=== PATIENT | female | born 1940 | race Caucasian/White ===

== ENCOUNTER 2016-04-10 15:50 | Emergency (ER) | payer MEDICARE, OTHER ==
[2016-04-10] MEDS ORDERED: SODIUM CHLORIDE 0.9% 1,000 ML IV ONE (16:44)
[2016-04-10] MEDS ORDERED: ONDANSETRON 4 MG/2 ML VIAL IVP STA (16:44)
[2016-04-10] MEDS ORDERED: DEXAMETHASONE 10 MG/ML VIAL IVP STA (16:45)
[2016-04-10] MEDS ORDERED: DEXTROSE 5%-0.9% NACL 1,000 ML IV ONE (16:45)
[2016-04-10] MEDS ORDERED: ONDANSETRON 4 MG/2 ML VIAL ONE (16:50)
[2016-04-10] MEDS ORDERED: DEXAMETHASONE 10 MG/ML VIAL ONE (16:50)
[2016-04-10] MEDS ORDERED: TRACE ELEMENTS V CONC 1 ML VIAL IV SCH (19:00)
== END 2016-04-10 18:50 | disposition home or self-care (01) ==
DX: R10.31 Right lower quadrant pain (principal); G89.29 Other chronic pain; F11.23 Opioid dependence with withdrawal; I10 Essential (primary) hypertension; K21.9 Gastro-esophageal reflux disease without esophagitis; F03.90 Unspecified dementia, unspecified severity, without behavioral disturbance, psychotic disturbance, mood disturbance, and anxiety; F17.200 Nicotine dependence, unspecified, uncomplicated; Z90.49 Acquired absence of other specified parts of digestive tract; Z90.710 Acquired absence of both cervix and uterus; Z86.73 Personal history of transient ischemic attack (TIA), and cerebral infarction without residual deficits; Z85.828 Personal history of other malignant neoplasm of skin

== ENCOUNTER 2016-04-16 10:55 | Outpatient (CLI) | payer MEDICARE, OTHER | END 2016-04-16 10:56 | disposition home or self-care (01) | DX: I27.2 Other secondary pulmonary hypertension (principal); J84.10 Pulmonary fibrosis, unspecified; K22.70 Barrett's esophagus without dysplasia ==

== ENCOUNTER 2016-06-04 11:08 | Outpatient (CLI) | payer MEDICARE, OTHER ==
[2016-06-04] MEDS ORDERED: DIPYRIDAMOLE 50 MG/10 ML VIAL IVP ONE (12:00)
== END 2016-06-04 11:09 | disposition home or self-care (01) ==
DX: R10.9 Unspecified abdominal pain (principal)
CPT/HCPCS: 78452; 93017; A9500; J1245

== ENCOUNTER 2016-06-14 16:18 | Outpatient (CLI) | payer MEDICARE, OTHER | END 2016-06-14 16:19 | disposition critical access hospital (66) | DX: R10.9 Unspecified abdominal pain (principal) | CPT/HCPCS: A0425; A0429 ==

== ENCOUNTER 2016-06-14 16:25 | Emergency (ER) | payer MEDICARE, OTHER ==
[2016-06-14] MEDS ORDERED: FOLIC ACID INJ 1 MG, THIAMINE INJ 100 MG, MAGNESIUM SULFATE 2 GM, MULTIVITAMIN 10 ML in... IV STA ×5 (16:53)
[2016-06-14] MEDS ORDERED: HYDROmorphone 1 MG/ML SYRINGE IVP STA ×2 (16:53→18:02)
--- NOTE | 2016-06-14 16:56 | ED Physician Documentation ---
PD HPI ABD PAIN - Stated complaint Stated Complaint: ABD PAIN - Chief complaint Chief Complaint: Abd Pain - History obtained from History obtained from: Patient, EMS - History of Present Illness Timing - onset: Chronic (76-year-old woman with history of ruptured diverticulitis has had daily severe abdominal pain for the last 14 months without remission. She's had multiple studies including upper and lower endoscopies showing Olvera's esophagus, basically negative CT scans. She's been in pain management with her primary care physician. She has no pain medications at home and says the pain is as bad as it always is. It starts in the low abdomen and radiates up, not to the back. It doesn't change with eating. She's been losing weight.) Review of Systems Constitutional: denies: Fever, Chills GI: reports: Abdominal Pain. 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 HEENT: Cataracts Derm: Skin cancer surgery - Present Medications Home Medications: Ambulatory Orders Medication Instructions Recorded Confirmed Losartan [Cozaar] 50 mg PO DAILY 09/13/13 01/31/16 Vitamin E 400 unit PO DAILY 09/13/13 01/31/16 Calcium Carbonate [Tums (Calcium 1,250 mg PO DAILY 01/31/16 01/31/16 Carbonate 500mg)] Cholecalciferol (Vitamin D3) 400 unit PO DAILY 01/31/16 01/31/16 [Vitamin D3] Cholestyramine [Questran] 4 gm PO BID 01/31/16 01/31/16 Fentanyl [Fentanyl 50mcg patch] 50 mcg TOP Q72H 01/31/16 01/31/16 Methylphenidate HCl 5 mg PO BID 01/31/16 01/31/16 Metoclopramide [Reglan] 10 mg PO BID 01/31/16 01/31/16 Metoprolol Tartrate 25 mg PO BID 12/16/16 12/16/16 Multivitamin [Theragran] 1 tab PO DAILY 01/31/16 01/31/16 Venlafaxine ER [Effexor ER] 75 mg PO BIDWM 01/31/16 01/31/16 Amox/Clav 875/125 [Augmentin] 1 each PO Q12H #14 tablet 02/01/16 predniSONE [Deltasone] 20 mg PO [id number] #21 tab 04/10/16 - Allergies Allergies/Adverse Reactions: Allergies Allergy/AdvReac Type Severity Reaction Status Date / Time No Known Drug Allergies Allergy Verified 12/20/15 19:27 - Social History Does the pt smoke?: Yes Smoking Status: Current some day smoker Does the pt drink ETOH?: No Does the pt have substance abuse?: No - Immunizations Immunizations are current?: Yes PD ED PE NORMAL - Vitals Vital signs reviewed: Yes - General General: Alert and oriented X 3, No acute distress - Abdomen Abdomen: Normal bowel sounds, Soft, Non tender - Neuro Neuro: Alert and oriented X 3, Normal speech - Psych Psych: Normal mood, Normal affect Results - Vitals Vitals: Vital Signs - 24 hr 06/14/16 06/14/16 06/14/16 16:29 17:51 19:13 Temperature 37.2 C Heart Rate 87 78 73 Respiratory 18 18 16 Rate Blood Pressure 183/110 H 183/103 H 187/89 H O2 Saturation 99 98 96 Oxygen O2 Source [Without Activity] Nasal cannula O2 Source [With Activity] Nasal cannula O2 Source Room air - Labs Labs: Laboratory Tests 06/14/16 06/14/16 17:30 17:30 WBC 6.4 RBC 4.09 L Hgb 12.7 Hct 37.3 MCV 91.3 MCH 31.1 H MCHC 34.1 RDW 15.1 H Plt Count 196 MPV 8.8 Neut # 4.9 Lymph # 1.1 L [place] # 0.4 Eos # 0.0 Baso # 0.0 Absolute Nucleated RBC 0.00 Nucleated RBCs 0.1 Sodium 138 Potassium 3.7 Chloride 100 L Carbon Dioxide 29 Anion Gap 9.0 BUN 17 Creatinine 0.6 Estimated GFR (MDRD) 97 Glucose 108 H Calcium 9.0 Total Bilirubin 0.5 AST 20 ALT 21 Alkaline Phosphatase 70 Total Protein 6.5 L Albumin 3.8 Globulin 2.7 Albumin/Globulin Ratio 1.4 Lipase 15 L PD MEDICAL DECISION MAKING - ED course ED course: 76-year-old woman with chronic abdominal pain presents by ambulance for same. She doesn't have any pain medications at home. She is frustrated by the whole process, but I discussed with her that I didn't have any diagnostics available at my disposal that would likely lend further differentiation to cause for abdominal pain. She is frustrated by lack of answers and the chronicity of pain. She specifically requests that I send her home with Dilaudid which I discussed with her his against personal policy. I spoke with Dr. Parmar, her physician who recommended 6 Vicodin to go and he will see her tomorrow. Departure - Departure Disposition: Home, Self Care Clinical Impression: Chronic abdominal pain Condition: Good Record reviewed to determine appropriate education?: Yes Comments: Call Dr Parmar's office tomorrow for further guidance and treatment. Your blood pressure was elevated today on check in to the emergency department. This does not mean that you have hypertension, it is a common phenomenon to check into the emergency department and have elevated blood pressure. I recommend that you see your primary care physician within the week to have it rechecked when you're feeling better.
[2016-06-14] MEDS ORDERED: HYDROmorphone 1 MG/ML SYRINGE ONE ×2 (16:57→18:18)
[2016-06-14 17:44] LABS: BASOPHILS % (AUTO) 0.7 %; EOSINOPHILS % (AUTO) 0.2 %; HCT - HEMATOCRIT 37.3 % (37.0-47.0); HGB - HEMOGLOBIN 12.7 g/dL (12.0-16.0); LYMPHOCYTES # (AUTO) 1.1 10^3/uL (1.5-3.5); MEAN CORPUSCULAR HEMOGLOBIN 31.1 pg (27.0-31.0); MEAN CORPUSCULAR HGB CONC 34.1 g/dL (32.0-36.0); MEAN CORPUSCULAR VOLUME 91.3 fL (81.0-99.0); MEAN PLATELET VOLUME 8.8 fL (7.9-10.8); MONOCYTES # (AUTO) 0.4 10^3/uL (0.0-1.0); MONOCYTES % (AUTO) 5.8 %; NEUTROPHILS # (AUTO) 4.9 10^3/uL (1.5-6.6); NEUTROPHILS % (AUTO) 76.3 %; NUCLEATED RED BLOOD CELLS AUTO 0.1 /100WBC; RED BLOOD COUNT 4.09 10^6/uL (4.20-5.40); RED CELL DISTRIBUTION WIDTH 15.1 % (12.0-15.0); UNCORRECTED WHITE BLOOD COUNT 6.4 x10^3/uL; WHITE BLOOD COUNT 6.4 x10^3/uL (4.8-10.8)
[2016-06-14 17:53] LABS: ALBUMIN/GLOBULIN RATIO 1.4 (1.0-2.2); BILIRUBIN,TOTAL 0.5 mg/dL (0.2-1.0); CREATININE 0.6 mg/dL (0.4-1.0); POTASSIUM 3.7 mmol/L (3.5-5.0); TOTAL PROTEIN 6.5 g/dL (6.7-8.2)
[2016-06-14 19:16] VITALS: BP 187/89
[2016-06-14] MEDS ORDERED: HYDROcod/ACET 5/325 Prepack 6 PO STA (19:21)
[2016-06-14] MEDS ORDERED: HYDROcod/ACET 5/325 Prepack 6 PO ONE (19:22)
== END 2016-06-14 19:36 | disposition home or self-care (01) ==
LOC: EDUNIT# → ED 16:25
DX: R10.84 Generalized abdominal pain (principal); G89.29 Other chronic pain; K22.70 Barrett's esophagus without dysplasia; I10 Essential (primary) hypertension; F03.90 Unspecified dementia, unspecified severity, without behavioral disturbance, psychotic disturbance, mood disturbance, and anxiety; Z86.73 Personal history of transient ischemic attack (TIA), and cerebral infarction without residual deficits; K21.9 Gastro-esophageal reflux disease without esophagitis; Z87.11 Personal history of peptic ulcer disease; M19.90 Unspecified osteoarthritis, unspecified site; F17.200 Nicotine dependence, unspecified, uncomplicated
CPT/HCPCS: 80053; 83690; 85025; 96365; 96375; 96376; 99283; 99284

== ENCOUNTER 2016-06-17 14:10 | Emergency (ER) | payer MEDICARE, OTHER ==
[2016-06-17] MEDS ORDERED: ONDANSETRON 4 MG/2 ML VIAL IVP STA (15:14)
[2016-06-17] MEDS ORDERED: HYDROcod/ACETAM 5/325 MG TABLET PO STA (15:14)
[2016-06-17] MEDS ORDERED: SODIUM CHLORIDE 0.9% 1,000 ML IV ONE (15:14)
[2016-06-17] MEDS ORDERED: HYDROcod/ACETAM 5/325 MG TABLET ONE (15:24)
[2016-06-17] MEDS ORDERED: ONDANSETRON 4 MG/2 ML VIAL ONE (15:24)
[2016-06-17] MEDS ORDERED: IOPAMIDOL-300 100 ML VIAL IVP ONE (16:43)
[2016-06-17] MEDS ORDERED: KETOROLAC 60 MG/2 ML VIAL IVP STA (17:33)
[2016-06-17] MEDS ORDERED: KETOROLAC 30 MG/ML VIAL ONE (17:34)
== END 2016-06-17 17:48 | disposition home or self-care (01) ==
DX: K59.01 Slow transit constipation (principal); R10.84 Generalized abdominal pain; G89.29 Other chronic pain; I10 Essential (primary) hypertension; K21.9 Gastro-esophageal reflux disease without esophagitis; Z87.11 Personal history of peptic ulcer disease; M19.90 Unspecified osteoarthritis, unspecified site; Z87.891 Personal history of nicotine dependence
CPT/HCPCS: 74177; 80053; 81003; 83690; 85025; 96374; 96375; 99283; 99284; Q9967

== ENCOUNTER 2016-07-21 10:36 | Outpatient (CLI) | payer MEDICARE, OTHER ==
[2016-07-21 10:57] LABS: BASOPHILS % (AUTO) 0.5 %; EOSINOPHILS # (AUTO) 0.1 10^3/uL (0.0-0.7); EOSINOPHILS % (AUTO) 1.1 %; HCT - HEMATOCRIT 40.9 % (37.0-47.0); HGB - HEMOGLOBIN 13.7 g/dL (12.0-16.0); LYMPHOCYTES # (AUTO) 2.2 10^3/uL (1.5-3.5); MEAN CORPUSCULAR HEMOGLOBIN 31.5 pg (27.0-31.0); MEAN CORPUSCULAR HGB CONC 33.6 g/dL (32.0-36.0); MEAN CORPUSCULAR VOLUME 93.9 fL (81.0-99.0); MEAN PLATELET VOLUME 7.4 fL (7.9-10.8); MONOCYTES # (AUTO) 0.5 10^3/uL (0.0-1.0); MONOCYTES % (AUTO) 7.5 %; NEUTROPHILS # (AUTO) 4.3 10^3/uL (1.5-6.6); NEUTROPHILS % (AUTO) 59.9 %; RED BLOOD COUNT 4.35 10^6/uL (4.20-5.40); RED CELL DISTRIBUTION WIDTH 14.3 % (12.0-15.0); UNCORRECTED WHITE BLOOD COUNT 7.2 x10^3/uL; WHITE BLOOD COUNT 7.2 x10^3/uL (4.8-10.8)
[2016-07-21 11:09] LABS: ALBUMIN/GLOBULIN RATIO 1.4 (1.0-2.2); BILIRUBIN,TOTAL 0.6 mg/dL (0.2-1.0); CALCIUM 9.7 mg/dL (8.5-10.3); CREATININE 0.7 mg/dL (0.4-1.0); POTASSIUM 3.8 mmol/L (3.5-5.0)
== END 2016-07-21 10:37 | disposition home or self-care (01) ==
LOC: LAB 10:36
PROVIDERS: ATTEND Internal Medicine Gastroenterology
DX: R10.13 Epigastric pain (principal); R63.4 Abnormal weight loss; R11.0 Nausea
CPT/HCPCS: 36415; 80053; 82533; 84443; 85025; 85651; G0475; 87389

== ENCOUNTER 2016-11-09 14:42 | Outpatient (CLI) | payer MEDICARE, OTHER ==
--- NOTE | 2016-11-09 15:41 | XRAY Report ---
TWO VIEW CHEST: 11/09/2016 CLINICAL INDICATION: Cough. COMPARISON: 01/31/2016. FINDINGS: Frontal and lateral views of the chest demonstrate a normal cardiac silhouette. COPD and f ibrosis is stable. No new consolidation, effusion, or pneumothorax is present. IMPRESSION: STABLE COPD AND FIBROSIS. NO EVIDENCE OF ACUTE CARDIOPULMONARY DISEASE. JOB #: [id number] EXT JOB #:[id number]
== END 2016-11-09 14:43 | disposition home or self-care (01) ==
LOC: DI 14:42
PROVIDERS: ATTEND Specialist
DX: J18.9 Pneumonia, unspecified organism (principal); J44.9 Chronic obstructive pulmonary disease, unspecified; J84.10 Pulmonary fibrosis, unspecified
CPT/HCPCS: 36415; 71020; 80053; 85025

== ENCOUNTER 2016-11-09 15:22 | Outpatient (CLI) | payer MEDICARE, OTHER ==
[2016-11-09 15:54] LABS: HGB - HEMOGLOBIN 13.9 g/dL (12.0-16.0); MONOCYTES # (AUTO) 0.6 10^3/uL (0.0-1.0); UNCORRECTED WHITE BLOOD COUNT 8.1 x10^3/uL; WHITE BLOOD COUNT 8.1 x10^3/uL (4.8-10.8)
[2016-11-09 16:12] LABS: BASOPHILS % (AUTO) 0.6 %; EOSINOPHILS # (AUTO) 0.2 10^3/uL (0.0-0.7); EOSINOPHILS % (AUTO) 1.9 %; HCT - HEMATOCRIT 41.5 % (37.0-47.0); LYMPHOCYTES # (AUTO) 1.6 10^3/uL (1.5-3.5); LYMPHOCYTES % (AUTO) 20.1 %; MEAN CORPUSCULAR HEMOGLOBIN 32.2 pg (27.0-31.0); MEAN CORPUSCULAR HGB CONC 33.5 g/dL (32.0-36.0); MEAN CORPUSCULAR VOLUME 96.1 fL (81.0-99.0); MEAN PLATELET VOLUME 7.9 fL (7.9-10.8); MONOCYTES % (AUTO) 7.1 %; NEUTROPHILS # (AUTO) 5.7 10^3/uL (1.5-6.6); NEUTROPHILS % (AUTO) 70.3 %; RED BLOOD COUNT 4.31 10^6/uL (4.20-5.40)
[2016-11-09 16:13] LABS: ALBUMIN/GLOBULIN RATIO 1.4 (1.0-2.2); BILIRUBIN,TOTAL 0.5 mg/dL (0.2-1.0); CALCIUM 9.1 mg/dL (8.5-10.3); CREATININE 0.6 mg/dL (0.4-1.0); POTASSIUM 3.8 mmol/L (3.5-5.0); TOTAL PROTEIN 6.8 g/dL (6.7-8.2)
== END 2016-11-09 15:23 | disposition home or self-care (01) ==
LOC: LAB 15:22
PROVIDERS: ATTEND Specialist
DX: J18.9 Pneumonia, unspecified organism (principal)
CPT/HCPCS: 36415; 80053; 85025

== ENCOUNTER 2017-01-13 09:18 | Outpatient (CLI) | payer MEDICARE, OTHER ==
--- NOTE | 2017-01-14 10:06 | DEXA Report ---
DEXA SCAN: 01/13/2017 CLINICAL INDICATION: Postmenopausal. TECHNIQUE: Dual energy x-ray absorptiometry (DXA) was performed on a [employer] system. Regions measured are the AP spine, femoral neck, and, if needed, forearm. COMPARISON: None. In accordance with the International Society for Clinical Densitometry (ISCD) guidelines, data from previous exams may be reanalyzed using current recommendations and techniques. This is done to allow a more accurate basis for comparison with the current study. FINDINGS LUMBAR SPINE DATA: REGION BMD (g/cm/cm) T-SCORE Z-SCORE L1 1.526 3.3 5.5 L2 1.623 3.5 5.7 L3 1.566 3.0 5.2 L4 1.609 3.4 5.6 TOTAL 1.583 3.4 5.6 NOTE: All evaluable vertebrae are used for classification. HIP DATA: REGION BMD (g/cm/cm) T-SCORE Z-SCORE Neck 0.893 -1.0 1.2 TOTAL 0.872 -1.1 1.0 NOTE: The femoral neck or total proximal femur, whichever is lowest, is used for classification. IMPRESSION THE WHO CLASSIFICATION BASED ON THE INTERNATIONAL REFERENCE STANDARD: OSTEOPENIA. FRACTURE RISK: INCREASED. RECOMMENDATION: Patients with diagnosis of osteoporosis or osteopenia should have regular bone mineral density assessment. For those eligible for Medicare, routine testing is allowed once every 2 years. Testing frequency can be increased for patients who have rapidly progressing disease or for those who are receiving medical therapy to restore bone mass. COMMENT: World Health Organization (WHO) definitions for osteoporosis and osteopenia: NORMAL BMD: T-score at -1.0 or higher, fracture risk is low. OSTEOPENIA BMD: T-score between -1.0 and -2.5, fracture risk is increased. OSTEOPOROSIS BMD: T-score at -2.5 or lower, fracture risk high. National Osteoporosis Foundation recommends: 1. Obtain adequate dietary calcium (at least 1200 mg per day) and vitamin D (400 -800 international units per day). 2. Participate, as appropriate, in regular weightbearing and muscle- strengthening exercise. 3. Avoid tobacco use and reduce alcohol and caffeine intake. 4. For more detailed information see the website at www.NOF.org. MTDD
== END 2017-01-13 09:19 | disposition home or self-care (01) ==
LOC: DI 09:18
PROVIDERS: ATTEND Family Medicine
DX: Z13.820 Encounter for screening for osteoporosis (principal); M85.88 Other specified disorders of bone density and structure, other site; Z78.0 Asymptomatic menopausal state
CPT/HCPCS: 77080

== ENCOUNTER 2017-01-13 09:19 | Outpatient (CLI) | payer MEDICARE, OTHER ==
--- NOTE | 2017-01-14 20:26 | Mammography Report ---
DIGITAL SCREENING MAMMOGRAM: 01/13/2017 CLINICAL INDICATION: A 76-year-old for screening. COMPARISON: 11/2015, 03/2014, 09/2012, 09/2010, 09/2009. TECHNIQUE: Routine CC and MLO projections as well as bilateral laterally exaggerated craniocaudal vi ews were obtained of the breasts. The breasts again demonstrate heterogeneously dense fibroglandular parenchyma bilaterally. Coarse an d punctate, typically benign calcifications are present. No suspicious masses, clustered microcalcif ications, or regions of architectural distortion are identified. IMPRESSION: BENIGN FINDINGS. RECOMMENDATION: ROUTINE ANNUAL SCREENING UNLESS OTHERWISE CLINICALLY INDICATED. BIRADS CATEGORY: 2, BENIGN FINDINGS. STANDARD QUALIFYING STATEMENTS 1. This examination was reviewed with the aid of Computed-Aided Detection (CAD). 2. A negative or benign imaging report should not delay biopsy if clinically suspicious findings are present. Consider surgical consultation if warranted. More than 5% of cancers are not identified b y imaging. 3. Dense breasts may obscure an underlying neoplasm. JOB #: [id number] EXT JOB #:[id number]
== END 2017-01-13 09:20 | disposition home or self-care (01) ==
LOC: DI 09:19
PROVIDERS: ATTEND Family Medicine
DX: Z12.31 Encounter for screening mammogram for malignant neoplasm of breast (principal)
CPT/HCPCS: 77067

== ENCOUNTER 2017-03-09 15:31 | Emergency (ER) | payer MEDICARE, OTHER ==
--- NOTE | 2017-03-09 15:57 | ED Physician Documentation ---
PD HPI DYSPNEA - Stated complaint Stated Complaint: SOA/LOW OXYGEN - Chief complaint Chief Complaint: General - History obtained from History obtained from: Patient, Family - History of Present Illness Timing - onset: How many weeks ago (2) Timing - onset during: Rest Timing - duration: Weeks (2) Timing - details: Gradual onset, Still present Inciting event(s): URI Improved by: Rest Worsened by: Exertion, Coughing Associated symptoms: Cough. No: Fever, Chest pain / discomfort Similar symptoms before: Diagnosis (pneumonia) Recently seen: Not recently seen - Additional information Additional information: 76-year-old female with a history of pulmonary fibrosis has developed a cough over the past 2 weeks. She has had some confusion intermittently and has a past history of pneumonia for which she spent about 2 weeks in the hospital. Review of Systems Constitutional: reports: Fatigue. denies: Fever, Chills, Myalgias Eyes: denies: Decreased vision Ears: denies: Ear pain Nose: reports: Congestion Throat: denies: Sore throat Cardiac: denies: Chest pain / pressure, Palpitations Respiratory: reports: Dyspnea, Cough GI: denies: Abdominal Pain, Nausea, Vomiting : denies: Dysuria, Frequency Skin: denies: Rash PD PAST MEDICAL HISTORY - Past Medical History Cardiovascular: Hypertension Respiratory: Pneumonia Neuro: Dementia, CVA Endocrine/Autoimmune: None GI: GERD, Ulcers, Diverticulitis : None HEENT: Other Psych: Depression, Anxiety Musculoskeletal: Osteoarthritis, Chronic back pain Derm: Herpes zoster - Past Surgical History Past Surgical History: Yes General: Cholecystectomy, 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 HEENT: Cataracts Derm: Skin cancer surgery - Present Medications Home Medications: Ambulatory Orders Medication Instructions Recorded Confirmed Losartan [Cozaar] 50 mg PO DAILY 09/13/13 03/09/17 Vitamin E 400 unit PO DAILY 09/13/13 03/09/17 Calcium Carbonate [Tums (Calcium 1,250 mg PO DAILY 01/31/16 03/09/17 Carbonate 500mg)] Cholecalciferol (Vitamin D3) 400 unit PO DAILY 01/31/16 03/09/17 [Vitamin D3] Methylphenidate HCl 5 mg PO BID 01/31/16 03/09/17 Metoclopramide [Reglan] 10 mg PO BID 01/31/16 03/09/17 Metoprolol Tartrate 25 mg PO BID 01/31/16 03/09/17 Multivitamin [Theragran] 1 tab PO DAILY 01/31/16 03/09/17 Venlafaxine ER [Effexor ER] 75 mg PO BIDWM 01/31/16 03/09/17 fentaNYL [Fentanyl 50mcg patch] 50 mcg TOP Q72H 01/31/16 03/09/17 Peg 3350/Na Sulf,Bicarb,Cl/KCl 4,000 ml PO ONCE #1 bottle 06/17/16 03/09/17 [Golytely] Azithromycin [Zithromax] 250 mg PO DAILY #6 tablet 03/09/17 predniSONE [Prednisone] 20 mg PO DAILY 03/09/17 03/09/17 - Allergies Allergies/Adverse Reactions: Allergies Allergy/AdvReac Type Severity Reaction Status Date / Time No Known Drug Allergies Allergy Verified 06/17/16 14:23 - Social History Does the pt smoke?: No Smoking Status: Former smoker Does the pt drink ETOH?: No Does the pt have substance abuse?: No - Immunizations Immunizations are current?: Yes PD ED PE NORMAL - Vitals Vital signs reviewed: Yes (Normal) - General General: No acute distress, Well developed/nourished, Other (76-year-old female who is alert and interactive does not make missteps in her talking here with me today. She has a broad smile on her face and makes easy conversation.) - HEENT HEENT: Atraumatic, PERRL, EOMI, Moist mucous membranes, Pharynx benign, Other ( Both TMs are inflamed the right is more than the left mostly in the attic.) - Neck Neck: Supple, no meningeal sign, No bony TTP - Cardiac Cardiac: RRR, No murmur - Respiratory Respiratory: No respiratory distress, Other (Scattered wheezes and rhonchi but with fair air movement.) - Abdomen Abdomen: Soft, Non tender - Back Back: No CVA TTP, No spinal TTP - Derm Derm: Normal color, Warm and dry, No rash - Extremities Extremities: No deformity, No edema - Neuro Neuro: No motor deficit, No sensory deficit Eye Opening: Spontaneous Motor: Obeys Commands Verbal: Oriented GCS Score: 15 - Psych Psych: Normal mood, Normal affect Results - Vitals Vitals: Vital Signs - 24 hr 03/09/17 03/09/17 03/09/17 15:35 16:30 16:39 Temperature 35.9 C L Heart Rate 65 66 Respiratory 16 17 Rate Blood Pressure 130/77 124/75 O2 Saturation 96 95 Oxygen O2 Source [Without Activity] Nasal cannula O2 Source [With Activity] Nasal cannula O2 Source Room air - Labs Labs: Laboratory Tests 03/09/17 03/09/17 03/09/17 16:04 16:04 16:04 WBC 10.8 RBC 4.49 Hgb 14.2 Hct 42.4 MCV 94.4 MCH 31.5 H MCHC 33.4 RDW 13.9 Plt Count 230 MPV 7.4 L Neut # 9.4 H Lymph # 1.0 L [place] # 0.3 Eos # 0.0 Baso # 0.0 Absolute Nucleated RBC 0.00 Nucleated RBC % 0.0 Sodium 138 Potassium 4.2 Chloride 95 L Carbon Dioxide 30 Anion Gap 13.0 BUN 18 Creatinine 0.9 Estimated GFR (MDRD) 61 L Glucose 117 H Calcium 9.0 Total Bilirubin 0.7 AST 29 ALT 31 Alkaline Phosphatase 76 Troponin I < 0.04 Total Protein 6.8 Albumin 3.8 Globulin 3.0 Albumin/Globulin Ratio 1.3 Lipase 14 L - Rads (name of study) 2 veiw chest Radiology: Prelim report reviewed (Impression: No acute disease.), EMP read indepedently, See rad report Procedures - IVC sono (time) 1700 Bedside IVC sono: IVC measures (cm) (1.78), Euvolemia PD MEDICAL DECISION MAKING - ED course Complexity details: reviewed old records, reviewed results, re-evaluated patient , considered differential, d/w patient, d/w family ED course: 76-year-old female with some cough and congestion has otitis on examination she has clear lungs on x-ray and no normal electrocardiogram and normal electrolytes and blood counts. Departure - Departure Disposition: 01 Home, Self Care Clinical Impression: Otitis media Qualifiers: Otitis media type: suppurative Chronicity: acute Laterality: bilateral Recurrence: not specified as recurrent Spontaneous tympanic membrane rupture: without spontaneous rupture Qualified Code(s): H66.003 - Acute suppurative otitis media without spontaneous rupture of ear drum, bilateral Condition: Stable Instructions: ED Otitis Media Acute Adult Follow-Up: Kavin Parmar DO [Primary Care Provider] - Prescriptions: Azithromycin [Zithromax] 250 mg PO DAILY #6 tablet
[2017-03-09 16:12] LABS: BASOPHILS % (AUTO) 0.3 %; EOSINOPHILS % (AUTO) 0.3 %; HGB - HEMOGLOBIN 14.2 g/dL (12.0-16.0); LYMPHOCYTES % (AUTO) 9.2 %; MEAN CORPUSCULAR HEMOGLOBIN 31.5 pg (27.0-31.0); MEAN CORPUSCULAR HGB CONC 33.4 g/dL (32.0-36.0); MEAN CORPUSCULAR VOLUME 94.4 fL (81.0-99.0); MEAN PLATELET VOLUME 7.4 fL (7.9-10.8); MONOCYTES # (AUTO) 0.3 10^3/uL (0.0-1.0); MONOCYTES % (AUTO) 2.7 %; NEUTROPHILS # (AUTO) 9.4 10^3/uL (1.5-6.6); NEUTROPHILS % (AUTO) 87.5 %; PLT - PLATELET COUNT 230 10^3/uL (130-450); RED BLOOD COUNT 4.49 10^6/uL (4.20-5.40); RED CELL DISTRIBUTION WIDTH 13.9 % (12.0-15.0); WHITE BLOOD COUNT 10.8 x10^3/uL (4.8-10.8)
[2017-03-09 16:24] LABS: ALBUMIN 3.8 g/dL (3.2-5.5); ALBUMIN/GLOBULIN RATIO 1.3 (1.0-2.2); BILIRUBIN,TOTAL 0.7 mg/dL (0.2-1.0); CREATININE 0.9 mg/dL (0.4-1.0); TOTAL PROTEIN 6.8 g/dL (6.7-8.2)
--- NOTE | 2017-03-09 16:53 | XRAY Report ---
EXAM: CHEST RADIOGRAPHY EXAM DATE: 03/09/2017 04:28 PM. CLINICAL HISTORY: Chest pain soa. COMPARISON: 11/09/2016. TECHNIQUE: 2 views. FINDINGS: Lungs/Pleura: Mild interstitial prominence similar to previous study. No definite localized infiltrat e, consolidation, effusion, or pneumothorax. Mild bilateral apical pleural thickening unchanged. Mediastinum: Heart and mediastinal contours are unremarkable. Upper lobe vessels not distended. Other: Scoliosis, degenerative changes. IMPRESSION: No acute disease. [facility] Referring Provider Line: [phone] SITE ID: [id number]
[2017-03-09] MEDS ORDERED: DEXAMETHASONE 10 MG/ML VIAL IVP STA (17:09)
[2017-03-09 17:27] VITALS: BP 133/89
== END 2017-03-09 17:27 | disposition home or self-care (01) ==
LOC: ED 15:31
DX: H66.003 Acute suppurative otitis media without spontaneous rupture of ear drum, bilateral (principal); J84.10 Pulmonary fibrosis, unspecified; I10 Essential (primary) hypertension; K21.9 Gastro-esophageal reflux disease without esophagitis; M19.90 Unspecified osteoarthritis, unspecified site; F03.90 Unspecified dementia, unspecified severity, without behavioral disturbance, psychotic disturbance, mood disturbance, and anxiety; Z86.73 Personal history of transient ischemic attack (TIA), and cerebral infarction without residual deficits; Z87.11 Personal history of peptic ulcer disease; Z87.891 Personal history of nicotine dependence
CPT/HCPCS: 36415; 71046; 80053; 83690; 84484; 85025; 93005; 96374; 99284

== ENCOUNTER 2017-06-12 16:17 | Emergency (ER) | payer MEDICARE, OTHER ==
[2017-06-12 16:26] VITALS: BP 133/90
--- NOTE | 2017-06-12 16:49 | ED Physician Documentation ---
PD HPI ABD PAIN - Stated complaint Stated Complaint: STOMACH PX - Chief complaint Chief Complaint: Abd Pain - History obtained from History obtained from: Patient, Family - History of Present Illness Timing - onset: Chronic Timing - duration: Years Timing - details: Constant Pain level max: 4 Pain level now: 4 Quality: Aching, Dull, Pain Location: Suprapubic Radiation: No: Chest, , Lower back, Left flank, Left shoulder, Right flank, Right shoulder, Upper back Improved by: No: Eating, Laying still, Vomiting, BM, Position, Meds Worsened by: Palpation. No: Eating, Moving, Breathing, Position Associated symptoms: Dysuria (states unable to pee, but urinated normally this am). No: Fever, Nausea, Vomiting, Hematemesis, Diarrhea, Constipation, Melena, Hematochezia Recently seen: Not recently seen Review of Systems Ten Systems: 10 systems reviewed and negative Constitutional: denies: Fever, Chills Ears: denies: Ear pain Nose: denies: Rhinorrhea / runny nose, Congestion Throat: denies: Sore throat Cardiac: denies: Chest pain / pressure Respiratory: denies: Cough, Wheezing GI: denies: Nausea, Vomiting, Diarrhea, Hematemesis, Bloody / black stool : reports: Dysuria, Hesitancy. 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 HEENT: Cataracts Derm: Skin cancer surgery - Present Medications Home Medications: Ambulatory Orders Medication Instructions Recorded Confirmed Losartan [Cozaar] 50 mg PO DAILY 09/13/13 03/09/17 Vitamin E 400 unit PO DAILY 09/13/13 03/09/17 Calcium Carbonate [Tums (Calcium 1,250 mg PO DAILY 01/31/16 03/09/17 Carbonate 500mg)] Cholecalciferol (Vitamin D3) 400 unit PO DAILY 01/31/16 03/09/17 [Vitamin D3] Methylphenidate HCl 5 mg PO BID 01/31/16 03/09/17 Metoclopramide [Reglan] 10 mg PO BID 01/31/16 03/09/17 Metoprolol Tartrate 25 mg PO BID 01/31/16 03/09/17 Multivitamin [Theragran] 1 tab PO DAILY 01/31/16 03/09/17 Venlafaxine ER [Effexor ER] 75 mg PO BIDWM 01/31/16 03/09/17 fentaNYL [Fentanyl 50mcg patch] 50 mcg TOP Q72H 01/31/16 03/09/17 Peg 3350/Na Sulf,Bicarb,Cl/KCl 4,000 ml PO ONCE #1 bottle 06/17/16 03/09/17 [Golytely] Azithromycin [Zithromax] 250 mg PO DAILY #6 tablet 03/09/17 predniSONE [Prednisone] 20 mg PO DAILY 03/09/17 03/09/17 Cephalexin [Keflex] 500 mg PO Q6H #20 capsule 06/12/17 - Allergies Allergies/Adverse Reactions: Allergies Allergy/AdvReac Type Severity Reaction Status Date / Time No Known Drug Allergies Allergy Verified 06/17/16 14:23 - Social History Does the pt smoke?: No Smoking Status: Former smoker Does the pt drink ETOH?: No Does the pt have substance abuse?: No - Immunizations Immunizations are current?: Yes PD ED PE NORMAL - Vitals Vital signs reviewed: Yes - General General: Alert and oriented X 3, No acute distress - HEENT HEENT: Moist mucous membranes - Neck Neck: Supple, no meningeal sign - Cardiac Cardiac: RRR - Respiratory Respiratory: No respiratory distress, Clear bilaterally - Abdomen Abdomen: Soft, Non tender, Non distended - Back Back: No CVA TTP, No spinal TTP - Derm Derm: Warm and dry, No rash - Extremities Extremities: No edema, No calf tenderness / cord - Neuro Neuro: Alert and oriented X 3 - Psych Psych: Normal mood, Normal affect Results - Vitals Vitals: Vital Signs - 24 hr 06/12/17 16:23 Temperature 36.1 C L Heart Rate 88 Respiratory 16 Rate Blood Pressure 133/90 H O2 Saturation 90 L Oxygen O2 Source [Without Activity] Nasal cannula O2 Source [With Activity] Nasal cannula O2 Source Room air - Labs Labs: Laboratory Tests 06/12/17 06/12/17 06/12/17 15:20 16:48 16:48 WBC 8.7 RBC 4.46 Hgb 13.9 Hct 42.7 MCV 95.7 MCH 31.2 H MCHC 32.6 RDW 14.6 Plt Count 282 MPV 7.1 L Neut # 7.2 H Lymph # 1.1 L [place] # 0.4 Eos # 0.0 Baso # 0.0 Absolute Nucleated RBC 0.01 Nucleated RBC % 0.1 Sodium 138 Potassium 3.4 L Chloride 96 L Carbon Dioxide 32 Anion Gap 10.0 BUN 16 Creatinine 0.8 Estimated GFR (MDRD) 70 L Glucose 112 H Calcium 8.6 Total Bilirubin 0.7 AST 21 ALT 26 Alkaline Phosphatase 81 Total Protein 6.7 Albumin 3.8 Globulin 2.9 Albumin/Globulin Ratio 1.3 Lipase 10 L Urine Color YELLOW Urine Clarity CLEAR Urine pH 6.0 Ur Specific [place] >=1.030 H Urine Protein 30 H Urine Glucose (UA) NEGATIVE Urine Ketones NEGATIVE Urine Occult Blood NEGATIVE Urine Nitrite NEGATIVE Urine Bilirubin NEGATIVE Urine Urobilinogen 0.2 (NORMAL) Ur Leukocyte Esterase NEGATIVE Urine RBC 0-5 Urine WBC 6-10 H Urine WBC Clumps PRESENT Ur Epithelial Cells FEW Transitional Ur Squamous Epith Cells RARE Squamous Urine Bacteria Rare Urine Casts 3-5 Hyaline Casts Urine Mucus Few Strands Ur Microscopic Review INDICATED Urine Culture Comments INDICATED PD MEDICAL DECISION MAKING - ED course Complexity details: reviewed results, re-evaluated patient, considered differential, d/w patient, d/w family ED course: Patient is a 77-year-old female who presents to the emergency department with dysuria, found to have a UTI. She is otherwise well-appearing, nontoxic. Has chronic abdominal pain, unchanged from her baseline. No fevers. No vomiting. Given Rocephin and will start on antibiotics for home. Patient counseled regarding signs and symptoms for which I believe and urgent re-evaluation would be necessary. Patient with good understanding of and agreement to plan and is comfortable going home at this time This document was made in part using voice recognition software. While efforts are made to proofread this document, sound alike and grammatical errors may occur. Departure - Departure Disposition: 01 Home, Self Care Clinical Impression: UTI (urinary tract infection) Qualifiers: Urinary tract infection type: acute cystitis Hematuria presence: without hematuria Qualified Code(s): N30.00 - Acute cystitis without hematuria Condition: Good Instructions: ED UTI Cystitis Female Follow-Up: Kavin Parmar DO [Primary Care Provider] - Within 1 week Prescriptions: Cephalexin [Keflex] 500 mg PO Q6H #20 capsule Comments: Take all antibiotics until gone. Return if you worsen. Discharge Date/Time: 06/12/17 18:38
[2017-06-12 17:03] LABS: BASOPHILS % (AUTO) 0.3 %; EOSINOPHILS % (AUTO) 0.2 %; HGB - HEMOGLOBIN 13.9 g/dL (12.0-16.0); LYMPHOCYTES # (AUTO) 1.1 10^3/uL (1.5-3.5); LYMPHOCYTES % (AUTO) 12.2 %; MEAN CORPUSCULAR HEMOGLOBIN 31.2 pg (27.0-31.0); MEAN CORPUSCULAR HGB CONC 32.6 g/dL (32.0-36.0); MEAN CORPUSCULAR VOLUME 95.7 fL (81.0-99.0); MEAN PLATELET VOLUME 7.1 fL (7.9-10.8); MONOCYTES # (AUTO) 0.4 10^3/uL (0.0-1.0); MONOCYTES % (AUTO) 4.6 %; NEUTROPHILS # (AUTO) 7.2 10^3/uL (1.5-6.6); NEUTROPHILS % (AUTO) 82.7 %; PLT - PLATELET COUNT 282 10^3/uL (130-450); RED BLOOD COUNT 4.46 10^6/uL (4.20-5.40); RED CELL DISTRIBUTION WIDTH 14.6 % (12.0-15.0); WHITE BLOOD COUNT 8.7 x10^3/uL (4.8-10.8)
[2017-06-12 17:23] LABS: ALBUMIN 3.8 g/dL (3.2-5.5); ALBUMIN/GLOBULIN RATIO 1.3 (1.0-2.2); BILIRUBIN,TOTAL 0.7 mg/dL (0.2-1.0); CALCIUM 8.6 mg/dL (8.5-10.3); CREATININE 0.8 mg/dL (0.4-1.0); TOTAL PROTEIN 6.7 g/dL (6.7-8.2)
[2017-06-12 17:36] LABS: BILIRUBIN,URINE NEGATIVE (NEGATIVE); GLUCOSE, URINE (UA) NEGATIVE (NEGATIVE); KETONES,URINE (UA) NEGATIVE (NEGATIVE); LEUKOCYTE ESTERASE, URINE NEGATIVE (NEGATIVE); NITRITE,URINE NEGATIVE (NEGATIVE); OCCULT BLOOD,URINE NEGATIVE (NEGATIVE); PROTEIN,URINE 30 mg/dL (NEGATIVE); UROBILINOGEN,URINE 0.2 (NORMAL) E.U./dL (NORMAL)
[2017-06-12 17:56] LABS: BACTERIA,URINE Rare /HPF (None Seen); CLARITY,URINE CLEAR (CLEAR); EPITHELIAL CELLS,UR FEW Transitional /HPF (<= Few); RBC,URINE 0-5 /HPF (0-5); SQUAMOUS EPITHELIAL CELL,UR RARE Squamous (<= Few); WBC CLUMPS,URINE PRESENT
[2017-06-12 17:57] LABS: CASTS, URINE 3-5 Hyaline Casts /LPF; MUCUS,URINE Few Strands
[2017-06-12] MEDS ORDERED: cefTRIAXone 1 GM VIAL IVP STA (18:11)
== END 2017-06-12 18:38 | disposition home or self-care (01) ==
LOC: ED 16:17
DX: N30.00 Acute cystitis without hematuria (principal); I10 Essential (primary) hypertension; F03.90 Unspecified dementia, unspecified severity, without behavioral disturbance, psychotic disturbance, mood disturbance, and anxiety; K21.9 Gastro-esophageal reflux disease without esophagitis; M19.90 Unspecified osteoarthritis, unspecified site; Z86.73 Personal history of transient ischemic attack (TIA), and cerebral infarction without residual deficits; Z87.11 Personal history of peptic ulcer disease; Z87.891 Personal history of nicotine dependence
CPT/HCPCS: 36415; 51701; 80053; 81001; 81003; 83690; 85025; 87086; 96374; 99283

== ENCOUNTER 2017-06-20 16:42 | Emergency (ER) | payer MEDICARE, OTHER ==
--- NOTE | 2017-06-20 18:43 | ED Physician Documentation ---
PD HPI ABD PAIN - Stated complaint Stated Complaint: STOMACH PX, FEMALE - Chief complaint Chief Complaint: Abd Pain - History obtained from History obtained from: Patient - History of Present Illness Timing - onset: How many days ago (3) Timing - duration: Days (3) Timing - details: Abrupt onset, Still present Quality: Cramping, Aching, Pain Location: Suprapubic, LLQ Radiation: No: Lower back, Left flank, Right flank Improved by: BM. No: Eating, Position Worsened by: Palpation. No: Eating, Position Associated symptoms: Nausea, Diarrhea (4-6 times daily, with developed some rectal soreness, particularly with wiping.). No: Fever, Vomiting, Near syncope / syncope, Loss of appetite, Weight loss Similar symptoms before: Diagnosis (similiar symptoms with diverticulitis in the past.) Recently seen: Clinic (had UTI and was on abx, just finished 2 days ago.) Review of Systems Constitutional: reports: Chills, Myalgias. denies: Fever Nose: denies: Rhinorrhea / runny nose, Congestion Throat: denies: Sore throat Respiratory: denies: Cough GI: reports: Abdominal Pain, Nausea, Diarrhea. 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 HEENT: Cataracts Derm: Skin cancer surgery - Present Medications Home Medications: Ambulatory Orders Medication Instructions Recorded Confirmed Losartan [Cozaar] 50 mg PO DAILY 09/13/13 03/09/17 Vitamin E 400 unit PO DAILY 09/13/13 03/09/17 Cholecalciferol (Vitamin D3) 400 unit PO DAILY 01/31/16 03/09/17 [Vitamin D3] Metoprolol Tartrate 25 mg PO BID 01/31/16 03/09/17 Multivitamin [Theragran] 1 tab PO DAILY 01/31/16 03/09/17 Venlafaxine ER [Effexor ER] 75 mg PO BIDWM 01/31/16 03/09/17 predniSONE [Prednisone] 5 mg PO DAILY 03/09/17 03/09/17 Diphenoxylate/Atropine [Lomotil] 1 each PO QID PRN #16 tablet 06/20/17 Naproxen 375 mg PO BID #20 tablet 06/20/17 Saccharomyces Boulardii [Florastor] 250 mg PO BID #20 capsule 06/20/17 - Allergies Allergies/Adverse Reactions: Allergies Allergy/AdvReac Type Severity Reaction Status Date / Time No Known Drug Allergies Allergy Verified 06/17/16 14:23 - Social History Does the pt smoke?: No Smoking Status: Never smoker Does the pt drink ETOH?: No Does the pt have substance abuse?: No - Immunizations Immunizations are current?: Yes PD ED PE NORMAL - Vitals Vital signs reviewed: Yes - General General: Alert and oriented X 3, No acute distress, Well developed/nourished - HEENT HEENT: Ears normal, Moist mucous membranes, Pharynx benign - Neck Neck: Supple, no meningeal sign, No adenopathy - Cardiac Cardiac: RRR, No murmur - Respiratory Respiratory: Clear bilaterally - Abdomen Abdomen: Normal bowel sounds, Soft, Non distended, No organomegaly, Other (some tenderness in lower abd mid to left, without guarding nor percussion tenderness. ) - Female Female : Deferred - Rectal Rectal: Deferred - Back Back: No CVA TTP - Derm Derm: Normal color, Warm and dry, No rash - Extremities Extremities: No deformity, Normal ROM s pain - Neuro Neuro: Alert and oriented X 3, No motor deficit, Normal speech Results - Vitals Vitals: Vital Signs - 24 hr 06/20/17 06/20/17 06/20/17 16:53 18:12 19:14 Temperature 36 C L Heart Rate 78 58 L 58 L Respiratory 16 18 18 Rate Blood Pressure 200/116 H 168/106 H 177/89 H O2 Saturation 96 91 L 91 L 06/20/17 06/20/17 06/20/17 20:13 20:46 21:45 Temperature 36.7 C Heart Rate 78 83 72 Respiratory 14 18 18 Rate Blood Pressure 198/110 H 190/107 H 184/99 H O2 Saturation 89 L 93 93 Oxygen O2 Source [Without Activity] Nasal cannula O2 Source [With Activity] Nasal cannula O2 Source Room air - Labs Labs: Laboratory Tests 06/20/17 06/20/17 06/20/17 19:06 19:06 19:06 WBC 6.9 RBC 4.43 Hgb 13.7 Hct 41.8 MCV 94.3 MCH 30.9 MCHC 32.8 RDW 14.0 Plt Count 214 MPV 7.5 L Neut # 5.5 Lymph # 0.7 L [place] # 0.6 Eos # 0.0 Baso # 0.0 Absolute Nucleated RBC 0.00 Nucleated RBC % 0.1 ESR 7 Sodium 136 Potassium 3.2 L Chloride 95 L Carbon Dioxide 34 H Anion Gap 7.0 BUN 13 Creatinine 0.6 Estimated GFR (MDRD) 97 Glucose 97 Calcium 8.9 Magnesium 2.1 Total Bilirubin 0.7 AST 15 ALT 14 Alkaline Phosphatase 71 Total Protein 6.4 L Albumin 3.8 Globulin 2.6 Albumin/Globulin Ratio 1.5 Lipase < 10 L Urine Color Urine Clarity Urine pH Ur Specific [place] Urine Protein Urine Glucose (UA) Urine Ketones Urine Occult Blood Urine Nitrite Urine Bilirubin Urine Urobilinogen Ur Leukocyte Esterase Ur Microscopic Review Urine Culture Comments 06/20/17 20:25 WBC RBC Hgb Hct MCV MCH MCHC RDW Plt Count MPV Neut # Lymph # [place] # Eos # Baso # Absolute Nucleated RBC Nucleated RBC % ESR Sodium Potassium Chloride Carbon Dioxide Anion Gap BUN Creatinine Estimated GFR (MDRD) Glucose Calcium Magnesium Total Bilirubin AST ALT Alkaline Phosphatase Total Protein Albumin Globulin Albumin/Globulin Ratio Lipase Urine Color YELLOW Urine Clarity CLEAR Urine pH 6.0 Ur Specific [place] 1.010 Urine Protein NEGATIVE Urine Glucose (UA) NEGATIVE Urine Ketones NEGATIVE Urine Occult Blood NEGATIVE Urine Nitrite NEGATIVE Urine Bilirubin NEGATIVE Urine Urobilinogen 0.2 (NORMAL) Ur Leukocyte Esterase NEGATIVE Ur Microscopic Review NOT INDICATED Urine Culture Comments NOT INDICATED - Rads (name of study) abd CT Radiology: Prelim report reviewed (no focal infection such as diverticulitis. Mild colon wall thickening c/w colitis), EMP read contemporaneously PD MEDICAL DECISION MAKING - ED course Complexity details: reviewed results (her UA is clear and she is done abx 2 days ago, so presume should improve with probiotics, antidiarrheals and time. No diverticultiis. If diarrhea persists, would need to get stool studies to assess for c.diff, etc. The wall edema on CT would be c/w colitis and does not distinguish c.diff, inflammatory, infectious.), re-evaluated patient, considered differential, d/w patient Departure - Departure Disposition: 01 Home, Self Care Clinical Impression: Antibiotic associated enterocolitis Diarrhea Qualifiers: Diarrhea type: unspecified type Qualified Code(s): R19.7 - Diarrhea, unspecified Abdominal pain Qualifiers: Abdominal location: lower abdomen, unspecified Qualified Code(s): R10.30 - Lower abdominal pain, unspecified Clinical Impression: (Ruled Out): Diverticulitis of gastrointestinal tract Condition: Stable Record reviewed to determine appropriate education?: Yes Follow-Up: Kavin Parmar DO [Primary Care Provider] - Prescriptions: Diphenoxylate/Atropine [Lomotil] 1 each PO QID PRN #16 tablet PRN Reason: Diarrhea Naproxen 375 mg PO BID #20 tablet Saccharomyces Boulardii [Florastor] 250 mg PO BID #20 capsule Comments: Drink lots of fluids. Tylenol if needed for pains. Naproxen or Ibuprofen twice daily for inflammation. Add a probiotic supplement such as Florastor twice daily for the next 10 days. Lomotil if needed for diarrhea. Recheck if not improved over the next few days. If the diarrhea persists beyond that or recurs in the near future, you may want to bring a sample of the diarrhea to your primary care for stool culturing and studies. Discharge Date/Time: 06/20/17 21:45
[2017-06-20] MEDS ORDERED: SODIUM CHLORIDE 0.9% 1,000 ML IV ONE (18:56)
[2017-06-20] MEDS ORDERED: HYDROmorphone 2 MG/ML VIAL IVP STA ×2 (18:57→21:18)
[2017-06-20] MEDS ORDERED: ONDANSETRON 4 MG/2 ML VIAL IVP STA (18:58)
[2017-06-20 19:22] LABS: BASOPHILS % (AUTO) 0.5 %; EOSINOPHILS % (AUTO) 0.5 %; HGB - HEMOGLOBIN 13.7 g/dL (12.0-16.0); LYMPHOCYTES # (AUTO) 0.7 10^3/uL (1.5-3.5); LYMPHOCYTES % (AUTO) 10.4 %; MEAN CORPUSCULAR HEMOGLOBIN 30.9 pg (27.0-31.0); MEAN CORPUSCULAR HGB CONC 32.8 g/dL (32.0-36.0); MEAN CORPUSCULAR VOLUME 94.3 fL (81.0-99.0); MEAN PLATELET VOLUME 7.5 fL (7.9-10.8); MONOCYTES # (AUTO) 0.6 10^3/uL (0.0-1.0); MONOCYTES % (AUTO) 9.4 %; NEUTROPHILS # (AUTO) 5.5 10^3/uL (1.5-6.6); NEUTROPHILS % (AUTO) 79.2 %; PLT - PLATELET COUNT 214 10^3/uL (130-450); RED BLOOD COUNT 4.43 10^6/uL (4.20-5.40); WHITE BLOOD COUNT 6.9 x10^3/uL (4.8-10.8)
[2017-06-20 19:36] LABS: ALBUMIN 3.8 g/dL (3.2-5.5); ALBUMIN/GLOBULIN RATIO 1.5 (1.0-2.2); ALKALINE PHOSPHATASE 71 IU/L (42-121); ALT ALANINE AMINOTRANSFERASE 14 IU/L (10-60); AST ASPARTATE AMINOTRANSFERASE 15 IU/L (10-42); BILIRUBIN,TOTAL 0.7 mg/dL (0.2-1.0); BUN - BLOOD UREA NITROGEN 13 mg/dL (6-20); CALCIUM 8.9 mg/dL (8.5-10.3); CARBON DIOXIDE - CO2 34 mmol/L (21-32); CHLORIDE 95 mmol/L (101-111); CREATININE 0.6 mg/dL (0.4-1.0); GFR - MDRD 97 (>89); GLUCOSE 97 mg/dL (70-100); MAGNESIUM 2.1 mg/dL (1.7-2.8); SODIUM 136 mmol/L (135-145); TOTAL PROTEIN 6.4 g/dL (6.7-8.2)
[2017-06-20 19:37] LABS: LIPASE < 10 U/L (22-51)
[2017-06-20] MEDS ORDERED: IOPAMIDOL-300 100 ML VIAL ONE (19:49)
[2017-06-20] MEDS ORDERED: IOPAMIDOL-300 100 ML VIAL IVP ONE (19:56)
[2017-06-20 20:31] LABS: BILIRUBIN,URINE NEGATIVE (NEGATIVE); GLUCOSE, URINE (UA) NEGATIVE (NEGATIVE); KETONES,URINE (UA) NEGATIVE (NEGATIVE); LEUKOCYTE ESTERASE, URINE NEGATIVE (NEGATIVE); NITRITE,URINE NEGATIVE (NEGATIVE); OCCULT BLOOD,URINE NEGATIVE (NEGATIVE); PROTEIN,URINE NEGATIVE (NEGATIVE); UROBILINOGEN,URINE 0.2 (NORMAL) E.U./dL (NORMAL)
[2017-06-20 20:33] LABS: CLARITY,URINE CLEAR (CLEAR)
--- NOTE | 2017-06-20 21:03 | CT Preliminary Report ---
Exam: CT ABDOMEN/PELVIS W/ IMPRESSION: The majority of the colon appears mildly thickened, suspicious for colitis and most likely infectious or inflammatory. No abscess or free fluid. [facility] SITE ID: [id number]
--- NOTE | 2017-06-20 21:03 | CT Report ---
EXAM: CT ABDOMEN AND PELVIS EXAM DATE: 06/20/2017 08:13 PM. CLINICAL HISTORY: Lower abd pian and diarrhea. COMPARISONS: 06/17/2016. TECHNIQUE: Routine helical CT imaging was performed through the abdomen and pelvis. IV contrast: 100M L ISOVUE 300. Enteric contrast: No. Reconstructions: Coronal and sagittal. In accordance with CT protocol optimization, one or more of the following dose reduction techniques w ere utilized for this exam: automated exposure control, adjustment of mA and/or KV based on patient s ize, or use of iterative reconstructive technique. FINDINGS: Lung Bases: Mild scarring. Liver: Normal. No masses. Gallbladder/Bile Ducts: Cholecystectomy. Mild common bile duct dilation. Mild central intrahepatic bi le duct dilation. Spleen: Normal. Pancreas: Atrophic. Adrenal Glands: Normal. Kidneys: No hydronephrosis. 3 mm nonobstructing left renal stone. Peritoneal Cavity/Bowel: Partial sigmoid colon resection. Majority of the colon appears mildly thicke radha. No free fluid, free air or lymphadenopathy. Appendix not identified. No bowel obstruction. Pelvic Organs: Urinary bladder is not well distended but otherwise unremarkable. Uterus is absent. Vasculature: Mild atherosclerosis. Bones: Scoliosis. Extensive degenerative changes of the spine. Other: None. IMPRESSION: The majority of the colon appears mildly thickened, suspicious for colitis and most likely infectious or inflammatory. No abscess or free fluid. [facility] Referring Provider Line: [phone] SITE ID: [id number]
[2017-06-20] MEDS ORDERED: KETOROLAC 60 MG/2 ML VIAL IVP STA (21:18)
[2017-06-20] MEDS ORDERED: SACCHAROMYCES BOULARDII 250 MG CAPSULE PO STA (21:19)
[2017-06-20] MEDS ORDERED: DIPHENOX/ATROPINE 2.5/0.025 MG TABLET PO STA (21:23)
[2017-06-20 22:36] VITALS: BP 184/99
== END 2017-06-20 21:45 | disposition home or self-care (01) ==
LOC: ED 16:42
DX: K52.1 Toxic gastroenteritis and colitis (principal); T36.95XA Adverse effect of unspecified systemic antibiotic, initial encounter; R10.30 Lower abdominal pain, unspecified; I10 Essential (primary) hypertension; Z86.73 Personal history of transient ischemic attack (TIA), and cerebral infarction without residual deficits
CPT/HCPCS: 36415; 74177; 80053; 81003; 83690; 83735; 85025; 85651; 96361; 96374; 96375; 96376; 99284; A9270; J1170; Q9967; 81001; 87086

== ENCOUNTER 2017-06-24 14:33 | Inpatient (IN) | payer MEDICARE, OTHER ==
--- NOTE | 2017-06-24 14:41 | ED Physician Documentation ---
PD HPI DYSPNEA - Stated complaint Stated Complaint: SOA - History obtained from History obtained from: Patient - History of Present Illness Timing - onset: How many days ago (3) Timing - onset during: Light activity Timing - duration: Days (3) Timing - details: Gradual onset Inciting event(s): URI (cough and fever feeling with sputum and congestion. History of fibrosis/COPD, but does not usually use any inhalers/meds.) Associated symptoms: Fever, Cough, Wheezing. No: Chest pain / discomfort, Bilateral edema Similar symptoms before: Diagnosis (has pulmonary HTN) Recently seen: Emergency Dept (few days ago for diarrhea and stomach pains; still having the diarrhea despite probiotics and anitmotility agents.) Review of Systems Constitutional: reports: Fever, Chills Nose: reports: Congestion. denies: Rhinorrhea / runny nose Throat: denies: Sore throat Cardiac: denies: Chest pain / pressure, Palpitations Respiratory: reports: Dyspnea, Cough, Wheezing GI: reports: Abdominal Pain, Nausea, Diarrhea. 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 HEENT: Cataracts Derm: Skin cancer surgery - Present Medications Home Medications: Ambulatory Orders Medication Instructions Recorded Confirmed Losartan [Cozaar] 50 mg PO DAILY 09/13/13 06/24/17 Vitamin E 400 unit PO DAILY 09/13/13 06/24/17 Cholecalciferol (Vitamin D3) 400 unit PO DAILY 01/31/16 06/24/17 [Vitamin D3] Metoprolol Tartrate 25 mg PO BID 01/31/16 06/24/17 Multivitamin [Theragran] 1 tab PO DAILY 01/31/16 06/24/17 Albuterol Sulfate [Proventil Hfa 2 puffs INH Q6H PRN 06/24/17 06/24/17 Inhaler] Calcium Carbonate [Tums (Calcium 1,000 mg PO DAILY 06/24/17 06/24/17 Carbonate 500mg)] Dicyclomine HCl 20 mg PO TIDWM 06/24/17 06/24/17 HYDROcod/ACETAM 5/325 [[place] 5/325] 1.5 tab PO Q4H PRN 06/24/17 06/24/17 Hyoscyamine Sulfate 0.125 mg SL QID PRN 06/24/17 06/24/17 Megestrol Acetate 5 ml PO DAILY 06/24/17 06/24/17 Nortriptyline HCl 50 mg PO QPM 06/24/17 06/24/17 Omeprazole 40 mg PO BID 06/24/17 06/24/17 Ondansetron Odt [Zofran Odt] 4 mg SL TID PRN 06/24/17 06/24/17 Venlafaxine HCl [Venlafaxine HCl 150 mg PO DAILYWM 06/24/17 06/24/17 ER] - Allergies Allergies/Adverse Reactions: Allergies Allergy/AdvReac Type Severity Reaction Status Date / Time No Known Drug Allergies Allergy Verified 06/17/16 14:23 - Social History Does the pt smoke?: No Smoking Status: Never smoker Does the pt drink ETOH?: No Does the pt have substance abuse?: No - Immunizations Immunizations are current?: Yes PD ED PE NORMAL - Vitals Vital signs reviewed: Yes - General General: Alert and oriented X 3, Well developed/nourished, Other (wheezing and tachypnea. ) - HEENT HEENT: Ears normal, Pharynx benign - Cardiac Cardiac: RRR, No murmur - Respiratory Respiratory: No: No respiratory distress, Clear bilaterally (coarse cough and diffuse wheezing, without congestion per se. Mild crackles. ) - Abdomen Abdomen: Normal bowel sounds, Soft, Non distended, No organomegaly, Other ( tender lower abd. ) - Derm Derm: Normal color, Warm and dry - Extremities Extremities: Normal ROM s pain, No edema, No calf tenderness / cord - Neuro Neuro: Alert and oriented X 3, No motor deficit, Normal speech Results - Vitals Vitals: Vital Signs - 24 hr 06/24/17 06/24/17 06/24/17 14:37 15:33 15:52 Temperature 36.4 C L Heart Rate 78 72 72 Respiratory 18 18 28 H Rate Blood Pressure 146/107 H 120/104 H O2 Saturation 91 L 99 Oxygen O2 Source [Without Activity] Nasal cannula O2 Source [With Activity] Nasal cannula O2 Source Nasal cannula Oxygen Flow Rate 2 - Labs Labs: Laboratory Tests 06/24/17 06/24/17 06/24/17 14:52 14:52 14:52 WBC 10.6 RBC 4.79 Hgb 15.0 Hct 44.9 MCV 93.7 MCH 31.3 H MCHC 33.4 RDW 14.4 Plt Count 199 MPV 8.0 Neut # 9.1 H Lymph # 0.7 L [place] # 0.8 Eos # 0.0 Baso # 0.0 Absolute Nucleated RBC 0.01 Nucleated RBC % 0.1 ESR 15 Sodium 137 Potassium 2.8 L Chloride 92 L Carbon Dioxide 34 H Anion Gap 11.0 BUN 12 Creatinine 0.7 Estimated GFR (MDRD) 81 L Glucose 131 H Calcium 9.3 Magnesium 1.9 Total Bilirubin 1.1 H AST 24 ALT 16 Alkaline Phosphatase 82 Troponin I B-Natriuretic Peptide Total Protein 7.5 Albumin 4.1 Globulin 3.4 Albumin/Globulin Ratio 1.2 Lipase 17 L 06/24/17 06/24/17 14:52 14:52 WBC RBC Hgb Hct MCV MCH MCHC RDW Plt Count MPV Neut # Lymph # [place] # Eos # Baso # Absolute Nucleated RBC Nucleated RBC % ESR Sodium Potassium Chloride Carbon Dioxide Anion Gap BUN Creatinine Estimated GFR (MDRD) Glucose Calcium Magnesium Total Bilirubin AST ALT Alkaline Phosphatase Troponin I < 0.04 B-Natriuretic Peptide 692 H Total Protein Albumin Globulin Albumin/Globulin Ratio Lipase - Rads (name of study) chest Radiology: Prelim report reviewed, EMP read contemporaneously (hyperinflated, without infiltrate nor effusion. ) PD MEDICAL DECISION MAKING - ED course Complexity details: reviewed results, re-evaluated patient (still hypoxic on RA after nebs. ), considered differential, d/w patient Departure - Departure Disposition: 66 [facility] DC/Xfer Clinical Impression: Bronchitis, Hypoxia, Hypokalemia, Pulmonary arterial hypertension, Antibiotic associated enterocolitis Upper respiratory infection Qualifiers: URI type: unspecified URI Qualified Code(s): J06.9 - Acute upper respiratory infection, unspecified Abdominal pain Qualifiers: Abdominal location: lower abdomen, unspecified Qualified Code(s): R10.30 - Lower abdominal pain, unspecified Condition: Stable Record reviewed to determine appropriate education?: Yes Discharge Date/Time: 06/24/17 18:05
[2017-06-24] MEDS ORDERED: MORPHINE 10 MG/ML VIAL IVP STA ×2 (15:07→16:24)
[2017-06-24] MEDS ORDERED: ONDANSETRON 4 MG/2 ML VIAL IVP STA (15:07)
[2017-06-24] MEDS ORDERED: SODIUM CHLORIDE 0.9% 1,000 ML IV ONE ×2 (15:07→17:04)
[2017-06-24] MEDS ORDERED: IPRATROPIUM/ALBUTEROL 3 ML NEB INH STA (15:07)
[2017-06-24 15:16] LABS: BASOPHILS % (AUTO) 0.3 %; LYMPHOCYTES # (AUTO) 0.7 10^3/uL (1.5-3.5); LYMPHOCYTES % (AUTO) 6.5 %; MEAN CORPUSCULAR HEMOGLOBIN 31.3 pg (27.0-31.0); MEAN CORPUSCULAR HGB CONC 33.4 g/dL (32.0-36.0); MEAN CORPUSCULAR VOLUME 93.7 fL (81.0-99.0); MONOCYTES # (AUTO) 0.8 10^3/uL (0.0-1.0); MONOCYTES % (AUTO) 7.2 %; NEUTROPHILS # (AUTO) 9.1 10^3/uL (1.5-6.6); PLT - PLATELET COUNT 199 10^3/uL (130-450); RED BLOOD COUNT 4.79 10^6/uL (4.20-5.40); RED CELL DISTRIBUTION WIDTH 14.4 % (12.0-15.0); WHITE BLOOD COUNT 10.6 x10^3/uL (4.8-10.8)
[2017-06-24 15:26] LABS: ALBUMIN 4.1 g/dL (3.2-5.5); ALBUMIN/GLOBULIN RATIO 1.2 (1.0-2.2); BILIRUBIN,TOTAL 1.1 mg/dL (0.2-1.0); CALCIUM 9.3 mg/dL (8.5-10.3); CREATININE 0.7 mg/dL (0.4-1.0); MAGNESIUM 1.9 mg/dL (1.7-2.8); TOTAL PROTEIN 7.5 g/dL (6.7-8.2)
[2017-06-24] MEDS ORDERED: POTASSIUM BICARB 25 MEQ TABLET PO STA (15:57)
[2017-06-24] MEDS ORDERED: DEXAMETHASONE 10 MG/ML VIAL IVP STA (15:57)
[2017-06-24] MEDS ORDERED: POTASSIUM CHLOR 10 MEQ/100 ML 10 MEQ/100 ML BAG IV ONE (15:57)
--- NOTE | 2017-06-24 15:58 | XRAY Preliminary Report ---
Exam: XR CHEST 2 VIEW X-RAY IMPRESSION: Hyperexpanded lungs are again noted, could be due to COPD or age-related. Probable scarri ng in the right upper lobe appears unchanged. No acute findings are seen. Borderline cardiomegaly. [facility]. SITE ID: [id number]
--- NOTE | 2017-06-24 15:58 | XRAY Report ---
EXAM: CHEST RADIOGRAPHY EXAM DATE: 06/24/2017 03:46 PM. CLINICAL HISTORY: Cough and congestion. COMPARISON: Chest 03/09/2017. TECHNIQUE: 2 views. FINDINGS: Hyperexpanded lungs are again noted. Borderline cardiomegaly. Tortuous aortic arch again n oted. Probable scarring in the right upper lobe, appears unchanged compared to prior. No consolidatio n, pleural effusion or pneumothorax. IMPRESSION: Hyperexpanded lungs are again noted, could be due to COPD or age-related. Probable scarri ng in the right upper lobe appears unchanged. No acute findings are seen. Borderline cardiomegaly. [facility]. Referring Provider Line: [phone] SITE ID: [id number]
[2017-06-24] MEDS ORDERED: ALBUTEROL NEB 2.5 MG/3 ML INH STA (16:24)
--- NOTE | 2017-06-24 16:37 | HISTORY & PHYSICAL EXAMINATION ---
Chief Complaint - Chief Complaint Chief Complaint: fever History of Present Illness - Admitted From Admitted From:: ED - History Obtained From Records Reviewed: yes History obtained from: chart review, patient Exam Limitations: none - History of Present Illness HPI Comment/Other: Bogdan Talamantes (Joy) is an ill-appearing 77-year old female with a past medical history of HTN, pneumonia, pulmonary fibrosis, dementia, CVA, GERD, Olvera esophagitis, sigmoid colon resection due to perforated bowel, status post colostomy, status post colostomy take down, stomach ulcers, diverticulitis, depression, anxiety, osteoarthritis, chronic back pain, and a history of herpes zoster. She arrived to the ED with a primary complaint of worsening shortness of breath that began about 2-3 days ago, fever, increased congestion and a recent UTI. She has been on antibiotics for about 4 days and has had ongoing diarrhea with cramping ever since beginning the antibiotics. She presented to the ED yesterday with diarrhea, was given a probiotic, fluids and sent home. Her , Mason is present during the exam. She will be admitted to inpatient for further treatment. History - Past Medical History Cardiovascular: reports: Hypertension Respiratory: reports: Pneumonia, Shortness of breath, Other (pulmonary fibrosis) Neuro: reports: Dementia, CVA Endocrine/Autoimmune: reports: None GI: reports: GERD, Ulcers, Chronic constipation, Diverticulitis, Other ( perforated bowel in the past, status post colostomy, status post colostomy take down) : reports: Incontinence, Nocturia, Frequency, Other (recent UTI) HEENT: reports: Chronic vision loss, Other Psych: reports: Depression, Anxiety, Other (profound STM loss, dementia) Musculoskeletal: reports: Osteoarthritis, Chronic back pain Derm: reports: Herpes zoster MRSA Hx?: No - Past Surgical History General: reports: Cholecystectomy, Bowel surgery (status post sigmoid colon resection), Colonoscopy, 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 She was astranged from her father and she does not know what he may have from. She has 2 sisters, and one brother. All are alive and well, one of her sisters has cerebal palsy, but functions well. Living arrangement: At home Living Situation: With spouse/s.o. (Mason, no regular care givers) Social History Notes: [place] for the [place] 6 years. She and her Mason moved here for alf from [place]. He built homes for a living and built the home that they live in. They have 2 grown children that do not live on the [place], but in [place]. 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 Her latest hobby was to Skype a [employer] club group, but she states that her health has restricted her from many things she used to enjoy. She denies illicit drug use, tobacco use, or alcohol use. She wishes to be a FULL code and wishes to "talk about this later". - Substance History Use: Uses substance without health or social issues: NONE Abuse: Recurrent use of substance despite neg consequences: NONE Dependence: Experiences withdrawal or developed tolerances: NONE - POLST Patient has POLST: No POLST Status: Full Code Meds/Allgy - Home Medications Home Medications: Ambulatory Orders Medication Instructions Recorded Confirmed Losartan [Cozaar] 50 mg PO DAILY 09/13/13 06/24/17 Vitamin E 400 unit PO DAILY 09/13/13 06/24/17 Cholecalciferol (Vitamin D3) 400 unit PO DAILY 01/31/16 06/24/17 [Vitamin D3] Metoprolol Tartrate 25 mg PO BID 01/31/16 06/24/17 Multivitamin [Theragran] 1 tab PO DAILY 01/31/16 06/24/17 Albuterol Sulfate [Proventil Hfa 2 puffs INH Q6H PRN 06/24/17 06/24/17 Inhaler] Calcium Carbonate [Tums (Calcium 1,000 mg PO DAILY 06/24/17 06/24/17 Carbonate 500mg)] Dicyclomine HCl 20 mg PO TIDWM 06/24/17 06/24/17 HYDROcod/ACETAM 5/325 [Irwin 5/325] 1.5 tab PO Q4H PRN 06/24/17 06/24/17 Hyoscyamine Sulfate 0.125 mg SL QID PRN 06/24/17 06/24/17 Megestrol Acetate 5 ml PO DAILY 06/24/17 06/24/17 Nortriptyline HCl 50 mg PO QPM 06/24/17 06/24/17 Omeprazole 40 mg PO BID 06/24/17 06/24/17 Ondansetron Odt [Zofran Odt] 4 mg SL TID PRN 06/24/17 06/24/17 Venlafaxine HCl [Venlafaxine HCl 150 mg PO DAILYWM 06/24/17 06/24/17 ER] - Allergies Allergies/Adverse Reactions: Allergies Allergy/AdvReac Type Severity Reaction Status Date / Time No Known Drug Allergies Allergy Verified 06/17/16 14:23 Review of Systems - Constitutional Constitutional: reports: Fatigue, Weakness, Poor appetite, Diaphoresis, Weight loss - Eyes Eyes: reports: Blurred vision, Vision loss - Ears, Nose & Throat Ears, Nose & Throat: reports: Hearing loss, Nasal congestion, Dentures, Sore throat - Cardiovascular Cariovascular: reports: Exertional dyspnea, Decr. exercise tolerance, Orthopnea - Respiratory Respiratory: reports: Cough, Sputum production, Orthopnea, SOB at rest, SOB with exertion - Gastrointestinal Gastrointestinal: reports: Abdominal pain, Diarrhea, Change in bowel habits, Nausea, Reflux/heartburn, Poor appetite - Genitourinary Genitourinary: reports: Dysuria, Frequency, Incontinence, Nocturia - Musculoskeletal Musculoskeletal: reports: Back pain, Muscle aches, Limited range of motion, Muscle weakness, Joint swelling - Integumentary Integumentary: reports: Dryness, Pigment changes - Neurological Neurological: reports: General weakness, Pre-existing deficit, Abnormal gait - Psychiatric Psychiatric: reports: Depression - Hematologic/Lymphatic Hematologic/Lymphatic: reports: Recurrent infections - All Other Systems All Other Systems: reports: Reviewed and negative Exam - Vital Signs Vital Signs: Vital Signs x48h Temp Pulse Resp BP Pulse Ox 06/24/17 15:52 72 28 H 120/104 H 99 06/24/17 15:33 72 18 06/24/17 14:37 36.4 C L 78 18 146/107 H 91 L - Physical Exam General Appearance: positive: Alert, Moderate distress Eyes Bilateral: positive: Normal inspection ENT: positive: ENT inspection nml, Pharyngeal erythema, Dry mucous membranes Neck: positive: No JVD, Stiff neck Respiratory: positive: Chest non-tender Peripheral Pulses: positive: 1+ Abdomen: positive: Tenderness, Guarding, Abnml bowel sounds Back: positive: CVA tenderness (R), CVA tenderness (L) Skin: positive: No rash, Warm, Dry, Diaphoresis, Pallor Extremities: positive: Non-tender, Pedal edema, Joint swelling Neurologic/Psychiatric: positive: Weakness, Sensory loss, Slurred/abnml speech ( likely due to decompensated state.), Depressed mood/affect Reflexes: Bicep (R): 1+, Bicep (L): 1+ Conclusion/Plan - Problem List (1) Protein-calorie malnutrition, mild Conclusion/Plan: The patient appears gravely ill during her admission exam, but can articulate well and has good eye contact. She has a current BMI of just 18.7. She states that she has not had much of an appetite for several weeks. Plan: Encourage PO intake and a nutrition consult is pending. (2) Abdominal pain Conclusion/Plan: The patient states that ever since her colostomy take down surgery, she has had chronic abdominal pain. She and her state that "no one can tell us why she has ongoing pain". Plan: Encourage good PO intake, give lomotil as needed and monitor. Qualifiers: Abdominal location: lower abdomen, unspecified Qualified Code(s): R10.30 - Lower abdominal pain, unspecified (3) Hypoxia Conclusion/Plan: The patient has underlying lung disease, pulmonary fibrosis. She is not wearing oxygen, but denies home oxygen use. She appears to be using her accessory muscles. Plan: ABG for mental status changes. (4) Diarrhea Conclusion/Plan: The patient was recently started on antibiotics for a recent UTI, which has caused ongoing diarrhea that is nearly resolved upon admission. She denies skin irritation or new abdominal pain. Consequently the patient's electrolytes were altered likely due to diarrhea. Plan: Monitor stools, C-diff is pending and continue a probiotic. Qualifiers: Diarrhea type: unspecified type Qualified Code(s): R19.7 - Diarrhea, unspecified (5) Pulmonary fibrosis Conclusion/Plan: The patient confirms this diagnoses and believes she may have had this for several years before it was diagnoses. 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 She takes inhalers at home including a rescue inhaler. Plan: Treat for pneumonia given this underlying disease and aspiration likelihood. (6) Aspiration pneumonia Conclusion/Plan: At the time of the admission interview the patient was attempting to eat a meal and was noted to have difficulty with swallowing. She then started to cough and states that "things are getting stuck lately". The patient has not been ambulating as much and has profound worsening debility due to protein calorie malnutrition. Her primary complaint when presenting to the ED was a cough. Upon exam the patient's lungs were with coarse crackles in bilateral bases. Plan: I will discuss with patient as she may need a chest CT to take a better look, and a swallow study was ordered. - Lab Results Lab results reviewed: Yes Keny Bones: 06/25/17 05:25 06/25/17 05:25 - Diagnostic Imaging Results Diagnostic Imaging Results: positive: Prelim report reviewed, Final report reviewed - EKG Results EKG Interpreted Independently: Yes EKG Comparison: Unchanged from prior EKG Core Measures - Anticipated LOS I expect patient to be DC'd or transferred within 96 hours.: Yes - DVT/VTE - Prophylaxis VTE/DVT Device ordered at admit?: Yes VTE/DVT Prophylaxis med ordered at admit?: Yes - Stroke - Rehab Assessment Rehab services assessment to be ordered?: Yes - AMI - Statin at Admit Aspirin Prescribed on Admit: Yes
[2017-06-24] MEDS ORDERED: POTASSIUM CHLORIDE 20 MEQ TABLET PO ONE (17:26)
[2017-06-24] MEDS: SODIUM CHLORIDE FLUSH 0.9% 10 ML SYRINGE IVP SCH (18:49)
--- NOTE | 2017-06-24 19:34 | ADVANCE CARE PLANNING NOTE ---
Advance Care Planning - Date/Time Date: 06/24/17 Time: 19:34 - Purpose of encounter Text: To address end of life wishes in order to make the most of the rest of her life. In addition, a more in depth code status review. - Parties in attendance Parties in attendance: Myself, my patient, Meghann Talamantes, and her Mason. - Decisional capacity Decisional capacity of: The patient has profound STM loss, and dementia. Her notes that "she is stubborn" and set in her ways. In talking to her, she could state her medical conditions and repeated back main ideas. - Subjective/Patient's story Subjective/Patient's story: I just want to feel normal again and walk on the beach. Be free of pain and be able to enjoy the rest of my life. I worry about leaving behind my loved ones. - Objective/Medical story Objective/Medical Story: The patient has been struggling at home and her works out side the home and is gone until at least 2pm every day. She has multiple chronic illnesses and mental illness. She believes that her quality of life is poor and she states that all she wants to do is walk on the beach with her . She and her choose the code status of FULL after answering yes to all 4 questions surrounding emergency rescue efforts. Chest compressions, shocking, cardiac meds, and intubation. The understood the grave statistics of a low chance of survival or quality of life, but cannot refuse at least efforts. - Goals of Care Goals of care determinations: Goals of care for this hospital stay is to treat the acute illness, as she came in with a cough. She was found to have aspiration pneumonia, but passed her swallow study on the day after admission. This event is not considered life threatening and she is expected to recover. - Plan Plan: Treat aspiration pneumonia, provide oxygen, nutritional consult, treat symptoms of insomnia, cough, fever and monitor fluid status. Keep family up to date. Obtain PT input on abilities, and anticipate placement to rehab verses terminal make up operator memory care given her moderate dementia and frequent falls with injury. - Code Status Code Status: Attempt Resuscitation - Time Spent on Advance Care Planning Time spent on advance care plannin minutes
[2017-06-24] MEDS ORDERED: LEVALBUTEROL 1.25 MG/3 ML NEB INH PRN (20:59)
[2017-06-24] MEDS ORDERED: POTASSIUM CHLORIDE 20 MEQ/15 ML UDC PO SCH (21:03)
[2017-06-24] MEDS ORDERED: ONDANSETRON ODT 4 MG TABLET PO PRN (21:05)
[2017-06-24] MEDS: guaiFENesin 100 MG/5 ML UDC PO SCH (21:56)
[2017-06-24] MEDS: methylPREDNISolone SUCCINATE 40 MG/ML VIAL IVP SCH (21:56)
[2017-06-24] MEDS: METOPROLOL TARTRATE 25 MG TABLET PO SCH (21:57)
[2017-06-24] MEDS: AMPICILLIN/SULBACTAM 1.5 GM in SODIUM CHLORIDE 0.9% MINIBAG 100 ML IV SCH (21:57)
[2017-06-24] MEDS: SPIRONOLACTONE 25 MG TABLET PO SCH (21:57)
[2017-06-24] MEDS ORDERED: METOPROLOL TARTRATE 25 MG TABLET PO SCH (22:00)
[2017-06-24] MEDS: HYDROcod/ACETAM 5/325 MG TABLET PO PRN (22:05)
[2017-06-24] MEDS: LEVALBUTEROL 1.25 MG/3 ML NEB INH SCH (23:11)
[2017-06-25] MEDS: SODIUM CHLORIDE FLUSH 0.9% 10 ML SYRINGE IVP SCH ×2 (00:43→09:44)
[2017-06-25] MEDS: MORPHINE 2 MG/ML SYRINGE IVP PRN ×4 (00:44→22:17)
[2017-06-25] MEDS: SODIUM CHLORIDE FLUSH 0.9% 10 ML SYRINGE IVP PRN ×2 (04:13→17:42)
[2017-06-25] MEDS: AMPICILLIN/SULBACTAM 1.5 GM in SODIUM CHLORIDE 0.9% MINIBAG 100 ML IV SCH ×2 (04:13→10:54)
[2017-06-25] MEDS: HYDROcod/ACETAM 5/325 MG TABLET PO PRN (04:18)
[2017-06-25 05:46] LABS: BASOPHILS % (AUTO) 0.1 %; HGB - HEMOGLOBIN 12.1 g/dL (12.0-16.0); LYMPHOCYTES # (AUTO) 0.4 10^3/uL (1.5-3.5); LYMPHOCYTES % (AUTO) 5.4 %; MEAN CORPUSCULAR HEMOGLOBIN 30.6 pg (27.0-31.0); MEAN CORPUSCULAR HGB CONC 32.2 g/dL (32.0-36.0); MEAN CORPUSCULAR VOLUME 95.2 fL (81.0-99.0); MEAN PLATELET VOLUME 7.7 fL (7.9-10.8); MONOCYTES # (AUTO) 0.3 10^3/uL (0.0-1.0); MONOCYTES % (AUTO) 3.9 %; NEUTROPHILS % (AUTO) 90.6 %; PLT - PLATELET COUNT 168 10^3/uL (130-450); RED BLOOD COUNT 3.95 10^6/uL (4.20-5.40); RED CELL DISTRIBUTION WIDTH 14.3 % (12.0-15.0); WHITE BLOOD COUNT 7.7 x10^3/uL (4.8-10.8)
[2017-06-25 05:56] LABS: ALBUMIN 3.1 g/dL (3.2-5.5); ALBUMIN/GLOBULIN RATIO 1.1 (1.0-2.2); BILIRUBIN,TOTAL 0.7 mg/dL (0.2-1.0); CALCIUM 8.5 mg/dL (8.5-10.3); CREATININE 0.6 mg/dL (0.4-1.0); CRP - C-REACTIVE PROTEIN 9.8 mg/dL (0-1.0)
[2017-06-25] MEDS: methylPREDNISolone SUCCINATE 40 MG/ML VIAL IVP SCH ×2 (06:04→14:24)
[2017-06-25] MEDS: ISOSORBIDE MONONITRATE ER 30 MG TABLET PO SCH ×2 (06:39→09:45)
[2017-06-25] MEDS ORDERED: CHOLECALCIFEROL 400 UNIT PO SCH (09:00)
[2017-06-25] MEDS: LEVALBUTEROL 1.25 MG/3 ML NEB INH SCH ×2 (09:16→22:54)
[2017-06-25] MEDS: guaiFENesin 100 MG/5 ML UDC PO SCH ×4 (09:44→21:00)
[2017-06-25] MEDS: METOPROLOL TARTRATE 25 MG TABLET PO SCH ×2 (09:44→20:50)
[2017-06-25] MEDS: POLYETHYLENE GLYCOL 3350 17 GM PACKET PO SCH (09:44)
[2017-06-25] MEDS: CHOLECALCIFEROL 400 UNIT TABLET PO SCH (09:44)
[2017-06-25] MEDS: SPIRONOLACTONE 25 MG TABLET PO SCH (09:45)
[2017-06-25] MEDS: VENLAFAXINE ER 75 MG CAPSULE PO SCH (09:45)
--- NOTE | 2017-06-25 11:15 | CT Report ---
NONCONTRAST HEAD CT: 06/25/2017 COMPARISON: Head CT 03/22/2015. HISTORY: The patient fell and hit back of head. The patient has confusion. TECHNIQUE: Axial noncontrast head CT with coronal reformats. CT DOSE REDUCTION STATEMENT In accordance with CT protocol optimization, one or more of the following dose reduction techniques were utilized for this exam: automated exposure control, adjustment of mA and/or KV based on patient size, or use of iterative reconstructive technique. FINDINGS: No evidence of acute intracranial hemorrhage or mass. No territorial infarct. Age related cortical atrophic changes. Old right basal ganglia lacunar infarcts. No midline shift. Calvarium appears intact. Paranasal sinuses and mastoid air cells appear well aerated. IMPRESSION 1. AGE RELATED ATROPHIC CHANGES AND OLD RIGHT BASAL GANGLIA LACUNAR INFARCTS. 2. NO EVIDENCE OF ACUTE INTRACRANIAL HEMORRHAGE OR CALVARIAL FRACTURE. TD: 06/25/2017 11:14 MTDD
--- NOTE | 2017-06-25 17:16 | PROVIDER PROGRESS NOTE ---
Subjective - Prog Note Date Prog Note Date: 06/25/17 Prog Note Time: 12:00 - Subjective Pt reports feeling: Improved Subjective: Meghann is agitated this morning and is found in the bathroom with blood dripping from her arm due to her IV coming out and moderately disturbed. She could not follow directions such as, "let us help you, or please sit down so that you do not fall". 24 hours earlier on the morning after admission she fell and hit her head in the bathroom. She denies SOB, chest pain, N/V or an increased cough. She continues on supplemental oxygen. Objective - Vital Signs/Intake & Output Reviewed Vital Signs: Yes Vital Signs: Vital Signs x48h Temp Pulse Pulse Resp BP BP Pulse Ox 06/25/17 15:24 36.6 C 72 22 159/93 H 98 06/25/17 13:21 36.8 C 73 24 173/81 H 95 06/25/17 09:44 163/140 H 06/25/17 09:16 87 22 Intake & Output: Intake & Output 06/22/17 06/23/17 06/24/17 06/25/17 23:59 23:59 23:59 23:59 Intake Total 2400 940 Output Total 175 150 Balance 2225 790 - Objective General Appearance: positive: Alert, Moderate distress, Anxious Eyes Bilateral: positive: Normal inspection, PERRL Eyes: OU Conjunctivae pale, OU Scleral icterus ENT: positive: ENT inspection nml, Pharynx nml, Pharyngeal erythema, Dry mucous membranes Neck: positive: Nml inspection, Thyroid nml, No JVD, Stiff neck Respiratory: positive: Chest non-tender, No respiratory distress, Wheezes, Rhonchi Cardiovascular: positive: Regular rate & rhythm, No gallop, Systolic murmur, Decreased pulse(s) Peripheral Pulses: 1+ Radial (R), 1+ Radial (L) Abdomen: positive: Non-tender, No organomegaly, Nml bowel sounds, No distention Back: positive: Nml inspection Skin: positive: No rash, Warm, Dry, Diaphoresis (at times.), Pallor Extremities: positive: Non-tender, Full ROM, Pedal edema (mild, dependent), Joint swelling Neurologic/Psychiatric: positive: Disoriented to time, Weakness, Sensory loss, Slurred/abnml speech, Depressed mood/affect Reflexes: Bicep (R): 2+, Bicep (L): 2+ - Lab Results Fish Bones: 06/27/17 06:25 06/27/17 06:25 Other Labs: Lab Results x24hrs 06/25/17 06/25/17 06/25/17 Range/Units 05:25 05:25 05:25 WBC (4.8-10.8) x10^3/uL RBC (4.20-5.40) 10^6/uL Hgb (12.0-16.0) g/dL Hct (37.0-47.0) % MCV (81.0-99.0) fL MCH (27.0-31.0) pg MCHC (32.0-36.0) g/dL RDW (12.0-15.0) % Plt Count (130-450) 10^3/uL MPV (7.9-10.8) fL Neut # (1.5-6.6) 10^3/uL Lymph # (1.5-3.5) 10^3/uL [place] # (0.0-1.0) 10^3/uL Eos # (0.0-0.7) 10^3/uL Baso # (0.0-0.1) 10^3/uL Absolute Nucleated RBC x10^3/uL Nucleated RBC % /100WBC ESR 18 (0-30) mm/Hr Sodium 138 (135-145) mmol/L Potassium 4.6 (3.5-5.0) mmol/L Chloride 99 L (101-111) mmol/L Carbon Dioxide 33 H (21-32) mmol/L Anion Gap 6.0 (6-13) BUN 13 (6-20) mg/dL Creatinine 0.6 (0.4-1.0) mg/dL Estimated GFR (MDRD) 97 (>89) Glucose 147 H (70-100) mg/dL Calcium 8.5 (8.5-10.3) mg/dL Total Bilirubin 0.7 (0.2-1.0) mg/dL AST 17 (10-42) IU/L ALT 14 (10-60) IU/L Alkaline Phosphatase 53 (42-121) IU/L C-Reactive Protein 9.8 H (0-1.0) mg/dL B-Natriuretic Peptide 643 H (5-100) pg/mL Total Protein 6.0 L (6.7-8.2) g/dL Albumin 3.1 L (3.2-5.5) g/dL Globulin 2.9 (2.1-4.2) g/dL Albumin/Globulin Ratio 1.1 (1.0-2.2) /01/02 Range/Units 05:25 WBC 7.7 (4.8-10.8) x10^3/uL RBC 3.95 L (4.20-5.40) 10^6/uL Hgb 12.1 (12.0-16.0) g/dL Hct 37.6 (37.0-47.0) % MCV 95.2 (81.0-99.0) fL MCH 30.6 (27.0-31.0) pg MCHC 32.2 (32.0-36.0) g/dL RDW 14.3 (12.0-15.0) % Plt Count 168 (130-450) 10^3/uL MPV 7.7 L (7.9-10.8) fL Neut # 7.0 H (1.5-6.6) 10^3/uL Lymph # 0.4 L (1.5-3.5) 10^3/uL [place] # 0.3 (0.0-1.0) 10^3/uL Eos # 0.0 (0.0-0.7) 10^3/uL Baso # 0.0 (0.0-0.1) 10^3/uL Absolute Nucleated RBC 0.00 x10^3/uL Nucleated RBC % 0.0 /100WBC ESR (0-30) mm/Hr Sodium (135-145) mmol/L Potassium (3.5-5.0) mmol/L Chloride (101-111) mmol/L Carbon Dioxide (21-32) mmol/L Anion Gap (6-13) BUN (6-20) mg/dL Creatinine (0.4-1.0) mg/dL Estimated GFR (MDRD) (>89) Glucose (70-100) mg/dL Calcium (8.5-10.3) mg/dL Total Bilirubin (0.2-1.0) mg/dL AST (10-42) IU/L ALT (10-60) IU/L Alkaline Phosphatase (42-121) IU/L C-Reactive Protein (0-1.0) mg/dL B-Natriuretic Peptide (5-100) pg/mL Total Protein (6.7-8.2) g/dL Albumin (3.2-5.5) g/dL Globulin (2.1-4.2) g/dL Albumin/Globulin Ratio (1.0-2.2) - Diagnostic Imaging Diagnostic Imaging Results: positive: Final report reviewed ABX Reporting Has patient been on IV antibiotics over the past 48 hours?: Yes Assessment/Plan - Problem List (1) Aspiration pneumonia Impression: The patient has had difficulty with swallowing and a cough prior to admission. The patient has had profound debility and has not been ambulating as much and has profound worsening debility due to protein calorie malnutrition. The patient continues to have coarse sounding lungs on exam. A chest CT with contrast has been ordered and is pending. Plan: Continue treatment with PO Clindamycin, guifenisen and nebulizer treatment with a flutter valve device. (2) Protein-calorie malnutrition, mild Impression: The patient appears gravely ill much of the time, but can articulate well and has good eye contact. She has a current BMI of just 19.4, and this is improved since she has been on a steroid taper at home. She states that she has not had much of an appetite for several weeks, but is seen making efforts to eat. Plan: Encourage PO intake, extra protein shakes ordered with meals and a nutrition consult is pending. 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 Due to this risk factory, she is at a bigger risk of recurrent PNA in the future. She may need supplemental oxygen upon discharge. Plan: Continue to treat PNA. (5) Depression Impression: Given the patient's chronic illnesses, she admits to feeling hopeless much of the time. She states that she just wants to walk on the beach with her . She takes Effexor at home which has been continued here. Niki Gregory from Palliative care met with her shortly after admission and some goals of care were established and I was made aware of a few medication adjustments. Plan: Continue current plan. Qualifiers: Depression Type: reactive depression Qualified Code(s): F32.9 - Major depressive disorder, single episode, unspecified (6) Fall Qualifiers: Encounter type: subsequent encounter Qualified Code(s): W19.XXXD - Unspecified fall, subsequent encounter
--- NOTE | 2017-06-25 17:31 | CONSULTATION NOTE ---
Palliative Care Consultation - Referral Referring Provider: Inés ROCK Time of Visit: [id number] Referral setting: Hospitalized patient Referral Reason: Failure to Thrive/Goals of care - Information Sources Records reviewed: RN notes reviewed, Previous records reviewed History/Review of Systems obtained from: Patient, Family (spoke at length with leann Guevara [phone] with patient's permission; patient with STM issues) Exam limitations: Clinical condition (patient very anxious; poor recall of time/ events but clear and able to express concerns and goals) - History of Present Illness Brief History of Present Illness: This is a 77-year-old woman who has a complex and ill-defined history, she has been hospitalized acutely after several ED stays, for presumed aspiration pneumonia, she does have underlying pulmonary fibrosis, recent diagnosis of UTI , exacerbation of her depression, and ongoing uncontrolled abdominal pain. ENVIRONMENTAL SERVICES TECH seen together her history, some of this is from patient, his poor short-term memory and some cognitive decline, as well as her daughter who is very familiar with the last several weeks and months of her struggles. Patient has long- standing abdominal pain, unknown etiology, has had multiple GI workups without any relief or diagnosis. She has had this since her ruptured diverticulitis status post partial colectomy, history of Sourav pouch and colostomy, with a takedown. She reports the pain is diffuse across her abdomen, she has been tried on multiple opioids, including fentanyl, hydromorphone, and most recently has been using hydrocodone/acetaminophen. She was overusing and having difficulty tracking, so this is been put on more as scheduled. She reports opioids do not help, interesting enough her best relief was when her piling cutter about 6 months ago put her on prednisone 20 mg. At this point in time her pain resolved, she started eating, gaining weight, had increased energy and was doing well. Unfortunately last visit they wanted to start tapering her, and with the taper, has had increased pain, beginning again to lose weight, increasing falls, lower extremity weakness. Of note patient also has significant history of depression, as well as suicidal ideation, she has been hospitalized twice per daughter's report the last couple years, patient perceives her overall quality of life is quite poor, her daughter does perceive her as fragile and failure to thrive. Medical/Surgical History - Past Medical History Cardiovascular: reports: Hypertension Respiratory: reports: Pneumonia Neuro: Dementia, CVA Neuro: reports: Dementia, CVA Endocrine/Autoimmune: reports: None GI: reports: GERD, Ulcers, Chronic constipation, Diverticulitis, Other ( perforated bowel in the past, status post colostomy, status post colostomy take down) : reports: Incontinence, Nocturia, Frequency, Other (recent UTI) HEENT: reports: Chronic vision loss, Other (cataracts) Psych: reports: Depression, Anxiety Musculoskeletal: reports: Osteoarthritis, Chronic back pain Derm: reports: Herpes zoster MRSA Hx?: No - Past Surgical History General: reports: Bowel surgery /MEDICAL RECORD TRANSCRIBER: reports: Hysterectomy HEENT: reports: Cataracts Derm: reports: Skin cancer surgery - Substance History Use: Uses substance without health or social issues: NONE Abuse: Recurrent use of substance despite neg consequences: NONE Dependence: Experiences withdrawal or developed tolerances: Alcohol (patient with documented history of alcoholism in past; denies currently;), Opioid ( patient with issues with overusing norco/some related to memory/ had managing) Tobacco Details: Cigarettes (reports has smoked in the past;) Social History - Living Situation Living arrangement: At home Living Situation: With spouse/s.o. (Patient has lived on [facility] for [facility] years, is very isolated, recently lost her driving privileges. Her does work, patient does spend quite a bit of time will alone. 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 She reports she has a large home, but is unable to participate in any kind of housekeeping. Her daughter ISMAEL is a strong advocate for her, and will be arriving tomorrow. She also has a fairly good handle of her mother's history, and a list of concerns given her continued fragility, and failure over the last couple years and most acutely over the last couple weeks. She has a son also from [facility] that lives in [place]. She has been to [place] for about 40 years, reports there are many complexities.) Family History - Family History Family History: Mother: , Cancer (colon at age 85), Father: , Sister: Alive and Well, Brother: Alive and Well Medications/Allergies - Medications Active Medication List: Active Medications Acetaminophen/Hydrocodone Bitart (Herman 5/325) 1.5 tab PO Q4H PRN PRN Reason: PAIN Last Admin: 06/25/17 04:18 Dose: 1.5 tab Cholecalciferol (Vitamin D3) 400 unit PO DAILY [facility] Last Admin: 06/25/17 09:44 Dose: 400 unit Guaifenesin (Robitussin Liquid) 100 mg PO BID [facility] Last Admin: 06/25/17 09:48 Dose: Not Given Isosorbide Mononitrate (Imdur) 30 mg PO DAILY [facility] Last Admin: 06/25/17 09:45 Dose: 30 mg Levalbuterol HCl (Xopenex) 1.25 mg INH Q4H PRN PRN Reason: Shortness of Air/Wheezing Levalbuterol HCl (Xopenex) 1.25 mg INH RTBID [facility] Last Admin: 06/25/17 09:16 Dose: 1.25 mg Metoprolol Tartrate (Lopressor) 25 mg PO BID [facility] Last Admin: 06/25/17 09:44 Dose: 25 mg Morphine Sulfate (Morphine) 2 mg IVP Q2H PRN PRN Reason: PAIN Last Admin: 06/25/17 09:55 Dose: 2 mg Olanzapine (Zyprexa Odt) 5 mg TL DAILY [facility] Ondansetron HCl (Zofran Odt) 4 mg PO TID PRN PRN Reason: Nausea / Vomiting Polyethylene Glycol (Miralax) 17 gm PO DAILY [facility] Last Admin: 06/25/17 09:44 Dose: 17 gm Spironolactone (Aldactone) 25 mg PO DAILY [facility] Last Admin: 06/25/17 09:45 Dose: 25 mg Venlafaxine HCl (Effexor Er) 150 mg PO DAILYWM [facility] Last Admin: 06/25/17 09:45 Dose: 150 mg Losartan [Cozaar] 50 mg PO DAILY 09/13/13 Vitamin E 400 unit PO DAILY 09/13/13 Cholecalciferol (Vitamin D3) [Vitamin D3] 400 unit PO DAILY 01/31/16 Metoprolol Tartrate 25 mg PO BID 01/31/16 Multivitamin [Theragran] 1 tab PO DAILY 01/31/16 Albuterol Sulfate [Proventil Hfa Inhaler] 2 puffs INH Q6H PRN 06/24/17 Calcium Carbonate [Tums (Calcium Carbonate 500mg)] 1,000 mg PO DAILY 06/24/17 Dicyclomine HCl 20 mg PO TIDWM 06/24/17 HYDROcod/ACETAM 5/325 [Herman 5/325] 1.5 tab PO Q4H PRN 06/24/17 Hyoscyamine Sulfate 0.125 mg SL QID PRN 06/24/17 Megestrol Acetate 5 ml PO DAILY 06/24/17 Nortriptyline HCl 50 mg PO QPM 06/24/17 Omeprazole 40 mg PO BID 06/24/17 Ondansetron Odt [Zofran Odt] 4 mg SL TID PRN 06/24/17 Venlafaxine HCl [Venlafaxine HCl ER] 150 mg PO DAILYWM 06/24/17 - Allergies Allergies/Adverse Reactions: Allergies Allergy/AdvReac Type Severity Reaction Status Date / Time No Known Drug Allergies Allergy Verified 06/17/16 14:23 Review of Systems - Constitutional Constitutional: reports: Fatigue, Weakness, Poor appetite, Weight loss (patient has been as low as 95 pounds; improved appetite and intake on Prednisone-now diminished with taper) - Eyes Eyes: reports: Vision loss - Ears, Nose & Throat Ears, Nose & Throat: reports: Dry mouth - Cardiovascular Cardiovascular: reports: Exertional dyspnea, Decr. exercise tolerance - Respiratory Respiratory: reports: Cough (worried about "being sick" and not finding anything ;), Wheezing, SOB at rest, SOB with exertion - Gastrointestinal Gastrointestinal: reports: Abdominal pain (longstanding and chronic since take down surgery 2015; has seen GI specialists without improvement or identified etiology; has been frustrating; has received multiple opioids over last couple of years without much effect per patient; confirmed by daughter; best relief had been with the Prednisone at the 20 mg dosing), Constipation (no BM for 2-3 days per report; reports pain worsens with contipation), Poor appetite, Early satiety - Genitourinary Genitourinary: reports: Urgency, Incontinence - Musculoskeletal Musculoskeletal: reports: Muscle weakness, Other (frequent falls with injury at home; patient reports has had recent PT but unable to continue with HTN and difficulty tolerating treadmill) - Integumentary Integumentary: reports: Other (trauma wounds from fall) - Neurological Neurological: reports: General weakness, Headache, Memory problems - Psychiatric Psychiatric: reports: Depression (patient with severe depression; has been hospitalized twice; does have hx of suicidal ideation; feeling overwhelmed currently with hopelessness; last change with antidepressants was 6 months ago- this is patient unclear if accurate.) - Hematologic/Lymphatic Hematologic/Lymphatic: reports: Bruising (from frequent falls), Recurrent infections (recent UTI/pneumonia) - All Other Systems All Other Systems: reports: Reviewed and negative Physical Exam - Vital Signs Vital Signs: Vital Signs x48h Temp Pulse Resp BP BP Pulse Ox 06/25/17 15:24 36.6 C 72 22 159/93 H 98 06/25/17 13:21 36.8 C 73 24 173/81 H 95 06/25/17 09:44 163/140 H - Physical Exam General Appearance: positive: Mild distress, Anxious (but relaxed with conversation;) Eyes Bilateral: positive: Normal inspection, Other (matted eyelashes/cosmetic) ENT: positive: Dry mucous membranes Neck: positive: No JVD, Trachea midline Cardiovascular: positive: Tachycardia Respiratory: positive: Wheezes (left lower lobe), Rhonchi (upper airways; tight cough) Abdomen: positive: Soft, Tenderness (mild tenderness; reports the "pain" is more deep and diffuse) Skin: positive: Dryness, Bruising Extremities: positive: No pedal edema, Other (upper extremity tremors; 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; hands with osteoarthritic) Neurologic/Psychiatric: positive: Disoriented to time, Weakness, Depressed mood/ affect Palliative Care - POLST Patient has POLST: No Pain: Pain worsening, Location (abdominal with "high" intensity, does not feel Herman works, but better than "nothing" reports steroids have been best intervention) Tiredness/Fatigue: Severe (7-10) Drowsiness/Sedation: Mild (1-3) (though reports patient mostly sedentary and sleeps most of the day) Nausea: Mild (1-3) Depression: Severe (7-10) Anxiety: Moderate (4-6) Dyspnea: Severe (7-10) Anorexia: Severe (7-10) Sleep: Variable sleep pattern Constipation: Yes, Opoid induced, Unmanaged Feelings of wellbeing/Perceived Quality of Life: Poor, Worsening Performance Status: Patient does have lower extremity weakness, does currently need assistance to the bathroom, she her balance is poor and she is weak and shaky when up. She did have another fall in the bathroom here at the hospital the day. Her reports she has had multiple falls at home. She would like to be more independent, but is at baseline fairly sedentary. She had tried outpatient physical therapy, is hoping to get strong enough to return to this. In discussing her goals is actually quite interested in home health support. - Palliative Care Discussion: When reviewed what worries patient most, it is her ongoing decline, her abdominal pain and her going downhill. She is worried they will discharge her without addressing her hypertension and her pneumonia, she very much would like to make sure that the hospitalist orders a chest CT. She is severely depressed , and recognizes this as far as her isolation, and feelings of hopelessness. She is very much looking forward to having her daughter visit, as she is isolated at home. When asked about her goals, she would like to become more independent, have her pain better controlled, she reports she is not ready to be dying, is hoping to recover from this episode. She reports she is not afraid of dying, but she is worried about her ability to get better. When asked about the comment that she wanted to "talk about her CODE STATUS later "she reports that was related to her Mason, that he does like to talk about anything emotional, and she would like to further explore advanced directives. She would like her daughter clarita GUEVARA to be part of that conversation. Results - Lab Results Lab results reviewed: Yes Fish Bones: 06/25/17 05:25 06/25/17 05:25 Lab and Imaging Results: Lab Results x24hrs 06/25/17 06/25/17 06/25/17 Range/Units 05:25 05:25 05:25 WBC (4.8-10.8) x10^3/uL RBC (4.20-5.40) 10^6/uL Hgb (12.0-16.0) g/dL Hct (37.0-47.0) % MCV (81.0-99.0) fL MCH (27.0-31.0) pg MCHC (32.0-36.0) g/dL RDW (12.0-15.0) % Plt Count (130-450) 10^3/uL MPV (7.9-10.8) fL Neut # (1.5-6.6) 10^3/uL Lymph # (1.5-3.5) 10^3/uL Stanley # (0.0-1.0) 10^3/uL Eos # (0.0-0.7) 10^3/uL Baso # (0.0-0.1) 10^3/uL Absolute Nucleated RBC x10^3/uL Nucleated RBC % /100WBC ESR 18 (0-30) mm/Hr Sodium 138 (135-145) mmol/L Potassium 4.6 (3.5-5.0) mmol/L Chloride 99 L (101-111) mmol/L Carbon Dioxide 33 H (21-32) mmol/L Anion Gap 6.0 (6-13) BUN 13 (6-20) mg/dL Creatinine 0.6 (0.4-1.0) mg/dL Estimated GFR (MDRD) 97 (>89) Glucose 147 H (70-100) mg/dL Calcium 8.5 (8.5-10.3) mg/dL Total Bilirubin 0.7 (0.2-1.0) mg/dL AST 17 (10-42) IU/L ALT 14 (10-60) IU/L Alkaline Phosphatase 53 (42-121) IU/L C-Reactive Protein 9.8 H (0-1.0) mg/dL B-Natriuretic Peptide 643 H (5-100) pg/mL Total Protein 6.0 L (6.7-8.2) g/dL Albumin 3.1 L (3.2-5.5) g/dL Globulin 2.9 (2.1-4.2) g/dL Albumin/Globulin Ratio 1.1 (1.0-2.2) 06/25/17 Range/Units 05:25 WBC 7.7 (4.8-10.8) x10^3/uL RBC 3.95 L (4.20-5.40) 10^6/uL Hgb 12.1 (12.0-16.0) g/dL Hct 37.6 (37.0-47.0) % MCV 95.2 (81.0-99.0) fL MCH 30.6 (27.0-31.0) pg MCHC 32.2 (32.0-36.0) g/dL RDW 14.3 (12.0-15.0) % Plt Count 168 (130-450) 10^3/uL MPV 7.7 L (7.9-10.8) fL Neut # 7.0 H (1.5-6.6) 10^3/uL Lymph # 0.4 L (1.5-3.5) 10^3/uL Stanley # 0.3 (0.0-1.0) 10^3/uL Eos # 0.0 (0.0-0.7) 10^3/uL Baso # 0.0 (0.0-0.1) 10^3/uL Absolute Nucleated RBC 0.00 x10^3/uL Nucleated RBC % 0.0 /100WBC ESR (0-30) mm/Hr Sodium (135-145) mmol/L Potassium (3.5-5.0) mmol/L Chloride (101-111) mmol/L Carbon Dioxide (21-32) mmol/L Anion Gap (6-13) BUN (6-20) mg/dL Creatinine (0.4-1.0) mg/dL Estimated GFR (MDRD) (>89) Glucose (70-100) mg/dL Calcium (8.5-10.3) mg/dL Total Bilirubin (0.2-1.0) mg/dL AST (10-42) IU/L ALT (10-60) IU/L Alkaline Phosphatase (42-121) IU/L C-Reactive Protein (0-1.0) mg/dL B-Natriuretic Peptide (5-100) pg/mL Total Protein (6.7-8.2) g/dL Albumin (3.2-5.5) g/dL Globulin (2.1-4.2) g/dL Albumin/Globulin Ratio (1.0-2.2) Impression and Recommendations - Palliative Care Impression: This is a 77-year-old woman who it metastases with acute illness, most likely pneumonia, she appears quite frail, has multiple complaints as well as high symptom burden. In review of her history both with patient and daughter, she does present as a failure to thrive. Palliative care meet with patient and establish rapport, initiate conversations regarding goals of care, addressing high symptom burden Recommendations/Counseling Done: 1. Acute respiratory illness. Resp aspirate/prelim only available. Patient reassured CT chest being ordered in follow up, patient with wheezing and cough, dyspnea, and feeling poorly. Reported underlying pulmonary fibrosis. 2. Generalized weakness. Would recommend home health physical therapy, for home safety eval, home exercise program for strengthening and endurance, as well as balance training. Patient is homebound and would be a Taxing considerable effort for the patient to leave the home. Patient also benefit from home health aide services to assist with bathing, currently uses a stool, is feeling weak and shaky and has no caregiver at this point that provides oversight. 3. Abdominal pain. Spoke with patient's daughter Ismael, Discussed revisiting chronic dosing of prednisone given patient's response, and current sleep poor controlled pain, as well as goals to support her quality of life. Counseling regarding the pros and cons of long-term steroid use, but given patient's failure to thrive, may be recommended to revisit with her PCP on discharge given its effectiveness and her current decline. Patient may benefit from methadone, but does not have the supportive environment to titrate safely to affect. 4. Depression. Given patient's concern for appetite, may consider revisiting antidepressants, and adding mirtazapine at bedtime, did recommend [facility], they do take Medicare patients, this resources given to the daughter to follow-up. He can self refer. 5. Safety issues. Patient and have multiple financial stressors, that would be why is still working. Did discuss consider follow-up regarding COPD ES, patient does require supervision and assistance, would be able to help with transportation, and would significantly decrease isolation. Will have social sciences instructor follow-up with , information also given to daughter. 6. Advanced care planning. Patient would like to discuss advanced care planning in the future, feels is very reticent and "gets too emotional" , patient does currently still want to move forward and have active intervention , but recognizes her fragile state. Would like her daughter to participate in the future regarding further conversation about goals of care Time Spent: 90 minutes with greater than 50% of this done in counseling, coordination of care with daughter and hospitalist, introduction to , review of patient' s short and long-term concerns. Palliative care will follow up on Wednesday if patient still there, did give information regarding resources for palliative care follow-up on outpatient
[2017-06-25] MEDS: OLANZapine ODT 5 MG TABLET TL SCH (17:37)
[2017-06-25] MEDS ORDERED: SODIUM CHLORIDE FLUSH 0.9% 10 ML SYRINGE ONE ×4 (17:51→22:32)
[2017-06-25] MEDS ORDERED: IOPAMIDOL-300 100 ML VIAL ONE (20:20)
[2017-06-25] MEDS ORDERED: IOPAMIDOL-300 100 ML VIAL IVP ONE (20:38)
[2017-06-25] MEDS: SACCHAROMYCES BOULARDII 250 MG CAPSULE PO SCH (20:54)
[2017-06-25] MEDS: CLINDAMYCIN 150 MG CAPSULE PO SCH (20:54)
[2017-06-25] MEDS ORDERED: NORTRIPTYLINE 25 MG CAPSULE PO SCH (21:00)
[2017-06-25] MEDS ORDERED: LABETALOL 20 MG/4 ML SYRINGE IVP ONE (21:31)
--- NOTE | 2017-06-25 22:31 | CT Preliminary Report ---
Exam: CT CHEST W/ IMPRESSION: 1. Biapical scarring. Mild to moderate heterogeneous reticular hazy opacities seen in the lungs, most prominent in the upper lobes. These could be areas of fibrosis. Acute infectious/inflammatory proces s not excluded. Areas of honeycombing in the bilateral upper lobes. 2. Mediastinal lymphadenopathy could be reactive versus metastasis and follow-up is recommended. 3. Ectatic ascending thoracic aorta measuring 4.2 cm. 4. Left thyroid nodule or complex cyst measuring 1 cm. a routine thyroid ultrasound could further phuong luate. 5. Status post cholecystectomy. Mildly dilated common bile duct measuring 8 mm. Left midpole renal c alculus measures 4 mm. 6. See above. [facility] SITE ID: [id number]
--- NOTE | 2017-06-25 22:56 | CT Report ---
EXAM: CT CHEST EXAM DATE: 06/25/2017 08:43 PM. CLINICAL HISTORY: Cough, pulmonary fibrosis. COMPARISONS: None. TECHNIQUE: Routine helical CT imaging was performed through the chest. IV contrast: None. Reconstruct ions: Coronal and sagittal. In accordance with CT protocol optimization, one or more of the following dose reduction techniques w ere utilized for this exam: automated exposure control, adjustment of mA and/or KV based on patient s ize, or use of iterative reconstructive technique. FINDINGS: Mediastinum: Ectatic ascending thoracic aorta measuring 4.2 cm. No thoracic aortic dissection. Paratr acheal lymphadenopathy 1.3 cm. Prominent paratracheal lymph node measuring 8 mm. Subcarinal lymphaden opathy measuring 1.5 cm. Prominent right atrium. Overall heart size is within normal limits. Prominen t left hilar lymph node measures 8 mm. Left thyroid nodule or complex cyst measuring 1 cm. Lungs: Biapical scarring. Mild to moderate heterogeneous reticular hazy opacities seen in the lungs, most prominent in the upper lobes. Areas of honeycombing in the bilateral upper lobes. No pleural eff usions or pneumothorax. Upper Abdomen: Status post cholecystectomy. Mildly dilated common bile duct measuring 8 mm. Tiny nons pecific low density lesion at the lower pole right kidney. Left midpole renal calculus measures 4 mm. Small nonspecific low density lesion seen at the lower pole left kidney measuring 5 mm. No acute bone findings. IMPRESSION: 1. Biapical scarring. Mild to moderate heterogeneous reticular hazy opacities seen in the lungs, most prominent in the upper lobes. These could be areas of fibrosis. Acute infectious/inflammatory proces s not excluded. Areas of honeycombing in the bilateral upper lobes. 2. Mediastinal lymphadenopathy could be reactive versus metastasis and follow-up is recommended. 3. Ectatic ascending thoracic aorta measuring 4.2 cm. 4. Left thyroid nodule or complex cyst measuring 1 cm. a routine thyroid ultrasound could further phuong luate. 5. Status post cholecystectomy. Mildly dilated common bile duct measuring 8 mm. Left midpole renal c alculus measures 4 mm. 6. See above. [facility] Referring Provider Line: [phone] SITE ID: [id number]
[2017-06-26] MEDS: CLINDAMYCIN 150 MG CAPSULE PO SCH ×4 (01:05→16:56)
[2017-06-26] MEDS: HYDROcod/ACETAM 5/325 MG TABLET PO PRN (01:06)
[2017-06-26 06:35] LABS: BASOPHILS % (AUTO) 0.1 %; HGB - HEMOGLOBIN 12.6 g/dL (12.0-16.0); LYMPHOCYTES # (AUTO) 0.9 10^3/uL (1.5-3.5); LYMPHOCYTES % (AUTO) 10.6 %; MEAN CORPUSCULAR HEMOGLOBIN 30.5 pg (27.0-31.0); MEAN CORPUSCULAR HGB CONC 32.1 g/dL (32.0-36.0); MEAN CORPUSCULAR VOLUME 95.2 fL (81.0-99.0); MEAN PLATELET VOLUME 7.5 fL (7.9-10.8); MONOCYTES # (AUTO) 0.7 10^3/uL (0.0-1.0); MONOCYTES % (AUTO) 7.8 %; NEUTROPHILS % (AUTO) 81.5 %; PLT - PLATELET COUNT 168 10^3/uL (130-450); RED BLOOD COUNT 4.12 10^6/uL (4.20-5.40); RED CELL DISTRIBUTION WIDTH 14.5 % (12.0-15.0); WHITE BLOOD COUNT 8.5 x10^3/uL (4.8-10.8)
[2017-06-26 06:55] LABS: ALBUMIN 3.4 g/dL (3.2-5.5); ALBUMIN/GLOBULIN RATIO 1.1 (1.0-2.2); BILIRUBIN,TOTAL 0.8 mg/dL (0.2-1.0); CALCIUM 8.7 mg/dL (8.5-10.3); CREATININE 0.6 mg/dL (0.4-1.0); CRP - C-REACTIVE PROTEIN 6.7 mg/dL (0-1.0); TOTAL PROTEIN 6.5 g/dL (6.7-8.2)
[2017-06-26] MEDS: SACCHAROMYCES BOULARDII 250 MG CAPSULE PO SCH ×2 (08:51→16:56)
[2017-06-26] MEDS: POLYETHYLENE GLYCOL 3350 17 GM PACKET PO SCH (08:51)
[2017-06-26] MEDS: METOPROLOL TARTRATE 25 MG TABLET PO SCH ×2 (08:51→21:37)
[2017-06-26] MEDS: SPIRONOLACTONE 25 MG TABLET PO SCH (08:52)
[2017-06-26] MEDS: VENLAFAXINE ER 75 MG CAPSULE PO SCH (08:52)
[2017-06-26] MEDS: guaiFENesin 100 MG/5 ML UDC PO SCH (08:52)
[2017-06-26] MEDS: CHOLECALCIFEROL 400 UNIT TABLET PO SCH (08:52)
[2017-06-26] MEDS: ISOSORBIDE MONONITRATE ER 30 MG TABLET PO SCH (08:52)
[2017-06-26] MEDS: OLANZapine ODT 5 MG TABLET TL SCH ×2 (08:53→21:46)
[2017-06-26] MEDS: LEVALBUTEROL 1.25 MG/3 ML NEB INH SCH ×2 (09:15→19:35)
[2017-06-26] MEDS ORDERED: hydrALAZINE INJ 20 MG/ML VIAL IVP ONE (12:04)
[2017-06-26] MEDS ORDERED: SODIUM CHLORIDE FLUSH 0.9% 10 ML SYRINGE ONE ×2 (12:32→20:25)
[2017-06-26] MEDS: ENOXAPARIN 40 MG/0.4 ML SYRINGE SUBQ SCH (13:40)
[2017-06-26] MEDS: predniSONE 10 MG TABLET PO SCH (13:40)
[2017-06-26] MEDS: guaiFENesin 600 MG TABLET PO SCH ×2 (13:40→21:37)
[2017-06-26] MEDS: MORPHINE 2 MG/ML SYRINGE IVP PRN (13:40)
[2017-06-26] MEDS ORDERED: VANCOMYCIN INJ 0.75 GM in SODIUM CHLORIDE 0.9% 250 ML IV SCH (18:00)
[2017-06-26] MEDS ORDERED: VANCOMYCIN PER PHARMACY 100 GM in SODIUM CHLORIDE 0.9% 250 ML IV SCH (18:00)
[2017-06-26] MEDS: SODIUM CHLORIDE FLUSH 0.9% 10 ML SYRINGE IVP PRN ×2 (18:18→21:38)
[2017-06-26] MEDS: ACETAMINOPHEN 325 MG TABLET PO PRN (22:19)
[2017-06-27] MEDS: CLINDAMYCIN 150 MG CAPSULE PO SCH ×2 (00:18→06:03)
[2017-06-27] MEDS ORDERED: SODIUM CHLORIDE FLUSH 0.9% 10 ML SYRINGE ONE ×2 (00:24→23:37)
[2017-06-27] MEDS: MORPHINE 2 MG/ML SYRINGE IVP PRN ×2 (06:27→23:29)
[2017-06-27 06:33] LABS: BASOPHILS % (AUTO) 0.1 %; EOSINOPHILS % (AUTO) 0.1 %; HGB - HEMOGLOBIN 12.9 g/dL (12.0-16.0); LYMPHOCYTES # (AUTO) 1.2 10^3/uL (1.5-3.5); LYMPHOCYTES % (AUTO) 18.2 %; MEAN CORPUSCULAR HEMOGLOBIN 30.3 pg (27.0-31.0); MEAN CORPUSCULAR HGB CONC 32.4 g/dL (32.0-36.0); MEAN CORPUSCULAR VOLUME 93.4 fL (81.0-99.0); MEAN PLATELET VOLUME 7.5 fL (7.9-10.8); MONOCYTES # (AUTO) 0.5 10^3/uL (0.0-1.0); NEUTROPHILS # (AUTO) 4.8 10^3/uL (1.5-6.6); NEUTROPHILS % (AUTO) 73.6 %; PLT - PLATELET COUNT 173 10^3/uL (130-450); RED BLOOD COUNT 4.27 10^6/uL (4.20-5.40); RED CELL DISTRIBUTION WIDTH 14.3 % (12.0-15.0); WHITE BLOOD COUNT 6.5 x10^3/uL (4.8-10.8)
[2017-06-27] MEDS: SODIUM CHLORIDE FLUSH 0.9% 10 ML SYRINGE IVP SCH ×4 (06:44→23:59)
[2017-06-27 06:51] LABS: ALBUMIN 3.3 g/dL (3.2-5.5); BILIRUBIN,TOTAL 1.2 mg/dL (0.2-1.0); CALCIUM 8.9 mg/dL (8.5-10.3); CREATININE 0.6 mg/dL (0.4-1.0); CRP - C-REACTIVE PROTEIN 16.4 mg/dL (0-1.0); TOTAL PROTEIN 6.6 g/dL (6.7-8.2)
[2017-06-27] MEDS ORDERED: POTASSIUM CHLORIDE 20 MEQ TABLET PO ONE ×2 (07:22→14:19)
[2017-06-27] MEDS ORDERED: VANCOMYCIN INJ 0.75 GM in SODIUM CHLORIDE 0.9% 250 ML IV SCH ×2 (07:59→11:03)
[2017-06-27] MEDS: HYDROcod/ACETAM 5/325 MG TABLET PO PRN ×4 (09:58→22:12)
[2017-06-27] MEDS: SACCHAROMYCES BOULARDII 250 MG CAPSULE PO SCH ×2 (09:59→16:15)
[2017-06-27] MEDS: OLANZapine ODT 5 MG TABLET TL SCH (09:59)
[2017-06-27] MEDS: VENLAFAXINE ER 75 MG CAPSULE PO SCH (09:59)
[2017-06-27] MEDS: SPIRONOLACTONE 25 MG TABLET PO SCH (09:59)
[2017-06-27] MEDS: METOPROLOL TARTRATE 25 MG TABLET PO SCH ×2 (10:00→22:15)
[2017-06-27] MEDS: CHOLECALCIFEROL 400 UNIT TABLET PO SCH (10:02)
[2017-06-27] MEDS: ISOSORBIDE MONONITRATE ER 30 MG TABLET PO SCH ×2 (10:02→23:59)
[2017-06-27] MEDS: guaiFENesin 600 MG TABLET PO SCH ×2 (10:02→22:13)
[2017-06-27] MEDS: ENOXAPARIN 40 MG/0.4 ML SYRINGE SUBQ SCH (10:03)
[2017-06-27] MEDS: predniSONE 10 MG TABLET PO SCH (10:03)
[2017-06-27] MEDS: POLYETHYLENE GLYCOL 3350 17 GM PACKET PO SCH ×2 (10:04→10:27)
--- NOTE | 2017-06-27 11:22 | PROVIDER PROGRESS NOTE ---
Subjective - Prog Note Date Prog Note Date: 06/26/17 Prog Note Time: 08:00 - Subjective Pt reports feeling: No change Subjective: Meghann has been sleepy today, although per report, she was awake all night. She denies SOB, chest pain, N/V or an increased cough. Current Medications - Current Medications Current Medications: Active Medications Acetaminophen (Tylenol) 650 mg PO Q4HR PRN PRN Reason: Pain or Fever > 38C (100.4F) Last Admin: 06/26/17 22:19 Dose: 650 mg Acetaminophen/Hydrocodone Bitart ([place] 5/325) 1.5 tab PO Q4H PRN PRN Reason: PAIN Last Admin: 06/27/17 09:58 Dose: 1.5 tab Cholecalciferol (Vitamin D3) 400 unit PO DAILY [facility] Last Admin: 06/27/17 10:02 Dose: 400 unit Clindamycin HCl (Cleocin) 450 mg PO Q6HR [facility] Last Admin: 06/27/17 06:03 Dose: 450 mg Enoxaparin Sodium (Lovenox) 40 mg SUBQ DAILY [facility] Last Admin: 06/27/17 10:03 Dose: 40 mg Guaifenesin (Mucinex) 600 mg PO BID [facility] Last Admin: 06/27/17 10:02 Dose: 600 mg Vancomycin HCl 0.75 gm/ Sodium (Chloride) 250 mls @ 125 mls/hr IV 1000,2200 [facility] Isosorbide Mononitrate (Imdur) 30 mg PO DAILY [facility] Last Admin: 06/27/17 10:02 Dose: 30 mg Levalbuterol HCl (Xopenex) 1.25 mg INH Q4H PRN PRN Reason: Shortness of Air/Wheezing Levalbuterol HCl (Xopenex) 1.25 mg INH RTBID [facility] Last Admin: 06/26/17 19:35 Dose: 1.25 mg Metoprolol Tartrate (Lopressor) 25 mg PO BID [facility] Last Admin: 06/27/17 10:00 Dose: 25 mg Morphine Sulfate (Morphine) 2 mg IVP Q2H PRN PRN Reason: PAIN Last Admin: 06/27/17 06:27 Dose: 2 mg Olanzapine (Zyprexa Odt) 2.5 mg TL DAILY [facility] Last Admin: 06/27/17 09:59 Dose: 2.5 mg Ondansetron HCl (Zofran Odt) 4 mg PO TID PRN PRN Reason: Nausea / Vomiting Polyethylene Glycol (Miralax) 17 gm PO DAILY [facility] Last Admin: 06/27/17 10:27 Dose: 17 gm Prednisone (Deltasone) 10 mg PO DAILYWM [facility] Last Admin: 06/27/17 10:03 Dose: 10 mg Saccharomyces Boulardii (Florastor) 500 mg PO BIDWM [facility] Last Admin: 06/27/17 09:59 Dose: 500 mg Sodium Chloride (Normal Saline Flush 0.9%) 10 ml IVP Q8HR [facility] Last Admin: 06/27/17 10:03 Dose: 10 ml Spironolactone (Aldactone) 25 mg PO DAILY [facility] Last Admin: 06/27/17 09:59 Dose: 25 mg Venlafaxine HCl (Effexor Er) 150 mg PO DAILYWM [facility] Last Admin: 06/27/17 09:59 Dose: 150 mg Losartan [Cozaar] 50 mg PO DAILY 09/13/13 Vitamin E 400 unit PO DAILY 09/13/13 Cholecalciferol (Vitamin D3) [Vitamin D3] 400 unit PO DAILY 01/31/16 Metoprolol Tartrate 25 mg PO BID 01/31/16 Multivitamin [Theragran] 1 tab PO DAILY 01/31/16 Albuterol Sulfate [Proventil Hfa Inhaler] 2 puffs INH Q6H PRN 06/24/17 Calcium Carbonate [Tums (Calcium Carbonate 500mg)] 1,000 mg PO DAILY 06/24/17 Dicyclomine HCl 20 mg PO TIDWM 06/24/17 HYDROcod/ACETAM 5/325 [[place] 5/325] 1.5 tab PO Q4H PRN 06/24/17 Hyoscyamine Sulfate 0.125 mg SL QID PRN 06/24/17 Megestrol Acetate 5 ml PO DAILY 06/24/17 Nortriptyline HCl 50 mg PO QPM 06/24/17 Omeprazole 40 mg PO BID 06/24/17 Ondansetron Odt [Zofran Odt] 4 mg SL TID PRN 06/24/17 Venlafaxine HCl [Venlafaxine HCl ER] 150 mg PO DAILYWM 06/24/17 Objective - Vital Signs/Intake & Output Reviewed Vital Signs: Yes Vital Signs: Vital Signs x48h Temp Pulse Pulse Resp BP BP BP 06/27/17 10:00 149/86 H 06/27/17 08:14 36.8 C 67 16 188/86 H 06/27/17 07:18 180/98 H 06/27/17 07:02 196/101 H 06/27/17 06:46 201/101 H 06/27/17 06:43 197/101 H 06/27/17 06:21 213/100 H 06/27/17 06:14 36.8 C 212/108 H 06/27/17 05:59 64 Pulse Ox 06/27/17 10:00 06/27/17 08:14 98 06/27/17 07:18 06/27/17 07:02 06/27/17 06:46 06/27/17 06:43 06/27/17 06:21 06/27/17 06:14 06/27/17 05:59 99 Intake & Output: Intake & Output 06/24/17 06/25/17 06/26/17 06/27/17 23:59 23:59 23:59 23:59 Intake Total 2400 1540 490 240 Output Total 175 500 Balance 2225 1040 490 240 - Objective General Appearance: positive: No acute distress, Lethargic Eyes Bilateral: positive: Normal inspection, Other (dry) Eyes: OU Conjunctivae pale, OU Scleral icterus ENT: positive: ENT inspection nml, Pharynx nml, Pharyngeal erythema, Dry mucous membranes Neck: positive: Nml inspection, Trachea midline, Stiff neck Respiratory: positive: Chest non-tender, No respiratory distress, Other ( crackles though out) Cardiovascular: positive: Regular rate & rhythm, Systolic murmur, Decreased pulse(s) Peripheral Pulses: 1+ Radial (R), 1+ Radial (L) Abdomen: positive: No organomegaly, Nml bowel sounds, Tenderness (chronic tenderness), Other (rounded, soft) Back: positive: Nml inspection Skin: positive: No rash, Warm, Dry, Diaphoresis (at times), Pallor Extremities: positive: Non-tender, Pedal edema (mild, dependent), Joint swelling Neurologic/Psychiatric: positive: Oriented x3, Weakness, Sensory loss, Slurred/ abnml speech (due to lethargy), Depressed mood/affect Reflexes: Bicep (R): 2+, Bicep (L): 2+ - Lab Results Fish Bones: 06/27/17 06:25 06/27/17 06:25 Other Labs: Lab Results x24hrs 06/27/17 06/27/17 06/27/17 Range/Units 06:25 06:25 06:25 WBC (4.8-10.8) x10^3/uL RBC (4.20-5.40) 10^6/uL Hgb (12.0-16.0) g/dL Hct (37.0-47.0) % MCV (81.0-99.0) fL MCH (27.0-31.0) pg MCHC (32.0-36.0) g/dL RDW (12.0-15.0) % Plt Count (130-450) 10^3/uL MPV (7.9-10.8) fL Neut # (1.5-6.6) 10^3/uL Lymph # (1.5-3.5) 10^3/uL Green # (0.0-1.0) 10^3/uL Eos # (0.0-0.7) 10^3/uL Baso # (0.0-0.1) 10^3/uL Absolute Nucleated RBC x10^3/uL Nucleated RBC % /100WBC ESR (0-30) mm/Hr Sodium 137 (135-145) mmol/L Potassium 3.0 L (3.5-5.0) mmol/L Chloride 91 L (101-111) mmol/L Carbon Dioxide 36 H (21-32) mmol/L Anion Gap 10.0 (6-13) BUN 14 (6-20) mg/dL Creatinine 0.6 (0.4-1.0) mg/dL Estimated GFR (MDRD) 97 (>89) Glucose 94 (70-100) mg/dL Calcium 8.9 (8.5-10.3) mg/dL Total Bilirubin 1.2 H (0.2-1.0) mg/dL AST 24 (10-42) IU/L ALT 16 (10-60) IU/L Alkaline Phosphatase 54 (42-121) IU/L C-Reactive Protein 16.4 H (0-1.0) mg/dL B-Natriuretic Peptide 466 H (5-100) pg/mL Total Protein 6.6 L (6.7-8.2) g/dL Albumin 3.3 (3.2-5.5) g/dL Globulin 3.3 (2.1-4.2) g/dL Albumin/Globulin Ratio 1.0 (1.0-2.2) TSH 1.62 (0.34-5.60) uIU/mL 06/27/17 06/27/17 Range/Units 06:25 06:25 WBC 6.5 (4.8-10.8) x10^3/uL RBC 4.27 (4.20-5.40) 10^6/uL Hgb 12.9 (12.0-16.0) g/dL Hct 39.8 (37.0-47.0) % MCV 93.4 (81.0-99.0) fL MCH 30.3 (27.0-31.0) pg MCHC 32.4 (32.0-36.0) g/dL RDW 14.3 (12.0-15.0) % Plt Count 173 (130-450) 10^3/uL MPV 7.5 L (7.9-10.8) fL Neut # 4.8 (1.5-6.6) 10^3/uL Lymph # 1.2 L (1.5-3.5) 10^3/uL Green # 0.5 (0.0-1.0) 10^3/uL Eos # 0.0 (0.0-0.7) 10^3/uL Baso # 0.0 (0.0-0.1) 10^3/uL Absolute Nucleated RBC 0.00 x10^3/uL Nucleated RBC % 0.0 /100WBC ESR 47 H (0-30) mm/Hr Sodium (135-145) mmol/L Potassium (3.5-5.0) mmol/L Chloride (101-111) mmol/L Carbon Dioxide (21-32) mmol/L Anion Gap (6-13) BUN (6-20) mg/dL Creatinine (0.4-1.0) mg/dL Estimated GFR (MDRD) (>89) Glucose (70-100) mg/dL Calcium (8.5-10.3) mg/dL Total Bilirubin (0.2-1.0) mg/dL AST (10-42) IU/L ALT (10-60) IU/L Alkaline Phosphatase (42-121) IU/L C-Reactive Protein (0-1.0) mg/dL B-Natriuretic Peptide (5-100) pg/mL Total Protein (6.7-8.2) g/dL Albumin (3.2-5.5) g/dL Globulin (2.1-4.2) g/dL Albumin/Globulin Ratio (1.0-2.2) TSH (0.34-5.60) uIU/mL - Diagnostic Imaging Diagnostic Imaging Results: positive: Prelim report reviewed, Final report reviewed ABX Reporting Has patient been on IV antibiotics over the past 48 hours?: Yes Assessment/Plan - Problem List (1) Aspiration pneumonia Impression: The patient has had difficulty with swallowing and a cough prior to admission. The patient has had profound debility and has not been ambulating as much and has profound worsening debility due to protein calorie malnutrition. The patient continues to have coarse sounding lungs on exam. A chest CT with contrast has been ordered and shows evidence of infiltrates, but also underlying chronic pulmonary fibrosis is evident. A sputum sample was obtained and C/S results +pseudomonas aerginosa, so antibiotics were changed to Cipro. Plan: Continue with an expectorant, nebulizer treatment, antibiotic, probiotic , and pulmonary toileting using a flutter valve device. (2) Protein-calorie malnutrition, mild Impression: The patient appears gravely ill much of the time, but can articulate well and has good eye contact. She has a current BMI of just 19.4, and this is improved since she has been on chronic steroids at home. She states that she has not had much of an appetite for several weeks, but is seen making efforts to eat. She was encouraged to maintain good PO intake, was provided extra protein shakes given with meals and she underwent a nutrition consult. Nutritional progress notes state; "Bogdan well known to me from previous admissions. Has previously been on TPN then TF as outpatient d/t poor oral intake and issues with esphagitis. Will add Ensure Plus 4 oz and bedtime snack. she has been maintaining her weight above 120# which is good for her. Her weights have been as low as 102#...highest 135#. She passed swallow evaluation". Plan: Continue to provide supportive care. (4) Pulmonary fibrosis Impression: The patient sees a regular Senior Quality Engineer who was called by her daughter over the weekend as to their recommendations. This morning I spoke with Cristina from pulmonology who I gave a full case review over the phone and agrees with the plan. PACs imaging were pushed over for his review as requested. Both he and I suspect she will need home oxygen for the rest of her life due to her recurrent pneumonia and the progressive nature of the chronic lung disease. Plan: Continue to treat PNA and provide supplemental oxygen. (5) Depression Impression: Given the patient's chronic illnesses, she admits to feeling hopeless much of the time. She states that she just wants to walk on the beach with her . She takes Effexor at home which has been continued here. Niki Gregory from Palliative care met with her shortly after admission and some goals of care were established and I was made aware of a few medication adjustments. She has been having some struggles with her sleep cycle while in the hospital, so temazepam at a low dose may be helpful. Plan: Continue current plan and monitor for mood instability, or AMS. Qualifiers: Depression Type: reactive depression Qualified Code(s): F32.9 - Major depressive disorder, single episode, unspecified (6) Fall Impression: The patient had evidence of falls at home with injury as she had a large bruise on her left knee and other scattered bruising. She admits to falling, but has an attitude that she will be "fine". Her works outside the home and is gone for much of the day. She fell in her bathroom on the AM after admission and hit her head. A head CT was completed and showed evidence of old infarcts, but no acute bleeding. Plan: Fall precautions and frequent nursing cares. Qualifiers: Encounter type: subsequent encounter Qualified Code(s): W19.XXXD - Unspecified fall, subsequent encounter
[2017-06-27] MEDS ORDERED: LEVALBUTEROL 1.25 MG/3 ML NEB INH PRN (11:46)
[2017-06-27] MEDS: CIPROFLOXACIN 250 MG TABLET PO SCH ×2 (12:37→22:14)
[2017-06-27] MEDS: LOSARTAN 50 MG TABLET PO SCH (12:37)
[2017-06-27] MEDS ORDERED: ZOLPIDEM 5 MG TABLET PO PRN (19:33)
[2017-06-27] MEDS ORDERED: BACITRACIN OINT TOP PRN (20:10)
[2017-06-27] MEDS ORDERED: diphenhydrAMINE 25 MG CAPSULE PO PRN (21:52)
[2017-06-27] MEDS: DOCUSATE SODIUM 250 MG CAPSULE PO SCH (22:14)
[2017-06-28] MEDS: HYDROcod/ACETAM 5/325 MG TABLET PO PRN ×2 (05:44→10:11)
[2017-06-28] MEDS: ACETAMINOPHEN 325 MG TABLET PO PRN (07:02)
[2017-06-28] MEDS ORDERED: DOCUSATE SODIUM 250 MG CAPSULE PO SCH (09:00)
[2017-06-28] MEDS: VENLAFAXINE ER 75 MG CAPSULE PO SCH (09:59)
[2017-06-28] MEDS: CIPROFLOXACIN 250 MG TABLET PO SCH (09:59)
[2017-06-28] MEDS: SACCHAROMYCES BOULARDII 250 MG CAPSULE PO SCH (10:00)
[2017-06-28] MEDS: predniSONE 10 MG TABLET PO SCH (10:00)
[2017-06-28] MEDS: DOCUSATE SODIUM 250 MG CAPSULE PO SCH (10:00)
[2017-06-28] MEDS: LOSARTAN 50 MG TABLET PO SCH (10:00)
[2017-06-28] MEDS: OLANZapine ODT 5 MG TABLET TL SCH (10:00)
[2017-06-28] MEDS: ISOSORBIDE MONONITRATE ER 30 MG TABLET PO SCH (10:00)
[2017-06-28] MEDS: SPIRONOLACTONE 25 MG TABLET PO SCH (10:00)
[2017-06-28] MEDS: guaiFENesin 600 MG TABLET PO SCH (10:00)
[2017-06-28] MEDS: METOPROLOL TARTRATE 25 MG TABLET PO SCH (10:01)
[2017-06-28] MEDS: POLYETHYLENE GLYCOL 3350 17 GM PACKET PO SCH (10:01)
[2017-06-28] MEDS: CHOLECALCIFEROL 400 UNIT TABLET PO SCH (10:01)
[2017-06-28] MEDS: ENOXAPARIN 40 MG/0.4 ML SYRINGE SUBQ SCH (10:01)
--- NOTE | 2017-06-28 10:34 | Discharge Plan ---
"Discharge Plan for SNF / [facility] - DC Plan and Transition Orders Disposition: 03 SNF DC/Xfer Condition: Good SNF Transition Orders: Admit to: [facility] under the care of Dr. 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 Medicare Certification: I certify that Post Hospital shelter care is medically necessary on a continuing basis for any of the conditions for which she/he is receiving care during hospitalization. Notify PCP of admission and forward orders to primary provider for signature. Weight on admission and monthly. Call PCP immediately if weight increases by 10 pounds or if patient develops dyspnea, chest pain/tightness or edema. House Bowel Program: yes; If no BM after 2 days, nurse may give M.O.M. 30ml PO PRN and /or ducolax Supp 1 MN and /or JACQUELINE 250mg P.O., and/or senna 1-2 tabs PO. On day 3 nurse may give repeat above order until residents constipation is resolved. Immunizations: Annual Influenza Vaccine: yes; (between Oct 16 and May 15 .) Unless allergy or already given Two-Step PPD: yes; per [facility] [id number] or appropriate documentation of approved exceptions Treatments & Other Orders: Continue antibiotics for pneumonia, and patient will not be on a steroid taper as she is on chronic steroids for abdominal pain and to meet nutritional needs. She had a fall the morning after admission to the hospital, CT of head was negative for bleeding-no other injuries. Oxygen Orders: Has required oxygen since admission. A walking oxygen test is pending. Lab Tests or X-Rays Orders: Not indicated. Medications: PLEASE REFER TO THE DISCHARGE MEDICATION LIST. Insulin Orders? No Allergies and Adverse Reactions: Allergies Allergy/AdvReac Type Severity Reaction Status Date / Time No Known Drug Allergies Allergy Verified 06/17/16 14:23 - Medications New Prescriptions: Ciprofloxacin [Cipro] 500 mg PO BID 10 Days #20 tablet guaiFENesin [Mucinex] 600 mg PO BID #60 tablet Saccharomyces Boulardii [Florastor] 250 mg PO BID 20 Days #40 capsule Spironolactone [Aldactone] 25 mg PO DAILY #30 tablet - Diet Type: Geriatric Texture: Regular Liquids: Thin May have monthly special meal: Yes - Therapies | Activity Therapy: Evaluation | Treat if indicated: Speech, PT, OT Rehabilitation Potential: Maximize functional status, Return to independent living, Maintain present ADL Functional Activity: Activity as Tolerated Weight Bearing: Full Weight Assistance Devices: Walker"
--- NOTE | 2017-06-28 10:44 | DISCHARGE SUMMARY ---
Discharge Summary Admit Date: 06/24/17 Discharge Date: 06/28/17 Discharging Provider: SHWETA Tomas Primary Care Provider: Dr. Gin Bahena Code Status: Attempt Resuscitation Condition at Discharge: Good Discharge Disposition: 03 SNF DC/Xfer Discharge Facility Name: [facility] - DIAGNOSES Admission Diagnoses: Pulmonary fibrosis (J84.10) Hypoxemia (R09.02) Depression (F32.9) Dementia (F03.90) Falls (W19.XXXA) Protein-calorie malnutrition, mild (E44.1) Discharge Diagnoses with Status of Each Condition: Pulmonary fibrosis (J84.10) chronic,stable. Depression (F32.9) -chronic,stable. Dementia (F03.90) chronic, stable with MRI results. Falls (W19.XXXA) -chronic, stable. Protein-calorie malnutrition, mild (E44.1) chronic, patient continues on steroid. Aspiration pneumonia (J69.0) -new on this admit, stable and care to continue. Patient passed a swallow study. 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 Pseudomonas aeruginosa infection (A49.8)- new on this admit, antibiotics to continue. - HPI History of Present Illness: Bogdan Talamantes (Joy) is an ill-appearing 77-year old female with a past medical history of HTN, pneumonia, pulmonary fibrosis, dementia, CVA, GERD, Olvera esophagitis, sigmoid colon resection due to perforated bowel, status post colostomy, status post colostomy take down, stomach ulcers, diverticulitis, depression, anxiety, osteoarthritis, chronic back pain, and a history of herpes zoster. She arrived to the ED with a primary complaint of worsening shortness of breath that began about 2-3 days ago, fever, increased congestion and a recent UTI. She has been on antibiotics for about 4 days and has had ongoing diarrhea with cramping ever since beginning the antibiotics. She presented to the ED yesterday with diarrhea, was given a probiotic, fluids and sent home. Her , Mason is present during the exam. She will be admitted to inpatient for further treatment. - CONSULTS | PROCEDURES Consultations: Pulmonology-Dr. Evans - HOSPITAL COURSE Hospital Course: The following diagnoses were prevalent during this hospital stay: (1) Aspiration pneumonia The patient has had difficulty with swallowing and a cough prior to admission. During my admission exam, she was witnessed possibly aspirating on a sandwich and had profound coughing with hypoxia. She underwent a bedside swallow study, which she passed. The patient has had profound debility and has not been ambulating as much and has worsening debility due to protein calorie malnutrition. The patient continues to have coarse sounding lungs on exam, that gradually began to improve at the time of discharge. A chest CT with contrast was ordered and showed evidence of infiltrates, but also underlying chronic pulmonary fibrosis was evident. A sputum sample was obtained and C/S results +pseudomonas aerginosa, so antibiotics were changed to Cipro. The patient was continued on expectorants, nebulizer treatments, antibiotics, probiotics, and pulmonary toileting using a flutter valve device. Contact was made via phone by me and Dr. Evans, pulmonology who is the patient's primary controls engineer. He had no further recommendations and agreed with plan of care. (2) Protein-calorie malnutrition, mild The patient appears gravely ill much of the time, but can articulate well and has good eye contact. She has a current BMI of just 19.4, and this is improved since she has been on chronic steroids at home. She states that she has not had much of an appetite for several weeks, but is seen making efforts to eat. She was encouraged to maintain good PO intake, was provided extra protein shakes given with meals and she underwent a nutrition consult. Nutritional progress notes state; "Bogdan well known to me from previous admissions. Has previously been on TPN then TF as outpatient d/t poor oral intake and issues with esphagitis. Will add Ensure Plus 4 oz and bedtime snack. she has been maintaining her weight above 120# which is good for her. Her weights have been as low as 102#...highest 135#. She passed swallow evaluation". The patient was provided with supportive care. She continued on Prednisone 10mg PO daily as per her request. (4) Pulmonary fibrosis The patient sees a regular [employer] who was called by her daughter over the weekend as to their recommendations. This morning I spoke with Cristina from pulmonology who I gave a full case review over the phone and agrees with the plan. PACs imaging were pushed over for his review as requested. Both he and I suspect she will need home oxygen for the rest of her life due to her recurrent pneumonia and the progressive nature of the chronic lung disease. On the day of discharge, the patient failed her oxygen study at rest when she was found to be hypoxic with a saturation of only 88% on room air at rest. Orders to administer supplemental oxygen at 2L via nasal cannula were written and the patient was transported via BLS based on this need. (5) Depression Given the patient's chronic illnesses, she admits to feeling hopeless much of the time. She states that she just wants to walk on the beach with her . She takes Effexor at home which has been continued here. Niki Gregory from Palliative care met with her shortly after admission and some goals of care were established and I was made aware of a few medication adjustments. She has been having some struggles with her sleep cycle while in the hospital, so temazepam at a low dose may be helpful. If the patient stayed, this would have been trailed. (6) Fall The patient had evidence of falls at home with injury as she had a large bruise on her left knee and other scattered bruising. She admits to falling, but has an attitude that she will be "fine". Her works outside the home and is gone for much of the day. She fell in her bathroom on the AM after admission and hit her head. A head CT was completed and showed evidence of old infarcts, but no acute bleeding. The patient was placed on fall precautions with frequent nursing cares. (7) Pulmonary HTN The patient underwent a bedside echocardiogram that showed a PASP of 55mmHg and mild diastolic dysfunction. The patient was started on Spironolactone that was titrated up to 25mg PO daily at the time of discharge. (8) History of CVA The patient underwent a brain MRI without contrast due to head CT results of old infarcts. Results of MRI; age related white matter changes and chronic lucunar infarcts and atrophy were reported. Disposition: The patient was taken via BLS to [facility] due to her new oxygen requirement. She required 2L of oxygen and was ambulatory at the time of discharge. She was weak and required 24 care. A detailed report was given to Dr. Allen. The patient's Mason and daughter Franck were present for the entire encounter involving the discharge process. - ALLERGIES Allergies/Adverse Reactions: Allergies Allergy/AdvReac Type Severity Reaction Status Date / Time No Known Drug Allergies Allergy Verified 06/17/16 14:23 - MEDICATIONS Home Medications: Ambulatory Orders Medication Instructions Recorded Confirmed Losartan [Cozaar] 50 mg PO DAILY 09/13/13 06/24/17 Vitamin E 400 unit PO DAILY 09/13/13 06/24/17 Cholecalciferol (Vitamin D3) 400 unit PO DAILY 01/31/16 06/24/17 [Vitamin D3] Metoprolol Tartrate 25 mg PO BID 01/31/16 06/24/17 Multivitamin [Theragran] 1 tab PO DAILY 01/31/16 06/24/17 Albuterol Sulfate [Proventil Hfa 2 puffs INH Q6H PRN 06/24/17 06/24/17 Inhaler] Calcium Carbonate [Tums (Calcium 1,000 mg PO DAILY 06/24/17 06/24/17 Carbonate 500mg)] Dicyclomine HCl 20 mg PO TIDWM 06/24/17 06/24/17 HYDROcod/ACETAM 5/325 [[place] 5/325] 1.5 tab PO Q4H PRN 06/24/17 06/24/17 Hyoscyamine Sulfate 0.125 mg SL QID PRN 06/24/17 06/24/17 Megestrol Acetate 5 ml PO DAILY 06/24/17 06/24/17 Omeprazole 40 mg PO BID 06/24/17 06/24/17 Ondansetron Odt [Zofran Odt] 4 mg SL TID PRN 06/24/17 06/24/17 Venlafaxine HCl [Venlafaxine HCl 150 mg PO DAILYWM 06/24/17 06/24/17 ER] Ciprofloxacin [Cipro] 500 mg PO BID 10 Days #20 tablet 06/28/17 Levalbuterol [Xopenex] 1.25 mg INH Q6H PRN neb 06/28/17 Polyethylene Glycol 3350 [Miralax] 17 gm PO DAILY #30 packet 06/28/17 Saccharomyces Boulardii [Florastor] 250 mg PO BID 20 Days #40 capsule 06/28/17 Spironolactone [Aldactone] 25 mg PO DAILY #30 tablet 06/28/17 guaiFENesin [Mucinex] 600 mg PO BID #60 tablet 06/28/17 predniSONE [Deltasone] 10 mg PO DAILYWM #30 tablet 06/28/17 - PHYSICAL EXAM AT DISCHARGE General Appearance: positive: No acute distress, Alert Eyes Bilateral: positive: Normal inspection, PERRL, Other (dry eyes, with draumatic eye lash extensions) ENT: positive: ENT inspection nml, Pharyngeal erythema, Dry mucous membranes Neck: positive: Nml inspection, Thyroid nml, No JVD, Trachea midline, Stiff neck Respiratory: positive: Chest non-tender, No respiratory distress, Other (slight low lobe crackles bilaterally) Cardiovascular: positive: Regular rate & rhythm, No gallop, Systolic murmur, Decreased pulse(s) Peripheral Pulses: positive: 2+ Abdomen: positive: Non-tender, Nml bowel sounds, Other (rounded, soft) Back: positive: Nml inspection Skin: positive: No rash, Warm, Dry, Diaphoresis (at times), Pallor Extremities: positive: Non-tender, Full ROM, Pedal edema, Joint swelling, Other (right knee bruising from a fall at home. ) Neurologic/Psychiatric: positive: CN's nml (2-12), Motor nml, Sensation nml, Disoriented to time (baseline dementia.), Weakness, Sensory loss, Slurred/abnml speech, Depressed mood/affect Reflexes: Bicep (R): 3+, Bicep (L): 3+, Ankle (R): 2+, Ankle (L): 2+ - LABS Result Diagrams: 06/27/17 06:25 06/27/17 06:25 - DIAGNOSTIC IMAGING Diagnostic Imaging Results: Final report reviewed Diagnostic Imaging Results Comments: EXAM: CHEST RADIOGRAPHY EXAM DATE: 06/24/2017 03:46 PM. CLINICAL HISTORY: Cough and congestion. COMPARISON: Chest 03/09/2017. TECHNIQUE: 2 views. FINDINGS: Hyperexpanded lungs are again noted. Borderline cardiomegaly. Tortuous aortic arch again noted. Probable scarring in the right upper lobe, appears unchanged compared to prior. No consolidation, pleural effusion or pneumothorax. IMPRESSION: Hyperexpanded lungs are again noted, could be due to COPD or age- related. Probable scarring in the right upper lobe appears unchanged. No acute findings are seen. Borderline cardiomegaly. NONCONTRAST HEAD CT: 06/25/2017 COMPARISON: Head CT 03/22/2015. HISTORY: The patient fell and hit back of head. The patient has confusion. TECHNIQUE: Axial noncontrast head CT with coronal reformats. CT DOSE REDUCTION STATEMENT In accordance with CT protocol optimization, one or more of the following dose reduction techniques were utilized for this exam: automated exposure control, adjustment of mA and/or KV based on patient size, or use of iterative reconstructive technique. FINDINGS: No evidence of acute intracranial hemorrhage or mass. No territorial infarct. Age related cortical atrophic changes. Old right basal ganglia lacunar infarcts. No midline shift. Calvarium appears intact. Paranasal sinuses and mastoid air cells appear well aerated. IMPRESSION 1. AGE RELATED ATROPHIC CHANGES AND OLD RIGHT BASAL GANGLIA LACUNAR INFARCTS. 2. NO EVIDENCE OF ACUTE INTRACRANIAL HEMORRHAGE OR CALVARIAL FRACTURE. EXAM: CT CHEST EXAM DATE: 06/25/2017 08:43 PM. CLINICAL HISTORY: Cough, pulmonary fibrosis. COMPARISONS: None. TECHNIQUE: Routine helical CT imaging was performed through the chest. IV contrast: None. Reconstructions: Coronal and sagittal. In accordance with CT protocol optimization, one or more of the following dose reduction techniques were utilized for this exam: automated exposure control, adjustment of mA and/or KV based on patient size, or use of iterative reconstructive technique. FINDINGS: Mediastinum: Ectatic ascending thoracic aorta measuring 4.2 cm. No thoracic aortic dissection. Paratracheal lymphadenopathy 1.3 cm. Prominent paratracheal lymph node measuring 8 mm. Subcarinal lymphadenopathy measuring 1.5 cm. Prominent right atrium. Overall heart size is within normal limits. Prominent left hilar lymph node measures 8 mm. Left thyroid nodule or complex cyst measuring 1 cm. Lungs: Biapical scarring. Mild to moderate heterogeneous reticular hazy opacities seen in the lungs, most prominent in the upper lobes. Areas of honeycombing in the bilateral upper lobes. No pleural effusions or pneumothorax. Upper Abdomen: Status post cholecystectomy. Mildly dilated common bile duct measuring 8 mm. Tiny nonspecific low density lesion at the lower pole right kidney. Left midpole renal calculus measures 4 mm. Small nonspecific low density lesion seen at the lower pole left kidney measuring 5 mm. No acute bone findings. IMPRESSION: 1. Biapical scarring. Mild to moderate heterogeneous reticular hazy opacities seen in the lungs, most prominent in the upper lobes. These could be areas of fibrosis. Acute infectious/inflammatory process not excluded. Areas of honeycombing in the bilateral upper lobes. 2. Mediastinal lymphadenopathy could be reactive versus metastasis and follow- up is recommended. 3. Ectatic ascending thoracic aorta measuring 4.2 cm. 4. Left thyroid nodule or complex cyst measuring 1 cm. a routine thyroid ultrasound could further evaluate. 5. Status post cholecystectomy. Mildly dilated common bile duct measuring 8 mm. Left midpole renal calculus measures 4 mm. 6. See above. EXAM: MRI BRAIN WITHOUT CONTRAST EXAM DATE: 06/28/2017 10:58 AM. CLINICAL HISTORY: Lethargy. Mental status changes. COMPARISON: None. TECHNIQUE: Multiplanar, multisequence T1-weighted and fluid-sensitive MR sequences of the brain were performed. Sequences optimized for routine evaluation. Other: None. IV Contrast: None. FINDINGS: Brain Volume: Mild diffuse atrophy. Parenchyma/Dura: No restricted diffusion to suggest acute or recent ischemic infarct. No cerebral hemorrhage, mass effect, midline shift or abnormal subdural fluid collection. Moderate to marked chronic appearing cerebral white matter disease. Extensive patchy, confluent and nodular T2 hyperintense signal changes are present involving predominantly the deep and periventricular regions of both cerebral hemispheres in a pattern that is nonspecific but most consistent with aging and prominent chronic small vessel ischemic white matter disease. Chronic more focal lacunar like infarct in the region of the anterior right basal ganglia. Ventricles/Cisterns: Mild ventriculomegaly, more likely from atrophy than hydrocephalus. No abnormal extra-axial fluid collection or hemorrhage. Orbits: Previous lens extractions. Sella Turcica: The pituitary gland, cavernous sinuses, suprasellar cistern and optic chiasm are unremarkable. IAC: No evidence for focal mass or significant asymmetry allowing for inherent limitation of noncontrast imaging technique. Vasculature: Normal signal flow void is seen in the major arterial structures at the skull base. Sinuses: No acute appearing sinus disease. Bones: No focal pathologic appearing marrow signal changes. Leftward deviation of the nasal septum. Other: None. IMPRESSION: 1. Moderately prominent age-related changes including white matter disease, chronic lacunar infarct and atrophy. 2. No MRI evidence for acute intracranial abnormality. ECHOCARDIOGRAM 06/25/17-FINAL 1. Normal LV size and function, EF 55%. There is mild diastolic dysfunction but the LA is normal in size. 2. Moderate pulmonary HTN, PASP 55 mmHg. The RV is borderline dilated with normal function. 3. Normal valve structure and function. - FOLLOW UP Follow Up: Disposition: [facility] DC/Xfer Condition: Good SNF Transition Orders: Admit to: [facility] under the care of Dr. 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 - TIME SPENT Time Spent in Discharge (Minutes): 60
[2017-06-28] MEDS ORDERED: amLODIPine 5 MG TABLET PO SCH (11:00)
[2017-06-28] MEDS: SODIUM CHLORIDE FLUSH 0.9% 10 ML SYRINGE IVP SCH (12:34)
--- NOTE | 2017-06-28 12:44 | MRI Report ---
EXAM: MRI BRAIN WITHOUT CONTRAST EXAM DATE: 06/28/2017 10:58 AM. CLINICAL HISTORY: Lethargy. Mental status changes. COMPARISON: None. TECHNIQUE: Multiplanar, multisequence T1-weighted and fluid-sensitive MR sequences of the brain were performed. Sequences optimized for routine evaluation. Other: None. IV Contrast: None. FINDINGS: Brain Volume: Mild diffuse atrophy. Parenchyma/Dura: No restricted diffusion to suggest acute or recent ischemic infarct. No cerebral hem orrhage, mass effect, midline shift or abnormal subdural fluid collection. Moderate to marked chronic appearing cerebral white matter disease. Extensive patchy, confluent and nodular T2 hyperintense sig nal changes are present involving predominantly the deep and periventricular regions of both cerebral hemispheres in a pattern that is nonspecific but most consistent with aging and prominent chronic sm all vessel ischemic white matter disease. Chronic more focal lacunar like infarct in the region of th e anterior right basal ganglia. Ventricles/Cisterns: Mild ventriculomegaly, more likely from atrophy than hydrocephalus. No abnormal extra-axial fluid collection or hemorrhage. Orbits: Previous lens extractions. Sella Turcica: The pituitary gland, cavernous sinuses, suprasellar cistern and optic chiasm are unrem arkable. IAC: No evidence for focal mass or significant asymmetry allowing for inherent limitation of noncontr ast imaging technique. Vasculature: Normal signal flow void is seen in the major arterial structures at the skull base. Sinuses: No acute appearing sinus disease. Bones: No focal pathologic appearing marrow signal changes. Leftward deviation of the nasal septum. Other: None. IMPRESSION: 1. Moderately prominent age-related changes including white matter disease, chronic lacunar infarct a nd atrophy. 2. No MRI evidence for acute intracranial abnormality. [facility] Referring Provider Line: [phone] SITE ID: [id number]
[2017-06-28 16:05] VITALS: BP 160/83
== END 2017-06-28 16:00 | DRG 178 ==
LOC: ED 14:33 → MS2 16:35
PROVIDERS: ADMIT Nurse Practitioner; ATTEND Nurse Practitioner
DX: J06.9 Acute upper respiratory infection, unspecified (principal); J40 Bronchitis, not specified as acute or chronic; J69.0 Pneumonitis due to inhalation of food and vomit; E87.6 Hypokalemia; R09.02 Hypoxemia; K52.89 Other specified noninfective gastroenteritis and colitis; R10.30 Lower abdominal pain, unspecified; E44.1 Mild protein-calorie malnutrition; J44.9 Chronic obstructive pulmonary disease, unspecified; J84.10 Pulmonary fibrosis, unspecified; F32.9 Major depressive disorder, single episode, unspecified; I27.20 Pulmonary hypertension, unspecified; Z86.73 Personal history of transient ischemic attack (TIA), and cerebral infarction without residual deficits; I10 Essential (primary) hypertension; F41.9 Anxiety disorder, unspecified; M19.90 Unspecified osteoarthritis, unspecified site; F03.90 Unspecified dementia, unspecified severity, without behavioral disturbance, psychotic disturbance, mood disturbance, and anxiety; K21.9 Gastro-esophageal reflux disease without esophagitis; K22.70 Barrett's esophagus without dysplasia; G89.29 Other chronic pain; M54.9 Dorsalgia, unspecified; Z85.828 Personal history of other malignant neoplasm of skin
CPT/HCPCS: 36415; 70450; 70551; 71046; 71260; 80053; 83690; 83735; 83880; 84443; 84484; 85025; 85651; 86140; 87070; 87077; 87205; 93005; 93306; 94640; 96374; 96375; 99223; 99284; 99285

== ENCOUNTER 2017-06-28 16:02 | Outpatient (CLI) | payer MEDICARE, OTHER | END 2017-06-28 16:03 | LOC: EMS 16:02 | PROVIDERS: ATTEND Surgery | DX: R53.1 Weakness (principal); Z99.81 Dependence on supplemental oxygen | CPT/HCPCS: A0425; A0428 ==

== ENCOUNTER 2017-08-13 12:59 | Emergency (ER) | payer MEDICARE, OTHER ==
--- NOTE | 2017-08-13 16:54 | ED Physician Documentation ---
PD HPI FOCAL NEURO - Stated complaint Stated Complaint: DIZZINESS/GLF - Chief complaint Chief Complaint: Neuro - History obtained from History obtained from: Patient, Family (spouse) - History of Present Illness Timing - onset: Other (This is a 77-year-old woman who presents from home accompanied by her for frequent falls and back pain. She was admitted here for 4 days in the middle of last month for pneumonia and discharged to a assisted for about 3 weeks for rehabilitation. On discharge from the assisted she was doing well but may be a week or 2 later started having falls. She basically has her legs give out on her and she just goes to ground. She has hit her head several times and also injured her tailbone. She has had lightheaded episodes. No urinary complaints, loss of consciousness or syncope.) Review of Systems Ten Systems: 10 systems reviewed and negative Constitutional: denies: Fever, Chills Cardiac: denies: Chest pain / pressure, Palpitations Respiratory: denies: Dyspnea, Cough GI: denies: Abdominal Pain PD PAST MEDICAL HISTORY - Past Medical History Cardiovascular: Hypertension Respiratory: Pneumonia Neuro: Dementia, CVA Endocrine/Autoimmune: None GI: GERD, Ulcers, Chronic constipation, Diverticulitis, Other : Incontinence, Nocturia, Frequency, Other HEENT: Chronic vision loss, Other Psych: Depression, Anxiety Musculoskeletal: Osteoarthritis, Chronic back pain Derm: Herpes zoster - Past Surgical History Past Surgical History: Yes 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 HEENT: Cataracts Derm: Skin cancer surgery - Present Medications Home Medications: Ambulatory Orders Medication Instructions Recorded Confirmed Losartan [Cozaar] 50 mg PO DAILY 09/13/13 06/24/17 Vitamin E 400 unit PO DAILY 09/13/13 06/24/17 Cholecalciferol (Vitamin D3) 400 unit PO DAILY 01/31/16 06/24/17 [Vitamin D3] Metoprolol Tartrate 25 mg PO BID 01/31/16 06/24/17 Multivitamin [Theragran] 1 tab PO DAILY 01/31/16 06/24/17 Albuterol Sulfate [Proventil Hfa 2 puffs INH Q6H PRN 06/24/17 06/24/17 Inhaler] Calcium Carbonate [Tums (Calcium 1,000 mg PO DAILY 06/24/17 06/24/17 Carbonate 500mg)] Dicyclomine HCl 20 mg PO TIDWM 06/24/17 06/24/17 HYDROcod/ACETAM 5/325 [[place] 5/325] 1.5 tab PO Q4H PRN 06/24/17 06/24/17 Hyoscyamine Sulfate 0.125 mg SL QID PRN 06/24/17 06/24/17 Megestrol Acetate 5 ml PO DAILY 06/24/17 06/24/17 Omeprazole 40 mg PO BID 06/24/17 06/24/17 Ondansetron Odt [Zofran Odt] 4 mg SL TID PRN 06/24/17 06/24/17 Polyethylene Glycol 3350 [Miralax] 17 gm PO DAILY #30 packet 06/28/17 Saccharomyces Boulardii [Florastor] 250 mg PO BID 20 Days #40 capsule 06/28/17 Spironolactone [Aldactone] 25 mg PO DAILY #30 tablet 06/28/17 - Allergies Allergies/Adverse Reactions: Allergies Allergy/AdvReac Type Severity Reaction Status Date / Time No Known Drug Allergies Allergy Verified 08/13/17 13:10 - Social History Does the pt smoke?: No Smoking Status: Never smoker Does the pt drink ETOH?: No Does the pt have substance abuse?: No - Immunizations Immunizations are current?: Yes - POLST Patient has POLST: No POLST Status: Full Code PD ED PE NORMAL - Vitals Vital signs reviewed: Yes - General General: Alert and oriented X 3 (Mild dementia, leans on her for the answer to most questions.) - HEENT HEENT: PERRL, EOMI - Neck Neck: Supple, no meningeal sign, No bony TTP - Cardiac Cardiac: RRR, No murmur - Respiratory Respiratory: No respiratory distress, Clear bilaterally - Abdomen Abdomen: Normal bowel sounds, Soft, Non tender - Back Back: No spinal TTP, Other (Tender over the sacrum and coccyx without deformity. ) - Derm Derm: Normal color, Warm and dry - Neuro Neuro: Alert and oriented X 3, director case 2-12 intact, Other (She has a stumbling gait , is able to walk but is fairly unsteady.) Eye Opening: Spontaneous Motor: Obeys Commands Verbal: Oriented GCS Score: 15 Results - Vitals Vitals: Vital Signs - 24 hr 08/13/17 08/13/17 08/13/17 13:06 16:41 18:52 Temperature 35.8 C L 36.5 C 36.1 C L Heart Rate 100 80 86 Respiratory 18 18 16 Rate Blood Pressure 102/79 143/100 H 160/104 H O2 Saturation 96 96 100 Oxygen O2 Source [] Room air O2 Source [] Nasal cannula O2 Source Room air - EKG (time done) 1330 Rate: Rate (enter#) (92) Rhythm: NSR, LAE [place]: LAD Ischemia: Non specific changes (Inverted T waves in the anterior septum which are old compared to June 24, 2017.). No: ST elevation c/w ischemia - Labs Labs: Laboratory Tests 08/13/17 08/13/17 08/13/17 16:59 16:59 17:05 WBC 7.8 RBC 3.44 L Hgb 11.4 L Hct 33.7 L MCV 98.1 MCH 33.2 H MCHC 33.8 RDW 16.2 H Plt Count 259 MPV 7.4 L Neut # (Auto) 5.7 Lymph # (Auto) 1.3 L [place] # (Auto) 0.5 Eos # (Auto) 0.2 Baso # (Auto) 0.0 Absolute Nucleated RBC 0.01 Nucleated RBC % 0.2 Sodium 135 Potassium 3.9 Chloride 101 Carbon Dioxide 26 Anion Gap 8.0 BUN 15 Creatinine 0.9 Estimated GFR (MDRD) 61 L Glucose 84 Calcium 9.0 Magnesium 2.1 Total Bilirubin 1.0 AST 22 ALT 22 Alkaline Phosphatase 78 Total Protein 6.9 Albumin 3.4 Globulin 3.5 Albumin/Globulin Ratio 1.0 Lipase 17 L Urine Color DARK YELLOW Urine Clarity CLOUDY Urine pH 5.5 Ur Specific [place] 1.025 Urine Protein TRACE Urine Glucose (UA) NEGATIVE Urine Ketones NEGATIVE Urine Occult Blood NEGATIVE Urine Nitrite POSITIVE H Urine Bilirubin NEGATIVE Urine Urobilinogen 0.2 (NORMAL) Ur Leukocyte Esterase SMALL H Urine RBC 0-5 Urine WBC >25 H Ur Squamous Epith Cells FEW Squamous Urine Bacteria Many H Ur Microscopic Review INDICATED Urine Culture Comments INDICATED Ethyl Alcohol < 5.0 PD MEDICAL DECISION MAKING - ED course ED course: 77-year-old woman with some floppy walking, no evidence of stroke and no lateralizing symptoms. Workup was notable for negative head CT, positive urinalysis. She was treated with A course of Keflex. She requested this as opposed to Cipro as she felt Keflex worked better. They were not offered an obs given the floppy walking, but they prefer discharge. - Sepsis Event Vital Signs: Vital Signs - 24 hr 08/13/17 08/13/17 08/13/17 13:06 16:41 18:52 Temperature 35.8 C L 36.5 C 36.1 C L Heart Rate 100 80 86 Respiratory 18 18 16 Rate Blood Pressure 102/79 143/100 H 160/104 H O2 Saturation 96 96 100 Oxygen O2 Source [] Room air O2 Source [] Nasal cannula O2 Source Room air Departure - Departure Disposition: 01 Home, Self Care Clinical Impression: Pulmonary fibrosis, Debility UTI (urinary tract infection) Qualifiers: Urinary tract infection type: acute cystitis Hematuria presence: without hematuria Qualified Code(s): N30.00 - Acute cystitis without hematuria Condition: Stable Comments: See downtime charting for discharge instructions.
[2017-08-13 17:06] LABS: BASOPHILS % (AUTO) 0.4 %; EOSINOPHILS # (AUTO) 0.2 10^3/uL (0.0-0.7); EOSINOPHILS % (AUTO) 2.2 %; HGB - HEMOGLOBIN 11.4 g/dL (12.0-16.0); LYMPHOCYTES # (AUTO) 1.3 10^3/uL (1.5-3.5); LYMPHOCYTES % (AUTO) 16.6 %; MEAN CORPUSCULAR HEMOGLOBIN 33.2 pg (27.0-31.0); MEAN CORPUSCULAR HGB CONC 33.8 g/dL (32.0-36.0); MEAN CORPUSCULAR VOLUME 98.1 fL (81.0-99.0); MEAN PLATELET VOLUME 7.4 fL (7.9-10.8); MONOCYTES # (AUTO) 0.5 10^3/uL (0.0-1.0); NEUTROPHILS # (AUTO) 5.7 10^3/uL (1.5-6.6); NEUTROPHILS % (AUTO) 73.8 %; PLT - PLATELET COUNT 259 10^3/uL (130-450); RED BLOOD COUNT 3.44 10^6/uL (4.20-5.40); RED CELL DISTRIBUTION WIDTH 16.2 % (12.0-15.0); WHITE BLOOD COUNT 7.8 x10^3/uL (4.8-10.8)
[2017-08-13 17:16] LABS: BILIRUBIN,URINE NEGATIVE (NEGATIVE); GLUCOSE, URINE (UA) NEGATIVE (NEGATIVE); KETONES,URINE (UA) NEGATIVE (NEGATIVE); LEUKOCYTE ESTERASE, URINE SMALL (NEGATIVE); NITRITE,URINE POSITIVE (NEGATIVE); OCCULT BLOOD,URINE NEGATIVE (NEGATIVE); PH,URINE 5.5 PH (5.0-7.5); PROTEIN,URINE TRACE mg/dL (NEGATIVE); UROBILINOGEN,URINE 0.2 (NORMAL) E.U./dL (NORMAL)
[2017-08-13 17:17] LABS: ALBUMIN 3.4 g/dL (3.2-5.5); ALKALINE PHOSPHATASE 78 IU/L (42-121); ALT ALANINE AMINOTRANSFERASE 22 IU/L (10-60); AST ASPARTATE AMINOTRANSFERASE 22 IU/L (10-42); BUN - BLOOD UREA NITROGEN 15 mg/dL (6-20); CARBON DIOXIDE - CO2 26 mmol/L (21-32); CHLORIDE 101 mmol/L (101-111); CREATININE 0.9 mg/dL (0.4-1.0); GFR - MDRD 61 (>89); GLUCOSE 84 mg/dL (70-100); LIPASE 17 U/L (22-51); MAGNESIUM 2.1 mg/dL (1.7-2.8); SODIUM 135 mmol/L (135-145); TOTAL PROTEIN 6.9 g/dL (6.7-8.2)
[2017-08-13 17:20] LABS: BACTERIA,URINE Many /HPF (None Seen); CLARITY,URINE CLOUDY (CLEAR); RBC,URINE 0-5 /HPF (0-5); SQUAMOUS EPITHELIAL CELL,UR FEW Squamous (<= Few)
--- NOTE | 2017-08-13 18:41 | CT Report ---
Procedure Date: 08/13/2017 Accession Number: [id number] / [id number] Procedure: CT - Head W/O CPT Code: FULL RESULT: EXAM: CT HEAD EXAM DATE: 08/13/2017 06:11 PM. CLINICAL HISTORY: Fall head injury. COMPARISON: 06/25/2017. TECHNIQUE: Multiaxial CT images were obtained from the foramen magnum to the vertex. Reformats: Coronal. IV contrast: None. In accordance with CT protocol optimization, one or more of the following dose reduction techniques were utilized for this exam: automated exposure control, adjustment of mA and/or KV based on patient size, or use of iterative reconstructive technique. FINDINGS: Parenchyma: No intraparenchymal hemorrhage. No evidence of mass, midline shift, or CT findings of infarction. Camejo-white differentiation is distinct. Mild periventricular white matter hypoattenuation. Extraaxial Spaces: Normal for age. No subdural or epidural collections identified. Ventricles: Normal in size and position. Sinuses and Orbits: Imaged paranasal sinuses, orbits, and mastoids show no significant abnormality. Bones: No evidence of fracture or calvarial defect. Other: None. IMPRESSION: No acute intracranial abnormality. RADIA
--- NOTE | 2017-08-13 18:43 | XRAY Report ---
Procedure Date: 08/13/2017 Accession Number: [id number] / [id number] Procedure: XR - Sacrum/Coccyx CPT Code: FULL RESULT: EXAM: SACRUM AND COCCYX RADIOGRAPHY EXAM DATE: 08/13/2017 06:01 PM. HISTORY: Back contusion. COMPARISONS: None. TECHNIQUE: 2 views. FINDINGS: Alignment: The sacrum and coccyx are normally aligned. Bones: No visualized fracture. Joints: No dislocation. Severe right hip joint space narrowing. Lower lumbar disk degeneration. Soft Tissues: Unremarkable. IMPRESSION: No visualized fracture. Severe right hip osteoarthrosis. RADIA
[2017-08-13 18:52] VITALS: BP 160/104
[2017-08-13] MEDS ORDERED: cephALEXin 250 MG CAPSULE PO ONE (19:24)
== END 2017-08-13 19:20 | disposition home or self-care (01) ==
LOC: ED 12:59
DX: J84.10 Pulmonary fibrosis, unspecified (principal); R53.81 Other malaise; N30.00 Acute cystitis without hematuria; R94.31 Abnormal electrocardiogram [ECG] [EKG]; I10 Essential (primary) hypertension; F03.90 Unspecified dementia, unspecified severity, without behavioral disturbance, psychotic disturbance, mood disturbance, and anxiety; Z86.73 Personal history of transient ischemic attack (TIA), and cerebral infarction without residual deficits; Z91.81 History of falling
CPT/HCPCS: 36415; 70450; 72220; 80053; 81001; 83690; 83735; 85025; 87077; 87086; 87181; 93005; 99283; A9270; G0480; 80320; 81003

== ENCOUNTER 2018-02-22 14:40 | Outpatient (CLI) | payer MEDICARE, OTHER ==
[2018-02-22 15:01] LABS: BILIRUBIN,URINE NEGATIVE (NEGATIVE); CLARITY,URINE HAZY (CLEAR); GLUCOSE, URINE (UA) NEGATIVE (NEGATIVE); KETONES,URINE (UA) NEGATIVE (NEGATIVE); LEUKOCYTE ESTERASE, URINE MODERATE (NEGATIVE); NITRITE,URINE POSITIVE (NEGATIVE); OCCULT BLOOD,URINE NEGATIVE (NEGATIVE); PROTEIN,URINE NEGATIVE (NEGATIVE); UROBILINOGEN,URINE 0.2 (NORMAL) E.U./dL (NORMAL)
== END 2018-02-22 14:41 | disposition home or self-care (01) ==
LOC: LAB 14:40
PROVIDERS: ATTEND Orthopaedic Surgery
DX: N39.0 Urinary tract infection, site not specified (principal)
CPT/HCPCS: 81003; 87077; 87086; 87181

== ENCOUNTER 2018-02-24 12:27 | Emergency (ER) | payer MEDICARE, OTHER ==
[2018-02-24 12:51] VITALS: BP 140/66
== END 2018-02-24 13:24 | disposition left against medical advice (07) ==
LOC: ED 12:27
DX: N39.0 Urinary tract infection, site not specified (principal); Z53.21 Procedure and treatment not carried out due to patient leaving prior to being seen by health care provider

== ENCOUNTER 2018-06-06 13:01 | Emergency (ER) | payer MEDICARE, OTHER ==
[2018-06-06] MEDS ORDERED: IOVERSOL 320 100 ML VIAL IVP ONE ×3 (13:02→16:10)
[2018-06-06 14:12] LABS: BASOPHILS % (AUTO) 0.4 %; EOSINOPHILS % (AUTO) 0.2 %; HGB - HEMOGLOBIN 12.6 g/dL (12.0-16.0); LYMPHOCYTES # (AUTO) 1.1 10^3/uL (1.5-3.5); LYMPHOCYTES % (AUTO) 16.4 %; MEAN CORPUSCULAR HEMOGLOBIN 28.9 pg (27.0-31.0); MEAN CORPUSCULAR HGB CONC 32.5 g/dL (32.0-36.0); MEAN CORPUSCULAR VOLUME 88.9 fL (81.0-99.0); MEAN PLATELET VOLUME 7.9 fL (7.9-10.8); MONOCYTES # (AUTO) 0.5 10^3/uL (0.0-1.0); MONOCYTES % (AUTO) 7.1 %; NEUTROPHILS # (AUTO) 5.2 10^3/uL (1.5-6.6); NEUTROPHILS % (AUTO) 75.9 %; PLT - PLATELET COUNT 228 10^3/uL (130-450); RED BLOOD COUNT 4.36 10^6/uL (4.20-5.40); RED CELL DISTRIBUTION WIDTH 14.6 % (12.0-15.0); WHITE BLOOD COUNT 6.8 x10^3/uL (4.8-10.8)
[2018-06-06] MEDS ORDERED: SODIUM CHLORIDE 0.9% 1,000 ML IV ONE (14:12)
[2018-06-06] MEDS ORDERED: HYDROmorphone 1 MG/ML CARPUJECT IVP STA ×2 (14:12→15:53)
[2018-06-06] MEDS ORDERED: ONDANSETRON 4 MG/2 ML VIAL IVP STA (14:12)
--- NOTE | 2018-06-06 14:14 | ED Physician Documentation ---
PD HPI ABD PAIN - Stated complaint Stated Complaint: ABD PX - Chief complaint Chief Complaint: Abd Pain - History obtained from History obtained from: Patient, Family - History of Present Illness Timing - onset: How many weeks ago (1) Timing - duration: Weeks (1) Timing - details: Gradual onset, Waxing and waning Pain level max: 9 Pain level now: 8 Quality: Cramping, Aching, Pain Location: All over / everywhere Radiation: No: Chest, , Lower back, Left flank, Left shoulder, Right flank, Right shoulder, Upper back Improved by: Other (nothing) Worsened by: Eating, Moving Associated symptoms: Fever (subjective), Nausea, Constipation (no BM x 2 days). No: Vomiting, Hematemesis, Diarrhea, Melena, Hematochezia, Dysuria, Hematuria, Chest pain Similar symptoms before: Has not had sx before Recently seen: Not recently seen Review of Systems Constitutional: reports: Fever, Chills Respiratory: denies: Cough, Wheezing Skin: denies: Rash Musculoskeletal: denies: Neck pain, Back pain Neurologic: denies: Focal weakness, Numbness, Headache PD PAST MEDICAL HISTORY - Past Medical History Cardiovascular: Hypertension Respiratory: Pneumonia Neuro: Dementia, CVA Endocrine/Autoimmune: None GI: GERD, Ulcers, Chronic constipation, Diverticulitis, Other : Incontinence, Nocturia, Frequency, Other HEENT: Chronic vision loss, Other Psych: Depression, Anxiety Musculoskeletal: Osteoarthritis, Chronic back pain Derm: Herpes zoster - Past Surgical History Past Surgical History: Yes 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 HEENT: Cataracts Derm: Skin cancer surgery - Present Medications Home Medications: Ambulatory Orders Medication Instructions Recorded Confirmed Losartan [Cozaar] 50 mg PO DAILY 09/13/13 06/06/18 Vitamin E 400 unit PO DAILY 09/13/13 06/06/18 Cholecalciferol (Vitamin D3) 400 unit PO DAILY 01/31/16 06/06/18 [Vitamin D3] Metoprolol Tartrate 25 mg PO BID 01/31/16 06/06/18 Multivitamin [Theragran] 1 tab PO DAILY 01/31/16 06/06/18 HYDROcod/ACETAM 5/325 [[place] 5/325] 1.5 tab PO Q4H PRN 06/24/17 06/06/18 Ondansetron Odt [Zofran Odt] 4 mg SL TID PRN 06/24/17 06/06/18 Spironolactone [Aldactone] 25 mg PO DAILY #30 tablet 06/28/17 06/06/18 DULoxetine [Cymbalta] 1 cap ORAL DAILY 02/24/18 06/06/18 Escitalopram [Lexapro] 02/24/18 buPROPion [Wellbutrin Sr] 1 tab ORAL DAILY 02/24/18 06/06/18 HYDROmorphone [Dilaudid] 2 mg PO Q6H PRN #10 tablet 06/06/18 Pantoprazole [Protonix] 40 mg PO DAILY #30 tablet 06/06/18 Polyethylene Glycol 3350 [Miralax] 17 gm PO DAILY PRN 06/06/18 06/06/18 - Allergies Allergies/Adverse Reactions: Allergies Allergy/AdvReac Type Severity Reaction Status Date / Time No Known Drug Allergies Allergy Verified 06/06/18 13:23 - Social History Does the pt smoke?: No Smoking Status: Never smoker Does the pt drink ETOH?: No Does the pt have substance abuse?: No - Immunizations Immunizations are current?: Yes - POLST Patient has POLST: No POLST Status: Full Code PD ED PE NORMAL - Vitals Vital signs reviewed: Yes - General General: Alert and oriented X 3, No acute distress, Well developed/nourished - HEENT HEENT: PERRL, Moist mucous membranes - Neck Neck: Supple, no meningeal sign - Cardiac Cardiac: RRR, Strong equal pulses - Respiratory Respiratory: No respiratory distress, Clear bilaterally - Abdomen Abdomen: Soft, Non distended, Other (Mild diffusely tender to palpation without peritoneal signs) - Back Back: No CVA TTP, No spinal TTP - Derm Derm: Warm and dry - Extremities Extremities: No edema - Neuro Neuro: Alert and oriented X 3 - Psych Psych: Normal mood, Normal affect Results - Vitals Vitals: Vital Signs - 24 hr 06/06/18 06/06/18 13:21 16:11 Temperature 36.7 C 36.6 C Heart Rate 89 70 Respiratory 20 16 Rate Blood Pressure 112/65 159/92 H O2 Saturation 98 99 Oxygen O2 Source [Without Activity] Room air O2 Source [With Activity] Nasal cannula O2 Source Room air - Labs Labs: Laboratory Tests 06/06/18 06/06/18 06/06/18 14:01 14:01 14:48 WBC 6.8 RBC 4.36 Hgb 12.6 Hct 38.7 MCV 88.9 MCH 28.9 MCHC 32.5 RDW 14.6 Plt Count 228 MPV 7.9 Neut # (Auto) 5.2 Lymph # (Auto) 1.1 L [place] # (Auto) 0.5 Eos # (Auto) 0.0 Baso # (Auto) 0.0 Absolute Nucleated RBC 0.00 Nucleated RBC % 0.0 Sodium 136 Potassium 4.7 Chloride 101 Carbon Dioxide 26 Anion Gap 9.0 BUN 22 H Creatinine 1.0 Estimated GFR (MDRD) 54 L Glucose 95 Calcium 9.5 Total Bilirubin 0.7 AST 18 ALT 12 Alkaline Phosphatase 85 Total Protein 7.2 Albumin 4.2 Globulin 3.0 Albumin/Globulin Ratio 1.4 Lipase 18 L Urine Color YELLOW Urine Clarity CLEAR Urine pH 7.0 Ur Specific [place] 1.010 Urine Protein NEGATIVE Urine Glucose (UA) NEGATIVE Urine Ketones NEGATIVE Urine Occult Blood NEGATIVE Urine Nitrite NEGATIVE Urine Bilirubin NEGATIVE Urine Urobilinogen 0.2 (NORMAL) Ur Leukocyte Esterase NEGATIVE Ur Microscopic Review NOT INDICATED Urine Culture Comments NOT INDICATED - Rads (name of study) CT abd/pelvis Radiology: Prelim report reviewed, EMP read contemporaneously, See rad report (no acute abnormalities) PD MEDICAL DECISION MAKING - ED course Complexity details: reviewed results, re-evaluated patient, considered differential, d/w patient, d/w family ED course: 77-year-old female with abdominal pain. Unclear etiology, but upon further history it seems that this increased after stopping her PPI. Will place her back on Protonix. Pain is well controlled in the emergency department. She is well-appearing, nontoxic. Afebrile. No acute findings on CT scan or laboratory abnormalities to explain her symptoms. Patient counseled regarding signs and symptoms for which I believe and urgent re-evaluation would be necessary. Patient with good understanding of and agreement to plan and is comfortable going home at this time This document was made in part using voice recognition software. While efforts are made to proofread this document, sound alike and grammatical errors may occur. Departure - Departure Disposition: 01 Home, Self Care Clinical Impression: GERD (gastroesophageal reflux disease) Qualifiers: Esophagitis presence: with esophagitis Qualified Code(s): K21.0 - Gastro- esophageal reflux disease with esophagitis Abdominal pain Qualifiers: Abdominal location: epigastric Qualified Code(s): R10.13 - Epigastric pain Condition: Good Instructions: ED GERD Follow-Up: Kavin Parmar DO [Primary Care Provider] - Within 1 week Prescriptions: HYDROmorphone [Dilaudid] 2 mg PO Q6H PRN #10 tablet PRN Reason: Abdominal Pain Pantoprazole [Protonix] 40 mg PO DAILY #30 tablet Comments: Use the medication as prescribed. Return if you worsen. Follow-up with your doctor for further evaluation and care. You should have an endoscopy performed. Discharge Date/Time: 06/06/18 17:15
[2018-06-06 14:28] LABS: ALBUMIN 4.2 g/dL (3.2-5.5); ALBUMIN/GLOBULIN RATIO 1.4 (1.0-2.2); BILIRUBIN,TOTAL 0.7 mg/dL (0.2-1.0); CALCIUM 9.5 mg/dL (8.5-10.3); TOTAL PROTEIN 7.2 g/dL (6.7-8.2)
[2018-06-06 15:09] LABS: BILIRUBIN,URINE NEGATIVE (NEGATIVE); GLUCOSE, URINE (UA) NEGATIVE (NEGATIVE); KETONES,URINE (UA) NEGATIVE (NEGATIVE); LEUKOCYTE ESTERASE, URINE NEGATIVE (NEGATIVE); NITRITE,URINE NEGATIVE (NEGATIVE); OCCULT BLOOD,URINE NEGATIVE (NEGATIVE); PROTEIN,URINE NEGATIVE (NEGATIVE); UROBILINOGEN,URINE 0.2 (NORMAL) E.U./dL (NORMAL)
[2018-06-06 15:10] LABS: CLARITY,URINE CLEAR (CLEAR)
--- NOTE | 2018-06-06 15:16 | CT Report ---
Reason: diffuse abd pain x 1 week Procedure Date: 06/06/2018 Accession Number: [id number] / [id number] Procedure: CT - Abdomen/Pelvis W CPT Code: FULL RESULT: EXAM: CT ABDOMEN AND PELVIS WITH CONTRAST. EXAM DATE: 06/06/2018 03:00 PM. CLINICAL HISTORY: Diffuse abdominal pain x1 week. COMPARISONS: None. TECHNIQUE: Routine helical CT imaging was performed through the abdomen and pelvis. IV contrast: OPTI 320 90 mL. Enteric contrast: No. Reconstructions: Coronal and sagittal. In accordance with CT protocol optimization, one or more of the following dose reduction techniques were utilized for this exam: automated exposure control, adjustment of mA and/or KV based on patient size, or use of iterative reconstructive technique. FINDINGS: Lung Bases: Unremarkable. Liver: Normal. No masses. Gallbladder/Bile Ducts: Status post cholecystectomy. Spleen: Normal. Pancreas: Normal. Adrenal Glands: Normal. Kidneys: 3 mm nonobstructing left lower pole renal calculus. Partial malrotation of the right kidney. Bilateral renal hypodensities which are too small to characterize. No obstruction. Peritoneal Cavity/Bowel: The patient is status post distal colon resection. There is no bowel obstruction. There is no free fluid or free air. The appendix is not definitely visualized. There is no pericecal inflammation or lymphadenopathy. Pelvic Organs: Evaluation of bladder organs is limited by streak artifact from the hip prosthesis. The bladder and visualized pelvic organs are within normal limits. Vasculature: No aneurysms or other significant abnormality. Bones: Status post right total hip arthroplasty. Degenerative changes of the lumbar spine with 4 mm retrolisthesis of L4 on L5 and 5 mm anterolisthesis of L2 on L3. Thoracolumbar scoliosis. Other: None. IMPRESSION: No definite acute abnormality is detected. RADIA
[2018-06-06] MEDS ORDERED: SUCRALFATE 1 GM/10 ML UDC PO STA (15:53)
[2018-06-06] MEDS ORDERED: LIDOCAINE VISCOUS 2% 15 ML UDC MM STA (15:53)
[2018-06-06] MEDS ORDERED: PHENobarb/HYOSCY/ATROPINE/SCOP 5 ML UDC PO STA (15:53)
[2018-06-06] MEDS ORDERED: FAMOTIDINE 20 MG TABLET PO STA (15:54)
[2018-06-06] MEDS ORDERED: MAG HYDROX/AL HYDROX/SIMETH 30 ML UDC PO STA (15:54)
[2018-06-06 16:12] VITALS: BP 159/92
== END 2018-06-06 17:15 | disposition home or self-care (01) ==
LOC: ED 13:01
DX: K21.0 Gastro-esophageal reflux disease with esophagitis (principal); I10 Essential (primary) hypertension; F03.90 Unspecified dementia, unspecified severity, without behavioral disturbance, psychotic disturbance, mood disturbance, and anxiety
CPT/HCPCS: 36415; 74177; 80053; 81003; 83690; 85025; 96361; 96374; 96375; 99283; A9270; J1170; Q9967; 81001; 87086

== ENCOUNTER 2018-06-21 14:42 | Outpatient (CLI) | payer MEDICARE, OTHER ==
--- NOTE | 2018-06-22 09:17 | Mammography Report ---
Reason: SCREENING MAMMO Procedure Date: 06/21/2018 Accession Number: [id number] / [id number] Procedure: KATHY - Screening Mammo w/Ramon CPT Code: FULL RESULT: EXAM: Screening Mammo w/Ramon DATE: 06/21/2018 3:20 PM CLINICAL HISTORY: Screening encounter. History of early menses. History of estrogen therapy from 1995 - 2010. TECHNIQUE: (B) - Bilateral CC, laterally exaggerated CC, MLO views were obtained. COMPARISON: 01/13/2017 through 09/22/2012. PARENCHYMAL PATTERN: (D) - The breast(s) demonstrate(s) heterogeneously dense fibroglandular parenchyma. FINDINGS: There are coarse typically benign calcifications. There are no suspicious masses, calcifications, or areas of distortion. IMPRESSION: Benign findings. BI-RADS category 2. RECOMMENDATION: (ANNUAL) - Recommend routine annual screening mammography. BI-RADS CATEGORY: (2) - Benign Findings. STANDARD QUALIFYING STATEMENTS: 1. This examination was not reviewed with the aid of Computer-Aided Detection (CAD). 2. A negative or benign imaging report should not preclude biopsy if clinically suspicious findings are present. 3. Dense breasts may obscure an underlying neoplasm. 4. This examination was reviewed with the aid of 3D breast imaging (tomosynthesis).
== END 2018-06-21 14:43 | disposition home or self-care (01) ==
LOC: DI 14:42
PROVIDERS: ATTEND Specialist
DX: Z12.31 Encounter for screening mammogram for malignant neoplasm of breast (principal)
CPT/HCPCS: 77063; 77067

== ENCOUNTER 2018-06-30 02:05 | Emergency (ER) | payer MEDICARE, OTHER ==
[2018-06-30 02:30] LABS: BILIRUBIN,URINE NEGATIVE (NEGATIVE); CLARITY,URINE CLEAR (CLEAR); GLUCOSE, URINE (UA) NEGATIVE (NEGATIVE); KETONES,URINE (UA) NEGATIVE (NEGATIVE); LEUKOCYTE ESTERASE, URINE NEGATIVE (NEGATIVE); NITRITE,URINE NEGATIVE (NEGATIVE); OCCULT BLOOD,URINE NEGATIVE (NEGATIVE); PROTEIN,URINE NEGATIVE (NEGATIVE); UROBILINOGEN,URINE 0.2 (NORMAL) E.U./dL (NORMAL)
[2018-06-30] MEDS ORDERED: cloNIDine 0.1 MG TABLET PO STA (02:38)
[2018-06-30] MEDS ORDERED: HALOPERIDOL 5 MG/ML VIAL IM STA (02:39)
[2018-06-30] MEDS ORDERED: DICYCLOMINE 10 MG CAPSULE PO STA (02:40)
[2018-06-30] MEDS ORDERED: SODIUM CHLORIDE 0.9% 1,000 ML IV ONE (02:41)
[2018-06-30] MEDS ORDERED: LOPERAMIDE 2 MG CAPSULE PO STA (02:41)
--- NOTE | 2018-06-30 02:55 | ED Physician Documentation ---
PD HPI ABD PAIN - Stated complaint Stated Complaint: ABD PX - Chief complaint Chief Complaint: Abd Pain - History obtained from History obtained from: Patient - History of Present Illness Timing - onset: Yesterday Timing - duration: Days (1.5) Severity Comments: moderate Quality: Cramping Location: All over / everywhere Radiation: No: Chest Improved by: No: Eating Worsened by: No: Eating Associated symptoms: Nausea, Vomiting, Diarrhea Similar symptoms before: Diagnosis (hx of chronic abdominal pain for 8 years) Recently seen: Clinic, Emergency Dept - Treatment prior to arrival Treatment prior to arrival: None - Additional information Additional information: 78 y/o F with chronic abdominal pain, ongoing for 8 years, here today for nausea, vomiting and diarrhea since running out of her narcotic this morning. Reports small amount of blood in stool. Denies vomiting blood. Denies fever, denies urinary symptoms. She is demanding dilaudid here for her pain because that's the only thing that will work. She reports she has had a prior hx of a perforation in the past and since then has had abdominal pain but reports no one can figure it out. Her states everyone is masking the pain and no one is doing anything. Her previous visit included labs and a CT scan all of which were normal. Review of Systems Ten Systems: 10 systems reviewed and negative Constitutional: denies: Fever, Chills Cardiac: denies: Chest pain / pressure Respiratory: denies: Dyspnea GI: reports: Abdominal Pain, Nausea, Vomiting, Diarrhea, Bloody / black stool (reports blood in some stool). denies: Constipation, Hematemesis : denies: Dysuria, Frequency, Hesitancy Skin: denies: Rash PD PAST MEDICAL HISTORY - Past Medical History Past Medical History: Yes Cardiovascular: Hypertension Respiratory: Pneumonia Neuro: Dementia, CVA Endocrine/Autoimmune: None GI: GERD, Ulcers, Chronic constipation, Diverticulitis, Other INTERNAL MEDICINE NURSE: None : Incontinence, Nocturia, Frequency, Other HEENT: Chronic vision loss, Other Psych: Depression, Anxiety Musculoskeletal: Osteoarthritis, Chronic back pain Derm: Herpes zoster - Past Surgical History Past Surgical History: Yes General: Bowel surgery Ortho: Hip replacement /INTERNAL MEDICINE NURSE: Hysterectomy HEENT: Cataracts Derm: Skin cancer surgery - Present Medications Home Medications: Ambulatory Orders Medication Instructions Recorded Confirmed RX: Losartan [Cozaar] 50 mg PO DAILY 09/13/13 06/30/18 RX: Vitamin E 400 unit PO DAILY 09/13/13 06/30/18 RX: Cholecalciferol (Vitamin D3) 400 unit PO DAILY 01/31/16 06/30/18 [Vitamin D3] RX: Metoprolol Tartrate 25 mg PO BID 01/31/16 06/30/18 RX: Multivitamin [Theragran] 1 tab PO DAILY 01/31/16 06/30/18 RX: HYDROcod/ACETAM 5/325 [[place] 1.5 tab PO Q4H PRN 06/24/17 06/30/18 5/325] RX: Spironolactone [Aldactone] 25 mg PO DAILY #30 tablet 06/28/17 06/30/18 DULoxetine [Cymbalta] 1 cap ORAL DAILY 02/24/18 06/30/18 buPROPion [Wellbutrin Sr] 1 tab ORAL DAILY 02/24/18 06/30/18 Pantoprazole [Protonix] 40 mg PO DAILY #30 tablet 06/06/18 06/30/18 RX: Polyethylene Glycol 3350 17 gm PO DAILY PRN 06/06/18 06/30/18 [Miralax] Loperamide [Imodium] 2 mg PO ONCE PRN #15 capsule 06/30/18 Promethazine [Phenergan] 25 mg PO Q6H PRN #10 tab 06/30/18 RX: Glucosamine HCl/Chondroitin Michelle 1 tab PO DAILY 06/30/18 06/30/18 [Endur-Flex Sr Tablet] - Allergies Allergies/Adverse Reactions: Allergies Allergy/AdvReac Type Severity Reaction Status Date / Time No Known Drug Allergies Allergy Verified 06/30/18 02:11 - Social History Does the pt smoke?: No Smoking Status: Never smoker Does the pt drink ETOH?: No Does the pt have substance abuse?: No - Immunizations Immunizations are current?: Yes - POLST Patient has POLST: No POLST Status: Full Code PD ED PE NORMAL - Vitals Vital signs reviewed: Yes - General General: Alert and oriented X 3 - HEENT HEENT: Atraumatic - Neck Neck: Supple, no meningeal sign - Cardiac Cardiac: RRR - Respiratory Respiratory: No respiratory distress - Female Female : Deferred - Rectal Rectal: Deferred - Derm Derm: Normal color, Warm and dry, No rash - Neuro Neuro: Alert and oriented X 3, Other Eye Opening: Spontaneous Motor: Obeys Commands Verbal: Oriented GCS Score: 15 - Psych Psych: Other (restless, akasthesias, can't sit still ) Results - Vitals Vitals: Vital Signs - 24 hr 06/30/18 06/30/18 02:07 03:35 Temperature 36.6 C Heart Rate 55 L 100 Respiratory 16 18 Rate Blood Pressure 151/101 H 189/105 H O2 Saturation 98 96 Oxygen O2 Source [Without Activity] Room air O2 Source [With Activity] Nasal cannula O2 Source Room air - Labs Labs: Laboratory Tests 06/30/18 06/30/18 06/30/18 02:20 03:00 03:00 WBC 9.5 RBC 4.17 L Hgb 12.2 Hct 37.5 MCV 90.0 MCH 29.4 MCHC 32.6 RDW 14.9 Plt Count 246 MPV 7.5 L Neut # (Auto) 7.9 H Lymph # (Auto) 1.1 L [place] # (Auto) 0.4 Eos # (Auto) 0.1 Baso # (Auto) 0.0 Absolute Nucleated RBC 0.00 Nucleated RBC % 0.0 Sodium 137 Potassium 3.8 Chloride 100 L Carbon Dioxide 26 Anion Gap 11.0 BUN 14 Creatinine 0.9 Estimated GFR (MDRD) 61 L Glucose 115 H Calcium 9.5 Total Bilirubin 0.7 AST 17 ALT 11 Alkaline Phosphatase 110 Total Protein 7.5 Albumin 4.2 Globulin 3.3 Albumin/Globulin Ratio 1.3 Lipase 24 Urine Color YELLOW Urine Clarity CLEAR Urine pH 6.0 Ur Specific [place] <=1.005 Urine Protein NEGATIVE Urine Glucose (UA) NEGATIVE Urine Ketones NEGATIVE Urine Occult Blood NEGATIVE Urine Nitrite NEGATIVE Urine Bilirubin NEGATIVE Urine Urobilinogen 0.2 (NORMAL) Ur Leukocyte Esterase NEGATIVE Ur Microscopic Review NOT INDICATED Urine Culture Comments NOT INDICATED PD MEDICAL DECISION MAKING - ED course Complexity details: reviewed old records, reviewed results, re-evaluated patient, considered differential, d/w patient, d/w family ED course: DDx chronic pain, narcotic dependence, gastroenteritis, IBD, gastritis, IBS. 78 y/o F with chronic abdominal pain for 8 years, recurrent ED visits in the last several months for the same. Pt states no one has done anything for me. On last visit she had labs, and a CT scan which were negative. She reports nausea vomiting diarrhea and abdominal cramping that started today since running out of her narcotics. Pt requesting dilaudid. She is restless in the room. Reports she does not usually get diarrhea. Suspect pt is actually withdrawing from opioids and am concerned about this pattern of behavior. She has multiple visits here that coinicide with her running out of narcotics. She has a script less than a month ago with 252 vicodin. Her labs again here today are normal. She has no focality to her abdominal exam and no guarding or rebound. She appears well hydrated. She was given antiemetics, analgesics, antidiarrheals and clonidine for her symptoms. Doubt utility of emergent imaging at this time. She states she feels a little better and would like to go home. Pt has PCP for outpt f/u and will call this morning. Departure - Departure Disposition: 01 Home, Self Care Condition: Stable Record reviewed to determine appropriate education?: Yes Instructions: ED Abdominal Pain Unkn Cause Follow-Up: your,doctor [Other] - Tomorrow (to discuss your symptoms and plan for managing your ongoing pain) Prescriptions: Loperamide [Imodium] 2 mg PO ONCE PRN #15 capsule PRN Reason: Diarrhea Promethazine [Phenergan] 25 mg PO Q6H PRN #10 tab PRN Reason: Nausea / Vomiting Comments: Your labs in the ED today were normal. There were no signs of acute infection or dehydration. Your electrolytes are normal. Your urine sample was also normal. Your worsening nausea, vomiting, diarrhea and abdominal cramping symptoms may be precipitated by narcotic dependence and acute withdrawal. You should contact your doctor to discuss a plan for better controlling your ongoing abdominal pain and associated symptoms. You can take alternative medications to help with these symptoms and your pain including clonidine, gabapentin, imodium, antiemetics and benzodiazepines. Discharge Date/Time: 06/30/18 03:46
[2018-06-30 03:16] LABS: BASOPHILS % (AUTO) 0.4 %; EOSINOPHILS # (AUTO) 0.1 10^3/uL (0.0-0.7); EOSINOPHILS % (AUTO) 0.7 %; HGB - HEMOGLOBIN 12.2 g/dL (12.0-16.0); LYMPHOCYTES # (AUTO) 1.1 10^3/uL (1.5-3.5); LYMPHOCYTES % (AUTO) 11.4 %; MEAN CORPUSCULAR HEMOGLOBIN 29.4 pg (27.0-31.0); MEAN CORPUSCULAR HGB CONC 32.6 g/dL (32.0-36.0); MEAN PLATELET VOLUME 7.5 fL (7.9-10.8); MONOCYTES # (AUTO) 0.4 10^3/uL (0.0-1.0); MONOCYTES % (AUTO) 4.4 %; NEUTROPHILS # (AUTO) 7.9 10^3/uL (1.5-6.6); NEUTROPHILS % (AUTO) 83.1 %; PLT - PLATELET COUNT 246 10^3/uL (130-450); RED BLOOD COUNT 4.17 10^6/uL (4.20-5.40); RED CELL DISTRIBUTION WIDTH 14.9 % (12.0-15.0); WHITE BLOOD COUNT 9.5 x10^3/uL (4.8-10.8)
[2018-06-30 03:25] LABS: ALBUMIN 4.2 g/dL (3.2-5.5); ALBUMIN/GLOBULIN RATIO 1.3 (1.0-2.2); BILIRUBIN,TOTAL 0.7 mg/dL (0.2-1.0); CALCIUM 9.5 mg/dL (8.5-10.3); CREATININE 0.9 mg/dL (0.4-1.0); TOTAL PROTEIN 7.5 g/dL (6.7-8.2)
[2018-06-30 03:41] VITALS: BP 189/105
== END 2018-06-30 03:46 | disposition home or self-care (01) ==
LOC: ED 02:05
DX: F11.23 Opioid dependence with withdrawal (principal); G89.29 Other chronic pain; R10.9 Unspecified abdominal pain; R11.2 Nausea with vomiting, unspecified; R19.7 Diarrhea, unspecified; R45.1 Restlessness and agitation; I10 Essential (primary) hypertension; F03.90 Unspecified dementia, unspecified severity, without behavioral disturbance, psychotic disturbance, mood disturbance, and anxiety; K21.9 Gastro-esophageal reflux disease without esophagitis; Z87.11 Personal history of peptic ulcer disease; Z87.19 Personal history of other diseases of the digestive system
CPT/HCPCS: 36415; 80053; 81003; 83690; 85025; 96372; 99283; A9270; 81001; 87086

== ENCOUNTER 2018-07-12 13:09 | Outpatient (CLI) | payer MEDICARE, OTHER ==
[2018-07-12 13:29] LABS: BASOPHILS % (AUTO) 0.4 %; EOSINOPHILS # (AUTO) 0.1 10^3/uL (0.0-0.7); EOSINOPHILS % (AUTO) 1.1 %; HGB - HEMOGLOBIN 12.1 g/dL (12.0-16.0); LYMPHOCYTES # (AUTO) 1.5 10^3/uL (1.5-3.5); LYMPHOCYTES % (AUTO) 20.8 %; MEAN CORPUSCULAR HEMOGLOBIN 29.3 pg (27.0-31.0); MEAN CORPUSCULAR HGB CONC 32.6 g/dL (32.0-36.0); MEAN CORPUSCULAR VOLUME 90.1 fL (81.0-99.0); MONOCYTES # (AUTO) 0.6 10^3/uL (0.0-1.0); MONOCYTES % (AUTO) 8.4 %; NEUTROPHILS % (AUTO) 69.3 %; PLT - PLATELET COUNT 281 10^3/uL (130-450); RED BLOOD COUNT 4.12 10^6/uL (4.20-5.40); RED CELL DISTRIBUTION WIDTH 14.6 % (12.0-15.0); WHITE BLOOD COUNT 7.3 x10^3/uL (4.8-10.8)
[2018-07-12 13:41] LABS: ALBUMIN 3.7 g/dL (3.2-5.5); ALBUMIN/GLOBULIN RATIO 1.1 (1.0-2.2); BILIRUBIN,TOTAL 0.5 mg/dL (0.2-1.0); CALCIUM 9.2 mg/dL (8.5-10.3); TOTAL PROTEIN 7.2 g/dL (6.7-8.2)
== END 2018-07-12 13:10 | disposition home or self-care (01) ==
LOC: LAB 13:09
PROVIDERS: ATTEND Internal Medicine Gastroenterology
DX: I10 Essential (primary) hypertension (principal); R10.13 Epigastric pain
CPT/HCPCS: 36415; 80053; 85025

== ENCOUNTER 2018-07-19 09:45 | Day surgery (SDC) | payer MEDICARE, OTHER ==
[~2018-07-19 09:45] MED LIST: LIDO GARGLE 30 ML BOTTLE ONE
[2018-07-19] MEDS ORDERED: LACTATED RINGERS 1,000 ML IV ONE (10:12)
[2018-07-19] MEDS ORDERED: fentaNYL 100 MCG/2 ML VIAL IVP ONE (10:41)
[2018-07-19] MEDS ORDERED: MIDAZOLAM 2 MG/2 ML VIAL IVP ONE (10:41)
[2018-07-19] MEDS ORDERED: LIDO GARGLE 30 ML BOTTLE PO ONE (10:42)
[2018-07-19 11:51] VITALS: BP 104/53
== END 2018-07-19 09:46 | disposition home or self-care (01) ==
LOC: SDS 09:45
PROVIDERS: ATTEND Internal Medicine Gastroenterology
PROC: 0DB78ZX Excision of Stomach, Pylorus, Via Natural or Artificial Opening Endoscopic, Diagnostic (ICD-10-PCS; 2018-07-19)
PROC: 0DB38ZX Excision of Lower Esophagus, Via Natural or Artificial Opening Endoscopic, Diagnostic (ICD-10-PCS; 2018-07-19)
PROC: 0DB98ZX Excision of Duodenum, Via Natural or Artificial Opening Endoscopic, Diagnostic (ICD-10-PCS; principal; 2018-07-19 10:45)
DX: K22.70 Barrett's esophagus without dysplasia (principal); K29.60 Other gastritis without bleeding; B96.81 Helicobacter pylori [H. pylori] as the cause of diseases classified elsewhere; Z90.49 Acquired absence of other specified parts of digestive tract; I10 Essential (primary) hypertension; F41.9 Anxiety disorder, unspecified; F32.9 Major depressive disorder, single episode, unspecified; J84.10 Pulmonary fibrosis, unspecified; Z87.891 Personal history of nicotine dependence; Z86.010 Personal history of colon polyps
CPT/HCPCS: 43239; 87081; A9270; J7120

== ENCOUNTER 2018-09-18 | Outpatient (CLI) | payer MEDICARE, OTHER | END 2018-09-18 23:59 | disposition home or self-care (01) | DX: K29.60 Other gastritis without bleeding (principal) ==

== ENCOUNTER 2018-10-13 11:14 | Emergency (ER) | payer MEDICARE, OTHER ==
[2018-10-13] MEDS ORDERED: IPRATROPIUM/ALBUTEROL 3 ML NEB INH STA (12:22)
--- NOTE | 2018-10-13 12:25 | ED Physician Documentation ---
PD HPI DYSPNEA - Stated complaint Stated Complaint: SOA - Chief complaint Chief Complaint: Resp - History obtained from History obtained from: Patient - History of Present Illness Timing - onset: Other (78-year-old woman with history of emphysema, still smokes cigarettes, and pulmonary fibrosis without progression. She sees a yarn weight and strength tester once a year. She also has a nonprogressive pulmonary nodule. For the last couple of weeks she is had a mild productive cough with brown sputum for the last 2 days she has had shortness of breath which is worse when supine. There is no associated fevers, chills, chest pain, pedal edema, or calf pain. She had an inhaler at home but did not try it because it was . On a normal day she does not take any pulmonary medications or inhalers.) Review of Systems Ten Systems: 10 systems reviewed and negative Constitutional: denies: Fever, Chills Ears: denies: Loss of hearing, Ear pain Nose: denies: Rhinorrhea / runny nose, Congestion Cardiac: denies: Chest pain / pressure, Palpitations Respiratory: reports: Dyspnea, Cough. denies: Hemoptysis, Wheezing PD PAST MEDICAL HISTORY - Past Medical History Past Medical History: Yes Cardiovascular: Hypertension Respiratory: Pneumonia Neuro: Dementia, CVA Endocrine/Autoimmune: None GI: GERD, Ulcers, Chronic constipation, Diverticulitis, Other FUR POLISHER: None : Incontinence, Nocturia, Frequency, Other HEENT: Chronic vision loss, Other Psych: Depression, Anxiety Musculoskeletal: Osteoarthritis, Chronic back pain Derm: Herpes zoster - Past Surgical History Past Surgical History: Yes General: Bowel surgery Ortho: Hip replacement /FUR POLISHER: Hysterectomy HEENT: Cataracts Derm: Skin cancer surgery - Present Medications Home Medications: Ambulatory Orders Medication Instructions Recorded Confirmed RX: Losartan [Cozaar] 50 mg PO DAILY 09/13/13 07/19/18 RX: Vitamin E 400 unit PO DAILY 09/13/13 07/18/18 RX: Metoprolol Tartrate 25 mg PO BID 01/31/16 07/18/18 RX: Multivitamin [Theragran] 1 tab PO DAILY 01/31/16 07/18/18 RX: HYDROcod/ACETAM 5/325 [[place] 1.5 tab PO Q4H PRN 06/24/17 07/18/18 5/325] RX: Spironolactone [Aldactone] 25 mg PO DAILY #30 tablet 06/28/17 07/19/18 DULoxetine [Cymbalta] 1 cap ORAL DAILY 02/24/18 07/19/18 buPROPion [Wellbutrin Sr] 1 tab ORAL DAILY 02/24/18 07/19/18 Pantoprazole [Protonix] 40 mg PO DAILY #30 tablet 06/06/18 07/18/18 RX: Polyethylene Glycol 3350 17 gm PO DAILY PRN 06/06/18 07/18/18 [Miralax] RX: Glucosamine HCl/Chondroitin Michelle 1 tab PO DAILY 06/30/18 07/18/18 [Endur-Flex Sr Tablet] RX: Albuterol Sulf [Ventolin Hfa 1 - 2 puffs INH Q4HR PRN #1 inhaler 10/13/18 Inhaler] RX: Doxycycline Hyclate 100 mg PO BID #14 capsule 10/13/18 RX: predniSONE [Deltasone] 20 mg PO [id number] #21 tab 10/13/18 - Allergies Allergies/Adverse Reactions: Allergies Allergy/AdvReac Type Severity Reaction Status Date / Time No Known Drug Allergies Allergy Verified 06/30/18 02:11 - Social History Does the pt smoke?: Yes Smoking Status: Current every day smoker Does the pt drink ETOH?: No Does the pt have substance abuse?: No - Immunizations Immunizations are current?: Yes - POLST Patient has POLST: No POLST Status: Full Code PD ED PE NORMAL - Vitals Vital signs reviewed: Yes - General General: Alert and oriented X 3, No acute distress - HEENT HEENT: PERRL, EOMI - Neck Neck: Supple, no meningeal sign, No bony TTP - Cardiac Cardiac: RRR, No murmur - Respiratory Respiratory: Other (Nonlabored, speaking in full sentences, minimally decreased with very light bibasilar rhonchi but relatively good air movement.) - Abdomen Abdomen: Soft, Non tender - Back Back: No CVA TTP, No spinal TTP - Derm Derm: Normal color, Warm and dry - Extremities Extremities: No edema, No calf tenderness / cord - Neuro Neuro: Alert and oriented X 3, Normal speech Results - Vitals Vitals: Vital Signs - 24 hr 10/13/18 10/13/18 10/13/18 11:22 11:26 12:35 Temperature 36.4 C L Heart Rate 78 78 75 Respiratory 18 18 18 Rate Blood Pressure 121/61 121/61 O2 Saturation 96 96 10/13/18 10/13/18 13:26 13:45 Temperature 36.5 C Heart Rate 84 97 Respiratory 16 16 Rate Blood Pressure 172/101 H O2 Saturation 99 Oxygen O2 Source [] Room air O2 Source [] Nasal cannula O2 Source Room air - EKG (time done) 1250 Rate: Rate (enter#) (71) Rhythm: NSR (with pvcs) [place]: Normal Intervals: Normal VT QRS: Normal Ischemia: Non specific changes (inverted T V2/3) - Labs Labs: Laboratory Tests 10/13/18 10/13/18 10/13/18 12:33 12:33 12:33 WBC 6.9 RBC 4.57 Hgb 13.2 Hct 41.3 MCV 90.4 MCH 28.9 MCHC 32.0 RDW 15.2 H Plt Count 243 MPV 9.2 Neut # (Auto) 4.8 Lymph # (Auto) 1.4 L [place] # (Auto) 0.5 Eos # (Auto) 0.1 Baso # (Auto) 0.0 Absolute Nucleated RBC 0.00 Nucleated RBC % 0.0 Sodium 133 L Potassium 4.6 Chloride 94 L Carbon Dioxide 27 Anion Gap 12.0 BUN 16 Creatinine 0.9 Estimated GFR (MDRD) 61 L Glucose 102 H Calcium 9.6 Total Bilirubin 0.9 AST 16 ALT 13 Alkaline Phosphatase 91 Troponin I High Sens 4.8 B-Natriuretic Peptide Total Protein 7.7 Albumin 4.0 Globulin 3.7 Albumin/Globulin Ratio 1.1 Lipase 16 L 10/13/18 12:33 WBC RBC Hgb Hct MCV MCH MCHC RDW Plt Count MPV Neut # (Auto) Lymph # (Auto) [place] # (Auto) Eos # (Auto) Baso # (Auto) Absolute Nucleated RBC Nucleated RBC % Sodium Potassium Chloride Carbon Dioxide Anion Gap BUN Creatinine Estimated GFR (MDRD) Glucose Calcium Total Bilirubin AST ALT Alkaline Phosphatase Troponin I High Sens B-Natriuretic Peptide 266 H Total Protein Albumin Globulin Albumin/Globulin Ratio Lipase - Rads (name of study) 2v chest Radiology: EMP read contemporaneously (Chronic findings only) PD MEDICAL DECISION MAKING - ED course ED course: 78-year-old woman with history of pulmonary fibrosis and emphysema presents with an increased productive cough and supine shortness of breath. No evidence of fluid overload, felt better after a DuoNeb. No evidence of PE. Departure - Departure Disposition: 01 Home, Self Care Clinical Impression: Bronchitis, Pulmonary fibrosis, Dyspnea Condition: Good Record reviewed to determine appropriate education?: Yes Instructions: ED Bronchitis Asthmatic Prescriptions: RX: Albuterol Sulf [Ventolin Hfa Inhaler] 1 - 2 puffs INH Q4HR PRN #1 inhaler PRN Reason: Shortness Of Air/Wheezing RX: Doxycycline Hyclate 100 mg PO BID #14 capsule RX: predniSONE [Deltasone] 20 mg PO [id number] #21 tab Comments: Your chest x-ray shows no change and your lab work suggest against a cardiac cause of your symptoms. If symptoms are persistent, follow-up with your physician, consider echocardiogram. Return for new worsening symptoms. Discharge Date/Time: 10/13/18 14:00
[2018-10-13 12:41] LABS: BASOPHILS % (AUTO) 0.6 %; EOSINOPHILS # (AUTO) 0.1 10^3/uL (0.0-0.7); EOSINOPHILS % (AUTO) 1.4 %; HGB - HEMOGLOBIN 13.2 g/dL (12.0-16.0); LYMPHOCYTES # (AUTO) 1.4 10^3/uL (1.5-3.5); MEAN CORPUSCULAR HEMOGLOBIN 28.9 pg (27.0-31.0); MEAN CORPUSCULAR VOLUME 90.4 fL (81.0-99.0); MEAN PLATELET VOLUME 9.2 fL (7.9-10.8); MONOCYTES # (AUTO) 0.5 10^3/uL (0.0-1.0); MONOCYTES % (AUTO) 7.2 %; NEUTROPHILS # (AUTO) 4.8 10^3/uL (1.5-6.6); NEUTROPHILS % (AUTO) 69.9 %; PLT - PLATELET COUNT 243 10^3/uL (130-450); RED BLOOD COUNT 4.57 10^6/uL (4.20-5.40); RED CELL DISTRIBUTION WIDTH 15.2 % (12.0-15.0); WHITE BLOOD COUNT 6.9 x10^3/uL (4.8-10.8)
[2018-10-13 13:01] LABS: ALBUMIN/GLOBULIN RATIO 1.1 (1.0-2.2); BILIRUBIN,TOTAL 0.9 mg/dL (0.2-1.0); CALCIUM 9.6 mg/dL (8.5-10.3); CREATININE 0.9 mg/dL (0.4-1.0); TOTAL PROTEIN 7.7 g/dL (6.7-8.2)
--- NOTE | 2018-10-13 13:29 | XRAY Report ---
Reason: cough, dyspnea Procedure Date: 10/13/2018 Accession Number: [id number] / [id number] Procedure: XR - Chest 2 View X-Ray CPT Code: 69925 FULL RESULT: EXAM: CHEST RADIOGRAPHY EXAM DATE: 10/13/2018 01:18 PM. CLINICAL HISTORY: Cough, dyspnea. COMPARISON: CHEST 2 VIEW 06/24/2017 3:11 PM ABDOMEN/PELVIS W/ 06/06/2018 2:59 PM. TECHNIQUE: 2 views. FINDINGS: Lungs/Pleura: There are bilateral mild reticulonodular densities which appear without significant change. There is no consolidation or pleural effusion. Negative for pneumothorax. Mediastinum: The heart size is normal. The trachea is midline. There is moderate atherosclerotic calcification. Other: None. IMPRESSION: 1. No interval change. Mild reticulonodular densities may represent bronchiolitis or chronic airways infection. No consolidative pneumonia. RADIA
[2018-10-13 13:32] VITALS: BP 172/101
[2018-10-13] MEDS ORDERED: LEVALBUTEROL 1.25 MG/3 ML NEB INH STA (13:36)
== END 2018-10-13 14:00 | disposition home or self-care (01) ==
LOC: ED 11:14
DX: J40 Bronchitis, not specified as acute or chronic (principal); J84.10 Pulmonary fibrosis, unspecified; J43.9 Emphysema, unspecified; I10 Essential (primary) hypertension; F03.90 Unspecified dementia, unspecified severity, without behavioral disturbance, psychotic disturbance, mood disturbance, and anxiety; F17.200 Nicotine dependence, unspecified, uncomplicated
CPT/HCPCS: 36415; 71046; 80053; 83690; 83880; 84484; 85025; 93005; 94640; 99284

== ENCOUNTER 2018-10-24 09:33 | Outpatient (CLI) | payer MEDICARE, OTHER ==
--- NOTE | 2018-10-26 13:59 | MRI Report ---
Reason: HX OF B SACRAL FX 2018 Procedure Date: 10/24/2018 Accession Number: [id number] / [id number] Procedure: MRI - Lumbar Spine W/O CPT Code: FULL RESULT: EXAM: MRI SACRUM/SI JOINTS WITHOUT CONTRAST EXAM DATE: 10/24/2018 10:08 AM. CLINICAL HISTORY: History of old sacral fracture 2018. Still having pain. COMPARISON: ABDOMEN/PELVIS W/ 06/20/2017 7:56 PM. TECHNIQUE: Multiplanar, multisequence T1-weighted and fluid-sensitive sequences of the sacrum/sacroiliac joints without contrast. Other: None. 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 The largest 2.5 x 3.0 cm transverse and 2.7 cm craniocaudad. Marrow signal otherwise appears normal within the sacrum. No fracture or stress reaction currently identified. There is abnormal posterior angulation of the coccyx distally, which may relate to old trauma or could be developmental that is unchanged from prior imaging. The sacroiliac joints appear symmetric with minimal degenerative change. Degenerative disk height loss and dehydration at the L4-L5 level. Artifact related to right hip arthroplasty. Musculotendinous structures: No evidence of significant muscle edema, atrophy or fatty replacement within the field of view. IMPRESSION: 1. No evidence of acute fracture or stress reaction. 2. Minimal symmetric degenerative change of the sacroiliac joints. RADIA
== END 2018-10-24 09:34 | disposition home or self-care (01) ==
LOC: DI 09:33
PROVIDERS: ATTEND Family Medicine
DX: M47.898 Other spondylosis, sacral and sacrococcygeal region (principal)
CPT/HCPCS: 72148

== ENCOUNTER 2019-01-27 11:33 | Outpatient (CLI) | payer MEDICARE, OTHER ==
--- NOTE | 2019-01-30 13:54 | DEXA Report ---
Reason: OSTEOPOROSIS Procedure Date: 01/27/2019 Accession Number: [id number] / [id number] Procedure: DEX - Dexa Spine and/or Hip CPT Code: Final Report FULL RESULT: EXAM: Dexa Spine and/or Hip DATE: 01/27/2019 12:03 PM CLINICAL HISTORY: Follow-up osteopenia. Postmenopausal female. TECHNIQUE: Dual energy x-ray absorptiometry (DXA) was performed on a [employer] System. Regions measured are the AP Spine, femoral neck, and if needed forearm. COMPARISON: 01/13/2017. In accordance with the International Society for Clinical Densitometry (ISCD) guidelines, data from previous exams may be reanalyzed using current recommendations and techniques. This is done to allow a more accurate basis for comparison with the current study. FINDINGS: The data for the lumbar spine is as follows: BMD (g/cm/cm) T-SCORE Z-SCORE REGION L1 1.581 3.8 5.9 L2 1.554 3.0 5.1 L3 1.437 2.0 4.2 L4 1.518 2.7 4.8 TOTAL 1.518 2.8 5.0 NOTE: All evaluable vertebrae are used for classification The data for the hip is as follows: BMD (g/cm/cm) T-SCORE Z-SCORE REGION Neck 0.833 -1.5 0.8 TOTAL 0.834 -1.4 0.8 NOTE: The femoral neck or total proximal femur, whichever is lowest, is used for classification. DXA RESULTS SUMMARY: Spine SCAN DATE [age] BMD CHANGE VS CHANGE VS PREVIOUS PREVIOUS % 1/27[age]2019 [age] 1.518 0.101* 7.1* 01/13/2017 [age] 1.417 * Denotes significant change at the 95% confidence level. Denotes dissimilar scan types or analysis methods. DXA RESULTS SUMMARY: Hip SCAN DATE [age]GE BMD CHANGE VS CHANGE VS PREVIOUS PREVIOUS % 1/27[birth year]2019 [age] 0.834 -0.038* -4.4* 01[age]13/2017 76.6 0.872 * Denotes significant change at the 95% confidence level. Denotes dissimilar scan types or analysis methods. IMPRESSION: THE WHO CLASSIFICATION BASED ON THE INTERNATIONAL REFERENCE STANDARD IS OSTEOPENIA, REFERENCE LEFT FEMORAL NECK. THERE HAS BEEN A STATISTICALLY SIGNIFICANT 4.4% DECREASE IN TOTAL LEFT HIP BONE MINERAL DENSITY SINCE 01/13/2017. THE FRACTURE RISK IS INCREASED. RECOMMENDATION: Patients with diagnosis of osteoporosis or osteopenia should have regular bone mineral density assessment. For those eligible for Medicare, routine testing is allowed once every 2 years. Testing frequency can be increased for patients who have rapidly progressing disease or for those who are receiving medical therapy to restore bone mass. COMMENT: World Health Organization (WHO) definitions for osteoporosis and osteopenia: NORMAL BMD: T-score at -1.0 or higher, fracture risk is low OSTEOPENIA BMD: T-score between -1.0 and -2.5, fracture risk is increased. OSTEOPOROSIS BMD: T-score at -2.5 or lower, fracture risk is high. National Osteoporosis Foundation recommends: 1. Obtain adequate dietary calcium (at least 1200 mg per day) and vitamin D (400-800 international units per day). 2. Participate, as appropriate, in regular weightbearing and muscle-strengthening exercise. 3. Avoid tobacco use and reduce alcohol and caffeine intake. 4. For more detailed information see the website at www.NOF.org.
== END 2019-01-27 11:34 | disposition home or self-care (01) ==
LOC: DI 11:33
PROVIDERS: ATTEND Specialist
DX: Z13.820 Encounter for screening for osteoporosis (principal); M85.88 Other specified disorders of bone density and structure, other site; N95.8 Other specified menopausal and perimenopausal disorders
CPT/HCPCS: 77080

== ENCOUNTER 2019-04-10 16:18 | Observation (INO) | payer MEDICARE, OTHER ==
--- NOTE | 2019-04-10 16:50 | XRAY Report ---
Reason: Chest pain Procedure Date: 04/10/2019 Accession Number: [id number] / [id number] Procedure: XR - Chest 1 View X-Ray CPT Code: 52591 Final Report FULL RESULT: EXAM: CHEST RADIOGRAPHY EXAM DATE: 04/10/2019 04:43 PM. CLINICAL HISTORY: Chest pain. COMPARISON: CHEST 2 VIEW 10/13/2018 12:33 PM. TECHNIQUE: 1 view. FINDINGS: Lungs/Pleura: Patchy ill-defined consolidation is seen in right upper lobe and left lower lobe, concerning for multifocal pneumonia. To be correlated clinically. Tiny nodules are seen in left upper lobe, unchanged since prior. No pleural effusion. No pneumothorax. Mediastinum: Within exam limitations, the cardiomediastinal contour is normal. Other: None. IMPRESSION: Patchy ill-defined consolidation in right upper lobe and left lower lobe, concerning for multifocal pneumonia. To be correlated clinically. Follow-up to complete resolution is recommended. If not resolving, a noncontrast CT chest is recommended for detailed evaluation. RADIA
[2019-04-10 17:00] LABS: BASOPHILS # (AUTO) 0.1 10^3/uL (0.0-0.1); BASOPHILS % (AUTO) 0.4 %; EOSINOPHILS # (AUTO) 0.2 10^3/uL (0.0-0.7); EOSINOPHILS % (AUTO) 1.4 %; LYMPHOCYTES # (AUTO) 1.1 10^3/uL (1.5-3.5); LYMPHOCYTES % (AUTO) 8.8 %; MEAN CORPUSCULAR HEMOGLOBIN 29.5 pg (27.0-31.0); MEAN CORPUSCULAR HGB CONC 30.3 g/dL (32.0-36.0); MEAN CORPUSCULAR VOLUME 97.3 fL (81.0-99.0); MEAN PLATELET VOLUME 9.2 fL (7.9-10.8); MONOCYTES # (AUTO) 1.2 10^3/uL (0.0-1.0); MONOCYTES % (AUTO) 9.3 %; NEUTROPHILS # (AUTO) 10.3 10^3/uL (1.5-6.6); NEUTROPHILS % (AUTO) 79.2 %; PLT - PLATELET COUNT 253 10^3/uL (130-450); RED BLOOD COUNT 4.07 10^6/uL (4.20-5.40); RED CELL DISTRIBUTION WIDTH 13.8 % (12.0-15.0)
[2019-04-10 17:11] LABS: ALBUMIN 3.4 g/dL (3.2-5.5); BILIRUBIN,TOTAL 0.6 mg/dL (0.2-1.0); CALCIUM 9.1 mg/dL (8.5-10.3); CREATININE 1.8 mg/dL (0.4-1.0); TOTAL PROTEIN 6.9 g/dL (6.7-8.2)
[2019-04-10] MEDS ORDERED: SODIUM CHLORIDE 0.9% 1,000 ML IV ONE ×2 (17:23)
[2019-04-10] MEDS ORDERED: INSULIN REGULAR HUMAN 100 UNIT/1 ML 10 ML MDV SUBQ STA (17:46)
[2019-04-10] MEDS ORDERED: DEXTROSE 25% ABBOJECT 2.5 GM/10 ML SYRINGE IVP STA ×2 (17:46→17:47)
--- NOTE | 2019-04-10 17:51 | ED Physician Documentation ---
History of Present Illness - Stated complaint Stated Complaint: DIZZY/WEAK - Chief complaint Chief Complaint: General - History obtained from History obtained from: Patient - History of Present Illness Timing: Today Pain level max: 0 Pain level now: 0 - Additonal information Additional information: 78-year-old female states that she has been feeling weak lately. Worsening today. Feels like she can barely stand up. Has had decreased oral intake over the past several days. She states she just does not feel hungry. Nothing makes it better or worse. No medication changes. No fevers. No recent travel. 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 : Incontinence, Nocturia, Frequency, Other HEENT: Chronic vision loss, Other Psych: Depression, Anxiety Musculoskeletal: Osteoarthritis, Chronic back pain Derm: Herpes zoster - Past Surgical History Past Surgical History: Yes General: Bowel surgery Ortho: Hip replacement /ANTIQUE COLLECTOR: Hysterectomy HEENT: Cataracts Derm: Skin cancer surgery - Present Medications Home Medications: Ambulatory Orders Medication Instructions Recorded Confirmed Losartan [Cozaar] 50 mg PO DAILY 09/13/13 07/19/18 Vitamin E 400 unit PO DAILY 09/13/13 07/18/18 Metoprolol Tartrate 25 mg PO BID 01/31/16 07/18/18 Multivitamin [Theragran] 1 tab PO DAILY 01/31/16 07/18/18 HYDROcod/ACETAM 5/325 [[place] 5/325] 1.5 tab PO Q4H PRN 06/24/17 07/18/18 Spironolactone [Aldactone] 25 mg PO DAILY #30 tablet 06/28/17 07/19/18 DULoxetine [Cymbalta] 1 cap ORAL DAILY 02/24/18 07/19/18 buPROPion [Wellbutrin Sr] 1 tab ORAL DAILY 02/24/18 07/19/18 Pantoprazole [Protonix] 40 mg PO DAILY #30 tablet 06/06/18 07/18/18 polyethylene glycoL 3350 [Miralax] 17 gm PO DAILY PRN 06/06/18 07/18/18 Glucosamine HCl/Chondroitin Michelle 1 tab PO DAILY 06/30/18 07/18/18 [Endur-Flex Sr Tablet] Albuterol Sulf [Ventolin Hfa 1 - 2 puffs INH Q4HR PRN #1 inhaler 10/13/18 Inhaler] Doxycycline Hyclate 100 mg PO BID #14 capsule 10/13/18 predniSONE [Deltasone] 20 mg PO [id number] #21 tab 10/13/18 - Allergies Allergies/Adverse Reactions: Allergies Allergy/AdvReac Type Severity Reaction Status Date / Time No Known Drug Allergies Allergy Verified 06/30/18 02:11 - Social History Does the pt smoke?: Yes Smoking Status: Current every day smoker Does the pt drink ETOH?: No Does the pt have substance abuse?: No - Immunizations Immunizations are current?: Yes - POLST Patient has POLST: No POLST Status: Full Code PD ED PE NORMAL - Vitals Vital signs reviewed: Yes - General General: Alert and oriented X 3, No acute distress, Other (Thin frail female) - HEENT HEENT: PERRL, Other (Dry lips and tongue) - Neck Neck: Supple, no meningeal sign - Cardiac Cardiac: RRR, No murmur, Strong equal pulses - Respiratory Respiratory: No respiratory distress, Clear bilaterally - Abdomen Abdomen: Soft, Non tender, Non distended - Derm Derm: Warm and dry - Extremities Extremities: No edema - Neuro Neuro: Alert and oriented X 3, 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, No motor deficit, No sensory deficit, Normal speech Eye Opening: Spontaneous Motor: Obeys Commands Verbal: Oriented GCS Score: 15 - Psych Psych: Normal mood, Normal affect Results - Vitals Vitals: Vital Signs - 24 hr 04/10/19 04/10/19 16:27 17:02 Temperature 37 C Heart Rate 90 84 Respiratory 18 15 Rate Blood Pressure 77/52 L 96/60 O2 Saturation 97 99 Oxygen O2 Source [Without Activity] Room air O2 Source [With Activity] Nasal cannula O2 Source Room air - EKG (time done) 1650 Rate: Rate (enter#) (82) Rhythm: NSR [place]: Normal Intervals: Normal MA QRS: Normal Ischemia: Normal ST segments, Q waves (V1--2) - Labs Labs: Laboratory Tests 04/10/19 04/10/19 16:53 16:53 WBC 13.0 H RBC 4.07 L Hgb 12.0 Hct 39.6 MCV 97.3 MCH 29.5 MCHC 30.3 L RDW 13.8 Plt Count 253 MPV 9.2 Neut # (Auto) 10.3 H Lymph # (Auto) 1.1 L [place] # (Auto) 1.2 H Eos # (Auto) 0.2 Baso # (Auto) 0.1 Absolute Nucleated RBC 0.00 Nucleated RBC % 0.0 Sodium 134 L Potassium 6.1 H* Chloride 100 L Carbon Dioxide 23 Anion Gap 11.0 BUN 45 H Creatinine 1.8 H Estimated GFR (MDRD) 27 L Glucose 92 Calcium 9.1 Total Bilirubin 0.6 AST 16 ALT 20 Alkaline Phosphatase 82 Total Protein 6.9 Albumin 3.4 Globulin 3.5 Albumin/Globulin Ratio 1.0 Lipase 19 L - Rads (name of study) cxr Radiology: Prelim report reviewed, EMP read contemporaneously, See rad report (Patchy ill-defined consolidation in right upper lobe and left lower lobe, concerning for multifocal pneumonia. To be correlated clinically. Follow-up to complete resolution is recommended. If not resolving, a noncontrast CT chest is recommended for detailed evaluation. ) PD MEDICAL DECISION MAKING - ED course Complexity details: reviewed results, re-evaluated patient, considered differential, d/w patient, d/w family, d/w safety and health consultant ED course: Patient with hyperkalemia and acute renal failure, appears to be secondary to dehydration. Given IV fluids, insulin, glucose. Her chest x-ray shows a patchy ill-defined consolidation, she is asymptomatic with this. No fevers. No coughing. Unclear etiology. She will need observation for her acute renal failure and hyperkalemia. Discussed the case with Dr. Kirkpatrick, hospitalist who accepts This document was made in part using voice recognition software. While efforts are made to proofread this document, sound alike and grammatical errors may occur. Hypotension improved with IV fluids Departure - Departure Disposition: ED Place in Observation Clinical Impression: Dehydration, Acute renal insufficiency, Hyperkalemia Condition: Stable Discharge Date/Time: 04/10/19 19:33
[2019-04-10] MEDS ORDERED: SODIUM CHLORIDE FLUSH 0.9% 10 ML SYRINGE IVP PRN (17:56)
[2019-04-10] MEDS ORDERED: ONDANSETRON 4 MG/2 ML VIAL IVP PRN (18:01)
[2019-04-10] MEDS ORDERED: ACETAMINOPHEN 325 MG TABLET PO PRN (18:01)
[2019-04-10 18:44] LABS: BILIRUBIN,URINE NEGATIVE (NEGATIVE); GLUCOSE, URINE (UA) NEGATIVE (NEGATIVE); KETONES,URINE (UA) NEGATIVE (NEGATIVE); LEUKOCYTE ESTERASE, URINE NEGATIVE (NEGATIVE); NITRITE,URINE NEGATIVE (NEGATIVE); OCCULT BLOOD,URINE NEGATIVE (NEGATIVE); PH,URINE 5.5 PH (5.0-7.5); PROTEIN,URINE NEGATIVE (NEGATIVE); UROBILINOGEN,URINE 0.2 (NORMAL) E.U./dL (NORMAL)
[2019-04-10 18:46] LABS: CLARITY,URINE CLEAR (CLEAR)
--- NOTE | 2019-04-10 20:12 | HISTORY & PHYSICAL EXAMINATION ---
Chief Complaint - Chief Complaint Chief Complaint: weakness and anorexia History of Present Illness - Admitted From Admitted From:: Home/ER - History Obtained From Records Reviewed: [facility] History obtained from: Patient Exam Limitations: none - History of Present Illness HPI Comment/Other: This is a 78-year-old white female who has chronic lung disease with pulmonary fibrosis, chronic anorexia, and lives with chronic back pain and has opioid dependence because of it. There is been no antecedent illness. She says that she is been compliant with medication, no new changes in status. She had what seems to be rhizotomies about 4 weeks ago to control her lumbar stenosis back pain. But nothing else. No one else is sick. But about 2 days ago she just really lost her appetite. Has not been eating or drinking very much. She says that her opioid use is stable and she uses about 6 tablets a day. Yesterday she was having lunch with her daughter and her daughter noticed that she seemed to be "drunk". Even though there is a history of alcoholism in the remote past, this was written with a history and physical in 2016, she denies this. She says she is never had a problem with alcohol abuse. She does not drink. So she does not understand why she was acting the way she was yesterday. She felt like her speech was slurred. That she had psychomotor delay. Holding a drink in her hand at the lunch table would be unsuccessful and that she would try and put it on the glass and it would slip out of her hands onto the floor. Today, she just felt slightly "weak". Her legs were starting to get very weak and she was afraid of falling. Because she has a history of a fall with a bilateral sacral fracture, she did not want to go down that road again and came to the emergency room. She was evaluated by Dr. Castro where she was found to be hypotensive at 77/52. Heart rate was 90, temperature was 37. Respirations 18. And she is 97% on room air. She has very dry oral mucosa, but no acute findings on physical exam from a heart, lung, abdomen perspective. Her laboratory studies showed her to have hyperkalemia to 6.1. Sodium 134. BUN acutely elevated at 45, and creatinine acutely elevated at 1.8. Usual baseline for her is 16 and 0.9. White cell count was mildly elevated at 13 but hemoglobin and hematocrit were normal. Urinalysis was completely negative for infection. Chest x-ray has patchy ill- defined consolidation in the right upper lobe and left lower lobe concerning for multifocal pneumonia. In the emergency room she received D50 and insulin to bring down her potassium. She received normal saline 1 L wide open. As such, even though the patient was ostensibly admitted for electrolyte abnormality with dehydration and acute renal insufficiency, the patient appears to have pneumonia. She does have a history of smoking. She continues to smoke about a pack a months now. The most used to smoke was a pack a day. In 2016 she was down to half a pack a day. She has 2 lung nodules. She is followed by pulmonology at [facility] at the [facility]. History - Past Medical History Cardiovascular: reports: Congestive heart failure (Probable cor pulmonale. Echo done for shortness of breath June 25, 2017 shows moderate pulmonary hypertension with a PASP of 55 mmHg. Right ventricle borderline dilated. Normal valve structure and function. Normal left ventricular size and function with ejection fraction 55%. Mild grade 1 diastolic dysfunction.), Hypertension Respiratory: reports: Pneumonia (with admits 2016 and 2017), Other (Pulmonary fibrosis. Also has 2 isolated lung nodules. Followed by [facility] pulmonology clinic at [place]. 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 Bone density survey done January 2019 has normal T score of the lumbar spine. Femoral neck is -1.5 and total T score of the hip is -1.4.), Chronic back pain (from spinal stenosis) Derm: reports: Herpes zoster MRSA Hx?: No Other Past Medical History: Opioid dependence. She is very sensitive about this topic and feels that she needs chronic opioids because of chronic back pain. She used to use close to 260 tablets a month and has been recently weaning herself down to about 180 a month. She did run out of medications once and was seen with withdrawal in the emergency room. She says she never wants to live through that again. - Past Surgical History General: reports: Bowel surgery Ortho: reports: Hip replacement /HEAD STOCK OPERATOR: reports: Hysterectomy HEENT: reports: Cataracts Derm: reports: Skin cancer surgery - Family & Social History Family History: Mother: , Cancer (colon at age 85), Father: , Sister: Alive and Well, Brother: Alive and Well Family History Comment/Other: The patient's mother from colon cancer age 85. She was estranged from her father and she does not know what he may have from other than old age in his 80's. She has 3 sisters, and one brother. All are alive and well, one of her sisters has cerebal palsy, but functions well. She has 2 chldren and one has lupus and the other has heart disease. Living arrangement: At home Living Situation: With spouse/s.o. Social History Notes: The [place] the past 7 years. She and her second Mason moved here for snf from [place]. He built homes for a living and built the home that they live in. They have 2 grown children that do not live on the [place], but in [place]. 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 Her latest hobby was to Skype a book club group, but she states that her health has restricted her from many things she used to enjoy. She denies illicit drug use, tobacco use, or alcohol use. She wishes to be a FULL code and wishes to "talk about this later".She started smoking at the age of 15 and smoked half a pack per day until 2016. She does have a history of alcoholism. - Substance History Use: Uses substance without health or social issues: NONE - POLST Patient has POLST: No POLST Status: Full Code Meds/Allgy - Home Medications Home Medications: Ambulatory Orders Medication Instructions Recorded Confirmed Losartan [Cozaar] 50 mg PO DAILY 09/13/13 07/19/18 Vitamin E 400 unit PO DAILY 09/13/13 07/18/18 Metoprolol Tartrate 25 mg PO BID 01/31/16 07/18/18 Multivitamin [Theragran] 1 tab PO DAILY 01/31/16 07/18/18 HYDROcod/ACETAM 5/325 [[place] 5/325] 1.5 tab PO Q4H PRN 06/24/17 07/18/18 Spironolactone [Aldactone] 25 mg PO DAILY #30 tablet 06/28/17 07/19/18 DULoxetine [Cymbalta] 1 cap ORAL DAILY 02/24/18 07/19/18 buPROPion [Wellbutrin Sr] 1 tab ORAL DAILY 02/24/18 07/19/18 Pantoprazole [Protonix] 40 mg PO DAILY #30 tablet 06/06/18 07/18/18 polyethylene glycoL 3350 [Miralax] 17 gm PO DAILY PRN 06/06/18 07/18/18 Glucosamine HCl/Chondroitin Michelle 1 tab PO DAILY 06/30/18 07/18/18 [Endur-Flex Sr Tablet] Albuterol Sulf [Ventolin Hfa 1 - 2 puffs INH Q4HR PRN #1 inhaler 10/13/18 Inhaler] Doxycycline Hyclate 100 mg PO BID #14 capsule 10/13/18 predniSONE [Deltasone] 20 mg PO [id number] #21 tab 10/13/18 - Allergies Allergies/Adverse Reactions: Allergies Allergy/AdvReac Type Severity Reaction Status Date / Time No Known Drug Allergies Allergy Verified 06/30/18 02:11 Review of Systems - Constitutional Constitutional: reports: Fatigue, Malaise, Poor appetite, Weight loss (Weight is 59 kg June 2017. 56 kg June 2018. 55.3 kg October 2018. And 53.5 kg today.) - Eyes Eyes: denies: Pain, Irritation, Amaurosis, Blurred vision - Ears, Nose & Throat Ears, Nose & Throat: denies: Ear pain, Hearing loss, Hearing aids, Nasal obstruction, Nasal congestion, Postnasal drainage, Sore throat, Hoarseness - Cardiovascular Cariovascular: reports: Exertional dyspnea, Decr. exercise tolerance. denies: Irregular heart rate, Palpitations, Chest pain, Edema - Respiratory Respiratory: reports: Cough (Mild, occasional. Occasionally very phlegmy but not any change manager the last several weeks.), Sputum production - Gastrointestinal Gastrointestinal: reports: Nausea (All the time.), Reflux/heartburn, Poor appetite (All the time.). denies: Abdominal pain, Abdominal distention, Constipation, Change in bowel habits - Genitourinary Genitourinary: reports: Frequency, Urgency, Incontinence. denies: Dysuria, Hematuria, Flank pain, Nocturia - Musculoskeletal Musculoskeletal: reports: Back pain, Muscle weakness (Diffusely weak especially her legs). denies: Muscle pain, Muscle aches, Stiffness, Gout, Joint pain - Integumentary Integumentary: denies: Rash, Pruritis - Neurological Neurological: reports: General weakness, Memory problems ("But what do you expect, I am going to be 80. Is not my fault on losing my memory.") - Psychiatric Psychiatric: reports: Depression (stable), Anxiety (stable). denies: Suicidal, Delusions - Endocrine Endocrine: denies: Polyuria, Polydypsia, Polyphagia - Hematologic/Lymphatic Hematologic/Lymphatic: denies: Anemia, Bruising Prior Level of Functionality: She states that she is independent with her activities of daily living. She occasionally cooks. She does not grocery shop, her does that. Her pays the bills. She is able to change the sheet on the bed, do laundry, but leads a relatively sedentary life of reading, knitting. Her back really limits what she can do.She does use a cane, 4-prong, to walk inside her home. Exam - Vital Signs Reviewed Vital Signs: Yes Vital Signs: Vital Signs x48h Temp Pulse Pulse Resp BP BP Pulse Ox 04/10/19 19:40 36.4 C L 85 20 105/65 92 04/10/19 18:40 78 13 107/62 95 04/10/19 18:07 86 16 101/74 99 04/10/19 17:02 84 15 96/60 99 04/10/19 16:27 37 C 90 18 77/52 L 97 - Physical Exam General Appearance: positive: No acute distress, Alert, Other (Cachectic white female who looks her stated age, very thirsty and has to be drinking coffee or juice throughout my entire exam. Lips are very dry.) Eyes Bilateral: positive: PERRL, EOMI ENT: positive: Pharynx nml, Dry mucous membranes Neck: positive: No JVD. negative: Stiff neck, Carotid bruit, Swelling/bruising Respiratory: positive: Chest non-tender, No respiratory distress, Rhonchi (Right mid lobe, with egophony.). negative: Wheezes, Rales Cardiovascular: positive: Regular rate & rhythm, Systolic murmur. negative: Gallop/S4, Friction rub Peripheral Pulses: positive: 1+ Abdomen: positive: Non-tender, No organomegaly, Nml bowel sounds, No distention Skin: positive: Warm, Dry, Pallor Extremities: positive: Non-tender, Full ROM, No pedal edema Neurologic/Psychiatric: positive: Oriented x3, CN's nml (2-12), Motor nml (However, during my exam, she did drop to cups of liquid as she tried to drink them, and then placed him back on the bedside stand.), Slurred/abnml speech (Constant licking of lips, speech is slightly slow and slurred.) Reflexes: Bicep (R): 1+, Bicep (L): 1+, Knee (R): 0, Knee (L): 0, Ankle (R): 0, Ankle (L): 0 Babinski Reflex: Right: Down, Left: Down Conclusion/Plan - Problem List (1) Pneumonia involving right lung Conclusion/Plan: and also involves her left lung. Multifocal. This female continues to smoke. Has pulmonary fibrosis. Has a hx of lung nodules. So would be at risk for having COPD. However there does not appear to be any acute infection in that she denies fevers, acute illness, aspiration, etc. She would be at risk for aspiration pneumonia due to her opioids and age. This diagnosis was not recognized in the emergency room and was seen when I did her history and physical on [facility] and reviewed her films and listen to her lungs. She really does not appear acutely ill and just appears more chronically cachectic and malnourished and very fatigued. As such I suspect more of an indolent illness such as aspiration. Plan: Community-acquired pneumonia antibiotics with Rocephin and azithromycin but will also add Flagyl Sputum culture if possible Blood cultures CT of chest since she has a hx of pulmonary nodules. Qualifiers: Pneumonia type: due to unspecified organism Lung location: middle lobe of lung Qualified Code(s): J18.9 - Pneumonia, unspecified organism (2) Dehydration Conclusion/Plan: Present on physical examination with dry lips, constant licking of lips, thirst. Also seen with acute kidney injury. Plan: Has already received 1 L of fluid in the ER, to be placed on 100 cc an hour maintenance fluids. Repeat BMP in the morning. (3) Protein-calorie malnutrition, moderate Conclusion/Plan: She thinks that she may have "gained a little bit of weight". But is gone from 59 kg to 53.5 kg in the last 2 years. She has less and less mobility. Cachexia on physical examination. Plan: Nutrition consult Consider supplements such as Ensure or boost 3 times daily in addition to her regular meals (4) Acute renal insufficiency Conclusion/Plan: From dehydration. Also has resultant hyperkalemia. Has already received D50 and IV insulin in the emergency room. Already received 1 L of fluid. Plan: Repeat BMP now and in a.m. (5) Hyperkalemia Conclusion/Plan: As stated above and acute kidney insufficiency problem. Although spironolactone is on her medication list, she states she has not been taking it for quite some time. She is only taking losartan. She has not even taken hydrochlorothiazide. Plan: Reconciliation of medication list Hold off on losartan at this time because it may be contributing to the hyperkalemia (6) Chronic back pain Conclusion/Plan: From spinal stenosis. Status post rhizotomies 4 weeks ago. This back pain, with opioid dependence, and decreasing mobility and anorexia is causing an overall failure to thrive. Qualifiers: Back pain location: low back pain (7) Depression Conclusion/Plan: She states this is stable as long she takes her medications. Those will be resumed during this short stay. Qualifiers: Depression Type: dysthymia Qualified Code(s): F34.1 - Dysthymic disorder (8) Opioid dependence in controlled environment Conclusion/Plan: She wants us to make sure that she gets her Vicodin 10/325, 1-1/2 tablets. She has gone through withdrawal in the past and does not want to go through withdrawal again. She is followed by her primary care provider and gets a monthly refill. According to her she is compliant, and so far has not missed any refills. - Lab Results Lab results reviewed: Yes Fish Bones: 04/10/19 16:53 04/10/19 20:03 Other Lab Results: Laboratory Tests 04/10/19 16:53 Sodium 134 L Potassium 6.1 H* Chloride 100 L Carbon Dioxide 23 Anion Gap 11.0 BUN 45 H Creatinine 1.8 H Estimated GFR (MDRD) 27 L - Diagnostic Imaging Results Diagnostic Imaging Results: positive: Final report reviewed Diagnostic Imaging Results Comments: CHEST RADIOGRAPHY EXAM DATE: 04/10/2019 04:43 PM. CLINICAL HISTORY: Chest pain. COMPARISON: CHEST 2 VIEW 10/13/2018 12:33 PM. TECHNIQUE: 1 view. FINDINGS: Lungs/Pleura: Patchy ill-defined consolidation is seen in right upper lobe and left lower lobe, concerning for multifocal pneumonia. To be correlated clinically. Tiny nodules are seen in left upper lobe, unchanged since prior. No pleural effusion. No pneumothorax. Mediastinum: Within exam limitations, the cardiomediastinal contour is normal. Other: None. IMPRESSION: Patchy ill-defined consolidation in right upper lobe and left lower lobe, concerning for multifocal pneumonia. To be correlated clinically. Follow-up to complete resolution is recommended. If not resolving, a noncontrast CT chest is recommended for detailed evaluation. [employer] And Events Coordinator: Reading Radiologist: Kat Franks MD Releasing Radiologist: Kat Franks MD Released Date Time: 04/10/19 3022 Core Measures - Anticipated LOS I expect patient to be DC'd or transferred within 96 hours.: Yes - DVT/VTE - Prophylaxis VTE/DVT Device ordered at admit?: Yes
[2019-04-10] MEDS: LACTATED RINGERS 1,000 ML IV SCH (20:14)
[2019-04-10 20:29] LABS: CALCIUM 8.9 mg/dL (8.5-10.3); CREATININE 1.4 mg/dL (0.4-1.0)
[2019-04-10] MEDS ORDERED: AZITHROMYCIN 250 MG TABLET PO STA (21:36)
[2019-04-10] MEDS: HYDROcod/ACETAM 10 MG/325 MG TABLET PO PRN (22:14)
[2019-04-10] MEDS: buPROPion SR 150 MG TABLET PO SCH (22:15)
[2019-04-10] MEDS: DULoxetine 20 MG CAPSULE PO SCH (22:20)
[2019-04-10] MEDS: cefTRIAXone 1 GM in SODIUM CHLORIDE 0.9% MINIBAG 100 ML IV SCH (22:21)
[2019-04-10] MEDS: HEPARIN 5,000 UNIT/ML VIAL SUBQ SCH (22:21)
[2019-04-10] MEDS: metroNIDAZOLE 500 MG/100 ML 500 MG/100 ML BAG IV SCH (23:01)
[2019-04-11] MEDS: SODIUM CHLORIDE FLUSH 0.9% 10 ML SYRINGE IVP SCH ×2 (00:01→09:43)
[2019-04-11] MEDS: HYDROcod/ACETAM 10 MG/325 MG TABLET PO PRN ×2 (04:44→09:41)
[2019-04-11 05:23] LABS: BASOPHILS % (AUTO) 0.3 %; EOSINOPHILS # (AUTO) 0.2 10^3/uL (0.0-0.7); EOSINOPHILS % (AUTO) 2.3 %; HGB - HEMOGLOBIN 10.4 g/dL (12.0-16.0); LYMPHOCYTES # (AUTO) 1.2 10^3/uL (1.5-3.5); LYMPHOCYTES % (AUTO) 11.5 %; MEAN CORPUSCULAR HEMOGLOBIN 29.3 pg (27.0-31.0); MEAN CORPUSCULAR HGB CONC 30.7 g/dL (32.0-36.0); MEAN CORPUSCULAR VOLUME 95.5 fL (81.0-99.0); MEAN PLATELET VOLUME 9.4 fL (7.9-10.8); MONOCYTES % (AUTO) 10.4 %; NEUTROPHILS # (AUTO) 7.5 10^3/uL (1.5-6.6); NEUTROPHILS % (AUTO) 74.5 %; PLT - PLATELET COUNT 195 10^3/uL (130-450); RED BLOOD COUNT 3.55 10^6/uL (4.20-5.40); RED CELL DISTRIBUTION WIDTH 13.8 % (12.0-15.0)
[2019-04-11] MEDS: metroNIDAZOLE 500 MG/100 ML 500 MG/100 ML BAG IV SCH ×2 (05:34→14:05)
[2019-04-11 05:39] LABS: CALCIUM 8.6 mg/dL (8.5-10.3); MAGNESIUM 2.1 mg/dL (1.7-2.8)
[2019-04-11] MEDS ORDERED: AZITHROMYCIN 250 MG TABLET PO SCH (09:00)
--- NOTE | 2019-04-11 09:01 | CT Report ---
Reason: right lung mass Procedure Date: 04/11/2019 Accession Number: [id number] / [id number] Procedure: CT - CHEST WO CPT Code: Final Report FULL RESULT: EXAM: CT CHEST EXAM DATE: 04/11/2019 08:10 AM. CLINICAL HISTORY: Right lung mass. COMPARISONS: CHEST W/ 06/25/2017 8:22 PM. TECHNIQUE: Routine helical CT imaging was performed through the chest. IV contrast: None. Reconstructions: Coronal and sagittal. In accordance with CT protocol optimization, one or more of the following dose reduction techniques were utilized for this exam: automated exposure control, adjustment of mA and/or KV based on patient size, or use of iterative reconstructive technique. FINDINGS: Lungs/Pleura: There is redemonstration of honeycombing bilaterally consistent with gross. There is a spiculated lesion in the posterior aspect of the left lung, along the minor fissure. This is new since the previous study. It measures approximately 1.9 x 1.0 x 1.1 cm (image 47 of series 7 and image 126 of series 4) new extensive increased lung markings are noted in the left lower lobe of the lung. A new pleural-based lesion is noted measuring approximately 2.8 x 2.3 x 2.9 cm (image 47 of series 7 and image 292 of series 4) hyperexpansion of the lungs is noted. Increased lung markings along the major fissure of the left lung are noted. These appear to be new since the previous study. It measures approximately 4.2 x 0.9 x 2.4 cm in maximum dimensions (image 46 of series 7 and image 86 of series 4). There is no pleural effusion or pneumothorax seen. Mediastinum: There is atherosclerosis of the aorta. The ascending aorta is aneurysmal. It measures 4.4 cm (image 50 of series 3). At the same level, on the previous study it measured 4.3 cm. No mediastinal mass is identified. Bones: There are degenerative changes of the thoracic spine. Visualized Abdomen: There are postoperative changes consistent with a cholecystectomy. The visualized upper abdominal organs demonstrate a normal noncontrast CT appearance. IMPRESSION: New bilateral pleural based spiculated lesions with in the lungs that may be secondary to a neoplastic process or pneumonia. Redemonstration of fibrosis of the lungs. Aneurysmal dilatation of the ascending thoracic aorta with mild interval increase when compared to the previous study. RADIA
--- NOTE | 2019-04-11 09:26 | Discharge Plan ---
Discharge Plan Problem Reviewed?: Yes Disposition: Home, Self Care Condition: Stable Prescriptions: Amox/Clav 875/125 [Augmentin] 1 each PO BID #14 tablet Diet: Regular Activity Restrictions: Activity as Tolerated Shower Restrictions: No Instruction Topics: Aspiration About [facility] Health Concerns: You were in the hospital for treating dehydration and starting treatment for a pneumonia which is probably from aspiration. You are being sent home with new antibiotics (electronically sent to your pharmacy) and please avoid oversedation from all your medicines so that you do not aspirate food and saliva into your lungs. You can place bricks under the feet of the head of the bed and see your doctor for other advice on how to decrease aspiration. Stay hydrated, even if you lose your appetite. Drink less caffeinated beverages, which could dehydrate you. The dehydration, caused kidney stress. You should see your provider in the next 4-5 days for a follow-up kidney blood test. Resume all your usual pre-hospital medications. Plan of Treatment: As above. Care Goals: Improvement in symptoms and stabilization are the goals. Assessment: The patient understands. Additional Instructions or Follow Up instructions: If you have new or worsening symptoms, call your Primary Care Provider for advice or come to the Emergency Room. No Smoking: If you smoke, Please STOP! Call for help. Follow-up with: Jv Woo MD [Primary Care Provider] -
[2019-04-11] MEDS: LACTATED RINGERS 1,000 ML IV SCH (09:40)
[2019-04-11] MEDS: DULoxetine 20 MG CAPSULE PO SCH (09:41)
[2019-04-11] MEDS: buPROPion SR 150 MG TABLET PO SCH (09:41)
[2019-04-11] MEDS: HEPARIN 5,000 UNIT/ML VIAL SUBQ SCH (09:42)
[2019-04-11] MEDS: cefTRIAXone 1 GM in SODIUM CHLORIDE 0.9% MINIBAG 100 ML IV SCH (09:42)
--- NOTE | 2019-04-11 14:22 | DISCHARGE SUMMARY ---
Discharge Summary Admit Date: 04/10/19 Discharge Date: 04/11/19 Discharging Provider: Dr Sylvia Guan Primary Care Provider: Dr Johnnie Woo Code Status: Attempt Resuscitation Condition at Discharge: Stable Discharge Disposition: 01 Home, Self Care - DIAGNOSES Admission Diagnoses: (1) Pneumonia involving right lung (2) Dehydration (3) Protein-calorie malnutrition, moderate (4) Acute renal insufficiency (5) Hyperkalemia (6) Chronic back pain (7) Depression (8) Opioid dependence in controlled environment Discharge Diagnoses with Status of Each Condition: See below - HPI History of Present Illness: From the admission H&P of Dr. Viky Rooney: This is a 78-year-old white female who has chronic lung disease with pulmonary fibrosis, chronic anorexia, and lives with chronic back pain and has opioid dependence because of it. There is been no antecedent illness. She says that she is been compliant with medication, no new changes in status. She had what seems to be rhizotomies about 4 weeks ago to control her lumbar stenosis back pain. But nothing else. No one else is sick. But about 2 days ago she just really lost her appetite. Has not been eating or drinking very much. She says that her opioid use is stable and she uses about 6 tablets a day. Yesterday she was having lunch with her daughter and her daughter noticed that she seemed to be "drunk". Even though there is a history of alcoholism in the remote past, this was written with a history and physical in 2016, she denies this. She says she is never had a problem with alcohol abuse. She does not drink. So she does not understand why she was acting the way she was yesterday. She felt like her speech was slurred. That she had psychomotor delay. Holding a drink in her hand at the lunch table would be unsuccessful and that she would try and put it on the glass and it would slip out of her hands onto the floor. Today, she just felt slightly "weak". Her legs were starting to get very weak and she was afraid of falling. Because she has a history of a fall with a bilateral sacral fracture, she did not want to go down that road again and came to the emergency room. She was evaluated by Dr. Castro where she was found to be hypotensive at 77/52. Heart rate was 90, temperature was 37. Respirations 18. And she is 97% on room air. She has very dry oral mucosa, but no acute findings on physical exam from a heart, lung, abdomen perspective. Her laboratory studies showed her to have hyperkalemia to 6.1. Sodium 134. BUN acutely elevated at 45, and creatinine acutely elevated at 1.8. Usual baseline for her is 16 and 0.9. White cell count was mildly elevated at 13 but hemoglobin and hematocrit were normal. Urinalysis was completely negative for infection. Chest x-ray has patchy ill- defined consolidation in the right upper lobe and left lower lobe concerning for multifocal pneumonia. In the emergency room she received D50 and insulin to bring down her potassium. She received normal saline 1 L wide open. As such, even though the patient was ostensibly admitted for electrolyte abnormality with dehydration and acute renal insufficiency, the patient appears to have pneumonia. She does have a history of smoking. She continues to smoke about a pack a months now. The most used to smoke was a pack a day. In 2016 she was down to half a pack a day. She has 2 lung nodules. She is followed by pulmonology at [facility] the [facility]. - HOSPITAL COURSE Hospital Course: (1) Aspiration pneumonia Multifocal infiltrates in a patient who continues to smoke. She has pulmonary fibrosis and a hx of lung nodules. There does not appear to be any acute infection in that she denied fevers, acute illness, aspiration, etc. She was felt to have an aspiration pneumonia due to her opioids and age. This diagnosis was not recognized in the emergency room and was seen when the admitting provider took her history and did the physical exam and reviewed her CXR. She really does not appear acutely ill and just appears more chronically cachectic and malnourished and very fatigued. As such I suspect more of an indolent illness such as aspiration. She was put on Rocephin and azithromycin plus Flagyl. Sputum culture and blood cultures were ordered. She was sent home the following day on a course of oral Augmentin bid for 7 days. (2) Dehydration Present on physical examination with dry lips, constant licking of lips, thirst. Also seen with acute kidney injury. She was on iv fluids until discharge. (3) Protein-calorie malnutrition, moderate She has been seen in consultation by our Concrete Bucket Loader 14 times in the past. She thinks that she may have "gained a little bit of weight", but is gone from 59 kg to 53.5 kg in the last 2 years. She has less and less mobility and cachexia on physical examination. (4) Acute renal insufficiency From dehydration and causing resultant hyperkalemia. After iv hydration, her BUN/creat improved from 45/1.8 to 31/1.0 (5) Hyperkalemia As stated above and acute kidney insufficiency problem. Although Spironolactone is on her medication list, she states she has not been taking Spironolactone or HCTZ for quite some time. She was only taking Losartan. The Losartan was stopped. The serum Potassium improved from 6.1 to 5.6 at discharge. She was advised to have a BMP lab test and see here PCP in the next 4-5 days. (6) Chronic back pain This is due to spinal stenosis and she is S/P rhizotomies 4 weeks ago. It appears that this back pain, with opioid dependence, and decreasing mobility and anorexia is causing an overall failure to thrive. (7) Depression She was seen by our COLLABORATING SUPERVISING PHYSICIAN for a mental health eval and was felt to be in a loveless marriage but was not suicidal. She states this is stable as long she takes her medications. Those were continued during this short stay. (8) Opioid dependence in controlled environment She wanted us to make sure that she got her Vicodin 10/325, 1-1/2 tablets. She has gone through withdrawal in the past and did not want to go through withdrawal again. - ALLERGIES Allergies/Adverse Reactions: Allergies Allergy/AdvReac Type Severity Reaction Status Date / Time No Known Drug Allergies Allergy Verified 06/30/18 02:11 - MEDICATIONS Home Medications: Ambulatory Orders Medication Instructions Recorded Confirmed Metoprolol Tartrate 25 mg PO BID 01/31/16 04/11/19 Multivitamin [Theragran] 1 tab PO DAILY 01/31/16 04/11/19 HYDROcod/ACETAM 5/325 [[place] 5/325] 1.5 tab PO Q4H PRN 06/24/17 04/11/19 buPROPion [Wellbutrin Sr] 150 mg PO BID 02/24/18 04/11/19 Albuterol Sulf [Ventolin Hfa 1 - 2 puffs INH Q4HR PRN #1 inhaler 10/13/18 04/11/19 Inhaler] Amox/Clav 875/125 [Augmentin] 1 each PO BID #14 tablet 04/11/19 Duloxetine HCl 60 mg PO DAILY 04/11/19 04/11/19 - PHYSICAL EXAM AT DISCHARGE General Appearance: positive: No acute distress, Alert, Other (Cachectic) Eyes Bilateral: positive: Normal inspection, EOMI ENT: positive: ENT inspection nml, No signs of dehydration Neck: positive: Nml inspection, No JVD Respiratory: positive: No respiratory distress, Breath sounds nml Cardiovascular: positive: Regular rate & rhythm, No murmur Abdomen: positive: Non-tender, No distention Extremities: positive: Non-tender, No pedal edema Neurologic/Psychiatric: positive: Oriented x3, Other (Grossly intact) - LABS Result Diagrams: 04/11/19 05:09 04/11/19 13:24 - DIAGNOSTIC IMAGING Diagnostic Imaging Results: Final report reviewed - FOLLOW UP Follow Up: See PCP in 4-5 days, have a BMP blood test.
[2019-04-11 14:44] VITALS: BP 150/87
--- NOTE | 2019-04-11 15:08 | PHARMACY PROGRESS NOTE ---
- Best Possible Medication History Admit Date and Time: 04/10/19 4772 Processed by: Pharmacy Medication History completed: Yes Patient Interview: Completed Secondary Source(s): Pharmacy records ([facility]) As the person ultimately responsible for medication therapy, providers are able to order a medication from an existing home medication list in [facility] via the "Reconcile Routine" prior to Confirmation of that medication by manager support. Such practice is discouraged except when the physician, in their clinical judgment, deems that a medical need exists for a medication without regard to previous use.
== END 2019-04-11 15:00 | disposition home or self-care (01) ==
LOC: ED 16:18 → MS2 17:56
PROVIDERS: ADMIT Specialist; ATTEND Internal Medicine
DX: J69.0 Pneumonitis due to inhalation of food and vomit (principal); J84.10 Pulmonary fibrosis, unspecified; E86.0 Dehydration; E44.0 Moderate protein-calorie malnutrition; N28.9 Disorder of kidney and ureter, unspecified; E87.5 Hyperkalemia; M48.061 Spinal stenosis, lumbar region without neurogenic claudication; F32.9 Major depressive disorder, single episode, unspecified; F11.20 Opioid dependence, uncomplicated; I71.2 Thoracic aortic aneurysm, without rupture; G89.29 Other chronic pain; F17.210 Nicotine dependence, cigarettes, uncomplicated; R64 Cachexia; R63.0 Anorexia; Z68.1 Body mass index [BMI] 19.9 or less, adult; R53.83 Other fatigue; R62.7 Adult failure to thrive; Z80.0 Family history of malignant neoplasm of digestive organs
CPT/HCPCS: 36415; 71045; 71250; 80048; 80053; 81003; 83690; 83735; 84100; 84132; 85025; 93005; 96361; 96365; 96366; 96367; 96375; 99284; 99285; A9270; G0378; J1815; J7120; 81001; 87086

== ENCOUNTER 2019-04-23 20:23 | Emergency (ER) | payer MEDICARE, OTHER ==
[2019-04-23 20:55] LABS: BASOPHILS # (AUTO) 0.1 10^3/uL (0.0-0.1); BASOPHILS % (AUTO) 0.5 %; EOSINOPHILS # (AUTO) 0.1 10^3/uL (0.0-0.7); EOSINOPHILS % (AUTO) 0.8 %; HGB - HEMOGLOBIN 12.5 g/dL (12.0-16.0); LYMPHOCYTES # (AUTO) 1.7 10^3/uL (1.5-3.5); MEAN CORPUSCULAR HGB CONC 31.7 g/dL (32.0-36.0); MEAN CORPUSCULAR VOLUME 97.8 fL (81.0-99.0); MEAN PLATELET VOLUME 8.8 fL (7.9-10.8); MONOCYTES # (AUTO) 0.6 10^3/uL (0.0-1.0); MONOCYTES % (AUTO) 4.8 %; NEUTROPHILS # (AUTO) 10.2 10^3/uL (1.5-6.6); NEUTROPHILS % (AUTO) 79.2 %; PLT - PLATELET COUNT 327 10^3/uL (130-450); RED BLOOD COUNT 4.03 10^6/uL (4.20-5.40); RED CELL DISTRIBUTION WIDTH 14.5 % (12.0-15.0); WHITE BLOOD COUNT 12.9 x10^3/uL (4.8-10.8)
[2019-04-23 20:58] LABS: VBG BASE EXCESS 0.2 mmol/L (-2 - +2); VBG PCO2 55.9 mmHg (41-51); VBG PH 7.309 (7.31-7.41); VBG TOTAL CO2 29.2 mmol/L (24-29)
[2019-04-23 21:14] LABS: ALBUMIN 3.5 g/dL (3.2-5.5); ALBUMIN/GLOBULIN RATIO 0.9 (1.0-2.2); ALKALINE PHOSPHATASE 90 IU/L (42-121); ALT ALANINE AMINOTRANSFERASE 17 IU/L (10-60); AST ASPARTATE AMINOTRANSFERASE 17 IU/L (10-42); BILIRUBIN,TOTAL 0.4 mg/dL (0.2-1.0); BUN - BLOOD UREA NITROGEN 37 mg/dL (6-20); CALCIUM 9.2 mg/dL (8.5-10.3); CARBON DIOXIDE - CO2 27 mmol/L (21-32); CHLORIDE 95 mmol/L (101-111); CREATININE 1.5 mg/dL (0.4-1.0); GFR - MDRD 34 (>89); GLUCOSE 89 mg/dL (70-100); LIPASE 17 U/L (22-51); MAGNESIUM 2.4 mg/dL (1.7-2.8); PHOSPHORUS 5.9 mg/dL (2.5-4.6); SODIUM 133 mmol/L (135-145); TOTAL PROTEIN 7.3 g/dL (6.7-8.2)
[2019-04-23 21:35] LABS: MUDS CUTOFF CONCENTRATIONS CUTOFF CONC BELOW:
[2019-04-23 21:37] LABS: BILIRUBIN,URINE NEGATIVE (NEGATIVE); GLUCOSE, URINE (UA) NEGATIVE (NEGATIVE); KETONES,URINE (UA) NEGATIVE (NEGATIVE); LEUKOCYTE ESTERASE, URINE NEGATIVE (NEGATIVE); NITRITE,URINE NEGATIVE (NEGATIVE); OCCULT BLOOD,URINE NEGATIVE (NEGATIVE); PH,URINE 5.5 PH (5.0-7.5); PROTEIN,URINE NEGATIVE (NEGATIVE); UROBILINOGEN,URINE 0.2 (NORMAL) E.U./dL (NORMAL)
[2019-04-23 21:38] LABS: CLARITY,URINE CLEAR (CLEAR)
[2019-04-23 21:47] LABS: AMPHETAMINE SCREEN,URINE NEGATIVE (NEGATIVE); BENZODIAZEPINES SCREEN, URINE POSITIVE (NEGATIVE); COCAINE SCREEN URINE NEGATIVE (NEGATIVE); METHADONE SCREEN, URINE NEGATIVE (NEGATIVE); METHAMPHETAMINES SCREEN, URINE NEGATIVE (NEGATIVE); OPIATE SCREEN, URINE POSITIVE (NEGATIVE); OXYCODONE SCREEN, URINE NEGATIVE (NEGATIVE); PROPOXYPHENE SCREEN, URINE NEGATIVE (NEGATIVE); TRICYCLIC ANTIDEPRESSANT,URINE NEGATIVE (NEGATIVE)
--- NOTE | 2019-04-23 22:13 | ED Physician Documentation ---
History of Present Illness - Stated complaint Stated Complaint: MULTIPLE FALLS - Chief complaint Chief Complaint: Neuro - History obtained from History obtained from: Patient, Family - Additonal information Additional information: Patient comes emergency department complaining of her ankles giving out when she tries to walk. Patient states she was seen for something similar couple of weeks ago, except at that time, it was her knees that felt weak.She states that at that time, she was found to have pneumonia and hyperkalemia. She was admitted to the hospital for this and seemed to be doing a little better when she was discharged. Patient states she followed up with her primary care physician and found that her potassium is still 5.7, but states that her primary care physician did not seem to be too concerned about this. She states that she does not know if she was placed on any specific medication, such as a diuretic, to help keep her potassium down at home, but she does not think so. She states that she has not had any palpitations. No numbness or tingling. She states that she does not feel dizzy in the head, but that when her ankles feel unstable, she ends up falling backwards. She states she is hit her head on the floor today when she has fallen, but has not lost consciousness. She denies headache or neck pain. She states she is taken 5 falls today because of this. She states that she does have a walker at home, but she does not use it. Patient states that she has not had any injury to her ankles but does note that she has pain in her right foot. No recent illness. No dysuria, fevers, nausea or vomiting. No chest pain or shortness of breath. No other complaints at this time. Patient states she otherwise feels well. Review of Systems Ten Systems: 10 systems reviewed and negative Constitutional: reports: Reviewed and negative Eyes: reports: Reviewed and negative Ears: reports: Reviewed and negative Nose: reports: Reviewed and negative Throat: reports: Reviewed and negative Cardiac: reports: Reviewed and negative Respiratory: reports: Reviewed and negative GI: reports: Reviewed and negative : reports: Reviewed and negative Skin: reports: Reviewed and negative Musculoskeletal: reports: Reviewed and negative Neurologic: reports: Reviewed and negative Psychiatric: reports: Reviewed and negative Endocrine: reports: Reviewed and negative Immunocompromised: reports: Reviewed and negative PD PAST MEDICAL HISTORY - Past Medical History Past Medical History: Yes Cardiovascular: Hypertension Respiratory: Pneumonia Neuro: Dementia Endocrine/Autoimmune: None GI: GERD, Ulcers, Chronic constipation, Diverticulitis, Other HADOOP ANALYST: None : Incontinence, Nocturia, Frequency, Other HEENT: Chronic vision loss, Other Psych: Depression, Anxiety Musculoskeletal: Osteoarthritis, Chronic back pain Derm: Herpes zoster - Past Surgical History Past Surgical History: Yes General: Bowel surgery Ortho: Hip replacement /HADOOP ANALYST: Hysterectomy HEENT: Cataracts Derm: Skin cancer surgery - Present Medications Home Medications: Ambulatory Orders Medication Instructions Recorded Confirmed Metoprolol Tartrate 25 mg PO BID 01/31/16 04/23/19 Multivitamin [Theragran] 1 tab PO DAILY 01/31/16 04/23/19 HYDROcod/ACETAM 5/325 [[place] 5/325] 1.5 tab PO Q4H PRN 06/24/17 04/23/19 buPROPion [Wellbutrin Sr] 150 mg PO BID 02/24/18 04/23/19 Albuterol Sulf [Ventolin Hfa 1 - 2 puffs INH Q4HR PRN #1 inhaler 10/13/18 04/23/19 Inhaler] Duloxetine HCl 60 mg PO DAILY 04/11/19 04/23/19 - Allergies Allergies/Adverse Reactions: Allergies Allergy/AdvReac Type Severity Reaction Status Date / Time No Known Drug Allergies Allergy Verified 04/23/19 20:38 - Social History Does the pt smoke?: Yes Smoking Status: Current every day smoker Does the pt drink ETOH?: No Does the pt have substance abuse?: No - Immunizations Immunizations are current?: Yes - POLST Patient has POLST: No POLST Status: Full Code PD ED PE NORMAL - Vitals Vital signs reviewed: Yes - General General: Alert and oriented X 3, No acute distress - HEENT HEENT: Atraumatic, PERRL, EOMI, Moist mucous membranes, Dentition benign - Neck Neck: Supple, no meningeal sign, No bony TTP - Cardiac Cardiac: RRR, No murmur - Respiratory Respiratory: No respiratory distress, Clear bilaterally - Abdomen Abdomen: Soft, Non tender, Non distended - Derm Derm: Warm and dry - Extremities Extremities: No deformity, Normal ROM s pain, Other (Patient has mild to moderate tenderness palpation over the lateral plantar aspect of her right foot.No deformity or obvious trauma.) - Neuro Neuro: Alert and oriented X 3, drill runner 2-12 intact, No motor deficit, No sensory deficit, Normal speech, Other (Patient has full and equal strength in her bilateral feet, ankles, lower legs, and hip flexors.) - Psych Psych: Normal mood, Normal affect Results - Vitals Vitals: Vital Signs - 24 hr 04/23/19 04/23/19 04/23/19 20:29 20:56 23:12 Temperature 35.9 C L 36.5 C Heart Rate 81 78 78 Respiratory 18 16 Rate Blood Pressure 96/60 116/78 118/68 O2 Saturation 94 100 96 Oxygen O2 Source [Without Activity] Room air O2 Source [With Activity] Nasal cannula O2 Source Room air - Labs Labs: Laboratory Tests 04/23/19 04/23/19 04/23/19 20:47 20:47 20:47 WBC 12.9 H RBC 4.03 L Hgb 12.5 Hct 39.4 MCV 97.8 MCH 31.0 MCHC 31.7 L RDW 14.5 Plt Count 327 MPV 8.8 Neut # (Auto) 10.2 H Lymph # (Auto) 1.7 [place] # (Auto) 0.6 Eos # (Auto) 0.1 Baso # (Auto) 0.1 Absolute Nucleated RBC 0.00 Nucleated RBC % 0.0 VBG pH 7.309 L VBG pCO2 55.9 H VBG pO2 16.0 L VBG HCO3 27.5 VBG Total CO2 29.2 H VBG O2 Saturation 22.9 L VBG Base Excess 0.2 Sodium 133 L Potassium 5.1 H Chloride 95 L Carbon Dioxide 27 Anion Gap 11.0 BUN 37 H Creatinine 1.5 H Estimated GFR (MDRD) 34 L Glucose 89 Calcium 9.2 Phosphorus 5.9 H Magnesium 2.4 Total Bilirubin 0.4 AST 17 ALT 17 Alkaline Phosphatase 90 Total Protein 7.3 Albumin 3.5 Globulin 3.8 Albumin/Globulin Ratio 0.9 L Lipase 17 L Urine Color Urine Clarity Urine pH Ur Specific [place] Urine Protein Urine Glucose (UA) Urine Ketones Urine Occult Blood Urine Nitrite Urine Bilirubin Urine Urobilinogen Ur Leukocyte Esterase Ur Microscopic Review Urine Culture Comments Urine Opiates Screen Ur Oxycodone Screen Urine Methadone Screen Ur Propoxyphene Screen Ur Barbiturates Screen Ur Tricyclics Screen Ur Phencyclidine Scrn Ur Amphetamine Screen U Methamphetamines Scrn U Benzodiazepines Scrn Urine Cocaine Screen U Cannabinoids Screen Ethyl Alcohol < 5.0 04/23/19 21:22 WBC RBC Hgb Hct MCV MCH MCHC RDW Plt Count MPV Neut # (Auto) Lymph # (Auto) [place] # (Auto) Eos # (Auto) Baso # (Auto) Absolute Nucleated RBC Nucleated RBC % VBG pH VBG pCO2 VBG pO2 VBG HCO3 VBG Total CO2 VBG O2 Saturation VBG Base Excess Sodium Potassium Chloride Carbon Dioxide Anion Gap BUN Creatinine Estimated GFR (MDRD) Glucose Calcium Phosphorus Magnesium Total Bilirubin AST ALT Alkaline Phosphatase Total Protein Albumin Globulin Albumin/Globulin Ratio Lipase Urine Color YELLOW Urine Clarity CLEAR Urine pH 5.5 Ur Specific [place] 1.020 Urine Protein NEGATIVE Urine Glucose (UA) NEGATIVE Urine Ketones NEGATIVE Urine Occult Blood NEGATIVE Urine Nitrite NEGATIVE Urine Bilirubin NEGATIVE Urine Urobilinogen 0.2 (NORMAL) Ur Leukocyte Esterase NEGATIVE Ur Microscopic Review NOT INDICATED Urine Culture Comments NOT INDICATED Urine Opiates Screen POSITIVE H Ur Oxycodone Screen NEGATIVE Urine Methadone Screen NEGATIVE Ur Propoxyphene Screen NEGATIVE Ur Barbiturates Screen NEGATIVE Ur Tricyclics Screen NEGATIVE Ur Phencyclidine Scrn NEGATIVE Ur Amphetamine Screen NEGATIVE U Methamphetamines Scrn NEGATIVE U Benzodiazepines Scrn POSITIVE H Urine Cocaine Screen NEGATIVE U Cannabinoids Screen NEGATIVE Ethyl Alcohol - Rads (name of study) ct head Radiology: Final report received, EMP read indepedently, See rad report ct c-spine Radiology: Final report received, EMP read indepedently, See rad report cxr Radiology: Final report received, EMP read indepedently, See rad report xr foot Radiology: Final report received, EMP read indepedently, See rad report PD MEDICAL DECISION MAKING - ED course Complexity details: reviewed old records, reviewed results, re-evaluated patient, considered differential, d/w patient, d/w family ED course: The patient was quite well-appearing in the emergency department and actually, was able to ambulate with assistance to the bathroom to give a urine sample. She did seem to limp somewhat on the right foot, however. She was worked up with labs, which showed actually a nearly normal potassium of 5.1. She had a slightly elevated white blood cell count 12.3. Head CT and CT of the C-spine were performed, due to patient's report of falling and hitting her head on a tile floor, though I did not find any external evidence of head trauma. These were found to be unremarkable. X-ray was performed of the patient's right foot to evaluate the pain, And this was unremarkable. The patient was able to ambulate without difficulty in the emergency department with a wheelchair as a walker. She was steady on her feet and stated she was feeling better. I have advised her to use her walker at home to help prevent falls and the associated injuries that result. We discussed home management of her symptoms, as well as the need for follow-up in the usual indications for return. Departure - Departure Disposition: 01 Home, Self Care Clinical Impression: Fall from ground level, Closed head injury Condition: Fair Instructions: ED Head Injury Closed, ED Prevention Fall Comments: Your potassium today is just slightly higher than normal at 5.1. The upper limit of normal is 5.0. The remainder of your labs look reasonably good. Your head CT and neck CT do not show any concerning findings.Your chest x-ray does not show pneumonia at this time. The x-ray of your foot also looks good. It is very important that you use a walker at home to prevent falls. You have walked very well in the emergency department while using the wheelchair to lean on and with the fall as you been having recently, you should use the walker to prevent further falls. Otherwise, you are at risk of falling and hitting your head and developing a traumatic bleeding stroke, as well as potentially breaking her neck or a hip. These are serious complications that can significantly alter your quality of life. Please follow-up with your primary care physician for further evaluation of your balance issues and falls. Discharge Date/Time: 04/23/19 23:30
--- NOTE | 2019-04-23 22:14 | XRAY Report ---
Reason: chest pain Procedure Date: 04/23/2019 Accession Number: [id number] / [id number] Procedure: XR - Chest 1 View X-Ray CPT Code: 32719 Final Report FULL RESULT: EXAM: CHEST RADIOGRAPHY EXAM DATE: 04/23/2019 09:39 PM. CLINICAL HISTORY: Chest pain. COMPARISON: CHEST 1 VIEW 04/10/2019 4:27 PM CHEST W/O 04/11/2019 8:04 AM. TECHNIQUE: 1 view. FINDINGS: Atherosclerotic plaque calcifications are seen in the aorta. The mediastinal and cardiac silhouettes are normal. The lungs are hyperinflated. Mixed interstitial and airspace opacities in the right upper and left lower lobes are unchanged. The left upper lobe pulmonary nodule corresponds with the lesion seen on the recent CT chest. No pleural effusion or pneumothorax is seen. IMPRESSION: Unchanged airspace opacities in the right upper and left lower lobes. Unchanged left upper lobe pulmonary nodule. No focal consolidation. RADIA
--- NOTE | 2019-04-23 22:19 | CT Report ---
Reason: fall/blow to head Procedure Date: 04/23/2019 Accession Number: [id number] / [id number] Procedure: CT - CERVICAL SPINE WO CPT Code: Final Report FULL RESULT: EXAM: CT CERVICAL SPINE WITHOUT CONTRAST DATE: 04/23/2019 10:01 PM. HISTORY: Fall/blow to head. COMPARISONS: HEAD W/O 08/13/2017 6:05 PM. TECHNIQUE: Thin-section axial images were acquired of the cervical spine without contrast. Post-processing: Coronal and sagittal reformats. Other: None. In accordance with CT protocol optimization, one or more of the following dose reduction techniques were utilized for this exam: automated exposure control, adjustment of mA and/or KV based on patient size, or use of iterative reconstructive technique. FINDINGS: Alignment: There is loss of the typical cervical lordosis with cervical kyphosis secondary to degenerated disks. Bones: There are no acute fractures nor subluxations of the cervical spine. Interspace Levels/Facets: There is advanced cervical spondylosis at C4-C5, C5-C6, and C6-C7. These disks are degenerated and narrowed and there are marginal osteophytes. There is bony canal stenosis at the C6-C7 level. The AP diameter. His 10 mm and there is moderately severe right foraminal stenosis. There is slight anterior slippage of C3 on C4. This appears nonacute given the small marginal osteophytes. In addition, there are moderately extensive degenerative changes at the facets in the mid cervical spine. Musculature: Normal. No fatty atrophy. Other: The paravertebral and prevertebral soft tissues are unremarkable. There are interstitial and nodular changes in the upper lung zones bilaterally. IMPRESSION: 1. No evidence for acute fractures or subluxations. 2. Advanced cervical spondylosis. 3. Central canal stenosis C6-C7 and right foraminal stenosis. 4. Interstitial and nodular changes in the upper lung zones including a "mass" in the superior aspect of the right lobe which usually is related to fibrous tissue. RADIA
--- NOTE | 2019-04-23 22:20 | CT Report ---
Reason: fall/head trauma Procedure Date: 04/23/2019 Accession Number: [id number] / [id number] Procedure: CT - HEAD WO CPT Code: Final Report FULL RESULT: EXAM: CT HEAD EXAM DATE: 04/23/2019 10:00 PM. CLINICAL HISTORY: Fall/head trauma. COMPARISON: HEAD W/O 08/13/2017 6:05 PM. TECHNIQUE: Multiaxial CT images were obtained from the foramen magnum to the vertex. Reformats: Sagittal and coronal. IV contrast: None. In accordance with CT protocol optimization, one or more of the following dose reduction techniques were utilized for this exam: automated exposure control, adjustment of mA and/or KV based on patient size, or use of iterative reconstructive technique. FINDINGS: Parenchyma: No intraparenchymal hemorrhage. No evidence of mass, midline shift, or CT findings of infarction. Camejo-white differentiation is distinct. There is some age-related changes in the white matter tracts. These findings are similar to the prior study. Extraaxial Spaces: Normal for age. No subdural or epidural collections identified. Ventricles: Normal in size and position. Sinuses and Orbits: Imaged paranasal sinuses, orbits, and mastoids show no significant abnormality. Bones: No evidence of fracture or calvarial defect. Other: None. IMPRESSION: Age-related changes of the brain. No acute findings. RADIA
--- NOTE | 2019-04-23 22:53 | XRAY Report ---
Reason: pain, unable to bear weight Procedure Date: 04/23/2019 Accession Number: [id number] / [id number] Procedure: XR - Foot 3 View RT CPT Code: Final Report FULL RESULT: EXAM: RIGHT FOOT RADIOGRAPHY EXAM DATE: 04/23/2019 10:29 PM. CLINICAL HISTORY: Pain, unable to bear weight. COMPARISON: None. TECHNIQUE: 3 views. FINDINGS: Bones: Osteopenic. Calcaneal enthesophytes. No fracture or bone lesion. Joints: Mild narrowing of the interphalangeal joints. No subluxations. Soft Tissues: Normal. No soft tissue swelling. IMPRESSION: Osteopenia. No fracture. RADIA
[2019-04-23 23:13] VITALS: BP 118/68
== END 2019-04-23 23:30 | disposition home or self-care (01) ==
LOC: ED 20:23
DX: S09.90XA Unspecified injury of head, initial encounter (principal); W18.30XA Fall on same level, unspecified, initial encounter; Z91.81 History of falling; Y92.009 Unspecified place in unspecified non-institutional (private) residence as the place of occurrence of the external cause; F03.90 Unspecified dementia, unspecified severity, without behavioral disturbance, psychotic disturbance, mood disturbance, and anxiety; I10 Essential (primary) hypertension; F17.200 Nicotine dependence, unspecified, uncomplicated; R32 Unspecified urinary incontinence; R35.1 Nocturia; R35.0 Frequency of micturition; H54.7 Unspecified visual loss; M19.90 Unspecified osteoarthritis, unspecified site; G89.29 Other chronic pain; M54.9 Dorsalgia, unspecified; Z79.891 Long term (current) use of opiate analgesic; F32.9 Major depressive disorder, single episode, unspecified; F41.9 Anxiety disorder, unspecified; Z79.51 Long term (current) use of inhaled steroids; Z87.01 Personal history of pneumonia (recurrent); Z79.899 Other long term (current) drug therapy
CPT/HCPCS: 36415; 51701; 70450; 71045; 72125; 80053; 80306; 80320; 81001; 81003; 82803; 83690; 83735; 84100; 85025; 87086; 99284

== ENCOUNTER 2019-12-23 14:26 | Emergency (ER) | payer MEDICARE, OTHER ==
[2019-12-23 14:57] VITALS: BP 120/104
[2019-12-23] MEDS ORDERED: PENICILLIN VK 250 MG TABLET PO STA (15:01)
[2019-12-23] MEDS ORDERED: TETANUS/DIPHTHERIA/PERTUSSIS 0.5 ML SYRINGE IM ONE (15:01)
--- NOTE | 2019-12-23 15:22 | ED Physician Documentation ---
PD HPI MAJOR TRAUMA - Stated complaint Stated Complaint: FALL, LIP LAC - Chief complaint Chief Complaint: Trauma Hd/Nk - History obtained from History obtained from: Patient, Family - Additional information Additional information: She got weak and she fell around 2 PM. That is not uncommon for her. She landed on her butt but basically bit her lip. And has a upper lip laceration. No loss of consciousness or other injuries. 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 : Incontinence, Nocturia, Frequency, Other HEENT: Chronic vision loss, Other Psych: Depression, Anxiety Musculoskeletal: Osteoarthritis, Chronic back pain Derm: Herpes zoster - Past Surgical History Past Surgical History: Yes General: Bowel surgery Ortho: Hip replacement /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: Hysterectomy HEENT: Cataracts Derm: Skin cancer surgery - Present Medications Home Medications: Ambulatory Orders Medication Instructions Recorded Confirmed Metoprolol Tartrate 25 mg PO BID 01/31/16 04/23/19 Multivitamin [Theragran] 1 tab PO DAILY 01/31/16 04/23/19 HYDROcod/ACETAM 5/325 [[place] 5/325] 1.5 tab PO Q4H PRN 06/24/17 04/23/19 buPROPion [Wellbutrin Sr] 150 mg PO BID 02/24/18 04/23/19 Albuterol Sulf [Ventolin Hfa 1 - 2 puffs INH Q4HR PRN #1 inhaler 10/13/18 04/23/19 Inhaler] Duloxetine HCl 60 mg PO DAILY 04/11/19 04/23/19 Bacitracin Zinc Oint 1 applic TOP QID #1 tube 12/23/19 Penicillin V Potassium 500 mg PO Q6HR #28 tablet 12/23/19 - Allergies Allergies/Adverse Reactions: Allergies Allergy/AdvReac Type Severity Reaction Status Date / Time No Known Drug Allergies Allergy Verified 12/23/19 14:57 - Social History Does the pt smoke?: Yes Smoking Status: Current every day smoker Does the pt drink ETOH?: No Does the pt have substance abuse?: No - Immunizations Immunizations are current?: Yes - POLST Patient has POLST: No POLST Status: Full Code PD ED PE NORMAL - Vitals Vital signs reviewed: Yes - General General: Alert and oriented X 3, No acute distress - HEENT HEENT: PERRL, EOMI, Other (2.5 centimeter inverted through and through V-shaped laceration just left of midline of the upper lip. #10 is slightly loose 2.) Results - Vitals Vitals: Vital Signs - 24 hr 12/23/19 14:48 Temperature 37.2 C Heart Rate 67 Respiratory 18 Rate Blood Pressure 120/104 H O2 Saturation 94 Oxygen O2 Source [Without Activity] Room air O2 Source [With Activity] Nasal cannula O2 Source Room air Procedures - Laceration (location) upper lip Length in cm: 2.5 Wound type: Into muscle Anesthesia: Lidocaine 1% with epi Wound Preparation: Irrigated copiously NS Deep layer closure: Vicryl, size #-0 - enter number (6-0), # sutures - enter number (5) Skin layer closure: Nylon, Interrupted, Size #-0 - enter number (6-0), Sutures - enter # (3) Other: Tetanus UTD Complexity: Complex Departure - Departure Disposition: 01 Home, Self Care Clinical Impression: Laceration of lip Qualifiers: Encounter type: initial encounter Qualified Code(s): S01.511A - Laceration without foreign body of lip, initial encounter Dental trauma Qualifiers: Encounter type: initial encounter Qualified Code(s): S09.93XA - Unspecified injury of face, initial encounter Condition: Good Record reviewed to determine appropriate education?: Yes Instructions: ED Laceration Mouth, ED Fx Tooth Prescriptions: Penicillin V Potassium 500 mg PO Q6HR #28 tablet Bacitracin Zinc Oint 1 applic TOP QID #1 tube Comments: Follow-up with your dentist This week regarding the loose tooth. Come back for any signs of infection which would include: Redness, swelling, drainage, increased pain, or fevers. You can wash it soap and water. Keep it covered and moist with bacitracin ointment which is available over the counter; avoid neosporin. Follow-up with your physician in 6 days for suture removal.
== END 2019-12-23 15:29 | disposition home or self-care (01) ==
LOC: ED 14:26
DX: S01.511A Laceration without foreign body of lip, initial encounter (principal); K08.89 Other specified disorders of teeth and supporting structures; W18.39XA Other fall on same level, initial encounter; R53.1 Weakness; I10 Essential (primary) hypertension; F03.90 Unspecified dementia, unspecified severity, without behavioral disturbance, psychotic disturbance, mood disturbance, and anxiety; F17.200 Nicotine dependence, unspecified, uncomplicated
CPT/HCPCS: 13151; 99282; A9270

== ENCOUNTER 2019-12-29 15:39 | Emergency (ER) | payer MEDICARE, OTHER ==
--- NOTE | 2019-12-29 15:57 | ED Physician Documentation ---
PD HPI WOUND RECHECK - Stated complaint Stated Complaint: STITCHES REMOVAL - Histroy obtained from History obtained from: Patient - History of Present Illness Location: Face (upper lip) Recently seen: Emergency Dept (7 days ago, with sutures upper lip. Healing okay without draiange. 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 : Incontinence, Nocturia, Frequency, Other HEENT: Chronic vision loss, Other Psych: Depression, Anxiety Musculoskeletal: Osteoarthritis, Chronic back pain Derm: Herpes zoster - Past Surgical History Past Surgical History: Yes General: Bowel surgery Ortho: Hip replacement /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 HEENT: Cataracts Derm: Skin cancer surgery - Present Medications Home Medications: Ambulatory Orders Medication Instructions Recorded Confirmed Metoprolol Tartrate 25 mg PO BID 01/31/16 04/23/19 Multivitamin [Theragran] 1 tab PO DAILY 01/31/16 04/23/19 HYDROcod/ACETAM 5/325 [[place] 5/325] 1.5 tab PO Q4H PRN 06/24/17 04/23/19 buPROPion [Wellbutrin Sr] 150 mg PO BID 02/24/18 04/23/19 Albuterol Sulf [Ventolin Hfa 1 - 2 puffs INH Q4HR PRN #1 inhaler 10/13/18 04/23/19 Inhaler] Duloxetine HCl 60 mg PO DAILY 04/11/19 04/23/19 Bacitracin Zinc Oint 1 applic TOP QID #1 tube 12/23/19 Penicillin V Potassium 500 mg PO Q6HR #28 tablet 12/23/19 - Allergies Allergies/Adverse Reactions: Allergies Allergy/AdvReac Type Severity Reaction Status Date / Time No Known Drug Allergies Allergy Verified 12/23/19 14:57 - Social History Does the pt smoke?: Yes Smoking Status: Current every day smoker Does the pt drink ETOH?: No Does the pt have substance abuse?: No - Immunizations Immunizations are current?: Yes - POLST Patient has POLST: No POLST Status: Full Code PD ED PE NORMAL - Vitals Vital signs reviewed: Yes - General General: Alert and oriented X 3, No acute distress, Well developed/nourished - HEENT HEENT: Other (mid upper lip with intact sutures with healing wound and no signs of infection. ) - Derm Derm: Normal color, Warm and dry Results - Vitals Vitals: Oxygen O2 Source [Without Activity] Room air O2 Source [With Activity] Nasal cannula O2 Source Room air PD MEDICAL DECISION MAKING - ED course Complexity details: considered differential (I removed the sutures without problem. ), d/w patient Departure - Departure Disposition: Home, Self Care Clinical Impression: Encounter for removal of sutures Condition: Stable Record reviewed to determine appropriate education?: Yes Discharge Date/Time: 12/29/19 17:18
== END 2019-12-29 17:18 | disposition home or self-care (01) ==
LOC: ED 15:39
DX: S01.511D Laceration without foreign body of lip, subsequent encounter (principal); X58.XXXD Exposure to other specified factors, subsequent encounter; I10 Essential (primary) hypertension; F17.200 Nicotine dependence, unspecified, uncomplicated
CPT/HCPCS: 99281

== ENCOUNTER 2020-02-29 03:31 | Emergency (ER) | payer MEDICARE, OTHER ==
[2020-02-29] MEDS ORDERED: BUFFERED LIDOCAINE 10 ML SYRINGE IU ONE (04:06)
--- NOTE | 2020-02-29 04:32 | ED Physician Documentation ---
PD HPI HEAD INJURY - Stated complaint Stated Complaint: HEAD LAC, GLF - Chief complaint Chief Complaint: Trauma Hd/Nk - History obtained from History obtained from: Patient - Additional information Additional information: To the emergency department chief complaint of ground-level fall yesterday afternoon and laceration to head. Patient states she walks with a walker at home, and that there is an area where the tile floor steps up slightly, and the patient frequently trips there. She does not have good balance anywhere anyway, and this prone to fall. She states she has had a few falls already in the last few months. Patient states she hit her head on the edge of a counter and that she has had to have her head repaired some a time she did not want to come in. She states the incident happened around 1430 yesterday. Patient states she ended up ultimately coming here now because the wound keeps bleeding. No loss of consciousness. No headache. No visual changes. No neurologic deficits. No other complaints at this time. Review of Systems Ten Systems: 10 systems reviewed and negative Constitutional: reports: Reviewed and negative Eyes: reports: Reviewed and negative Ears: reports: Reviewed and negative Nose: reports: Reviewed and negative Throat: reports: Reviewed and negative Cardiac: reports: Reviewed and negative Respiratory: reports: Reviewed and negative GI: reports: Reviewed and negative : reports: Reviewed and negative Skin: reports: Laceration (s) Musculoskeletal: reports: Reviewed and negative. denies: Neck pain Neurologic: reports: Generalized weakness (chronic), Head injury. 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 : Incontinence, Nocturia, Frequency, Other HEENT: Chronic vision loss, Other Psych: Depression, Anxiety Musculoskeletal: Osteoarthritis, Chronic back pain Derm: Herpes zoster - Past Surgical History Past Surgical History: Yes General: Bowel surgery Ortho: Hip replacement /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: Hysterectomy HEENT: Cataracts Derm: Skin cancer surgery - Present Medications Home Medications: Ambulatory Orders Medication Instructions Recorded Confirmed Metoprolol Tartrate 25 mg PO BID 01/31/16 02/29/20 Multivitamin [Theragran] 1 tab PO DAILY 01/31/16 02/29/20 HYDROcod/ACETAM 5/325 [[place] 5/325] 1.5 tab PO Q4H PRN 06/24/17 02/29/20 buPROPion [Wellbutrin Sr] 150 mg PO BID 02/24/18 02/29/20 Albuterol Sulf [Ventolin Hfa 1 - 2 puffs INH Q4HR PRN #1 inhaler 10/13/18 02/29/20 Inhaler] Duloxetine HCl 60 mg PO DAILY 04/11/19 02/29/20 - Allergies Allergies/Adverse Reactions: Allergies Allergy/AdvReac Type Severity Reaction Status Date / Time No Known Drug Allergies Allergy Verified 02/29/20 03:35 - Social History Does the pt smoke?: Yes Smoking Status: Current some day smoker Does the pt drink ETOH?: No Does the pt have substance abuse?: Yes Substance Use and Type: Marijuana - Immunizations Immunizations are current?: Yes - POLST Patient has POLST: No POLST Status: Full Code PD ED PE NORMAL - Vitals Vital signs reviewed: Yes - General General: Alert and oriented X 3, No acute distress - HEENT HEENT: PERRL, EOMI, Moist mucous membranes, Other (Totaling 3.5 cm stellate laceration of the right occipital scalp. No active bleeding. No foreign body. No bony depression.) - Neck Neck: Supple, no meningeal sign - Respiratory Respiratory: No respiratory distress - Derm Derm: Warm and dry - Extremities Extremities: No deformity - Neuro Neuro: Alert and oriented X 3 - Psych Psych: Normal mood, Normal affect Results - Vitals Vitals: Vital Signs - 24 hr 02/29/20 02/29/20 03:35 04:46 Temperature 36.5 C 36.5 C Heart Rate 78 84 Respiratory 14 15 Rate Blood Pressure 100/50 L 96/62 O2 Saturation 92 94 Oxygen O2 Source [Without Activity] Room air O2 Source [With Activity] Nasal cannula O2 Source Room air Procedures - Laceration (location) scalp Length in cm: 3.5 Wound type: Stellate Neurovascular status: Sensory intact, Vascular intact Tendon involvement: No: Tendon Injury Anesthesia: Lidocaine 1%, With bicarb Wound Preparation: Betadine, Hibiclens, Irrigated copiously NS, Wound explored, To the base Skin layer closure: [place] (7) Other: Patient tolerated well, No complications, Neurovascular intact, Tetanus UTD Complexity: Simple PD MEDICAL DECISION MAKING - ED course Complexity details: d/w patient ED course: 7 fatoumata placed in wound, as noted above. Good closure was obtained. There is no bleeding after stapling. I discussed with patient principles of wound care at home, and the timeline for wound recheck and staple removal, which is about 10 days. We have discussed signs of infection and the usual indications for return. Departure - Departure Disposition: 01 Home, Self Care Clinical Impression: Scalp laceration Qualifiers: Encounter type: initial encounter Qualified Code(s): S01.01XA - Laceration without foreign body of scalp, initial encounter Condition: Stable Instructions: ED Laceration Scalp Stitch Or Stap Comments: Please keep your wound clean and dry, in general. You may let water and soap run over the wound, but please do not rub, scrub, or immerse the wound until fatoumata are removed. [place] should be removed in 10 days by medical professional. You may be seen at the urgent care clinic, your primary care physician's office, or here in the emergency department to have this done. You will most likely have some bruising and soreness around the site of the cut for the next week. However, if you notice redness and swelling progressing steadily away from the wound, then you should have the wound rechecked for possible infection. Discharge Date/Time: 02/29/20 04:47
[2020-02-29 04:47] VITALS: BP 96/62
== END 2020-02-29 04:47 | disposition home or self-care (01) ==
LOC: ED 03:31
DX: S01.01XA Laceration without foreign body of scalp, initial encounter (principal); W01.198A Fall on same level from slipping, tripping and stumbling with subsequent striking against other object, initial encounter; Y93.01 Activity, walking, marching and hiking; Y92.009 Unspecified place in unspecified non-institutional (private) residence as the place of occurrence of the external cause; I10 Essential (primary) hypertension; F17.200 Nicotine dependence, unspecified, uncomplicated
CPT/HCPCS: 12002; 99281; 99282

== ENCOUNTER 2020-03-02 17:13 | Emergency (ER) | payer MEDICARE, OTHER ==
--- NOTE | 2020-03-02 17:37 | ED Physician Documentation ---
PD HPI ABD PAIN - Stated complaint Stated Complaint: BLOODY DIARRHEA/CHILLS/HEADACHE - Chief complaint Chief Complaint: Abd Pain - History obtained from History obtained from: Patient - Additional information Additional information: 79-year-old woman with history of extensive abdominal surgery due to ruptured diverticulitis, spinal stenosis and chronic back pain, esophagitis and Olvera's esophagus has been sick for 2 days with chills, body aches, abdominal pain, and blood-tinged diarrhea. No measured fevers. No sick contact. Review of Systems Constitutional: reports: Chills, Fatigue. 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 : Incontinence, Nocturia, Frequency, Other HEENT: Chronic vision loss, Other Psych: Depression, Anxiety Musculoskeletal: Osteoarthritis, Chronic back pain Derm: Herpes zoster - Past Surgical History Past Surgical History: Yes General: Bowel surgery Ortho: Hip replacement /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 CLERK: Hysterectomy HEENT: Cataracts Derm: Skin cancer surgery - Present Medications Home Medications: Ambulatory Orders Medication Instructions Recorded Confirmed Metoprolol Tartrate 25 mg PO BID 01/31/16 03/02/20 Multivitamin [Theragran] 1 tab PO DAILY 01/31/16 03/02/20 HYDROcod/ACETAM 5/325 [[place] 5/325] 1.5 tab PO Q4H PRN 06/24/17 03/02/20 buPROPion [Wellbutrin Sr] 150 mg PO BID 02/24/18 03/02/20 Albuterol Sulf [Ventolin Hfa 1 - 2 puffs INH Q4HR PRN #1 inhaler 10/13/18 03/02/20 Inhaler] Duloxetine HCl 60 mg PO DAILY 04/11/19 03/02/20 Prednisone 1 tab PO DAILY 03/02/20 03/02/20 - Allergies Allergies/Adverse Reactions: Allergies Allergy/AdvReac Type Severity Reaction Status Date / Time No Known Drug Allergies Allergy Verified 03/02/20 17:16 - Social History Does the pt smoke?: Yes Smoking Status: Current some day smoker Does the pt drink ETOH?: No Does the pt have substance abuse?: Yes - Immunizations Immunizations are current?: Yes - POLST Patient has POLST: No POLST Status: Full Code PD ED PE NORMAL - Vitals Vital signs reviewed: Yes - General General: Alert and oriented X 3, No acute distress - Cardiac Cardiac: RRR, No murmur - Respiratory Respiratory: No respiratory distress, Clear bilaterally - Abdomen Abdomen: Soft, Non tender - Back Back: No CVA TTP, No spinal TTP - Derm Derm: Normal color, Warm and dry - Neuro Neuro: Alert and oriented X 3, Normal speech Results - Vitals Vitals: Vital Signs - 24 hr 03/02/20 03/02/20 03/02/20 17:17 17:45 18:44 Temperature 37.1 C 37.2 C Heart Rate 63 75 77 Respiratory 22 20 16 Rate Blood Pressure 102/57 L 107/62 145/80 H O2 Saturation 94 98 95 Oxygen O2 Source [Without Activity] Room air O2 Source [With Activity] Nasal cannula O2 Source Room air - Labs Labs: Laboratory Tests 03/02/20 03/02/20 03/02/20 17:30 17:30 17:40 WBC 10.5 RBC 4.21 Hgb 13.4 Hct 42.5 MCV 101.0 H MCH 31.8 H MCHC 31.5 L RDW 13.5 Plt Count 245 MPV 9.5 Neut # (Auto) 9.1 H Lymph # (Auto) 0.7 L [place] # (Auto) 0.5 Eos # (Auto) 0.0 Baso # (Auto) 0.0 Absolute Nucleated RBC 0.00 Nucleated RBC % 0.0 Sodium 135 Potassium 5.1 H Chloride 95 L Carbon Dioxide 26 Anion Gap 14.0 H BUN 50 H Creatinine 1.5 H Estimated GFR (MDRD) 33 L Glucose 121 H Calcium 9.6 Total Bilirubin 0.9 AST 18 ALT 15 Alkaline Phosphatase 78 Total Protein 7.9 Albumin 4.2 Globulin 3.7 Albumin/Globulin Ratio 1.1 Lipase 21 L Nasal Adenovirus (PCR) NOT DETECTED Nasal B. parapertussis DNA (PCR) NOT DETECTED Nasal Coronavir 229E PCR NOT DETECTED Nasal Coronavir HKU1 PCR NOT DETECTED Nasal Coronavir NL63 PCR NOT DETECTED Nasal Coronavir OC43 PCR NOT DETECTED Nasal Enterovir/Rhinovir PCR NOT DETECTED Nasal Influenza B PCR NOT DETECTED Nasal Influenza A PCR NOT DETECTED Nasal Parainfluen 1 PCR NOT DETECTED Nasal Parainfluen 2 PCR NOT DETECTED Nasal Parainfluen 3 PCR NOT DETECTED Nasal Parainfluen 4 PCR NOT DETECTED Nasal RSV (PCR) NOT DETECTED Nasal B.pertussis DNA PCR NOT DETECTED Nasal C.pneumoniae (PCR) NOT DETECTED [place] Human Metapneumo PCR NOT DETECTED Nasal M.pneumoniae (PCR) NOT DETECTED Nasal SARS-CoV-2 (PCR) NOT DETECTED PD MEDICAL DECISION MAKING - ED course ED course: This is a 79-year-old woman presents with bloody diarrhea in the setting of history of diverticulitis and perforation, also she is worried about Covid specifically. Lab work here today demonstrates borderline leukocytosis and prerenal azotemia with negative coronavirus testing, CT of the abdomen pelvis with IV contrast demonstrates no evidence of perforation. She was unable to have a bowel movement here. Was sent home with a lab requisition for C. difficile PCR, stool culture and [place] for same. Departure - Departure Disposition: 01 Home, Self Care Clinical Impression: Diarrhea Qualifiers: Diarrhea type: presumed infectious Qualified Code(s): R19.7 - Diarrhea, unspecified Abdominal pain Qualifiers: Abdominal location: generalized Qualified Code(s): R10.84 - Generalized abdomin al pain Condition: Stable Record reviewed to determine appropriate education?: Yes Instructions: Abdominal Pain, ED Diarrhea Viral Comments: Return for new or worsening symptoms. Bring a stool sample back for culture as soon as possible to the lab with the outpatient requisition with order for C. difficile and stool culture testing. Drink plenty of fluids.
[2020-03-02 17:51] LABS: BASOPHILS % (AUTO) 0.2 %; EOSINOPHILS % (AUTO) 0.1 %; HGB - HEMOGLOBIN 13.4 g/dL (12.0-16.0); LYMPHOCYTES # (AUTO) 0.7 10^3/uL (1.5-3.5); LYMPHOCYTES % (AUTO) 7.1 %; MEAN CORPUSCULAR HEMOGLOBIN 31.8 pg (27.0-31.0); MEAN CORPUSCULAR HGB CONC 31.5 g/dL (32.0-36.0); MEAN PLATELET VOLUME 9.5 fL (7.9-10.8); MONOCYTES # (AUTO) 0.5 10^3/uL (0.0-1.0); NEUTROPHILS # (AUTO) 9.1 10^3/uL (1.5-6.6); NEUTROPHILS % (AUTO) 86.8 %; PLT - PLATELET COUNT 245 10^3/uL (130-450); RED BLOOD COUNT 4.21 10^6/uL (4.20-5.40); RED CELL DISTRIBUTION WIDTH 13.5 % (12.0-15.0); WHITE BLOOD COUNT 10.5 x10^3/uL (4.8-10.8)
[2020-03-02 18:05] LABS: ALBUMIN 4.2 g/dL (3.2-5.5); ALBUMIN/GLOBULIN RATIO 1.1 (1.0-2.2); BILIRUBIN,TOTAL 0.9 mg/dL (0.2-1.0); CALCIUM 9.6 mg/dL (8.5-10.3); CREATININE 1.5 mg/dL (0.4-1.0); TOTAL PROTEIN 7.9 g/dL (6.7-8.2)
[2020-03-02] MEDS ORDERED: SODIUM CHLORIDE 0.9% 1,000 ML IV STA (18:10)
[2020-03-02 18:57] LABS: C. PNEUMONIAE- RESP PCR PANEL NOT DETECTED
[2020-03-02] MEDS ORDERED: IOVERSOL 320 100 ML VIAL IVP ONE ×2 (19:08→19:14)
--- NOTE | 2020-03-02 19:28 | CT Report ---
PROCEDURE: Abdomen/Pelvis W INDICATIONS: abd pain, hx perf, IV only CONTRAST: IV CONTRAST: Optiray 320 ml: 100 PO CONTRAST: *NO PO CONTRAST TECHNIQUE: After the administration of IV contrast, 5 mm thick sections acquired from the diaphragms to the symp hysis. 5 mm thick coronal and sagittal reformats were acquired. For radiation dose reduction, the f ollowing was used: automated exposure control, adjustment of mA and/or kV according to patient size. COMPARISON: CT abdomen pelvis 06/06/2018 FINDINGS: Image quality: There is limited visualization of the pelvis secondary to artifact from hip arthropla sty. ABDOMEN: Lung bases: Lung bases are clear. Heart size is normal. Solid organs: Liver is enlarged in normal in size and enhancement. Is unremarkable Gallbladder has been removed Biliary system is non dilated. Pancreas enhances normally. No adrenal nodules. Kidne ys demonstrate normal size and enhancement, without hydronephrosis. Peritoneum and bowel: Bowel loops demonstrate normal wall thickness and caliber. No free fluid or a ir. Nodes and vessels: No retroperitoneal or mesenteric adenopathy by size criteria. Aorta and inferior vena cava are normal in size. Miscellaneous: No ventral hernias. PELVIS: Genitourinary: Bladder wall thickness is normal. Miscellaneous: No inguinal hernias or adenopathy. Bones: No suspicious bony lesions. No vertebral body compression fractures. Prominent sacral perin eural cysts are again noted. IMPRESSION: 1. No acute intra-abdominal or pelvic process. Reviewed by: Akilah Llanos MD on 03/02/2020 7:27 PM PST Approved by: Akilah Llanos MD on 03/02/2020 7:27 PM PST Station ID: [id number]
[2020-03-02 19:57] VITALS: BP 134/83
== END 2020-03-02 20:03 | disposition home or self-care (01) ==
LOC: ED 17:13
DX: R19.7 Diarrhea, unspecified (principal); R10.84 Generalized abdominal pain; Z87.19 Personal history of other diseases of the digestive system; Z20.822 Contact with and (suspected) exposure to COVID-19; R79.89 Other specified abnormal findings of blood chemistry; I10 Essential (primary) hypertension; F17.200 Nicotine dependence, unspecified, uncomplicated
CPT/HCPCS: 36415; 74177; 80053; 83690; 85025; 87631; 96360; 99283; 99284; Q9967; 0202U

== ENCOUNTER 2020-03-05 15:00 | Outpatient (CLI) | payer MEDICARE, OTHER | END 2020-03-05 23:59 | disposition home or self-care (01) | LOC: LAB.R 15:00 | PROVIDERS: ATTEND Emergency Medicine | DX: R19.7 Diarrhea, unspecified (principal) | CPT/HCPCS: 81599; 87045; 87046; 87427; 87493 ==

== ENCOUNTER 2020-03-17 12:51 | Emergency (ER) | payer MEDICARE, OTHER ==
[2020-03-17 12:57] VITALS: BP 133/84
--- NOTE | 2020-03-17 13:06 | ED Physician Documentation ---
PD HPI HEAD INJURY - Stated complaint Stated Complaint: STAPLE REMOVAL - Chief complaint Chief Complaint: Laceration - History obtained from History obtained from: Patient (2 weeks out from occipital scalp repair with fatoumata and here for suture removal. No specific complaints.) Review of Systems Constitutional: reports: Reviewed and negative Eyes: reports: Reviewed and negative Ears: reports: Reviewed and negative PD PAST MEDICAL HISTORY - Past Medical History Cardiovascular: Hypertension Respiratory: Pneumonia Neuro: Dementia Endocrine/Autoimmune: None GI: GERD, Ulcers, Chronic constipation, Diverticulitis, Other FIRST MATE: None : Incontinence, Nocturia, Frequency, Other HEENT: Chronic vision loss, Other Psych: Depression, Anxiety Musculoskeletal: Osteoarthritis, Chronic back pain Derm: Herpes zoster - Past Surgical History Past Surgical History: Yes General: Bowel surgery Ortho: Hip replacement /FIRST MATE: Hysterectomy HEENT: Cataracts Derm: Skin cancer surgery - Present Medications Home Medications: Ambulatory Orders Medication Instructions Recorded Confirmed Metoprolol Tartrate 25 mg PO BID 01/31/16 03/02/20 Multivitamin [Theragran] 1 tab PO DAILY 01/31/16 03/02/20 HYDROcod/ACETAM 5/325 [[place] 5/325] 1.5 tab PO Q4H PRN 06/24/17 03/02/20 buPROPion [Wellbutrin Sr] 150 mg PO BID 02/24/18 03/02/20 Albuterol Sulf [Ventolin Hfa 1 - 2 puffs INH Q4HR PRN #1 inhaler 10/13/18 03/02/20 Inhaler] Duloxetine HCl 60 mg PO DAILY 04/11/19 03/02/20 Alprazolam [Xanax] 0.25 mg PO Q6HR PRN 03/02/20 03/02/20 Prednisone 1 tab PO DAILY 03/02/20 03/02/20 - Allergies Allergies/Adverse Reactions: Allergies Allergy/AdvReac Type Severity Reaction Status Date / Time No Known Drug Allergies Allergy Verified 03/17/20 12:54 - Social History Does the pt smoke?: Yes Smoking Status: Current some day smoker Does the pt drink ETOH?: No Does the pt have substance abuse?: Yes - Immunizations Immunizations are current?: Yes - POLST Patient has POLST: No POLST Status: Full Code PD ED PE NORMAL - Vitals Vital signs reviewed: Yes - General General: Alert and oriented X 3, No acute distress - HEENT HEENT: PERRL, EOMI, Other (7 fatoumata in the occiput were removed during initial exam without issue. No evidence of wound infection or dehiscence.) - Neck Neck: Supple, no meningeal sign, No bony TTP - Neuro Neuro: Alert and oriented X 3, Normal speech Results - Vitals Vitals: Vital Signs - 24 hr 03/17/20 12:54 Temperature 36.9 C Heart Rate 80 Respiratory 18 Rate Blood Pressure 133/84 H O2 Saturation 98 Oxygen O2 Source [Without Activity] Room air O2 Source [With Activity] Nasal cannula O2 Source Room air Departure - Departure Disposition: Home, Self Care Clinical Impression: Encounter for removal of fatoumata Condition: Good Record reviewed to determine appropriate education?: Yes Instructions: ED Laceration All
== END 2020-03-17 13:12 | disposition home or self-care (01) ==
LOC: ED 12:51
DX: S01.01XD Laceration without foreign body of scalp, subsequent encounter (principal); X58.XXXD Exposure to other specified factors, subsequent encounter; I10 Essential (primary) hypertension; F17.200 Nicotine dependence, unspecified, uncomplicated
CPT/HCPCS: 99281

== ENCOUNTER 2020-05-09 18:54 | Emergency (ER) | payer MEDICARE, OTHER ==
[2020-05-09] MEDS ORDERED: LIDOCAINE-EPINEPH-TETRACAINE 3 ML SYRINGE TOP STA (19:56)
--- NOTE | 2020-05-09 20:02 | ED Physician Documentation ---
History of Present Illness - Stated complaint Stated Complaint: HEAD LAC - Chief complaint Chief Complaint: Laceration - Additonal information Additional information: 79-year-old female presents emergency department for evaluation of a posterior scalp laceration sustained last night when she was getting out of bed to go to the restroom. She is unsure if she had a fainting episode or if this was a mechanical fall though she does think that she was starting to get lightheaded. She fell to the ground struck her head but did not lose consciousness. She is not anticoagulated. She does have a history of frequent falls and typically will use a walker at home though she did not last night. Since the fall she denies any headaches nausea or vomiting. Denies chest pain or shortness of breath. She was seen in this emergency department in mid February 2020 for similar episode. Review of Systems Constitutional: denies: Fever, Chills Eyes: reports: Reviewed and negative Ears: reports: Reviewed and negative Nose: reports: Reviewed and negative Throat: reports: Reviewed and negative Cardiac: denies: Chest pain / pressure, Palpitations Respiratory: denies: Dyspnea, Cough, Hemoptysis GI: denies: Abdominal Pain, Nausea, Vomiting, Constipation, Diarrhea : denies: Dysuria, Frequency, Hesitancy Skin: reports: Laceration (s) (posterior scalp) Musculoskeletal: denies: Neck pain, Back pain, Extremity pain Neurologic: reports: Near syncope, Head injury. denies: Generalized weakness, Focal weakness, Numbness, Seizure, Confused, Altered mental status, Headache, LOC PD PAST MEDICAL HISTORY - Past Medical History Cardiovascular: Hypertension Respiratory: Pneumonia Neuro: Dementia Endocrine/Autoimmune: None GI: GERD, Ulcers, Chronic constipation, Diverticulitis, Other STATIONS SUPERINTENDENT: None : Incontinence, Nocturia, Frequency, Other HEENT: Chronic vision loss, Other Psych: Depression, Anxiety Musculoskeletal: Osteoarthritis, Chronic back pain Derm: Herpes zoster - Past Surgical History Past Surgical History: Yes General: Bowel surgery Ortho: Hip replacement /STATIONS SUPERINTENDENT: Hysterectomy HEENT: Cataracts Derm: Skin cancer surgery - Present Medications Home Medications: Ambulatory Orders Medication Instructions Recorded Confirmed Metoprolol Tartrate 25 mg PO BID 01/31/16 05/09/20 Multivitamin [Theragran] 1 tab PO DAILY 01/31/16 05/09/20 HYDROcod/ACETAM 5/325 [[place] 5/325] 1.5 tab PO Q4H PRN 06/24/17 05/09/20 buPROPion [Wellbutrin Sr] 150 mg PO BID 02/24/18 05/09/20 Albuterol Sulf [Ventolin Hfa 1 - 2 puffs INH Q4HR PRN #1 inhaler 10/13/18 05/09/20 Inhaler] Duloxetine HCl 60 mg PO DAILY 04/11/19 05/09/20 Alprazolam [Xanax] 0.25 mg PO Q6HR PRN 03/02/20 05/09/20 Prednisone 1 tab PO DAILY 03/02/20 05/09/20 - Allergies Allergies/Adverse Reactions: Allergies Allergy/AdvReac Type Severity Reaction Status Date / Time No Known Drug Allergies Allergy Verified 05/09/20 19:09 - Social History Does the pt smoke?: Yes Smoking Status: Current every day smoker Does the pt drink ETOH?: No Does the pt have substance abuse?: Yes - Immunizations Immunizations are current?: Yes - POLST Patient has POLST: No POLST Status: Full Code PD ED PE EXPANDED - General General: Alert, No acute distress, Well developed/nourished - Neck Neck: Supple w/out meningeal sx. No: Adenopathy - Cardiac Cardiac: Regular Rate, Regular Rhythm, Radial strong equal, Cap refill < 2 sec, Prolonged cap refill - Respiratory Respiratory: Clear to ausultation armani. No: Distress, Labored - Abdomen Abdomen: Normal Bowel sounds. No: Tender to palpation - Derm Derm: Laceration(s) (3 cm linear posterior scalp laceration.) - Neuro Neuro: Alert and Oriented X 3, CNII-XII intact, Normal finger nose, Normal speech. No: Normal gait - GCS Eye Opening: Spontaneous Motor: Obeys Commands Verbal: Oriented Total: 15 Results - Vitals Vitals: Vital Signs - 24 hr 05/09/20 05/09/20 18:59 19:09 Temperature 36.2 C L Heart Rate 76 70 Respiratory 18 16 Rate Blood Pressure 143/72 H 130/77 O2 Saturation 94 95 Oxygen O2 Source [] Room air O2 Source [] Nasal cannula O2 Source Room air - EKG (time done) 2000 Rate: Rate (enter#) (69) Rhythm: NSR [place]: LAD Intervals: Normal IN. No: Prolonged QT QRS: Normal Ischemia: Normal ST segments Compare to prior EKG: Changed from prior EKG Computer interpretation: Agree with computer - Labs Labs: Laboratory Tests 05/09/20 05/09/20 05/09/20 20:09 20:09 20:09 WBC 10.6 RBC 3.59 L Hgb 11.9 L Hct 37.2 MCV 103.6 H MCH 33.1 H MCHC 32.0 RDW 13.0 Plt Count 239 MPV 9.4 Neut # (Auto) 9.0 H Lymph # (Auto) 0.9 L [place] # (Auto) 0.5 Eos # (Auto) 0.0 Baso # (Auto) 0.0 Absolute Nucleated RBC 0.00 Nucleated RBC % 0.0 Sodium 132 L Potassium 5.2 H Chloride 94 L Carbon Dioxide 29 Anion Gap 9.0 BUN 25 H Creatinine 1.0 Estimated GFR (MDRD) 53 L Glucose 132 H Calcium 9.8 Total Bilirubin 0.5 AST 19 ALT 25 Alkaline Phosphatase 77 Troponin I High Sens 4.7 Total Protein 7.1 Albumin 3.9 Globulin 3.2 Albumin/Globulin Ratio 1.2 Lipase 15 L Procedures - Laceration (location) scalp laceration Length in cm: 2.5 Wound type: Irregular Neurovascular status: Sensory intact, Motor intact Anesthesia: LET Wound preparation: Irrigated copiously NS Skin layer closure: Fatoumata Other: Patient tolerated well, No complications PD MEDICAL DECISION MAKING - ED course Complexity details: reviewed results, re-evaluated patient, considered differential, d/w patient ED course: 79-year-old female presents to the emergency department for evaluation of posterior scalp laceration sustained yesterday evening when she was getting out of bed at night to go to the bathroom she was not using her walker. She is unclear in the history to me if she had a syncopal episode or if this was a mechanical fall though in the past previous providers have documented mechanical fall. I did obtain an EKG for screening purposes which was unremarkable. High- sensitivity troponin was negative. Screening CBC shows a very mild anemia not likely contributing to her symptoms. She was noted to have potassium of 5.2. But again there were no electrocardiographic changes with her EKG. Her screening labs suggest dehydration which may have contributed to the syncope. pt declined IV or IVF. I have encouraged increased oral hydration and to recheck her lytes and potassium within the week Departure - Departure Disposition: 01 Home, Self Care Clinical Impression: Fall from ground level, Serum potassium elevated, Dehydration Occipital scalp laceration Qualifiers: Encounter type: initial encounter Qualified Code(s): S01.01XA - Laceration without foreign body of scalp, initial encounter Comments: Meghann the fatoumata should be removed in 5-7 days. In 24 hours you may remove the dressing wash gently with warm soap and water, apply any antibiotic ointment and a simple bandage. Your tetanus is up-to-date. Please attempt to keep your wound clean and dry. Do not submerge it in dirty dishwater or bath water. You may shower normally Return to the emergency department if you have any concerns of infection such as redness, fevers milky drainage increased pain. Your potassium level was mildly elevated today. Your labs also appears that you are slightly dehydrated. This may have contributed to your fall last night. It is important that you increase your oral water intake. It is okay to drink 8 to 10 glasses of water a day. Please discuss this ED visit with your primary care doctor. I would like your electrolytes and your potassium level rechecked within the week. If at any point you have more falls or any fainting episodes, you develop chest pain or have shortness of breath please return immediately to the ER
[2020-05-09 20:22] LABS: BASOPHILS % (AUTO) 0.3 %; EOSINOPHILS % (AUTO) 0.1 %; HCT - HEMATOCRIT 37.2 % (37.0-47.0); HGB - HEMOGLOBIN 11.9 g/dL (12.0-16.0); LYMPHOCYTES # (AUTO) 0.9 10^3/uL (1.5-3.5); LYMPHOCYTES % (AUTO) 8.2 %; MEAN CORPUSCULAR HEMOGLOBIN 33.1 pg (27.0-31.0); MEAN CORPUSCULAR VOLUME 103.6 fL (81.0-99.0); MEAN PLATELET VOLUME 9.4 fL (7.9-10.8); MONOCYTES # (AUTO) 0.5 10^3/uL (0.0-1.0); MONOCYTES % (AUTO) 4.5 %; NEUTROPHILS % (AUTO) 85.2 %; PLT - PLATELET COUNT 239 10^3/uL (130-450); RED BLOOD COUNT 3.59 10^6/uL (4.20-5.40); WHITE BLOOD COUNT 10.6 x10^3/uL (4.8-10.8)
[2020-05-09 20:40] LABS: ALBUMIN 3.9 g/dL (3.2-5.5); ALBUMIN/GLOBULIN RATIO 1.2 (1.0-2.2); BILIRUBIN,TOTAL 0.5 mg/dL (0.2-1.0); CALCIUM 9.8 mg/dL (8.5-10.3); POTASSIUM 5.2 mmol/L (3.5-5.0); TOTAL PROTEIN 7.1 g/dL (6.7-8.2)
[2020-05-09 21:01] VITALS: BP 144/82
== END 2020-05-09 21:27 | disposition home or self-care (01) ==
LOC: ED 18:54
DX: S01.01XA Laceration without foreign body of scalp, initial encounter (principal); W01.0XXA Fall on same level from slipping, tripping and stumbling without subsequent striking against object, initial encounter; Y93.01 Activity, walking, marching and hiking; Y92.003 Bedroom of unspecified non-institutional (private) residence as the place of occurrence of the external cause; Z91.81 History of falling; E87.5 Hyperkalemia; E86.0 Dehydration; D64.9 Anemia, unspecified; I10 Essential (primary) hypertension; F17.200 Nicotine dependence, unspecified, uncomplicated
CPT/HCPCS: 12001; 36415; 80053; 83690; 84484; 85025; 93005; 99283; 99284

== ENCOUNTER 2020-05-16 16:17 | Emergency (ER) | payer MEDICARE, OTHER ==
[2020-05-16 16:25] VITALS: BP 146/82
--- NOTE | 2020-05-16 16:45 | ED Physician Documentation ---
History of Present Illness - Stated complaint Stated Complaint: SUTURE REMOVAL - Chief complaint Chief Complaint: General - History obtained from History obtained from: Patient - History of Present Illness Timing: How many weeks ago (1) Pain level max: 0 Pain level now: 0 - Additonal information Additional information: 79-year-old female is about 1 week status post fatoumata in her occiput from a fall. States she is here for removal. No complaints. No redness. No drainage. No fevers. Review of Systems Constitutional: denies: Fever PD PAST MEDICAL HISTORY - Past Medical History Cardiovascular: Hypertension Respiratory: Pneumonia Neuro: Dementia Endocrine/Autoimmune: None GI: GERD, Ulcers, Chronic constipation, Diverticulitis, Other WARRANTY COORDINATOR: None : Incontinence, Nocturia, Frequency, Other HEENT: Chronic vision loss, Other Psych: Depression, Anxiety Musculoskeletal: Osteoarthritis, Chronic back pain Derm: Herpes zoster - Past Surgical History Past Surgical History: Yes General: Bowel surgery Ortho: Hip replacement /WARRANTY COORDINATOR: Hysterectomy HEENT: Cataracts Derm: Skin cancer surgery - Present Medications Home Medications: Ambulatory Orders Medication Instructions Recorded Confirmed Metoprolol Tartrate 25 mg PO BID 01/31/16 05/09/20 Multivitamin [Theragran] 1 tab PO DAILY 01/31/16 05/09/20 HYDROcod/ACETAM 5/325 [[place] 5/325] 1.5 tab PO Q4H PRN 06/24/17 05/09/20 buPROPion [Wellbutrin Sr] 150 mg PO BID 02/24/18 05/09/20 Albuterol Sulf [Ventolin Hfa 1 - 2 puffs INH Q4HR PRN #1 inhaler 10/13/18 05/09/20 Inhaler] Duloxetine HCl 60 mg PO DAILY 04/11/19 05/09/20 Alprazolam [Xanax] 0.25 mg PO Q6HR PRN 03/02/20 05/09/20 Prednisone 1 tab PO DAILY 03/02/20 05/09/20 - Allergies Allergies/Adverse Reactions: Allergies Allergy/AdvReac Type Severity Reaction Status Date / Time No Known Drug Allergies Allergy Verified 05/16/20 16:25 - Social History Does the pt smoke?: Yes Smoking Status: Current every day smoker Does the pt drink ETOH?: No Does the pt have substance abuse?: Yes - Immunizations Immunizations are current?: Yes - POLST Patient has POLST: No POLST Status: Full Code PD ED PE NORMAL - Vitals Vital signs reviewed: Yes - General General: Alert and oriented X 3, No acute distress - HEENT HEENT: Moist mucous membranes, Other ([place] in her occiput, 4, well-healed.) - Derm Derm: Warm and dry - Neuro Neuro: Alert and oriented X 3 Results - Vitals Vitals: Vital Signs - 24 hr 05/16/20 16:23 Temperature 36.2 C L Heart Rate 76 Respiratory 15 Rate Blood Pressure 146/82 H O2 Saturation 96 Oxygen O2 Source [Without Activity] Room air O2 Source [With Activity] Nasal cannula O2 Source Room air Procedures - Suture/staple Removal (location) occiput Suture/staple removal: # fatoumata (all), No complications PD MEDICAL DECISION MAKING - ED course Complexity details: considered differential, d/w patient ED course: All fatoumata removed. No complications. well healed. Departure - Departure Disposition: 01 Home, Self Care Clinical Impression: Removal of staple Condition: Good Instructions: ED Stap Removal No Complication Follow-Up: Jv Woo MD [Primary Care Provider] - As Needed Comments: Your fatoumata were removed today. Follow-up with your doctor as needed for further care. Return if you worsen.
--- OUTSIDE RECORDS SUMMARY | 2020-05-22 01:19 | EXTERNAL MEDICAL SUMMARY RPT | Continuity of Care Document ---
:1940 Demographics Phone Unavailable Preferred Language Bangladeshi Marital Status Unknown Presybeterian Affiliation Unknown Race Unknown Ethnic Group Unknown Author Organization [place] Address [address] [place] [address] Phone Care Team Providers Name Role Phone Lemme Unavailable Unavailable Problems date description facility [id number] Contact with and (suspected) exposure t o [address] [id number] Encounter for preprocedural laboratory examination [facility] Procedures date description facility [id number] [facility] Social History date description facility [phone]
== END 2020-05-16 16:48 | disposition home or self-care (01) ==
LOC: ED 16:17
DX: S01.01XD Laceration without foreign body of scalp, subsequent encounter (principal); X58.XXXD Exposure to other specified factors, subsequent encounter; I10 Essential (primary) hypertension; F17.200 Nicotine dependence, unspecified, uncomplicated
CPT/HCPCS: 99281; 99282

== ENCOUNTER 2020-06-18 18:58 | Emergency (ER) | payer MEDICARE, OTHER ==
--- OUTSIDE RECORDS SUMMARY | 2020-06-18 19:02 | EXTERNAL MEDICAL SUMMARY RPT | Continuity of Care Document ---
:1940 Demographics Phone Unavailable Preferred Language Sudanese Marital Status Unknown Druze Affiliation Unknown Race Unknown Ethnic Group Unknown Author Organization [place] Address [address] [place] [address] Phone Care Team Providers Name Role Phone Lemme Unavailable Unavailable Problems date description facility [id number] Encounter for preprocedural laboratory examination [facility] [id number] Contact with and (suspected) exposure t o COVID-19 [facility] Procedures date description facility [id number] [facility]
--- OUTSIDE RECORDS SUMMARY | 2020-06-18 19:11 | EXTERNAL MEDICAL SUMMARY RPT | Continuity of Care Document ---
:1940 Demographics Phone Unavailable Preferred Language Cambodian Marital Status Unknown Worship Affiliation Unknown Race Unknown Ethnic Group Unknown Author Organization [place] Address [address] [place] [address] Phone Care Team Providers Name Role Phone Lemme Unavailable Unavailable Problems date description facility [id number] Encounter for preprocedural laboratory examination [facility] [id number] Contact with and (suspected) exposure t o COVID-19 [facility] Procedures date description facility [id number] [facility]
[2020-06-18] MEDS ORDERED: SODIUM CHLORIDE 0.9% 1,000 ML IV STA (20:01)
--- NOTE | 2020-06-18 20:05 | ED Physician Documentation ---
History of Present Illness - Stated complaint Stated Complaint: GLF/RT LEG INJURY - Chief complaint Chief Complaint: Trauma Ext - History obtained from History obtained from: Patient - History of Present Illness Timing: Today Pain level max: 3 Pain level now: 3 - Additonal information Additional information: Patient is an 80-year-old female who presents to the emergency department stating that her legs "gave out on her" earlier today and she fell injuring her right ankle. She states she has been bearing weight on the ankle at home. Her daughter brought her in to be evaluated for possible fracture. The patient states she did not pass out. No chest pain. No shortness of breath. Occasionally feels lightheaded with standing. Worse with walking and better with rest. No fevers. No chills. No cough. No nausea or vomiting. No abdominal pain. No headache. No neck or back pain. Review of Systems Ten Systems: 10 systems reviewed and negative Constitutional: denies: Fever, Chills Respiratory: denies: Cough GI: denies: Vomiting, Diarrhea : denies: Dysuria, Frequency, Hesitancy Skin: denies: Rash Neurologic: denies: Confused, Headache, LOC PD PAST MEDICAL HISTORY - Past Medical History Past Medical History: Yes Cardiovascular: Hypertension Respiratory: Pneumonia Neuro: Dementia Endocrine/Autoimmune: None GI: GERD, Ulcers, Chronic constipation, Diverticulitis, Other [employer]ER: None : Incontinence, Nocturia, Frequency, Other HEENT: Chronic vision loss, Other Psych: Depression, Anxiety Musculoskeletal: Osteoarthritis, Chronic back pain Derm: Herpes zoster - Past Surgical History Past Surgical History: Yes General: Bowel surgery Ortho: Hip replacement /[employer] SH[employer]ER: Hysterectomy HEENT: Cataracts Derm: Skin cancer surgery - Present Medications Home Medications: Ambulatory Orders Medication Instructions Recorded Confirmed Metoprolol Tartrate 25 mg PO BID 01/31/16 06/18/20 Multivitamin [Theragran] 1 tab PO DAILY 01/31/16 06/18/20 HYDROcod/ACETAM 5/325 [[place] 5/325] 1.5 tab PO Q4H PRN 06/24/17 06/18/20 buPROPion [Wellbutrin Sr] 150 mg PO BID 02/24/18 06/18/20 Albuterol Sulf [Ventolin Hfa 1 - 2 puffs INH Q4HR PRN #1 inhaler 10/13/18 06/18/20 Inhaler] Duloxetine HCl 60 mg PO DAILY 04/11/19 06/18/20 Alprazolam [Xanax] 0.25 mg PO Q6HR PRN 03/02/20 06/18/20 Prednisone 5 mg PO BID 03/02/20 06/18/20 Spironolactone [Aldactone] 25 mg PO DAILY 06/18/20 06/18/20 - Allergies Allergies/Adverse Reactions: Allergies Allergy/AdvReac Type Severity Reaction Status Date / Time No Known Drug Allergies Allergy Verified 06/18/20 19:06 - Social History Does the pt smoke?: Yes Smoking Status: Current every day smoker Does the pt drink ETOH?: No Does the pt have substance abuse?: Yes - Immunizations Immunizations are current?: Yes - POLST Patient has POLST: No POLST Status: Full Code PD ED PE NORMAL - Vitals Vital signs reviewed: Yes - General General: Alert and oriented X 3, No acute distress, Well developed/nourished - HEENT HEENT: Atraumatic, PERRL, Other (dry lips and tongue) - Neck Neck: Supple, no meningeal sign, No bony TTP - Cardiac Cardiac: RRR, Strong equal pulses - Respiratory Respiratory: No respiratory distress, Clear bilaterally - Abdomen Abdomen: Soft, Non tender, Non distended - Back Back: No CVA TTP, No spinal TTP - Derm Derm: Warm and dry - Extremities Extremities: Other (Tender to palpation over the lateral malleolus of the right ankle. There is mild swelling here. No tenderness over the foot, base of the fifth metatarsal or remainder of the right lower extremity. Full range of motion of the knee and hip. Neurovascular intact.) - Neuro Neuro: Alert and oriented X 3 - Psych Psych: Normal mood, Normal affect Results - Vitals Vitals: Vital Signs - 24 hr 06/18/20 06/18/20 19:06 21:42 Temperature 36.9 C Heart Rate 75 83 Respiratory 18 18 Rate Blood Pressure 90/57 L 156/89 H O2 Saturation 96 95 Oxygen O2 Source [Without Activity] Room air O2 Source [With Activity] Nasal cannula O2 Source Room air - Labs Labs: Laboratory Tests 06/18/20 06/18/20 06/18/20 20:10 20:10 21:36 WBC 10.3 RBC 3.81 L Hgb 12.5 Hct 39.4 MCV 103.4 H MCH 32.8 H MCHC 31.7 L RDW 12.4 Plt Count 251 MPV 9.4 Neut # (Auto) 7.6 H Lymph # (Auto) 1.4 L [place] # (Auto) 0.8 Eos # (Auto) 0.3 Baso # (Auto) 0.1 Absolute Nucleated RBC 0.00 Nucleated RBC % 0.0 Sodium 137 Potassium 4.7 Chloride 97 L Carbon Dioxide 30 Anion Gap 10.0 BUN 28 H Creatinine 1.3 H Estimated GFR (MDRD) 39 L Glucose 102 H Calcium 8.9 Phosphorus 4.2 Magnesium 2.4 Total Bilirubin 0.6 AST 18 ALT 15 Alkaline Phosphatase 76 Total Protein 7.0 Albumin 3.7 Globulin 3.3 Albumin/Globulin Ratio 1.1 Urine Color YELLOW Urine Clarity CLEAR Urine pH 6.5 Ur Specific [place] 1.020 Urine Protein NEGATIVE Urine Glucose (UA) NEGATIVE Urine Ketones NEGATIVE Urine Occult Blood NEGATIVE Urine Nitrite NEGATIVE Urine Bilirubin NEGATIVE Urine Urobilinogen 0.2 (NORMAL) Ur Leukocyte Esterase NEGATIVE Ur Microscopic Review NOT INDICATED Urine Culture Comments NOT INDICATED - Rads (name of study) Right ankle x-ray Radiology: Prelim report reviewed, EMP read contemporaneously, See rad report (IMPRESSION: Lateral ankle soft tissue swelling. No gross acute ankle fracture or dislocation. Ankle joint osteoarthritis. ) PD MEDICAL DECISION MAKING - ED course Complexity details: reviewed results, re-evaluated patient, considered differential, d/w patient ED course: 80-year-old female with what appears to be dehydration causing hypotension earlier today. She feels better after IV fluids. No acute findings on x-ray. Placed in air splint for comfort. Ambulating well. Declines pain medications here or for home. No significant lab abnormalities. No infection on urinalysis. Patient counseled regarding signs and symptoms for which I believe and urgent re-evaluation would be necessary. Patient with good understanding of and agreement to plan and is comfortable going home at this time This document was made in part using voice recognition software. While efforts are made to proofread this document, sound alike and grammatical errors may occur. Departure - Departure Disposition: Home, Self Care Clinical Impression: Dehydration Right ankle sprain Qualifiers: Encounter type: initial encounter Involved ligament of ankle: unspecified ligament Qualified Code(s): S93.401A - Sprain of unspecified ligament of right ankle, initial encounter Condition: Good Instructions: ED Dehydration, ED Sprain Ankle Follow-Up: Jv Woo MD [Primary Care Provider] - Within 1 week Comments: Your x-ray does not show any acute abnormalities today. You were placed in an air splint for comfort. You may bear weight as tolerated. You were given IV fluids as well. Your labs do not show any significant abnormalities today. Return if you worsen.
[2020-06-18 20:18] LABS: BASOPHILS # (AUTO) 0.1 10^3/uL (0.0-0.1); BASOPHILS % (AUTO) 0.5 %; EOSINOPHILS # (AUTO) 0.3 10^3/uL (0.0-0.7); EOSINOPHILS % (AUTO) 3.1 %; HCT - HEMATOCRIT 39.4 % (37.0-47.0); HGB - HEMOGLOBIN 12.5 g/dL (12.0-16.0); LYMPHOCYTES # (AUTO) 1.4 10^3/uL (1.5-3.5); LYMPHOCYTES % (AUTO) 13.3 %; MEAN CORPUSCULAR HEMOGLOBIN 32.8 pg (27.0-31.0); MEAN CORPUSCULAR HGB CONC 31.7 g/dL (32.0-36.0); MEAN CORPUSCULAR VOLUME 103.4 fL (81.0-99.0); MEAN PLATELET VOLUME 9.4 fL (7.9-10.8); MONOCYTES # (AUTO) 0.8 10^3/uL (0.0-1.0); NEUTROPHILS # (AUTO) 7.6 10^3/uL (1.5-6.6); PLT - PLATELET COUNT 251 10^3/uL (130-450); RED BLOOD COUNT 3.81 10^6/uL (4.20-5.40); RED CELL DISTRIBUTION WIDTH 12.4 % (12.0-15.0); WHITE BLOOD COUNT 10.3 x10^3/uL (4.8-10.8)
--- NOTE | 2020-06-18 20:26 | XRAY Report ---
PROCEDURE: Ankle 3 View RT INDICATIONS: fall, R ankle pain TECHNIQUE: 3 views of the ankle were acquired. COMPARISON: None. FINDINGS: Bones: No fractures or dislocations. Ankle mortise is normally aligned. Osteoarthritic changes are noted in tibiotalar joint and subtalar joint as well as talonavicular joint. No suspicious bony lesi ons. Soft tissues: No tibiotalar joint effusion. Achilles tendon appears normal. Significant lateral an kle soft tissue swelling is seen. IMPRESSION: Lateral ankle soft tissue swelling. No gross acute ankle fracture or dislocation. Ankle joint osteoarthritis. Reviewed by: Miko Hall MD on 06/18/2020 8:25 PM PDT Approved by: Miko Hall MD on 06/18/2020 8:25 PM PDT Station ID: [id number]
[2020-06-18 20:31] LABS: ALBUMIN 3.7 g/dL (3.2-5.5); ALBUMIN/GLOBULIN RATIO 1.1 (1.0-2.2); BILIRUBIN,TOTAL 0.6 mg/dL (0.2-1.0); CALCIUM 8.9 mg/dL (8.5-10.3); CREATININE 1.3 mg/dL (0.4-1.0); MAGNESIUM 2.4 mg/dL (1.7-2.8); PHOSPHORUS 4.2 mg/dL (2.5-4.6); POTASSIUM 4.7 mmol/L (3.5-5.0)
[2020-06-18 21:42] VITALS: BP 156/89
[2020-06-18 21:45] LABS: BILIRUBIN,URINE NEGATIVE (NEGATIVE); GLUCOSE, URINE (UA) NEGATIVE (NEGATIVE); KETONES,URINE (UA) NEGATIVE (NEGATIVE); LEUKOCYTE ESTERASE, URINE NEGATIVE (NEGATIVE); NITRITE,URINE NEGATIVE (NEGATIVE); OCCULT BLOOD,URINE NEGATIVE (NEGATIVE); PH,URINE 6.5 PH (5.0-7.5); PROTEIN,URINE NEGATIVE (NEGATIVE); UROBILINOGEN,URINE 0.2 (NORMAL) E.U./dL (NORMAL)
[2020-06-18 21:47] LABS: CLARITY,URINE CLEAR (CLEAR)
== END 2020-06-18 22:11 | disposition home or self-care (01) ==
LOC: ED 18:58
DX: E86.0 Dehydration (principal); S93.401A Sprain of unspecified ligament of right ankle, initial encounter; W18.30XA Fall on same level, unspecified, initial encounter; I10 Essential (primary) hypertension; F17.200 Nicotine dependence, unspecified, uncomplicated
CPT/HCPCS: 36415; 80053; 81001; 81003; 83735; 84100; 85025; 87086; 96360; 96361; 99282

== ENCOUNTER 2020-07-29 14:22 | Emergency (ER) | payer MEDICARE, OTHER ==
[2020-07-29] MEDS ORDERED: SODIUM CHLORIDE 0.9% 1,000 ML IV STA ×2 (14:51→16:15)
--- NOTE | 2020-07-29 14:57 | ED Physician Documentation ---
History of Present Illness - Stated complaint Stated Complaint: WEAK/DEHYDRATED - Chief complaint Chief Complaint: General - Additonal information Additional information: 80-year-old female presents the emergency department for evaluation of generalized weakness and a fall. Her reports that since she had recent surgery she has been using narcotic medication but ran out 3 days ago. Since then he feels that she has been hallucinating. Physical therapy was coming to the bedside today to see her but she was found on the ground and was unable to get up. states that recently she has been eating and drinking very little and physical therapy at home had concerned that she may be dehydrated. Patient is not able to meaningfully participate in the history. She denies that she hurts anywhere and when I ask why she is in the emergency department she states that she has "rocks on her face." Patient is typically ambulatory with a walker and has been requiring increased assistance with frequent falls recently. Review of Systems Unable to obtain: Confused, Other (per ) Constitutional: denies: Fever, Chills Eyes: denies: Loss of vision, Decreased vision Ears: reports: Reviewed and negative Nose: reports: Reviewed and negative Cardiac: reports: Reviewed and negative Respiratory: reports: Reviewed and negative GI: denies: Abdominal Pain, Abdominal Swelling, Nausea, Vomiting, Constipation, Diarrhea : denies: Dysuria, Frequency Skin: reports: Abrasion (s) (right forearm) Musculoskeletal: denies: Neck pain, Back pain, Extremity pain PD PAST MEDICAL HISTORY - Past Medical History Cardiovascular: Hypertension Respiratory: Pneumonia Neuro: Dementia Endocrine/Autoimmune: None GI: GERD, Ulcers, Chronic constipation, Diverticulitis, Other 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: None : Incontinence, Nocturia, Frequency, Other HEENT: Chronic vision loss, Other Psych: Depression, Anxiety Musculoskeletal: Osteoarthritis, Chronic back pain Derm: Herpes zoster - Past Surgical History Past Surgical History: Yes General: Bowel surgery Ortho: Hip replacement /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 HEENT: Cataracts Derm: Skin cancer surgery - Present Medications Home Medications: Ambulatory Orders Medication Instructions Recorded Confirmed Metoprolol Tartrate 25 mg PO BID 01/31/16 06/18/20 Multivitamin [Theragran] 1 tab PO DAILY 01/31/16 06/18/20 HYDROcod/ACETAM 5/325 [[place] 5/325] 1.5 tab PO Q4H PRN 06/24/17 06/18/20 buPROPion [Wellbutrin Sr] 150 mg PO BID 02/24/18 06/18/20 Albuterol Sulf [Ventolin Hfa 1 - 2 puffs INH Q4HR PRN #1 inhaler 10/13/18 06/18/20 Inhaler] Duloxetine HCl 60 mg PO DAILY 04/11/19 06/18/20 Alprazolam [Xanax] 0.25 mg PO Q6HR PRN 03/02/20 06/18/20 predniSONE [Prednisone] 5 mg PO BID 03/02/20 06/18/20 Spironolactone [Aldactone] 25 mg PO DAILY 06/18/20 06/18/20 - Allergies Allergies/Adverse Reactions: Allergies Allergy/AdvReac Type Severity Reaction Status Date / Time No Known Drug Allergies Allergy Verified 07/29/20 14:31 - Social History Does the pt smoke?: Yes Smoking Status: Current every day smoker Does the pt drink ETOH?: No Does the pt have substance abuse?: Yes - Immunizations Immunizations are current?: Yes - POLST Patient has POLST: No POLST Status: Full Code PD ED PE EXPANDED - General General: Disheveled, poorly kept (thin appearance) - Neck Neck: Supple w/out meningeal sx. No: Adenopathy - Cardiac Cardiac: Regular Rate, Murmur Present, Radial strong equal, Pedal strong equal, Cap refill < 2 sec - Respiratory Respiratory: Clear to ausultation armani. No: Distress, Labored - Abdomen Abdomen: Normal Bowel sounds. No: Tender to palpation - Derm Derm: Abrasion (s) (right forearm) - Extremities Extremities: Normal. No: Deformity, Tenderness - Neuro Neuro: Alert and Oriented X 3, CNII-XII intact - GCS Eye Opening: Spontaneous Motor: Obeys Commands Verbal: Oriented Total: 15 Results - Vitals Vitals: Vital Signs - 24 hr 07/29/20 07/29/20 14:26 16:35 Temperature 36.5 C Heart Rate 72 68 Respiratory 24 16 Rate Blood Pressure 134/79 H 174/88 H O2 Saturation 99 97 Oxygen O2 Source [] Room air O2 Source [] Nasal cannula O2 Source Room air - EKG (time done) 1449 Rate: Rate (enter#) (70) Rhythm: NSR [place]: LAD QRS: Poor R wave progression Ischemia: Normal ST segments Compare to prior EKG: Unchanged from prior EKG Computer interpretation: Agree with computer - Labs Labs: Laboratory Tests 07/29/20 07/29/20 07/29/20 14:46 14:46 14:46 WBC 8.4 RBC 3.61 L Hgb 11.4 L Hct 36.3 L MCV 100.6 H MCH 31.6 H MCHC 31.4 L RDW 12.9 Plt Count 216 MPV 9.4 Neut # (Auto) 7.0 H Lymph # (Auto) 0.8 L [place] # (Auto) 0.4 Eos # (Auto) 0.0 Baso # (Auto) 0.0 Absolute Nucleated RBC 0.00 Nucleated RBC % 0.0 Sodium 135 Potassium 5.3 H Chloride 96 L Carbon Dioxide 30 Anion Gap 9.0 BUN 24 H Creatinine 1.0 Estimated GFR (MDRD) 53 L Glucose 115 H Calcium 9.3 Total Bilirubin 0.5 AST 14 ALT 15 Alkaline Phosphatase 115 Troponin I High Sens 7.3 Total Protein 6.7 Albumin 3.5 Globulin 3.2 Albumin/Globulin Ratio 1.1 Lipase 27 Urine Color Urine Clarity Urine pH Ur Specific [place] Urine Protein Urine Glucose (UA) Urine Ketones Urine Occult Blood Urine Nitrite Urine Bilirubin Urine Urobilinogen Ur Leukocyte Esterase Ur Microscopic Review Urine Culture Comments Urine Opiates Screen Ur Oxycodone Screen Urine Methadone Screen Ur Propoxyphene Screen Ur Barbiturates Screen Ur Tricyclics Screen Ur Phencyclidine Scrn Ur Amphetamine Screen U Methamphetamines Scrn U Benzodiazepines Scrn Urine Cocaine Screen U Cannabinoids Screen Ethyl Alcohol < 5.0 07/29/20 15:45 WBC RBC Hgb Hct MCV MCH MCHC RDW Plt Count MPV Neut # (Auto) Lymph # (Auto) [place] # (Auto) Eos # (Auto) Baso # (Auto) Absolute Nucleated RBC Nucleated RBC % Sodium Potassium Chloride Carbon Dioxide Anion Gap BUN Creatinine Estimated GFR (MDRD) Glucose Calcium Total Bilirubin AST ALT Alkaline Phosphatase Troponin I High Sens Total Protein Albumin Globulin Albumin/Globulin Ratio Lipase Urine Color STRAW Urine Clarity CLEAR Urine pH 6.5 Ur Specific [place] 1.010 Urine Protein NEGATIVE Urine Glucose (UA) NEGATIVE Urine Ketones NEGATIVE Urine Occult Blood NEGATIVE Urine Nitrite NEGATIVE Urine Bilirubin NEGATIVE Urine Urobilinogen 0.2 (NORMAL) Ur Leukocyte Esterase NEGATIVE Ur Microscopic Review NOT INDICATED Urine Culture Comments NOT INDICATED Urine Opiates Screen NEGATIVE Ur Oxycodone Screen NEGATIVE Urine Methadone Screen NEGATIVE Ur Propoxyphene Screen NEGATIVE Ur Barbiturates Screen NEGATIVE Ur Tricyclics Screen NEGATIVE Ur Phencyclidine Scrn NEGATIVE Ur Amphetamine Screen NEGATIVE U Methamphetamines Scrn NEGATIVE U Benzodiazepines Scrn POSITIVE H Urine Cocaine Screen NEGATIVE U Cannabinoids Screen POSITIVE H Ethyl Alcohol - Rads (name of study) CXR Radiology: Final report received (No acute cardiopulmonary process. Findings of COPD and probable emphysema or fibrotic interstitial disease) CT head Radiology: Final report received (No acute intracranial abnormality.) PD MEDICAL DECISION MAKING - ED course Complexity details: reviewed results, re-evaluated patient, considered differential, d/w patient ED course: This is an 80-year-old female comes to the emergency department for evaluation of increasing weakness over the last 3 to 4 days. Physical therapy recommended that she be evaluated in the ER as she was unable to participate in physical therapy today she was too weak. There have been no fevers, cough reports of abdominal pain nausea vomiting or urinary symptoms. However her reports that she has fallen multiple times recently. He also endorses that she has had decreased p.o. intake. On presentation the patient was alert though she reported that she was being evaluated for rocks in her face. Her felt she was hallucinating. There were no focal neuro deficits no obvious motor weakness. Screening labs unrevealing with no findings of leukocytosis. Potassium mildly elevated at 5.3 but no changes on EKG. Head CT without acute focal findings. Urine shows no signs of infection. Patient was given 2 L of crystalloid here in the emergency department and on reevaluation she is much more bright and alert. She has been able to get out of bed with moderate assistance to use the commode as well as ambulate briefly in the room. At this time she is stable feeling improved both she and her feel ready for discharge home. Continue follow-up with primary care provider. Emergent return precautions were discussed. Departure - Departure Disposition: 01 Home, Self Care Clinical Impression: Generalized weakness, Dehydration Condition: Stable Record reviewed to determine appropriate education?: Yes Follow-Up: Jv Woo MD [Primary Care Provider] - Comments: Salima was seen in the emergency department today for increased general weakness over the last 3 to 4 days. Her screening labs do not show any worrisome findings. There is no infection in her urine. Chest x-ray did not reveal any findings of pneumonia and her head CT did not reveal any worrisome findings. She may have been fairly dehydrated. She was given 2 L of IV fluids here in the emergency department and on reevaluation was much more alert and bright. Is going to be important that she is always ambulating with assistance. She should be encouraged to increase her water and fluid/food intake. Please discuss this emergency department visit with your primary care provider. Return to the emergency department if you have slurred speech or droopy face, sudden weakness in your arms or legs, develop chest pain or shortness of air
[2020-07-29 15:01] LABS: BASOPHILS % (AUTO) 0.5 %; EOSINOPHILS % (AUTO) 0.4 %; HCT - HEMATOCRIT 36.3 % (37.0-47.0); HGB - HEMOGLOBIN 11.4 g/dL (12.0-16.0); LYMPHOCYTES # (AUTO) 0.8 10^3/uL (1.5-3.5); LYMPHOCYTES % (AUTO) 9.5 %; MEAN CORPUSCULAR HEMOGLOBIN 31.6 pg (27.0-31.0); MEAN CORPUSCULAR HGB CONC 31.4 g/dL (32.0-36.0); MEAN CORPUSCULAR VOLUME 100.6 fL (81.0-99.0); MEAN PLATELET VOLUME 9.4 fL (7.9-10.8); MONOCYTES # (AUTO) 0.4 10^3/uL (0.0-1.0); MONOCYTES % (AUTO) 5.1 %; NEUTROPHILS % (AUTO) 83.2 %; PLT - PLATELET COUNT 216 10^3/uL (130-450); RED BLOOD COUNT 3.61 10^6/uL (4.20-5.40); RED CELL DISTRIBUTION WIDTH 12.9 % (12.0-15.0); WHITE BLOOD COUNT 8.4 x10^3/uL (4.8-10.8)
--- NOTE | 2020-07-29 15:10 | XRAY Report ---
PROCEDURE: Chest 1 View X-Ray INDICATIONS: Chest pain TECHNIQUE: One view of the chest was acquired. COMPARISON: 04/23/2019, 11/09/2016 chest radiographs FINDINGS: Surgical changes and devices: None. Lungs and pleura: No pleural effusions or pneumothorax. Hyperexpanded lungs with findings of COPD an d chronic coarsening of the interstitial markings likely representing fibrotic change or emphysema. Mediastinum: Mediastinal contours appear normal. Heart size is normal. Bones and chest wall: No suspicious bony lesions. Overlying soft tissues appear unremarkable. IMPRESSION: No acute cardiopulmonary process. Findings of COPD and probable emphysema or fibrotic interstitial di sease. Reviewed by: Kamlesh Zambrano MD on 07/29/2020 3:09 PM PDT Approved by: Kamlesh Zambrano MD on 07/29/2020 3:09 PM PDT Station ID: [id number]
[2020-07-29 15:16] LABS: ALBUMIN 3.5 g/dL (3.2-5.5); ALBUMIN/GLOBULIN RATIO 1.1 (1.0-2.2); ALKALINE PHOSPHATASE 115 IU/L (42-121); ALT ALANINE AMINOTRANSFERASE 15 IU/L (10-60); AST ASPARTATE AMINOTRANSFERASE 14 IU/L (10-42); BILIRUBIN,TOTAL 0.5 mg/dL (0.2-1.0); BUN - BLOOD UREA NITROGEN 24 mg/dL (6-20); CALCIUM 9.3 mg/dL (8.5-10.3); CARBON DIOXIDE - CO2 30 mmol/L (21-32); CHLORIDE 96 mmol/L (101-111); ETOH - ETHANOL < 5.0 mg/dL; GFR - MDRD 53 (>89); GLUCOSE 115 mg/dL (70-100); LIPASE 27 U/L (22-51); POTASSIUM 5.3 mmol/L (3.5-5.0); SODIUM 135 mmol/L (135-145); TOTAL PROTEIN 6.7 g/dL (6.7-8.2)
[2020-07-29 16:32] LABS: MUDS CUTOFF CONCENTRATIONS CUTOFF CONC BELOW:
--- NOTE | 2020-07-29 16:32 | CT Report ---
PROCEDURE: HEAD WO INDICATIONS: Fall TECHNIQUE: Noncontrast 4.5 mm thick angled axial sections acquired from the foramen magnum to the vertex. For r adiation dose reduction, the following was used: automated exposure control, adjustment of mA and/or kV according to patient size. COMPARISON: 04/23/[address] FINDINGS: Image quality: Excellent. CSF spaces: Basal cisterns are patent. No extra-axial fluid collections. Ventricles are normal in size and shape. Brain: No midline shift. No intracranial masses or hemorrhage. [place]-white matter interface is norm al. Skull and face: Calvarium and visualized facial bones are intact, without suspicious lesions. Sinuses: Visualized sinuses and mastoids are clear. IMPRESSION: No acute intracranial abnormality. Reviewed by: Kamlesh Zambrano MD on 07/29/2020 4:30 PM PDT Approved by: Kamlesh Zambrano MD on 07/29/2020 4:30 PM PDT Station ID: [id number]
[2020-07-29 16:36] LABS: BILIRUBIN,URINE NEGATIVE (NEGATIVE); GLUCOSE, URINE (UA) NEGATIVE (NEGATIVE); KETONES,URINE (UA) NEGATIVE (NEGATIVE); LEUKOCYTE ESTERASE, URINE NEGATIVE (NEGATIVE); NITRITE,URINE NEGATIVE (NEGATIVE); OCCULT BLOOD,URINE NEGATIVE (NEGATIVE); PH,URINE 6.5 PH (5.0-7.5); PROTEIN,URINE NEGATIVE (NEGATIVE); UROBILINOGEN,URINE 0.2 (NORMAL) E.U./dL (NORMAL)
[2020-07-29 16:37] LABS: CLARITY,URINE CLEAR (CLEAR)
[2020-07-29 16:54] LABS: COCAINE SCREEN URINE NEGATIVE (NEGATIVE); METHAMPHETAMINES SCREEN, URINE NEGATIVE (NEGATIVE); THC CANNABINOID SCREEN, URINE POSITIVE (NEGATIVE)
[2020-07-29 16:55] LABS: AMPHETAMINE SCREEN,URINE NEGATIVE (NEGATIVE); BARBITURATE SCREEN,UR NEGATIVE (NEGATIVE); BENZODIAZEPINES SCREEN, URINE POSITIVE (NEGATIVE); METHADONE SCREEN, URINE NEGATIVE (NEGATIVE); OPIATE SCREEN, URINE NEGATIVE (NEGATIVE); OXYCODONE SCREEN, URINE NEGATIVE (NEGATIVE); PROPOXYPHENE SCREEN, URINE NEGATIVE (NEGATIVE); TRICYCLIC ANTIDEPRESSANT,URINE NEGATIVE (NEGATIVE)
[2020-07-29 17:22] VITALS: BP 180/83
== END 2020-07-29 17:35 | disposition home or self-care (01) ==
LOC: ED 14:22
DX: R53.1 Weakness (principal); E86.0 Dehydration; F03.90 Unspecified dementia, unspecified severity, without behavioral disturbance, psychotic disturbance, mood disturbance, and anxiety; S50.811A Abrasion of right forearm, initial encounter; W19.XXXA Unspecified fall, initial encounter; Y92.009 Unspecified place in unspecified non-institutional (private) residence as the place of occurrence of the external cause; Z91.81 History of falling; I10 Essential (primary) hypertension; J44.9 Chronic obstructive pulmonary disease, unspecified; F17.200 Nicotine dependence, unspecified, uncomplicated
CPT/HCPCS: 36415; 51701; 70450; 71045; 80053; 80306; 81003; 83690; 84484; 85025; 93005; 96360; 96361; 99284; G0480; 80320; 81001; 87086

== ENCOUNTER 2020-10-22 14:34 | Outpatient (CLI) | payer MEDICARE, OTHER | END 2020-10-22 14:35 | disposition critical access hospital (66) | LOC: EMS 14:34 | DX: R10.31 Right lower quadrant pain (principal); R10.32 Left lower quadrant pain; R47.81 Slurred speech | CPT/HCPCS: A0425; A0429 ==

== ENCOUNTER 2020-10-22 14:44 | Observation (INO) | payer MEDICARE, OTHER ==
--- NOTE | 2020-10-22 14:57 | ED Physician Documentation ---
History of Present Illness - Stated complaint Stated Complaint: AMS/GLF - Chief complaint Chief Complaint: Neuro - History obtained from History obtained from: Family, EMS - Additonal information Additional information: Patient is an 80-year-old female brought in by her and EMS today after being found on the ground at home. She is unable to give any history. He states that she has had a poor appetite recently. Has a history of a colostomy with reversal about a year and a half ago. Since then she has been on chronic pain medication. She was switched over to methadone from hydrocodone about a month ago. is concerned that she may be taking more pain medication than prescribed. 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: Hysterectomy HEENT: Cataracts Derm: Skin cancer surgery - Present Medications Home Medications: Ambulatory Orders Medication Instructions Recorded Confirmed Metoprolol Tartrate 25 mg PO BID 01/31/16 06/18/20 Multivitamin [Theragran] 1 tab PO DAILY 01/31/16 06/18/20 HYDROcod/ACETAM 5/325 [Craig 5/325] 1.5 tab PO Q4H PRN 06/24/17 06/18/20 buPROPion [Wellbutrin Sr] 150 mg PO BID 02/24/18 06/18/20 Albuterol Sulf [Ventolin Hfa 1 - 2 puffs INH Q4HR PRN #1 inhaler 10/13/18 06/18/20 Inhaler] Duloxetine HCl 60 mg PO DAILY 04/11/19 06/18/20 Alprazolam [Xanax] 0.25 mg PO Q6HR PRN 03/02/20 06/18/20 predniSONE [Prednisone] 5 mg PO BID 03/02/20 06/18/20 Spironolactone [Aldactone] 25 mg PO DAILY 06/18/20 06/18/20 - Allergies Allergies/Adverse Reactions: Allergies Allergy/AdvReac Type Severity Reaction Status Date / Time No Known Drug Allergies Allergy Verified 10/22/20 14:53 - Social History Does the pt smoke?: Yes Smoking Status: Current every day smoker Does the pt drink ETOH?: No Does the pt have substance abuse?: Yes - Immunizations Immunizations are current?: Yes - POLST Patient has POLST: No POLST Status: Full Code PD ED PE NORMAL - Vitals Vital signs reviewed: Yes - General General: No acute distress, Other (drowsy, arousble, but slurred speech and confused. pale. thin) - HEENT HEENT: Atraumatic, Moist mucous membranes, Pharynx benign, Other (pinpoint pupils B) - Neck Neck: Supple, no meningeal sign - Cardiac Cardiac: RRR - Respiratory Respiratory: No respiratory distress, Clear bilaterally - Abdomen Abdomen: Soft, Non tender, Non distended - Back Back: No spinal TTP - Derm Derm: Warm and dry, No rash - Extremities Extremities: No deformity, No tenderness to palpate, Other (mild pain with ROM of the L hip. no deformity. NVI) - Neuro Neuro: Other (drowsy, confused) Eye Opening: To Pain Motor: Localizes to Pain Verbal: Confused GCS Score: 11 Results - Vitals Vitals: Vital Signs - 24 hr 10/22/20 10/22/20 10/22/20 14:53 15:21 17:00 Temperature 36.2 C L Heart Rate 67 65 64 Respiratory 14 16 14 Rate Blood Pressure 151/105 H 133/65 H 140/100 H O2 Saturation 93 92 100 Oxygen O2 Source [] Room air O2 Source [] Nasal cannula O2 Source Room air - EKG (time done) 1531 Rate: Rate (enter#) (64) Rhythm: NSR [place]: Normal Intervals: Normal NC QRS: Normal, LVH Ischemia: Normal ST segments - Labs Labs: Laboratory Tests 10/22/20 10/22/20 10/22/20 15:49 15:49 15:49 WBC 13.7 H RBC 3.78 L Hgb 11.5 L Hct 38.9 MCV 102.9 H MCH 30.4 MCHC 29.6 L RDW 13.2 Plt Count 272 MPV 9.8 Neut # (Auto) 10.6 H Lymph # (Auto) 1.6 Kendall # (Auto) 1.0 Eos # (Auto) 0.2 Baso # (Auto) 0.1 Absolute Nucleated RBC 0.00 Nucleated RBC % 0.0 Sodium 134 L Potassium 5.6 H Chloride 96 L Carbon Dioxide 29 Anion Gap 9.0 BUN 33 H Creatinine 1.0 Estimated GFR (MDRD) 53 L Glucose 107 H Calcium 8.9 Total Bilirubin 0.6 AST 23 ALT 16 Alkaline Phosphatase 74 Troponin I High Sens 9.1 Total Protein 6.8 Albumin 3.1 L Globulin 3.7 Albumin/Globulin Ratio 0.8 L Lipase 18 L TSH Free T4 Urine Color Urine Clarity Urine pH Ur Specific [place] Urine Protein Urine Glucose (UA) Urine Ketones Urine Occult Blood Urine Nitrite Urine Bilirubin Urine Urobilinogen Ur Leukocyte Esterase Urine RBC Urine WBC Ur Squamous Epith Cells Urine Bacteria Ur Microscopic Review Urine Culture Comments Urine Opiates Screen Ur Oxycodone Screen Urine Methadone Screen Ur Propoxyphene Screen Ur Barbiturates Screen Ur Tricyclics Screen Ur Phencyclidine Scrn Ur Amphetamine Screen U Methamphetamines Scrn U Benzodiazepines Scrn Urine Cocaine Screen U Cannabinoids Screen Ethyl Alcohol < 5.0 10/22/20 10/22/20 15:49 16:20 WBC RBC Hgb Hct MCV MCH MCHC RDW Plt Count MPV Neut # (Auto) Lymph # (Auto) Kend[place] # (Auto) Eos # (Auto) Baso # (Auto) Absolute Nucleated RBC Nucleated RBC % Sodium Potassium Chloride Carbon Dioxide Anion Gap BUN Creatinine Estimated GFR (MDRD) Glucose Calcium Total Bilirubin AST ALT Alkaline Phosphatase Troponin I High Sens Total Protein Albumin Globulin Albumin/Globulin Ratio Lipase TSH 1.65 Free T4 0.88 Urine Color YELLOW Urine Clarity CLEAR Urine pH 6.0 Ur Specific [place] >=1.030 H Urine Protein TRACE Urine Glucose (UA) NEGATIVE Urine Ketones NEGATIVE Urine Occult Blood LARGE H Urine Nitrite NEGATIVE Urine Bilirubin NEGATIVE Urine Urobilinogen 0.2 (NORMAL) Ur Leukocyte Esterase NEGATIVE Urine RBC 6-10 H Urine WBC 0-3 Ur Squamous Epith Cells FEW Squamous Urine Bacteria Rare Ur Microscopic Review INDICATED Urine Culture Comments NOT INDICATED Urine Opiates Screen NEGATIVE Ur Oxycodone Screen NEGATIVE Urine Methadone Screen POSITIVE H Ur Propoxyphene Screen NEGATIVE Ur Barbiturates Screen NEGATIVE Ur Tricyclics Screen NEGATIVE Ur Phencyclidine Scrn NEGATIVE Ur Amphetamine Screen NEGATIVE U Methamphetamines Scrn NEGATIVE U Benzodiazepines Scrn POSITIVE H Urine Cocaine Screen NEGATIVE U Cannabinoids Screen POSITIVE H Ethyl Alcohol - Rads (name of study) Head CT Radiology: Final report received, EMP read contemporaneously, See rad report Cervical spine CT Radiology: Final report received, EMP read contemporaneously, See rad report Chest x-ray Radiology: Final report received, EMP read contemporaneously, See rad report CT abdomen pelvis Radiology: Final report received, EMP read contemporaneously, See rad report PD MEDICAL DECISION MAKING - ED course Complexity details: reviewed old records, reviewed results, re-evaluated patient, considered differential, d/w family, d/w php consultant ED course: Patient is an 80-year-old female with suspected polysubstance overdose. Unknown intentional versus accidental. Pupils are pinpoint, likely from the methadone. She is also positive for cannabinoids and benzodiazepines. She is maintaining her own airway and is not requiring supplemental oxygen but is very difficult to arouse. We will place her in observation to see if she improves with clearing of the medications. She will likely need a social work evaluation for mental health in the morning if she clears as expected. No significant lab abnormalities other than a mild leukocytosis. Has chronic hyperkalemia. No acute findings on head CT, cervical spine CT, chest x-ray or CT of the abdomen pelvis. Discussed the case with Dr. Guan, hospitalist who accepts This document was made in part using voice recognition software. While efforts are made to proofread this document, sound alike and grammatical errors may occur. Departure - Departure Disposition: ED Place in Observation Clinical Impression: Hyperkalemia Polysubstance overdose Qualifiers: Encounter type: initial encounter Injury intent: undetermined intent Qualified Code(s): T50.904A - Poisoning by unspecified drugs, medicaments and biological substances, undetermined, initial encounter Altered mental status Qualifiers: Altered mental status type: somnolence Qualified Code(s): R40.0 - Somnolence Condition: Stable
[2020-10-22] MEDS ORDERED: SODIUM CHLORIDE 0.9% 1,000 ML IV STA ×2 (15:24)
[2020-10-22] MEDS ORDERED: IOPAMIDOL-300 100 ML VIAL ONE (15:36)
[2020-10-22 16:06] LABS: BASOPHILS # (AUTO) 0.1 10^3/uL (0.0-0.1); BASOPHILS % (AUTO) 0.7 %; EOSINOPHILS # (AUTO) 0.2 10^3/uL (0.0-0.7); EOSINOPHILS % (AUTO) 1.1 %; HCT - HEMATOCRIT 38.9 % (37.0-47.0); HGB - HEMOGLOBIN 11.5 g/dL (12.0-16.0); LYMPHOCYTES # (AUTO) 1.6 10^3/uL (1.5-3.5); LYMPHOCYTES % (AUTO) 11.3 %; MEAN CORPUSCULAR HEMOGLOBIN 30.4 pg (27.0-31.0); MEAN CORPUSCULAR HGB CONC 29.6 g/dL (32.0-36.0); MEAN CORPUSCULAR VOLUME 102.9 fL (81.0-99.0); MEAN PLATELET VOLUME 9.8 fL (7.9-10.8); MONOCYTES % (AUTO) 7.3 %; NEUTROPHILS # (AUTO) 10.6 10^3/uL (1.5-6.6); NEUTROPHILS % (AUTO) 77.6 %; PLT - PLATELET COUNT 272 10^3/uL (130-450); RED BLOOD COUNT 3.78 10^6/uL (4.20-5.40); RED CELL DISTRIBUTION WIDTH 13.2 % (12.0-15.0); WHITE BLOOD COUNT 13.7 x10^3/uL (4.8-10.8)
[2020-10-22 16:12] LABS: ALBUMIN 3.1 g/dL (3.2-5.5); ALBUMIN/GLOBULIN RATIO 0.8 (1.0-2.2); ALKALINE PHOSPHATASE 74 IU/L (42-121); ALT ALANINE AMINOTRANSFERASE 16 IU/L (10-60); AST ASPARTATE AMINOTRANSFERASE 23 IU/L (10-42); BILIRUBIN,TOTAL 0.6 mg/dL (0.2-1.0); BUN - BLOOD UREA NITROGEN 33 mg/dL (6-20); CALCIUM 8.9 mg/dL (8.5-10.3); CARBON DIOXIDE - CO2 29 mmol/L (21-32); CHLORIDE 96 mmol/L (101-111); ETOH - ETHANOL < 5.0 mg/dL; GFR - MDRD 53 (>89); GLUCOSE 107 mg/dL (70-100); LIPASE 18 U/L (22-51); POTASSIUM 5.6 mmol/L (3.5-5.0); SODIUM 134 mmol/L (135-145); TOTAL PROTEIN 6.8 g/dL (6.7-8.2)
[2020-10-22] MEDS ORDERED: IOPAMIDOL-300 100 ML VIAL IVP ONE (16:20)
--- NOTE | 2020-10-22 16:21 | XRAY Report ---
PROCEDURE: Chest 1 View X-Ray INDICATIONS: fall, altered TECHNIQUE: One view of the chest was acquired. COMPARISON: 07/29/2020 FINDINGS: Surgical changes and devices: None. Lungs and pleura: Hyperinflation and chronic interstitial changes present involving both lungs. Pleur al thickening noted at both lung apices, there is biapical atelectasis and/or infiltrate present as w ell. Mediastinum: Heart size within normal limits of. Tortuosity and ectasia of the thoracic aorta present without described vascular calcification. Bones and chest wall: No suspicious bony lesions. Overlying soft tissues appear unremarkable. Gener alized decreased osseous mineralization present. IMPRESSION: Hyperinflation, chronic interstitial changes with superimposed biapical pulmonary atelectasis and/or infiltrate Reviewed by: Otoniel Antonio MD on 10/22/2020 3:20 PM AKDT Approved by: Otoniel Antonio MD on 10/22/2020 3:20 PM AKDT Station ID: [id number]
--- NOTE | 2020-10-22 16:26 | CT Report ---
PROCEDURE: HEAD WO INDICATIONS: fall, altered TECHNIQUE: Noncontrast 4.5 mm thick angled axial sections acquired from the foramen magnum to the vertex. For r adiation dose reduction, the following was used: automated exposure control, adjustment of mA and/or kV according to patient size. COMPARISON: 07/29/2020 FINDINGS: Image quality: Excellent. CSF spaces: Basal cisterns are patent. No extra-axial fluid collections. Ventricles are normal in size and shape. Brain: No midline shift. No intracranial masses or hemorrhage. Camejo-white matter interface is norm al. Age-related cerebral and cerebellar atrophy and multifocal chronic ischemic change present. Hypo density in the right lentiform nucleus noted as well Skull and face: Calvarium and visualized facial bones are intact, without suspicious lesions. Bilat eral intraocular lens replacements noted. Sinuses: Visualized sinuses and mastoids are clear. IMPRESSION: Atrophy and moderate chronic ischemic change without intracranial hemorrhage or mass effect. Right basal ganglia lacunar infarct, subacute to chronic Reviewed by: Otoniel Antonio MD on 10/22/2020 3:25 PM FANNY Approved by: Otoniel Antonio MD on 10/22/2020 3:25 PM AKDT Station ID: [id number]
[2020-10-22 16:27] LABS: THYROID STIMULATING HORMONE 1.65 uIU/mL (0.34-5.60)
[2020-10-22 16:28] LABS: MUDS CUTOFF CONCENTRATIONS CUTOFF CONC BELOW:
[2020-10-22 16:29] LABS: FREE T4 (FREE THYROXINE) 0.88 ng/dL (0.58-1.64)
[2020-10-22 16:32] LABS: BILIRUBIN,URINE NEGATIVE (NEGATIVE); GLUCOSE, URINE (UA) NEGATIVE (NEGATIVE); KETONES,URINE (UA) NEGATIVE (NEGATIVE); LEUKOCYTE ESTERASE, URINE NEGATIVE (NEGATIVE); NITRITE,URINE NEGATIVE (NEGATIVE); OCCULT BLOOD,URINE LARGE (NEGATIVE); PROTEIN,URINE TRACE mg/dL (NEGATIVE); UROBILINOGEN,URINE 0.2 (NORMAL) E.U./dL (NORMAL)
[2020-10-22 16:36] LABS: CLARITY,URINE CLEAR (CLEAR)
[2020-10-22 16:39] LABS: BACTERIA,URINE Rare /HPF (None Seen); SQUAMOUS EPITHELIAL CELL,UR FEW Squamous (<= Few); WBC,URINE 0-3 /HPF (0-5)
[2020-10-22 16:42] LABS: AMPHETAMINE SCREEN,URINE NEGATIVE (NEGATIVE); BARBITURATE SCREEN,UR NEGATIVE (NEGATIVE); BENZODIAZEPINES SCREEN, URINE POSITIVE (NEGATIVE); COCAINE SCREEN URINE NEGATIVE (NEGATIVE); METHADONE SCREEN, URINE POSITIVE (NEGATIVE); METHAMPHETAMINES SCREEN, URINE NEGATIVE (NEGATIVE); OPIATE SCREEN, URINE NEGATIVE (NEGATIVE); OXYCODONE SCREEN, URINE NEGATIVE (NEGATIVE); PROPOXYPHENE SCREEN, URINE NEGATIVE (NEGATIVE); THC CANNABINOID SCREEN, URINE POSITIVE (NEGATIVE); TRICYCLIC ANTIDEPRESSANT,URINE NEGATIVE (NEGATIVE)
--- NOTE | 2020-10-22 16:43 | CT Report ---
PROCEDURE: CERVICAL SPINE WO INDICATIONS: fall, altered TECHNIQUE: Noncontrast 3 mm thick sections acquired from the skull base to the T4 level. Sagittal and coronal r eformats were then constructed. For radiation dose reduction, the following was used: automated exp osure control, adjustment of mA and/or kV according to patient size. COMPARISON: CT chest 04/11/2019 FINDINGS: Image quality: Excellent. Bones: No fractures or dislocations. Visualized superior ribs are intact. Multilevel degenerative changes are present. Soft tissues: Prevertebral soft tissues are normal in thickness. No paravertebral hematomas. No ap ical pneumothoraces. Visualized lung apices demonstrate patchy and confluent areas of opacity, appea ring similar compared to prior exam. IMPRESSION: Degenerative changes above it is fracture. 2. Areas of opacity within the lungs bilaterally both patchy and confluent. It is relatively stable c ompared to 2019 and appears most consistent with chronic changes such as fibrosis. Reviewed by: Akilah Llanos MD on 10/22/2020 4:42 PM PDT Approved by: Akilah Llanos MD on 10/22/2020 4:42 PM PDT Station ID: [id number]
--- NOTE | 2020-10-22 17:05 | CT Report ---
PROCEDURE: Abdomen/Pelvis W INDICATIONS: abd pain, h/o colostomy with reversal CONTRAST: IV CONTRAST: Isovue 300 ml: 100 PO CONTRAST: *NO PO CONTRAST TECHNIQUE: After the administration of intravenous contrast, 5 mm thick sections acquired from the diaphragms to the symphysis. 5 mm thick coronal and sagittal reformats were acquired. For radiation dose reducti on, the following was used: automated exposure control, adjustment of mA and/or kV according to jojo ent size. COMPARISON: 03/02/2020 FINDINGS: Image quality: Limited by motion artifact and metallic spray artifact from a right hip prosthesis. ABDOMEN: Lung bases: Lung bases are clear. Heart size is enlarged. Chronic interstitial changes noted in damon th lung bases. Solid organs: Liver and spleen are normal in size and enhancement. Gallbladder surgically absent. Biliary system is non dilated. Pancreas enhances normally. No adrenal nodules. Kidneys demonstrate normal size and enhancement, without hydronephrosis. Peritoneum and bowel: Bowel loops demonstrate normal wall thickness and caliber. No free fluid or a ir. Moderate fecal debris present throughout the colon anastomotic suture noted at the rectosigmoid junction, intact. Nodes and vessels: No retroperitoneal or mesenteric adenopathy by size criteria. Aorta and inferior vena cava are normal in size. Miscellaneous: No ventral hernias. PELVIS: Genitourinary: Bladder wall thickness is normal. Miscellaneous: No inguinal hernias or adenopathy. Bones: No suspicious bony lesions. No vertebral body compression fractures. Right hip prosthesis l imits assessment of several images in the pelvis. Sacral perineural Tarlov cysts remain unchanged. Mu ltilevel degenerative disc disease and arthropathy in the lumbar spine results in severe central sten osis at L2-3 and L3-4. IMPRESSION: 1. Moderate fecal debris throughout the colon without obstruction 2. Multilevel degenerative disc disease and arthropathy results in severe central stenosis at L2-3 an d L3-4. 3. Motion artifact limits exam Reviewed by: Otoniel Antonio MD on 10/22/2020 4:04 PM AKDT Approved by: Otoniel Antonio MD on 10/22/2020 4:04 PM AKDT Station ID: [id number]
[2020-10-22 19:53] LABS: B. PARAPERTUSSIS- RESP PCR PAN NOT DETECTED; B. PERTUSSIS- RESP PCR PANEL NOT DETECTED; C. PNEUMONIAE- RESP PCR PANEL NOT DETECTED; CORONAVIRUS 229E-RESP PCR NOT DETECTED; CORONAVIRUS HKU1-RESP PCR NOT DETECTED; CORONAVIRUS NL63-RESP PCR NOT DETECTED; CORONAVIRUS OC43-RESP PCR NOT DETECTED; HUMAN METAPNEUMOVIRUS NOT DETECTED; INFLUENZA A- RESP PCR PANEL NOT DETECTED; INFLUENZA B - RESP PCR PANEL NOT DETECTED; M. PNEUMONIAE- RESP PCR PANEL NOT DETECTED; PARAINFLUENZA VIRUS 1 NOT DETECTED; PARAINFLUENZA VIRUS 2 NOT DETECTED; PARAINFLUENZA VIRUS 3 NOT DETECTED; PARAINFLUENZA VIRUS 4 NOT DETECTED; RHINOVIRUS/ENTEROVIRUS NOT DETECTED; RSV- RESP PCR PANEL NOT DETECTED; SARS-CoV-2 -RESP PCR PANEL NOT DETECTED
[2020-10-22] MEDS ORDERED: SODIUM CHLORIDE FLUSH 0.9% 10 ML SYRINGE IVP PRN (21:27)
[2020-10-22] MEDS ORDERED: ONDANSETRON ODT 4 MG TABLET TL PRN (21:27)
[2020-10-22] MEDS ORDERED: ONDANSETRON 4 MG/2 ML VIAL IVP PRN (21:27)
[2020-10-22] MEDS ORDERED: oxyCODONE 5 MG TABLET PO PRN (21:27)
[2020-10-22] MEDS ORDERED: ACETAMINOPHEN 325 MG TABLET PO PRN (21:27)
--- NOTE | 2020-10-22 21:36 | HISTORY & PHYSICAL EXAMINATION ---
Chief Complaint - Chief Complaint Chief Complaint: found down at home History of Present Illness - Admitted From Admitted From:: Home via EMS - [facility] from: Dr. Evangelista on sign out Exam Limitations: patient is lethargic - History of Present Illness HPI Comment/Other: This is an 80-year-old female who has a history of spinal stenosis, and chronic opioid dependence. She was admitted in March 2019 for combination of pneumonia, as well as metabolic encephalopathy from multiple drug use. Since that time she has been seen in the emergency room in April and December 2019. Both of them are for falls. She is then been seen almost on a monthly basis this year. Her last evaluation was on July 29, 2020 where she had generalized weakness and yet another fall. She had yet another recent surgery, and had run out of her narcotic medication 3 days prior. She was hallucinating, and when physical therapy went to the house to evaluate her, she was found on the ground next to her bed. After 2 L of crystalloid in the emergency room she was reevaluated and felt much better. She was more alert. Able to get out of bed with moderate assistance to use the commode and was ambulating in the room. As such she went home. She now returns again after being found down at home. Her most recent medication change was methadone from hydrocodone a month ago. does share his concern with the emergency room doctor that his may be taking more of her medication than she is allowed. She is responsible for taking her own meds. On exam her vital signs were stable. Pupils were pinpoint. She was lethargic, disoriented. Potassium was 5.6. White cell count was 13.7. CT spine, CT head was negative. Urine tox urine was positive for methadone which she takes 20 mg daily. Xanax which she takes 0.25 3 times daily. And cannabis Gummies. This is in the patient whose BMI is 16. Chest x-ray has hyperinflation with chronic interstitial changes superimposed on biapical pulmonary atelectasis and/or infiltrate. With her March 2019 admission we were wondering that if her opioid use was causing sedation, and slight aspiration causing the multifocal infiltrate seen at that time. Urinalysis is concentrated. Large amount of occult blood. 0-3 white cells, few squamous cells, rare bacteria. As such the patient is to be placed in observation for hydration and to wait for her medications to wear off. -Past Medical History Cardiovascular: reports: Congestive heart failure (Probable cor pulmonale. Echo done for shortness of breath June 25, 2017 shows moderate pulmonary hypertension with a PASP of 55 mmHg. Right ventricle borderline dilated. Normal valve structure and function. Normal left ventricular size and function with ejection fraction 55%. Mild grade 1 diastolic dysfunction.), Hypertension Respiratory: reports: Pneumonia (with admits 2016 and 2017), Other (Pulmonary fibrosis. Also has 2 isolated lung nodules. Followed by [facility] pulmonology clinic at [place]. She is usually seen once a year.) Neuro: reports: None Endocrine/Autoimmune: reports: None GI: reports: GERD (erosive esophagitis on EGD in the past with Olvera's esophagus), Ulcers (erosive gastritis on EGD in the past), Chronic constipation, Diverticulitis (ruptured with partial colectomy, Sourav puch and colostomy in the Fall of 2013, takedown of colostomy with reasnastomosis, lysis of adhesions on 10/12/14), Other (intermittent abd pain requiring ER visits and opiods in the past) MEDICAID SERVICE COORDINATOR: reports: Other () : reports: Incontinence, Nocturia, Frequency, Other HEENT: reports: Chronic vision loss Psych: reports: Depression, Anxiety Musculoskeletal: reports: Osteoarthritis, Osteoporosis (She has had falls with bilateral sacral fractures in the past. Bone density survey done January 2019 has normal T score of the lumbar spine. Femoral neck is -1.5 and total T score of the hip is -1.4.), Chronic back pain (from spinal stenosis) Derm: reports: Herpes zoster MRSA Hx?: No Other Past Medical History: Opioid dependence. She is very sensitive about this topic and feels that she needs chronic opioids because of chronic back pain. She used to use close to 260 tablets a month and has been recently weaning herself down to about 180 a month. She did run out of medications once and was seen with withdrawal in the emergency room. She says she never wants to live through that again. - Past Surgical History General: reports: Bowel surgery Ortho: reports: Hip replacement /MEDICAID SERVICE COORDINATOR: reports: Hysterectomy HEENT: reports: Cataracts Derm: reports: Skin cancer surgery History - Past Medical History Cardiovascular: reports: Hypertension Respiratory: reports: Pneumonia Neuro: reports: Dementia Endocrine/Autoimmune: reports: None GI: reports: GERD, Ulcers, Chronic constipation, Diverticulitis, Other MEDICAID SERVICE COORDINATOR: reports: None : reports: Incontinence, Nocturia, Frequency, Other HEENT: reports: Chronic vision loss, Other Psych: reports: Depression, Anxiety Musculoskeletal: reports: Osteoarthritis, Chronic back pain Derm: reports: Herpes zoster MRSA Hx?: No - Past Surgical History General: reports: Bowel surgery Ortho: reports: Hip replacement /MEDICAID SERVICE COORDINATOR: reports: Hysterectomy HEENT: reports: Cataracts Derm: reports: Skin cancer surgery - Family & Social History Family History: Mother: , Cancer (colon at age 85), Father: , Sister: Alive and Well, Brother: Alive and Well Family History Comment/Other: The patient's mother from colon cancer age 85. She was estranged from her father and she does not know what he may have from other than old age in his 80's. She has 3 sisters, and one brother. All are alive and well, one of her sisters has cerebal palsy, but functions well. She has 2 chldren and one has lupus and the other has heart disease. Social History Notes: [place] the [place]. She and her second Mason moved here for penitentiary from [place]. He built homes for a living and built the home that they live in. They have 2 grown children that do not live [place] the [place], but in [place]. 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 Her latest hobby was to Skype a book club group, but she states that her health has restricted her from many things she used to enjoy. She denies illicit drug use, tobacco use, or alcohol use. She wishes to be a FULL code and wishes to "talk about this later".She started smoking at the age of 15 and smoked half a pack per day until 2016. She does have a history of alcoholism. - Substance History Use Issues: Opioid Induced Psychotic Dependence: Experiences withdrawal or developed tolerances: Opioid Dependence Issues: Delirium, Perceptual Disturbance, Withdrawal, Other (falls) - POLST Patient has POLST: No POLST Status: Full Code Meds/Allgy - Home Medications Home Medications: Ambulatory Orders Medication Instructions Recorded Confirmed Metoprolol Tartrate 25 mg PO BID 01/31/16 06/18/20 Multivitamin [Theragran] 1 tab PO DAILY 01/31/16 06/18/20 HYDROcod/ACETAM 5/325 [[place] 5/325] 1.5 tab PO Q4H PRN 06/24/17 06/18/20 buPROPion [Wellbutrin Sr] 150 mg PO BID 02/24/18 06/18/20 Albuterol Sulf [Ventolin Hfa 1 - 2 puffs INH Q4HR PRN #1 inhaler 10/13/18 06/18/20 Inhaler] Duloxetine HCl 60 mg PO DAILY 04/11/19 06/18/20 Alprazolam [Xanax] 0.25 mg PO Q6HR PRN 03/02/20 06/18/20 predniSONE [Prednisone] 5 mg PO BID 03/02/20 06/18/20 Spironolactone [Aldactone] 25 mg PO DAILY 06/18/20 06/18/20 - Allergies Allergies/Adverse Reactions: Allergies Allergy/AdvReac Type Severity Reaction Status Date / Time No Known Drug Allergies Allergy Verified 10/22/20 14:53 Review of Systems - Other Findings Other Findings: Patient is unable to provide a lucid review of systems at this time due to severe lethargy and intermittent alertness. She will fall asleep in between sentences. Prior Level of Functionality: Unknown at this time. Exam - Vital Signs Reviewed Vital Signs: Yes Vital Signs: Vital Signs x48h Temp Pulse Resp BP Pulse Ox 10/22/20 21:00 36.5 C 73 16 134/70 H 94 10/22/20 19:06 62 12 131/71 H 100 10/22/20 17:00 64 14 140/100 H 100 10/22/20 15:21 65 16 133/65 H 92 10/22/20 14:53 36.2 C L 67 14 151/105 H 93 - Physical Exam General Appearance: positive: Lethargic, Other (5 foot 8 inch female who is 48 kg, and a BMI of 16. Wakes to voice and sternal rub but stays awake only intermittently. Able to tell me that she is in the hospital and that it is October) Eyes Bilateral: positive: EOMI, Other (Pupils are pinpoint) ENT: positive: Dry mucous membranes Neck: positive: No JVD, Lymphadenopathy (R), Lymphadenopathy (L). negative: Stiff neck Respiratory: positive: No respiratory distress, Other (Quiet, almost no breath sounds with shallow inspiration). negative: Wheezes, Rales, Rhonchi Cardiovascular: positive: Regular rate & rhythm, Systolic murmur. negative: Gallop/S4, Friction rub Abdomen: positive: Non-tender, No organomegaly, Nml bowel sounds, No distention Skin: positive: Warm Extremities: positive: Full ROM, No pedal edema Neurologic/Psychiatric: positive: CN's nml (2-12), Motor nml, Disoriented to place, Disoriented to time, Slurred/abnml speech Conclusion/Plan - Problem List (1) Acute metabolic encephalopathy Conclusion/Plan: Due to polysubstance use. Possible overuse and accidental overdose. In review of the medical record, the patient has multiple encounters for falls, altered mental status most likely due to drug use, as well as other problems such as aspiration pneumonia. CT scan also shows a subacute infarct that was not present on previous CT. It is not felt to be an acute infarct. At this time there is no findings on physical exam of hemiplegia or dysarthria other than confusion and lethargy. Plan: Observation status IV fluids Wait for drugs to leave her system Continue to monitor for other signs and symptoms of other causes of metabolic encephalopathy such as possible occult infection Consider turning over her pain management to pain clinic In the past we have tried to sit down with her and her to do advance care planning and goals of care, at that time the patient said she did not want to discuss it and will discuss it "later". We will try again with this admi ssion. (2) Polysubstance overdose Conclusion/Plan: Again, most likely due to use of methadone, possible overuse. As well as a benzodiazepine as well as cannabis. Plan: Most practical solution would be to have her take over giving her her medications. But again, primary care provider may need to refer her to pain clinic Qualifiers: Encounter type: initial encounter Injury intent: accidental or unintentional Qualified Code(s): T50.901A - Poisoning by unspecified drugs, medicaments and biological substances, accidental (unintentional), initial encounter (3) Hyperkalemia Conclusion/Plan: Potassium has run between 5 and 6 for quite some time now. She is on spironolactone. I would recommend that she stop spironolactone permanently. After hydration tonight, recheck levels in the morning (4) Frequent attender of accident and emergency department Conclusion/Plan: She and her live in their own home. She is still responsible for taking her own medications. Reviewed the medical record shows many visits to the emergency room with falls, incorrect use of medication. There is been a recent change in her medication. Plan: Initial step should be a social work consult to determine safety in the home. After that evaluation, if necessary, conversation with family or Adult Protective Services. (5) HTN (hypertension) Conclusion/Plan: Her highest blood pressure was present on admission at 151/105. Since then, blood pressure is now in the 130s over 70s. Resume metoprolol 25 p.o. twice daily Qualifiers: Hypertension type: primary hypertension Qualified Code(s): I10 - Essential (primary) hypertension (6) Olvera esophagus Conclusion/Plan: resume PPI. Qualifiers: Olvera's esophagus type: without dysplasia Qualified Code(s): K22.70 - Olvera's esophagus without dysplasia (7) Spinal stenosis of lumbar region Conclusion/Plan: She also has chronic pain syndrome. Opioid dependence because of chronic opioid use. She has gone through withdrawal. Plan: Physical therapy evaluation and treatment. Would like to see if she is a candidate for therapy in the outpatient setting. Qualifiers: Neurogenic claudication status: with neurogenic claudication Qualified Code(s): M48.062 - Spinal stenosis, lumbar region with neurogenic claudication - Lab Results Lab results reviewed: Yes Fish Bones: 10/22/20 15:49 10/22/20 15:49 - Diagnostic Imaging Results Diagnostic Imaging Results: positive: Final report reviewed Diagnostic Imaging Results Comments: 1. Chest x-ray hyperinflation, chronic interstitial changes with superimposed biapical pulmonary atelectasis and/or infiltrate. 2. Head CT with atrophy and moderate chronic ischemic changes without intracranial hemorrhage or mass-effect. Subacute to chronic right basal ganglia lacunar infarct. 3. Cervical spine CT with degenerative changes and no fractures. Areas of opacity within the lungs bilaterally both patchy and confluent. Stable from 2019 and appears most consistent with chronic changes of fibrosis. 3. Abdomen pelvis CT with moderate fecal debris throughout the colon without obstruction. Multi level degenerative disc disease and arthropathy resulting in severe stenosis at L2-3 and L3-4. - EKG Results EKG Interpreted Independently: No Core Measures - Anticipated LOS I expect patient to be DC'd or transferred within 96 hours.: Yes - DVT/VTE - Prophylaxis VTE/DVT Device ordered at admit?: Yes
[2020-10-22] MEDS: LACTATED RINGERS 1,000 ML IV SCH (22:56)
[2020-10-22] MEDS: SODIUM CHLORIDE FLUSH 0.9% 10 ML SYRINGE IVP SCH (23:22)
[2020-10-23 06:23] LABS: BASOPHILS # (AUTO) 0.1 10^3/uL (0.0-0.1); BASOPHILS % (AUTO) 0.6 %; EOSINOPHILS # (AUTO) 0.3 10^3/uL (0.0-0.7); EOSINOPHILS % (AUTO) 2.2 %; HCT - HEMATOCRIT 40.8 % (37.0-47.0); HGB - HEMOGLOBIN 12.1 g/dL (12.0-16.0); LYMPHOCYTES # (AUTO) 1.2 10^3/uL (1.5-3.5); LYMPHOCYTES % (AUTO) 10.3 %; MEAN CORPUSCULAR HEMOGLOBIN 30.1 pg (27.0-31.0); MEAN CORPUSCULAR HGB CONC 29.7 g/dL (32.0-36.0); MEAN CORPUSCULAR VOLUME 101.5 fL (81.0-99.0); MEAN PLATELET VOLUME 9.8 fL (7.9-10.8); MONOCYTES # (AUTO) 1.1 10^3/uL (0.0-1.0); NEUTROPHILS # (AUTO) 9.2 10^3/uL (1.5-6.6); NEUTROPHILS % (AUTO) 76.2 %; PLT - PLATELET COUNT 288 10^3/uL (130-450); RED BLOOD COUNT 4.02 10^6/uL (4.20-5.40); RED CELL DISTRIBUTION WIDTH 13.2 % (12.0-15.0); WHITE BLOOD COUNT 12.1 x10^3/uL (4.8-10.8)
[2020-10-23 06:26] LABS: CALCIUM 8.9 mg/dL (8.5-10.3); CREATININE 0.7 mg/dL (0.4-1.0); POTASSIUM 4.9 mmol/L (3.5-5.0)
--- NOTE | 2020-10-23 08:13 | PROVIDER PROGRESS NOTE ---
Subjective - Prog Note Date Prog Note Date: 10/23/20 Prog Note Time: 08:12 Current Medications - Current Medications Current Medications: Active Medications Generic Name Dose Route Start Last Admin Trade Name Sonal PRN Reason Stop Dose Admin Acetaminophen 650 mg 10/22/20 21:27 Acetaminophen 325 Mg Tablet PO Q4HR PRN Pain 1 to 4 Lactated Ringer's 1,000 mls @ 100 mls/hr 10/22/20 22:00 10/22/20 22:56 Lr IV 10/23/20 17:59 100 mls/hr .Q10H SHIRLEY Administration Metoprolol Tartrate 25 mg 10/23/20 09:00 Metoprolol Tartrate 25 Mg Tablet PO BID SHIRLEY Ondansetron HCl 4 mg 10/22/20 21:27 Ondansetron Odt 4 Mg Tablet TL Q6HR PRN Nausea / Vomiting Ondansetron HCl 4 mg 10/22/20 21:27 Ondansetron 4 Mg/2 Ml Vial IVP Q6HR PRN Nausea / Vomiting Oxycodone HCl 5 mg 10/22/20 21:27 Oxycodone 5 Mg Tablet PO Q4HR PRN Pain 5 to 7 Sodium Chloride 10 ml 10/22/20 21:27 10/22/20 22:56 Sodium Chloride Flush 0.9% 10 Ml Syringe IVP 10 ml PRN PRN Administration NEEDED PER PROVIDER ORDERS Sodium Chloride 10 ml 10/23/20 01:00 10/22/20 23:22 Sodium Chloride Flush 0.9% 10 Ml Syringe IVP Not Given 0100,0900,1700 [facility] Metoprolol Tartrate 25 mg PO BID 01/31/16 Multivitamin [Theragran] 1 tab PO DAILY 01/31/16 HYDROcod/ACETAM 5/325 [[place] 5/325] 1.5 tab PO Q4H PRN 06/24/17 buPROPion [Wellbutrin Sr] 150 mg PO BID 02/24/18 Duloxetine HCl 60 mg PO DAILY 04/11/19 Alprazolam [Xanax] 0.25 mg PO Q6HR PRN 03/02/20 predniSONE [Prednisone] 5 mg PO BID 03/02/20 Spironolactone [Aldactone] 25 mg PO DAILY 06/18/20 Objective - Vital Signs/Intake & Output Reviewed Vital Signs: Yes Vital Signs: Vital Signs x48h Temp Pulse Resp BP Pulse Ox 10/23/20 05:40 36.7 C 85 16 102/74 96 Intake & Output: Intake & Output 10/20/20 10/21/20 10/22/20 10/23/20 23:59 23:59 23:59 23:59 Intake Total 2000 100 Output Total 300 Balance 2000 -200 - Lab Results Fish Bones: 10/23/20 06:02 10/23/20 06:02 Other Labs: Lab Results x24hrs 10/23/20 10/23/20 10/22/20 Range/Units 06:02 06:02 16:20 WBC 12.1 H (4.8-10.8) x10^3/uL RBC 4.02 L (4.20-5.40) 10^6/uL Hgb 12.1 (12.0-16.0) g/dL Hct 40.8 (37.0-47.0) % MCV 101.5 H (81.0-99.0) fL MCH 30.1 (27.0-31.0) pg MCHC 29.7 L (32.0-36.0) g/dL RDW 13.2 (12.0-15.0) % Plt Count 288 (130-450) 10^3/uL MPV 9.8 (7.9-10.8) fL Neut # (Auto) 9.2 H (1.5-6.6) 10^3/uL Lymph # (Auto) 1.2 L (1.5-3.5) 10^3/uL Crenshaw # (Auto) 1.1 H (0.0-1.0) 10^3/uL Eos # (Auto) 0.3 (0.0-0.7) 10^3/uL Baso # (Auto) 0.1 (0.0-0.1) 10^3/uL Absolute Nucleated RBC 0.00 x10^3/uL Nucleated RBC % 0.0 /100WBC Sodium 136 (135-145) mmol/L Potassium 4.9 (3.5-5.0) mmol/L Chloride 99 L (101-111) mmol/L Carbon Dioxide 29 (21-32) mmol/L Anion Gap 8.0 (6-13) BUN 22 H (6-20) mg/dL Creatinine 0.7 (0.4-1.0) mg/dL Estimated GFR (MDRD) 81 L (>89) Glucose 85 (70-100) mg/dL Calcium 8.9 (8.5-10.3) mg/dL Total Bilirubin (0.2-1.0) mg/dL AST (10-42) IU/L ALT (10-60) IU/L Alkaline Phosphatase (42-121) IU/L Troponin I High Sens (2.3-14.8) ng/L Total Protein (6.7-8.2) g/dL Albumin (3.2-5.5) g/dL Globulin (2.1-4.2) g/dL Albumin/Globulin Ratio (1.0-2.2) Lipase (22-51) U/L TSH (0.34-5.60) uIU/mL Free T4 (0.58-1.64) ng/dL Urine Color Urine Clarity (CLEAR) Urine pH (5.0-7.5) PH Ur Specific Urania (1.002-1.030) Urine Protein (NEGATIVE) mg/dL Urine Glucose (UA) (NEGATIVE) mg/dL Urine Ketones (NEGATIVE) mg/dL Urine Occult Blood (NEGATIVE) Urine Nitrite (NEGATIVE) Urine Bilirubin (NEGATIVE) Urine Urobilinogen (NORMAL) E.U./dL Ur Leukocyte Esterase (NEGATIVE) Urine RBC (0-5) /HPF Urine WBC (0-5) /HPF Ur Squamous Epith Cells (<= Few) Urine Bacteria (None Seen) /HPF Ur Microscopic Review Urine Culture Comments Nasal Adenovirus (PCR) NOT DETECTED Nasal B. parapertussis DNA (PCR) NOT DETECTED Nasal Coronavir 229E PCR NOT DETECTED Nasal Coronavir HKU1 PCR NOT DETECTED Nasal Coronavir NL63 PCR NOT DETECTED Nasal Coronavir OC43 PCR NOT DETECTED Nasal Enterovir/Rhinovir PCR NOT DETECTED Nasal Influenza B PCR NOT DETECTED Nasal Influenza A PCR NOT DETECTED Nasal Parainfluen 1 PCR NOT DETECTED Nasal Parainfluen 2 PCR NOT DETECTED Nasal Parainfluen 3 PCR NOT DETECTED Nasal Parainfluen 4 PCR NOT DETECTED Nasal RSV (PCR) NOT DETECTED Nasal B.pertussis DNA PCR NOT DETECTED Nasal C.pneumoniae (PCR) NOT DETECTED Shade Human Metapneumo PCR NOT DETECTED Nasal M.pneumoniae (PCR) NOT DETECTED Nasal SARS-CoV-2 (PCR) NOT DETECTED Urine Opiates Screen (NEGATIVE) Ur Oxycodone Screen (NEGATIVE) Urine Methadone Screen (NEGATIVE) Ur Propoxyphene Screen (NEGATIVE) Ur Barbiturates Screen (NEGATIVE) Ur Tricyclics Screen (NEGATIVE) Ur Phencyclidine Scrn (NEGATIVE) Ur Amphetamine Screen (NEGATIVE) U Methamphetamines Scrn (NEGATIVE) U Benzodiazepines Scrn (NEGATIVE) Urine Cocaine Screen (NEGATIVE) U Cannabinoids Screen (NEGATIVE) Ethyl Alcohol mg/dL 10/22/20 10/22/20 10/22/20 Range/Units 16:20 15:49 15:49 WBC (4.8-10.8) x10^3/uL RBC (4.20-5.40) 10^6/uL Hgb (12.0-16.0) g/dL Hct (37.0-47.0) % MCV (81.0-99.0) fL MCH (27.0-31.0) pg MCHC (32.0-36.0) g/dL RDW (12.0-15.0) % Plt Count (130-450) 10^3/uL MPV (7.9-10.8) fL Neut # (Auto) (1.5-6.6) 10^3/uL Lymph # (Auto) (1.5-3.5) 10^3/uL C[place]shaw # (Auto) (0.0-1.0) 10^3/uL Eos # (Auto) (0.0-0.7) 10^3/uL Baso # (Auto) (0.0-0.1) 10^3/uL Absolute Nucleated RBC x10^3/uL Nucleated RBC % /100WBC Sodium (135-145) mmol/L Potassium (3.5-5.0) mmol/L Chloride (101-111) mmol/L Carbon Dioxide (21-32) mmol/L Anion Gap (6-13) BUN (6-20) mg/dL Creatinine (0.4-1.0) mg/dL Estimated GFR (MDRD) (>89) Glucose (70-100) mg/dL Calcium (8.5-10.3) mg/dL Total Bilirubin (0.2-1.0) mg/dL AST (10-42) IU/L ALT (10-60) IU/L Alkaline Phosphatase (42-121) IU/L Troponin I High Sens 9.1 (2.3-14.8) ng/L Total Protein (6.7-8.2) g/dL Albumin (3.2-5.5) g/dL Globulin (2.1-4.2) g/dL Albumin/Globulin Ratio (1.0-2.2) Lipase (22-51) U/L TSH 1.65 (0.34-5.60) uIU/mL Free T4 0.88 (0.58-1.64) ng/dL Urine Color YELLOW Urine Clarity CLEAR (CLEAR) Urine pH 6.0 (5.0-7.5) PH Ur Specific Urania >=1.030 H (1.002-1.030) Urine Protein TRACE (NEGATIVE) mg/dL Urine Glucose (UA) NEGATIVE (NEGATIVE) mg/dL Urine Ketones NEGATIVE (NEGATIVE) mg/dL Urine Occult Blood LARGE H (NEGATIVE) Urine Nitrite NEGATIVE (NEGATIVE) Urine Bilirubin NEGATIVE (NEGATIVE) Urine Urobilinogen 0.2 (NORMAL) (NORMAL) E.U./dL Ur Leukocyte Esterase NEGATIVE (NEGATIVE) Urine RBC 6-10 H (0-5) /HPF Urine WBC 0-3 (0-5) /HPF Ur Squamous Epith Cells FEW Squamous (<= Few) Urine Bacteria Rare (None Seen) /HPF Ur Microscopic Review INDICATED Urine Culture Comments NOT INDICATED Nasal Adenovirus (PCR) Nasal B. parapertussis DNA (PCR) Nasal Coronavir 229E PCR Nasal Coronavir HKU1 PCR Nasal Coronavir NL63 PCR Nasal Coronavir OC43 PCR Nasal Enterovir/Rhinovir PCR Nasal Influenza B PCR Nasal Influenza A PCR Nasal Parainfluen 1 PCR Nasal Parainfluen 2 PCR Nasal Parainfluen 3 PCR Nasal Parainfluen 4 PCR Nasal RSV (PCR) Nasal B.pertussis DNA PCR Nasal C.pneumoniae (PCR) Shade Human Metapneumo PCR Nasal M.pneumoniae (PCR) Nasal SARS-CoV-2 (PCR) Urine Opiates Screen NEGATIVE (NEGATIVE) Ur Oxycodone Screen NEGATIVE (NEGATIVE) Urine Methadone Screen POSITIVE H (NEGATIVE) Ur Propoxyphene Screen NEGATIVE (NEGATIVE) Ur Barbiturates Screen NEGATIVE (NEGATIVE) Ur Tricyclics Screen NEGATIVE (NEGATIVE) Ur Phencyclidine Scrn NEGATIVE (NEGATIVE) Ur Amphetamine Screen NEGATIVE (NEGATIVE) U Methamphetamines Scrn NEGATIVE (NEGATIVE) U Benzodiazepines Scrn POSITIVE H (NEGATIVE) Urine Cocaine Screen NEGATIVE (NEGATIVE) U Cannabinoids Screen POSITIVE H (NEGATIVE) Ethyl Alcohol mg/dL 10/22/20 10/22/20 Range/Units 15:49 15:49 WBC 13.7 H (4.8-10.8) x10^3/uL RBC 3.78 L (4.20-5.40) 10^6/uL Hgb 11.5 L (12.0-16.0) g/dL Hct 38.9 (37.0-47.0) % MCV 102.9 H (81.0-99.0) fL MCH 30.4 (27.0-31.0) pg MCHC 29.6 L (32.0-36.0) g/dL RDW 13.2 (12.0-15.0) % Plt Count 272 (130-450) 10^3/uL MPV 9.8 (7.9-10.8) fL Neut # (Auto) 10.6 H (1.5-6.6) 10^3/uL Lymph # (Auto) 1.6 (1.5-3.5) 10^3/uL C[place]shaw # (Auto) 1.0 (0.0-1.0) 10^3/uL Eos # (Auto) 0.2 (0.0-0.7) 10^3/uL Baso # (Auto) 0.1 (0.0-0.1) 10^3/uL Absolute Nucleated RBC 0.00 x10^3/uL Nucleated RBC % 0.0 /100WBC Sodium 134 L (135-145) mmol/L Potassium 5.6 H (3.5-5.0) mmol/L Chloride 96 L (101-111) mmol/L Carbon Dioxide 29 (21-32) mmol/L Anion Gap 9.0 (6-13) BUN 33 H (6-20) mg/dL Creatinine 1.0 (0.4-1.0) mg/dL Estimated GFR (MDRD) 53 L (>89) Glucose 107 H (70-100) mg/dL Calcium 8.9 (8.5-10.3) mg/dL Total Bilirubin 0.6 (0.2-1.0) mg/dL AST 23 (10-42) IU/L ALT 16 (10-60) IU/L Alkaline Phosphatase 74 (42-121) IU/L Troponin I High Sens (2.3-14.8) ng/L Total Protein 6.8 (6.7-8.2) g/dL Albumin 3.1 L (3.2-5.5) g/dL Globulin 3.7 (2.1-4.2) g/dL Albumin/Globulin Ratio 0.8 L (1.0-2.2) Lipase 18 L (22-51) U/L TSH (0.34-5.60) uIU/mL Free T4 (0.58-1.64) ng/dL Urine Color Urine Clarity (CLEAR) Urine pH (5.0-7.5) PH Ur Specific Urania (1.002-1.030) Urine Protein (NEGATIVE) mg/dL Urine Glucose (UA) (NEGATIVE) mg/dL Urine Ketones (NEGATIVE) mg/dL Urine Occult Blood (NEGATIVE) Urine Nitrite (NEGATIVE) Urine Bilirubin (NEGATIVE) Urine Urobilinogen (NORMAL) E.U./dL Ur Leukocyte Esterase (NEGATIVE) Urine RBC (0-5) /HPF Urine WBC (0-5) /HPF Ur Squamous Epith Cells (<= Few) Urine Bacteria (None Seen) /HPF Ur Microscopic Review Urine Culture Comments Nasal Adenovirus (PCR) Nasal B. parapertussis DNA (PCR) Nasal Coronavir 229E PCR Nasal Coronavir HKU1 PCR Nasal Coronavir NL63 PCR Nasal Coronavir OC43 PCR Nasal Enterovir/Rhinovir PCR Nasal Influenza B PCR Nasal Influenza A PCR Nasal Parainfluen 1 PCR Nasal Parainfluen 2 PCR Nasal Parainfluen 3 PCR Nasal Parainfluen 4 PCR Nasal RSV (PCR) Nasal B.pertussis DNA PCR Nasal C.pneumoniae (PCR) Shade Human Metapneumo PCR Nasal M.pneumoniae (PCR) Nasal SARS-CoV-2 (PCR) Urine Opiates Screen (NEGATIVE) Ur Oxycodone Screen (NEGATIVE) Urine Methadone Screen (NEGATIVE) Ur Propoxyphene Screen (NEGATIVE) Ur Barbiturates Screen (NEGATIVE) Ur Tricyclics Screen (NEGATIVE) Ur Phencyclidine Scrn (NEGATIVE) Ur Amphetamine Screen (NEGATIVE) U Methamphetamines Scrn (NEGATIVE) U Benzodiazepines Scrn (NEGATIVE) Urine Cocaine Screen (NEGATIVE) U Cannabinoids Screen (NEGATIVE) Ethyl Alcohol < 5.0 mg/dL
[2020-10-23] MEDS: LACTATED RINGERS 1,000 ML IV SCH (08:29)
[2020-10-23] MEDS: SODIUM CHLORIDE FLUSH 0.9% 10 ML SYRINGE IVP SCH (08:31)
[2020-10-23] MEDS ORDERED: METOPROLOL TARTRATE 25 MG TABLET PO SCH (09:00)
[2020-10-23] MEDS ORDERED: polyethylene glycoL 3350 17 GM PACKET PO SCH (11:00)
--- NOTE | 2020-10-23 11:23 | PHARMACY PROGRESS NOTE ---
- Best Possible Medication History Admit Date and Time: 10/22/202126 Processed by: Pharmacy Medication History completed: Yes Patient Interview: Completed (PATIENT ABLE TO CONFIRM HOME MEDICATIONS) As the person ultimately responsible for medication therapy, providers are able to order a medication from an existing home medication list in [facility] via the "Reconcile Routine" prior to Confirmation of that medication by direct support staff. Such practice is discouraged except when the physician, in their clinical judgment, deems that a medical need exists for a medication without regard to previous use.
--- NOTE | 2020-10-23 16:13 | Discharge Plan ---
Discharge Plan Problem Reviewed?: Yes Disposition: Home, Self Care Condition: Stable Prescriptions: ALPRAZolam [Alprazolam] 0.25 mg PO Q8HR PRN #12 tablet PRN Reason: Anxiety Diet: Regular Assistance Devices: Walker, Cane Instruction Topics: Alprazolam tablets Health Concerns: You were brought to the hospital after you were found on the ground minimally responsive at home with pinpoint pupils. Your urine was positive for opiate (methadone), benzodiazepine (xanax) and cannibis You recently had an increase in your methadone dose (hydrocodone changed to methadone ~ 1 month ago) REcent change in methadone dose from 20 mg to 30 mg daily Your last 0.25 mg xanax prescription was 60 tabs on 10/[address] of the head and spine showed no acute finding Your potassium was high at 5.6 and you were clinically dry (somewhat dehydrated) You were given IVFluid overnight and were increasingly alert over the next shift with observation You were unsure what medicatoins you were taking Physical therapist evaluated you and found you unsafe to be alone physically, and also unsafe for safe self administration of medications Watermaster met with you and discussed resources for safe discharge home You are being discharged home with your daughter to stay with you this week while your is at work For the time until your daughter returns from [place], your will take off from work Referral placed for Physical Therapy with [facility] and RN visit from [facility] All medications must be supervised Methadone Take 10 mg twice daily (contact Dr Campos office for any needed changes) Take senna 2 tabs twice daily for bowel regimen (over the counter) Miralax 17 grams IF needed if not atleast caden other day BM on senna (over the counter) Xanax; 60 tabs were prescribed 10/02, you are already out of it We can only prescribe limited number from hospital Rx for 12 tablets Take 1 tablet 8/9 am and if needed every 8 hrs (not to exceed every 8 hrs) (Dr Andres Garcia office will need to electronically submit a full prescription number) DO not take spironolactone Do not take losartan Blood pressure; continue your metoprolol for blood pressure as well as your other medicatons (bupropion, duloxetine and prednisone) Keep well hydrated, high calorie , high protein food Additional Instructions or Follow Up instructions: follow up with Dr Woo Consider benzo taper if not truly indicated ( No Smoking: If you smoke, Please STOP! Call for help. Follow-up with: Jv Woo MD [Primary Care Provider] -
[2020-10-23 16:14] VITALS: BP 128/69
--- NOTE | 2020-10-23 17:11 | DISCHARGE SUMMARY ---
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 Discharge Diagnoses with Status of Each Condition: Acute metabolic encephalopathy ; resolved with IV fluid and holding opiate (methdone) and benzodiazepine Polysubstance overdose; on prescribed methadone and prn benzo and also took THC gummies Hyperkalemia; 5.6 on admit ; improved to 4.9 on discharge Frequent attender of accident and emergency department; daughter and will stay with patient and supervise meds HTN; patient w/ variable blood pressures while here Olvera esophagus stable Spinal stenosis and chornic pain/opioid dependence - HPI History of Present Illness: This is an 80-year-old female who has a history of spinal stenosis, and chronic opioid dependence. She was admitted in March 2019 for combination of pneumonia, as well as metabolic encephalopathy from multiple drug use. Since that time she has been seen in the emergency room in April and December 2019. Both of them are for falls. She is then been seen almost on a monthly basis this year. Her last evaluation was on July 29, 2020 where she had generalized weakness and yet another fall. She had yet another recent surgery, and had run out of her narcotic medication 3 days prior. She was hallucinating, and when physical therapy went to the house to evaluate her, she was found on the ground next to her bed. After 2 L of crystalloid in the emergency room she was reevaluated and felt much better. She was more alert. Able to get out of bed with moderate assistance to use the commode and was ambulating in the room. As such she went home. She now returns again after being found down at home. Her most recent medication change was methadone from hydrocodone a month ago. does share his concern with the emergency room doctor that his may be taking more of her medication than she is allowed. She is responsible for taking her own meds. On exam her vital signs were stable. Pupils were pinpoint. She was lethargic, disoriented. Potassium was 5.6. White cell count was 13.7. CT spine, CT head was negative. Urine tox urine was positive for methadone which she takes 20 mg daily. Xanax which she takes 0.25 3 times daily. And cannabis Gummies. This is in the patient whose BMI is 16. Chest x-ray has hyperinflation with chronic interstitial changes superimposed on biapical pulmonary atelectasis and/or infiltrate. With her March 2019 admission we were wondering that if her opioid use was causing sedation, and slight aspiration causing the multifocal infiltrate seen at that time. Urinalysis is concentrated. Large amount of occult blood. 0-3 white cells, few squamous cells, rare bacteria. As such the patient is to be placed in observation for hydration and to wait for her medications to wear off. - HOSPITAL COURSE Hospital Course: 1) Metabolic enceiphalopathy due to polysubstance use. Unsupervised overuse and accidental overdose. Methadone also increased from 20 mg /day to 30 mg/ day (per daughter) last . xanzx 60 0.25 mg tabs were filled on 10/02 and is already empty and per art, "pill bottles empty or with some pills are all over the house". Patient has multiple encounters for falls, altered mental status most likely due to drug use, as well as other problems such as aspiration pneumonia. CT scan also shows a subacute infarct that was not present on previous CT but radiologically consistent w/acute infarct and on exam there are no focal deficits/ just confusion and lethargy with pinpoint pupils. Urine positive for opiate, benzos and cannibis After IVF IVFluid overnight patient increasingly alert over the next shift with observation She was unable to provide detail about what she was taking, or would respond with the wrong dose or frequency Daughter from [place] has arranged to stay with her mother while patients at work, and when art must return to [place] briefly for surgery, will take off from work Family recognizises that all medication use must be supervised Physical therapist evaluated patient and found you unsafe to be alone physically, and also unsafe for safe self administration of medications Anesthesiologist/Physician met with family and discussed resources for safe discharge home Referral placed for Physical Therapy with [facility] and RN visit from [facility] (2) Polysubstance overdose Plan on discharge Methadone Take 10 mg twice daily (contact Dr Campos office for any needed changes); not to resume the 30 mg dose until reevaluated by Dr Woo Take senna 2 tabs twice daily for bowel regimen (over the counter) Miralax 17 grams IF needed if not atleast caden other day BM on senna (over the counter) Xanax; as noted , Rx filled 10/02 already empty Rx for 12 tablets on discharge 0.25mg q 8 hr prn anxiety Take 1 tablet 8/9 am and if needed every 8 hrs (not to exceed every 8 hrs) Family understands Dr. Campos office will need to order a full new Rx. (3) Hyperkalemia Conclusion/Plan: K as run between 5 and 6 for quite some time now. She is on spironolactone. Advised to STOP spironolactone After hydration overnight K improved 5.6 on admit 4.9 on discharge (4) Frequent attender of accident and emergency department As above, planned for supervision at home w/ daughter or (and they may arrange for an inhome provider, and Mis home health service referral placed (5) HTN (hypertension) elevated on presentation but (unclear if accurate) 120/s over 70's on discharge. Continue metoprolol. Advised to hold on losartan and spironolactone Reeval as outpatient - ALLERGIES Allergies/Adverse Reactions: Allergies Allergy/AdvReac Type Severity Reaction Status Date / Time No Known Drug Allergies Allergy Verified 10/22/20 14:53 - MEDICATIONS Home Medications: Ambulatory Orders Medication Instructions Recorded Confirmed Metoprolol Tartrate 25 mg PO BID 01/31/16 10/27/20 Multivitamin [Theragran] 1 tab PO DAILY 01/31/16 10/27/20 buPROPion [Wellbutrin Sr] 150 mg PO BID 02/24/18 10/27/20 Duloxetine HCl 60 mg PO DAILY 04/11/19 10/27/20 ALPRAZolam [Alprazolam] 0.25 mg PO Q8HR PRN #12 tablet 10/23/20 10/27/20 Methadone HCl 10 mg PO BID 10/23/20 10/27/20 polyethylene glycoL 3350 [Miralax] 17 gm PO DAILY packet 10/23/20 10/27/20 predniSONE [Deltasone] 10 mg PO DAILY 10/23/20 10/27/20 Mirtazapine 7.5 mg PO QPM 10/27/20 10/27/20 Valsartan 160 mg PO DAILY 10/27/20 10/27/20 - PHYSICAL EXAM AT DISCHARGE General Appearance: positive: No acute distress, Other (Very thin, frail appearing elderly woman, disheveled hair, awake, alert by time of discharge with daughter at bedside) ENT: positive: Other (poor dentition) Respiratory: positive: Chest non-tender, No respiratory distress, Breath sounds nml, Other (prominent ribs and spine) Abdomen: positive: Nml bowel sounds, No distention, Other (scaphoid abdomen, ) Skin: positive: Warm, Dry Extremities: negative: Pedal edema (thin wasted extremities) Neurologic/Psychiatric: positive: Oriented x3, Mood/affect nml (some memory loss, inconsistent historian), Other (early in morning patient was still a bit groggy, but awake participative as morning progressed). negative: Slurred/abnml speech - LABS Result Diagrams: 10/23/20 06:02 10/23/20 06:02 - DIAGNOSTIC IMAGING Diagnostic Imaging Results: Final report reviewed Diagnostic Imaging Results Comments: Head CT; Atrophy and moderate chornic ischemic change without intracranial hemorrage or mass Right basal ganglia lacunar infarct subacute to chronic Chest X ray; Hyperinflation , chronic interstitial changes w/ superimposed biapical atelectasis or infiltrate C spine CT: DGD, Bones ; no fractures or dislocation Areas of opacity with in the lung s bilaterally both confluent and patch; ap pears stable c/w 2020 looks like chronic fibrotic changes Abdominal and Pelvis CT Moderate fecal debris thruout colon without obstruction Multilevel DJD, with severe central stenosis L2-3< L 3-4 (note motion artifact
== END 2020-10-23 17:23 | disposition home or self-care (01) ==
LOC: EDUNIT# → ED 14:44 → MS2 21:27
PROVIDERS: ADMIT Specialist; ATTEND Nurse Practitioner
DX: T40.3X1A Poisoning by methadone, accidental (unintentional), initial encounter (principal); T42.4X1A Poisoning by benzodiazepines, accidental (unintentional), initial encounter; T40.7X1A Poisoning by cannabis (derivatives), accidental (unintentional), initial encounter; G92 Toxic encephalopathy; E87.6 Hypokalemia; F03.90 Unspecified dementia, unspecified severity, without behavioral disturbance, psychotic disturbance, mood disturbance, and anxiety; I10 Essential (primary) hypertension; K22.70 Barrett's esophagus without dysplasia; K21.9 Gastro-esophageal reflux disease without esophagitis; G89.29 Other chronic pain; M48.062 Spinal stenosis, lumbar region with neurogenic claudication; M81.0 Age-related osteoporosis without current pathological fracture; F11.20 Opioid dependence, uncomplicated; J84.10 Pulmonary fibrosis, unspecified; I63.9 Cerebral infarction, unspecified; R91.8 Other nonspecific abnormal finding of lung field; Z20.822 Contact with and (suspected) exposure to COVID-19; F32.9 Major depressive disorder, single episode, unspecified; F41.9 Anxiety disorder, unspecified; K59.09 Other constipation; R32 Unspecified urinary incontinence; R35.0 Frequency of micturition; R35.1 Nocturia; H54.7 Unspecified visual loss; Z87.11 Personal history of peptic ulcer disease; Z91.81 History of falling; Z90.49 Acquired absence of other specified parts of digestive tract; Z96.649 Presence of unspecified artificial hip joint; Z87.891 Personal history of nicotine dependence; F10.21 Alcohol dependence, in remission; Z87.01 Personal history of pneumonia (recurrent); Z79.52 Long term (current) use of systemic steroids; Z79.899 Other long term (current) drug therapy
CPT/HCPCS: 36415; 51701; 70450; 71045; 72125; 74177; 80048; 80053; 80306; 81001; 83690; 84439; 84443; 84484; 85025; 87631; 93005; 96360; 97162; 99283; 99285; A9270; G0378; G0480; J7120; Q9967; 0202U; 80320; 81003; 87086

== ENCOUNTER 2020-10-26 22:25 | Inpatient (IN) | payer MEDICARE, OTHER ==
--- NOTE | 2020-10-26 23:22 | ED Physician Documentation ---
PD HPI ALTERED MENTAL STATUS - Stated complaint Stated Complaint: CONFUSION - Chief complaint Chief Complaint: UTI - History obtained from History obtained from: Patient, Family - History of Present Illness Timing - onset: Today, Yesterday Timing - duration: Days (1) Timing - details: Still present Quality / character: Other (general weakness and seems more confused than usual. Daughter also noted dyspnea more than baseline, worse with even ligtht walking.) Associated symptoms: Dyspnea, General weakness. No: Fever, Headache, Focal weakness Contributing factors: Recent med change (had spironolactone discontinued. Otherwise was returned to 10 mg BID on her Methadone, as recent hospitalization for AMS from Methadone 15 mg BID. No other change in meds.). No: Anticoagulated Basline status: Ambulatory, Confused Recently seen: Emergency Dept, Admitted (3 days ago for AMS/confused/lethargic due to accidnetal OD on meds, with recent increased dose of Methadone. Was in [facility] 10/23 for overnight and improved.) Review of Systems Constitutional: denies: Fever, Chills Nose: denies: Rhinorrhea / runny nose, Congestion Throat: denies: Sore throat Cardiac: denies: Chest pain / pressure, Palpitations, Pedal edema Respiratory: reports: Dyspnea (chronic but worse the past 1-2 days.). denies: Cough GI: reports: Nausea. denies: Abdominal Pain, Vomiting, Diarrhea, Bloody / black stool (she denies black/dark stools but she says she does not make a point of looking at them. Daughter says she has not looked at the stools.) Musculoskeletal: reports: Back pain (chronic). denies: Neck pain Neurologic: reports: Generalized weakness, Confused (mild baseline chronic). denies: Near syncope PD PAST MEDICAL HISTORY - Past Medical History Cardiovascular: Hypertension Respiratory: Emphysema, Pneumonia Neuro: Dementia Endocrine/Autoimmune: None GI: GERD, Ulcers, Chronic constipation, Diverticulitis, Other PRESSURE TESTER: None : Incontinence, Nocturia, Frequency, Other HEENT: Chronic vision loss, Other Psych: Depression, Anxiety Musculoskeletal: Osteoarthritis, Chronic back pain Derm: Herpes zoster - Past Surgical History Past Surgical History: Yes General: Bowel surgery Ortho: Hip replacement /PRESSURE TESTER: Hysterectomy HEENT: Cataracts Derm: Skin cancer surgery - Present Medications Home Medications: Ambulatory Orders Medication Instructions Recorded Confirmed Metoprolol Tartrate 25 mg PO BID 01/31/16 10/23/20 Multivitamin [Theragran] 1 tab PO DAILY 01/31/16 10/23/20 buPROPion [Wellbutrin Sr] 150 mg PO BID 02/24/18 10/23/20 Duloxetine HCl 60 mg PO DAILY 04/11/19 10/23/20 ALPRAZolam [Alprazolam] 0.25 mg PO Q8HR PRN #12 tablet 10/23/20 Methadone HCl 10 mg PO BID 10/23/20 10/23/20 polyethylene glycoL 3350 [Miralax] 17 gm PO DAILY packet 10/23/20 predniSONE [Deltasone] 10 mg PO DAILY 10/23/20 10/23/20 - Allergies Allergies/Adverse Reactions: Allergies Allergy/AdvReac Type Severity Reaction Status Date / Time No Known Drug Allergies Allergy Verified 10/22/20 14:53 - Social History Does the pt smoke?: Yes Smoking Status: Current every day smoker Does the pt drink ETOH?: No Does the pt have substance abuse?: Yes - Immunizations Immunizations are current?: Yes - POLST Patient has POLST: No POLST Status: Full Code PD ED PE NORMAL - Vitals Vital signs reviewed: Yes (sats 88-92% on RA. improved with NC.) - General General: Alert and oriented X 3, Well developed/nourished - HEENT HEENT: Atraumatic, Pharynx benign - Neck Neck: Supple, no meningeal sign, No adenopathy - Cardiac Cardiac: RRR, No murmur - Respiratory Respiratory: No respiratory distress. No: Clear bilaterally (fine crackles diffusely with some exp wheezing central. ) - Abdomen Abdomen: Soft, Non distended, No organomegaly, Other (diminished bowel sounds but no focal tenderness nor distension. ). No: Normal bowel sounds (diminished) - Rectal Rectal: Other (some stool on rectum, with guiac card sample by nursing. ) - Back Back: No CVA TTP - Derm Derm: Normal color, Warm and dry - Extremities Extremities: No edema, No calf tenderness / cord - Neuro Neuro: Alert and oriented X 3, No motor deficit, Normal speech Results - Vitals Vitals: Vital Signs - 24 hr 10/26/20 10/26/20 10/27/20 22:37 23:50 00:43 Temperature 37.1 C Heart Rate 61 58 L 59 L Respiratory 13 20 18 Rate Blood Pressure 135/69 H 152/80 H O2 Saturation 96 94 10/27/20 10/27/20 10/27/20 01:18 01:41 01:43 Temperature Heart Rate 58 L Respiratory Rate Blood Pressure O2 Saturation 96 85 L 95 Oxygen O2 Source [Without Activity] Room air O2 Source [With Activity] Nasal cannula O2 Source Nasal cannula Oxygen Flow Rate 2 - Labs Labs: Microbiology 10/27/20 00:50 Occult Blood - Final Stool Laboratory Tests 10/26/20 10/26/20 10/26/20 23:56 23:56 23:56 WBC 10.2 RBC 3.05 L Hgb 9.4 L Hct 30.1 L MCV 98.7 MCH 30.8 MCHC 31.2 L RDW 13.3 Plt Count 260 MPV 9.7 Neut # (Auto) 7.5 H Lymph # (Auto) 1.3 L Berks # (Auto) 0.9 Eos # (Auto) 0.2 Baso # (Auto) 0.0 Absolute Nucleated RBC 0.00 Nucleated RBC % 0.0 Sodium 132 L Potassium 5.1 H Chloride 93 L Carbon Dioxide 30 Anion Gap 9.0 BUN 35 H Creatinine 1.0 Estimated GFR (MDRD) 53 L Glucose 96 Lactic Acid 0.3 L Calcium 8.6 Magnesium 2.4 Total Bilirubin 0.5 AST 66 H ALT 102 H Alkaline Phosphatase 202 H Total Protein 6.3 L Albumin 2.9 L Globulin 3.4 Albumin/Globulin Ratio 0.9 L Lipase 18 L Urine Color Urine Clarity Urine pH Ur Specific Clive Urine Protein Urine Glucose (UA) Urine Ketones Urine Occult Blood Urine Nitrite Urine Bilirubin Urine Urobilinogen Ur Leukocyte Esterase Ur Microscopic Review Urine Culture Comments 10/27/20 00:50 WBC RBC Hgb Hct MCV MCH MCHC RDW Plt Count MPV Neut # (Auto) Lymph # (Auto) Berks # (Auto) Eos # (Auto) Baso # (Auto) Absolute Nucleated RBC Nucleated RBC % Sodium Potassium Chloride Carbon Dioxide Anion Gap BUN Creatinine Estimated GFR (MDRD) Glucose Lactic Acid Calcium Magnesium Total Bilirubin AST ALT Alkaline Phosphatase Total Protein Albumin Globulin Albumin/Globulin Ratio Lipase Urine Color YELLOW Urine Clarity CLEAR Urine pH 6.0 Ur Specific Clive 1.025 Urine Protein NEGATIVE Urine Glucose (UA) NEGATIVE Urine Ketones NEGATIVE Urine Occult Blood NEGATIVE Urine Nitrite NEGATIVE Urine Bilirubin NEGATIVE Urine Urobilinogen 0.2 (NORMAL) Ur Leukocyte Esterase NEGATIVE Ur Microscopic Review NOT INDICATED Urine Culture Comments NOT INDICATED - Rads (name of study) chest xray Radiology: Prelim report reviewed (chronic changes with hypeinflation and sc arring. No new infiltrates. ), See rad report PD MEDICAL DECISION MAKING - ED course Complexity details: reviewed results (No obvious signs of infection with normal urine and no change in chest x-ray compared to prior. Electrolytes are similar to recent admission. Blood count shows a 3 g drop in hemoglobin in 3 days. Stool is guaiac positive.), considered differential (general weakness, so will look at labs, lytes, blood count, UA and CXR for start. ), d/w patient, d/w family (daughter), d/w consultant electronics (consult Surgery per Hospitalist request. Will see in AM. ) Departure - Departure Disposition: ED Place in Observation Clinical Impression: Upper GI bleeding, Generalized weakness Anemia Qualifiers: Anemia type: unspecified type Qualified Code(s): D64.9 - Anemia, unspecified Dyspnea Qualifiers: Dyspnea type: dyspnea on exertion Qualified Code(s): R06.00 - Dyspnea, unspecified Condition: Stable
[2020-10-26] MEDS ORDERED: IPRATROPIUM/ALBUTEROL 3 ML NEB INH STA (23:35)
[2020-10-26] MEDS ORDERED: SODIUM CHLORIDE 0.9% 1,000 ML IV STA (23:35)
[2020-10-27 00:03] LABS: BASOPHILS % (AUTO) 0.2 %; EOSINOPHILS # (AUTO) 0.2 10^3/uL (0.0-0.7); EOSINOPHILS % (AUTO) 1.5 %; HCT - HEMATOCRIT 30.1 % (37.0-47.0); HGB - HEMOGLOBIN 9.4 g/dL (12.0-16.0); LYMPHOCYTES # (AUTO) 1.3 10^3/uL (1.5-3.5); LYMPHOCYTES % (AUTO) 12.6 %; MEAN CORPUSCULAR HEMOGLOBIN 30.8 pg (27.0-31.0); MEAN CORPUSCULAR HGB CONC 31.2 g/dL (32.0-36.0); MEAN CORPUSCULAR VOLUME 98.7 fL (81.0-99.0); MEAN PLATELET VOLUME 9.7 fL (7.9-10.8); MONOCYTES # (AUTO) 0.9 10^3/uL (0.0-1.0); MONOCYTES % (AUTO) 8.4 %; NEUTROPHILS # (AUTO) 7.5 10^3/uL (1.5-6.6); NEUTROPHILS % (AUTO) 73.9 %; PLT - PLATELET COUNT 260 10^3/uL (130-450); RED BLOOD COUNT 3.05 10^6/uL (4.20-5.40); RED CELL DISTRIBUTION WIDTH 13.3 % (12.0-15.0); WHITE BLOOD COUNT 10.2 x10^3/uL (4.8-10.8)
[2020-10-27 00:15] LABS: ALBUMIN 2.9 g/dL (3.2-5.5); ALBUMIN/GLOBULIN RATIO 0.9 (1.0-2.2); BILIRUBIN,TOTAL 0.5 mg/dL (0.2-1.0); CALCIUM 8.6 mg/dL (8.5-10.3); MAGNESIUM 2.4 mg/dL (1.7-2.8); POTASSIUM 5.1 mmol/L (3.5-5.0); TOTAL PROTEIN 6.3 g/dL (6.7-8.2)
[2020-10-27] MEDS ORDERED: SODIUM CHLORIDE 0.9% 1,000 ML IV STA (00:58)
[2020-10-27 01:02] LABS: BILIRUBIN,URINE NEGATIVE (NEGATIVE); CLARITY,URINE CLEAR (CLEAR); GLUCOSE, URINE (UA) NEGATIVE (NEGATIVE); KETONES,URINE (UA) NEGATIVE (NEGATIVE); LEUKOCYTE ESTERASE, URINE NEGATIVE (NEGATIVE); NITRITE,URINE NEGATIVE (NEGATIVE); OCCULT BLOOD,URINE NEGATIVE (NEGATIVE); PROTEIN,URINE NEGATIVE (NEGATIVE); UROBILINOGEN,URINE 0.2 (NORMAL) E.U./dL (NORMAL)
[2020-10-27] MEDS ORDERED: PANTOPRAZOLE 40 MG VIAL IVP STA (02:35)
[2020-10-27] MEDS ORDERED: SODIUM CHLORIDE FLUSH 0.9% 10 ML SYRINGE IVP PRN (02:40)
[2020-10-27] MEDS ORDERED: ONDANSETRON 4 MG/2 ML VIAL IVP PRN ×2 (02:43→16:20)
--- NOTE | 2020-10-27 02:53 | HISTORY & PHYSICAL EXAMINATION ---
History and Physical - History and Physical Chief complaint: Abdominal pain, weakness Source of history: Patient on admission was frail, provided limited history, most of the history was provided by her daughter, in addition medical records reviewed and information provided by ER as well. History of present illness: The patient is an 80-year-old female with multiple past medical problems, including chronic pain and opiate dependence, who was recently admitted between October 22 and October 23 under observation for unintentional opiate overdose. For details as I refer the reader to the chart notes. Overnight on October 27, the patient presented to the ER accompanied by her daughter with the chief complaint of weakness and abdominal pain. Patient's daughter provided most of the history. She came to [place] from [place] to stay with her mother and assist her with activities of daily living and with medication supervision. During the past few days the patient had fluctuating course, initially was very weak after she was discharged from the hospital, however the next day she perked up and was doing better, eating more, being more active. The daughter tightly supervised the medications and the patient took everything as prescribed. The next day however she again became somnolent, less active with decreased appetite, was noted more confused than usual. On October 26 patient could barely get out of bed, was noted short of breath, complained of more abdominal pain therefore the daughter brought her to the ER for evaluation. Upon presentation the patient had stable vital signs, initial oxygen saturation was 96% on room air however during the ER stay her oxygen saturation was fluctuating. She was provided supplemental oxygen to maintain saturations in the mid 90s. Chest x-ray showed chronic changes, no focal infiltrate. Notably the patient has chronic lung disease however no oxygen dependence. Covid test pending. ER work-up was grossly unremarkable except for worsening anemia. Baseline hemoglobin in the past was between 11 and 12, today it was 9.4. Therefore the ER physician performed rectal exam which showed brown stool which was Hemoccult positive. Interviewing the patient she complained of abdominal pain however not worse than her usual chronic abdominal pain. She denied seeing black stools or having any episode of GI bleed. She denied nausea or vomiting. She did not report change in her bowel habits. Her daughter mentioned that the patient had GI evaluation including endoscopy and colonoscopy before 2013. Review of the chart, notably, the patient has history of erosive gastritis and a different diagnosis. She had been on prednisone for chronic pain, most recent dose was 10 mg daily. No significant NSAID use was reported. Regarding respiratory symptoms, the patient denied cough or fever. Did not report chest pain or shortness of breath. Past medical history: Congestive heart failure with right-sided failure and pulmonary hypert ension/diastolic dysfunction, echocardiogram from 2018 Osteoarthritis/Osteoporosis/history of sacral fractures/s/p hip replacement Spinal stenosis/chronic back pain Opiate dependence History of unintentional opiate overdose Frequent falls Failure to thrive Anxiety/depression/suicidal ideation Dementia/cognitive impairment Chronic abdominal pain History of ruptured diverticulitis s/p partial colectomy, history of colostomy with subsequent takedown Pulmonary fibrosis/chronic lung disease however no history of oxygen dependence History of pneumonia and aspiration Pulmonary nodules Gastroesophageal reflux/Olvera's esophagus/History of erosive esophagitis and erosive gastritis/ulcers Hypertension History of cerebrovascular accident, lacunar infarct seen on imaging Hysterectomy Incontinence/urinary Allergies Allergy/AdvReac Type Severity Reaction Status Date / Time No Known Drug Allergies Allergy Verified 10/22/20 14:53 Outpatient medications: Metoprolol Tartrate 25 mg PO BID 01/31/16 Multivitamin [Theragran] 1 tab PO DAILY 01/31/16 buPROPion [Wellbutrin Sr] 150 mg PO BID 02/24/18 Duloxetine HCl 60 mg PO DAILY 04/11/19 ALPRAZolam [Alprazolam] 0.25 mg PO Q8HR PRN #12 tablet 10/23/20 Methadone HCl 10 mg PO BID 10/23/20 polyethylene glycoL 3350 [Miralax] 17 gm PO DAILY packet 10/23/20 predniSONE [Deltasone] 10 mg PO DAILY 10/23/20 Family history: Patient cannot recall chronic medical conditions in first-degree relatives. Social history and functional status: The patient lives with her , since last hospital discharge her daughter from [place] came to stay with her to provide more supervision and assistance, patient has 24-hour care provided by her family. She is frail and weak as baseline, has poor appetite, memory impairment. She needs supervision with medications. She suffers frequent falls. Needs assistance with ADLs. CODE STATUS/Advance care planning: Patient has complex medical background and she suffers from chronic pain. In addition she has poor appetite, depression, frequent falls, cognitive impairment and overall declining health. Patient had palliative care evaluation several years ago by Niki Valencia. For details I refer to the informative note. Regardless of advanced disease process, poor functional status and declining life quality patient has remained full code. On admission logistics of resuscitation, different management options were discussed in light of patient's complex situation. DO NOT RESUSCITATE CODE STATUS was recommended, as it would be more appropriate than aggressive measures. Cardiopulmonary resuscitation would likely lead to more impairment and more pain and less life quality. Patient stated that she wanted to remain full code for now, however she is open to continue palliative care discussion. Patient's daughter was especially interested in reviewing POLST form and limiting to DO NOT RESUSCITATE CODE STATUS. All her questions were answered and she was encouraged to bring in the POLST form and further address. On admission however the patient will remain full code as patient and family are not yet ready to change to more limited options. Review of symptoms: 12 point review done, pertinent positives and negatives listed above at history present illness, there was no additional positive. Physical exam: General: The patient is a well-developed thin and frail elderly female. Not in distress. Respiratory: No increased work of breathing, clear to auscultation bilaterally without wheezes or crackles. CVS: S1, S2, Regular, no murmur rub or gallop. Abdomen: Hypoactive bowel tones, diffuse tenderness without guarding or rebound, soft abdomen/nonacute. Neurologic: Alert, oriented; no focal lateralizing sign. Psych: Cooperative. Lymph: No pitting pedal edema. Skin: Pallor. Musculoskeltal: Without trauma. Microbiology 10/27/20 00:50 Occult Blood - Final Stool Laboratory Tests 10/26/20 10/26/20 10/26/20 23:56 23:56 23:56 WBC 10.2 RBC 3.05 L Hgb 9.4 L Hct 30.1 L MCV 98.7 MCH 30.8 MCHC 31.2 L RDW 13.3 Plt Count 260 MPV 9.7 Neut # (Auto) 7.5 H Lymph # (Auto) 1.3 L [place] # (Auto) 0.9 Eos # (Auto) 0.2 Baso # (Auto) 0.0 Absolute Nucleated RBC 0.00 Nucleated RBC % 0.0 Sodium 132 L Potassium 5.1 H Chloride 93 L Carbon Dioxide 30 Anion Gap 9.0 BUN 35 H Creatinine 1.0 Estimated GFR (MDRD) 53 L Glucose 96 Lactic Acid 0.3 L Calcium 8.6 Magnesium 2.4 Total Bilirubin 0.5 AST 66 H ALT 102 H Alkaline Phosphatase 202 H Total Protein 6.3 L Albumin 2.9 L Globulin 3.4 Albumin/Globulin Ratio 0.9 L Lipase 18 L Urine Color Urine Clarity Urine pH Ur Specific [place] Urine Protein Urine Glucose (UA) Urine Ketones Urine Occult Blood Urine Nitrite Urine Bilirubin Urine Urobilinogen Ur Leukocyte Esterase Ur Microscopic Review Urine Culture Comments 10/27/20 00:50 WBC RBC Hgb Hct MCV MCH MCHC RDW Plt Count MPV Neut # (Auto) Lymph # (Auto) [place] # (Auto) Eos # (Auto) Baso # (Auto) Absolute Nucleated RBC Nucleated RBC % Sodium Potassium Chloride Carbon Dioxide Anion Gap BUN Creatinine Estimated GFR (MDRD) Glucose Lactic Acid Calcium Magnesium Total Bilirubin AST ALT Alkaline Phosphatase Total Protein Albumin Globulin Albumin/Globulin Ratio Lipase Urine Color YELLOW Urine Clarity CLEAR Urine pH 6.0 Ur Specific [place] 1.025 Urine Protein NEGATIVE Urine Glucose (UA) NEGATIVE Urine Ketones NEGATIVE Urine Occult Blood NEGATIVE Urine Nitrite NEGATIVE Urine Bilirubin NEGATIVE Urine Urobilinogen 0.2 (NORMAL) Ur Leukocyte Esterase NEGATIVE Ur Microscopic Review NOT INDICATED Urine Culture Comments NOT INDICATED Imaging/ CXR reviewed per electronic medical record Assessment and plan: Active issues/diagnoses Subacute GI bleed/risk for erosive gastritis, gastric ulcer in the setting of prednisone use Anemia/likely secondary to subacute GI blood loss, in addition patient could have nutritional deficiencies Per EMR review patient had coagulopathy in the past/likely has vitamin K deficiency Generalized weakness secondary to worsening anemia, debility and chronic medical problems Borderline low oxygen saturation multifactorial/anemia superimposed on chronic lung disease/pulmonary fibrosis/plus minus aspiration Aspiration risk in the setting of chronic opiate use Functional impairment/frequent falls/cognitive impairment/failure to thrive/malnutrition/depression Multiple chronic medical problems as outlined at past medical history Plan and orders: Admitted under observation ER physician requested covering surgeon to consider endoscopy N.p.o. after midnight Proton pump inhibitor Per EMR review patient benefited from prednisone which was used for chronic pain, if she will be on prednisone long-term she will need to continue PPI Continue checking blood counts Check INR/coags Anemia work-up/iron panel/reticulocyte count/folate, B12 SCDs for DVT prophylaxis Aspiration precaution/incentive spirometry, bronchodilator Awaiting official read of chest x-ray Reconcile outpatient medications continue as appropriate Full CODE STATUS/advance care planning discussion to continue Attestation: I certify that the patient meets criteria for observation,based on the admission diagnosis, and the above assessment, findings and plan; she is expected to be hospitalized for less than 48 hours.
[2020-10-27] MEDS ORDERED: SODIUM CHLORIDE 0.9% 1,000 ML IV SCH (03:00)
[2020-10-27 03:21] LABS: B. PARAPERTUSSIS- RESP PCR PAN NOT DETECTED; B. PERTUSSIS- RESP PCR PANEL NOT DETECTED; C. PNEUMONIAE- RESP PCR PANEL NOT DETECTED; CORONAVIRUS 229E-RESP PCR NOT DETECTED; CORONAVIRUS HKU1-RESP PCR NOT DETECTED; CORONAVIRUS NL63-RESP PCR NOT DETECTED; CORONAVIRUS OC43-RESP PCR NOT DETECTED; HUMAN METAPNEUMOVIRUS NOT DETECTED; INFLUENZA A- RESP PCR PANEL NOT DETECTED; INFLUENZA B - RESP PCR PANEL NOT DETECTED; M. PNEUMONIAE- RESP PCR PANEL NOT DETECTED; PARAINFLUENZA VIRUS 1 NOT DETECTED; PARAINFLUENZA VIRUS 2 NOT DETECTED; PARAINFLUENZA VIRUS 3 NOT DETECTED; PARAINFLUENZA VIRUS 4 NOT DETECTED; RHINOVIRUS/ENTEROVIRUS NOT DETECTED; RSV- RESP PCR PANEL NOT DETECTED; SARS-CoV-2 -RESP PCR PANEL NOT DETECTED
[2020-10-27 06:21] LABS: BASOPHILS % (AUTO) 0.4 %; EOSINOPHILS # (AUTO) 0.2 10^3/uL (0.0-0.7); EOSINOPHILS % (AUTO) 2.2 %; HCT - HEMATOCRIT 30.1 % (37.0-47.0); HGB - HEMOGLOBIN 9.2 g/dL (12.0-16.0); LYMPHOCYTES # (AUTO) 1.4 10^3/uL (1.5-3.5); LYMPHOCYTES % (AUTO) 16.8 %; MEAN CORPUSCULAR HEMOGLOBIN 30.3 pg (27.0-31.0); MEAN CORPUSCULAR HGB CONC 30.6 g/dL (32.0-36.0); MEAN PLATELET VOLUME 9.3 fL (7.9-10.8); MONOCYTES # (AUTO) 0.8 10^3/uL (0.0-1.0); MONOCYTES % (AUTO) 10.3 %; NEUTROPHILS # (AUTO) 5.4 10^3/uL (1.5-6.6); NEUTROPHILS % (AUTO) 66.5 %; PLT - PLATELET COUNT 239 10^3/uL (130-450); RED BLOOD COUNT 3.04 10^6/uL (4.20-5.40); RED CELL DISTRIBUTION WIDTH 13.4 % (12.0-15.0); WHITE BLOOD COUNT 8.1 x10^3/uL (4.8-10.8)
[2020-10-27 06:26] LABS: INR 1.2 (0.8-1.2); PT - PROTHROMBIN TIME 12.8 secs (9.9-12.6)
--- NOTE | 2020-10-27 08:35 | XRAY Report ---
PROCEDURE: Chest 1 View X-Ray INDICATIONS: chest pain TECHNIQUE: One view of the chest was acquired. COMPARISON: Lung bases on CT 10/22/2020. CXR 10/22/2020, 07/29/2020, 04/23/2019. Lung apices on CT cervical spine 04/23/2019. CT chest 04/11/2019. FINDINGS: Surgical changes and devices: None. Lungs and pleura: No pleural effusions or pneumothorax. Increased lung volumes. Chronic increased pu lmonary interstitial markings. Chronic biapical pleural scarring. Mediastinum: Mediastinal contours appear unchanged. Heart size is within normal limits. Bones and chest wall: No suspicious bony lesions. Overlying soft tissues appear unremarkable. IMPRESSION: No acute airspace opacity identified. Hyperinflation. Chronic pulmonary interstitial disease/fibrosis. This report is concordant with the overnight preliminary interpretation. Reviewed by: Clarke Scott MD on 10/27/2020 7:34 AM FANNY Approved by: Clarke Scott MD on 10/27/2020 7:34 AM FANYN Station ID: [id number]
[2020-10-27] MEDS: METOPROLOL TARTRATE 25 MG TABLET PO SCH ×2 (09:16→20:49)
[2020-10-27] MEDS: METHADONE 5 MG TABLET PO SCH ×2 (09:16→20:49)
[2020-10-27] MEDS: buPROPion SR 150 MG TABLET PO SCH ×2 (09:16→20:50)
[2020-10-27] MEDS: DULoxetine 30 MG CAPSULE PO SCH (09:16)
[2020-10-27] MEDS: MULTIVITAMIN TABLET PO SCH (09:16)
[2020-10-27] MEDS: PANTOPRAZOLE 40 MG VIAL IVP SCH ×2 (09:17→20:50)
[2020-10-27] MEDS: polyethylene glycoL 3350 17 GM PACKET PO SCH (09:17)
[2020-10-27] MEDS: SODIUM CHLORIDE FLUSH 0.9% 10 ML SYRINGE IVP SCH ×2 (09:17→17:01)
--- NOTE | 2020-10-27 09:39 | PHARMACY PROGRESS NOTE ---
- Best Possible Medication History Admit Date and Time: 10/27/20 0240 Processed by: Pharmacy Medication History completed: Yes Patient Interview: Pt unable to participate Secondary Source(s): Previous admit records As the person ultimately responsible for medication therapy, providers are able to order a medication from an existing home medication list in [facility] via the "Reconcile Routine" prior to Confirmation of that medication by ict customer support officer. Such practice is discouraged except when the physician, in their clinical judgment, deems that a medical need exists for a medication without regard to previous use.
--- NOTE | 2020-10-27 09:47 | CONSULTATION NOTE ---
Referring Provider Name of Referring Provider:: Pedro Consult Date: 10/27/20 Chief Complaint - Chief Complaint Chief Complaint: anemia, epigastric pain History of Present Illness - History Obtained From Records Reviewed: Dr Vasquez and Dr Pedersen History obtained from: Patient - History of Present Illness HPI Comment/Other: 80 y o female admitted last night with worsening anemia. She has a hx of chronic pain and opiate dependence and was recently admitted here for unintentional opiate overdose. She has had intermittent somnolence and confusion at home and also some shortness of breath. When brought to ED last night she was found to have a Hb drop from 12 to 9, and also complained of some epigastric pain. She denies seeing blood in her stool or melena, and she denies hematemesis or use of NSAIDs. She is on chronic prednisone. She was started on PPI last night. She has a hx of gastritis and says her last EGD was about two years ago. History - Past Medical History Cardiovascular: reports: Hypertension Respiratory: reports: Emphysema, Pneumonia Neuro: reports: Dementia Endocrine/Autoimmune: reports: None GI: reports: GERD, Ulcers, Chronic constipation, Diverticulitis, Other PELT DROPPER: reports: None : reports: Incontinence, Nocturia, Frequency, Other HEENT: reports: Chronic vision loss, Other Psych: reports: Depression, Anxiety Musculoskeletal: reports: Osteoarthritis, Chronic back pain Derm: reports: None, Herpes zoster MRSA Hx?: No Other Past Medical History: missing teeth, falls - Past Surgical History General: reports: Cholecystectomy, Bowel surgery Ortho: reports: Hip replacement /PELT DROPPER: reports: Hysterectomy HEENT: reports: Cataracts Derm: reports: Skin cancer surgery - Family & Social History Family History: Mother: , Cancer (colon at age 85), Father: , Sister: Alive and Well, Brother: Alive and Well Family History Comment/Other: The patient's mother from colon cancer age 85. She was estranged from her father and she does not know what he may have from other than old age in his 80's. She has 3 sisters, and one brother. All are alive and well, one of her sisters has cerebal palsy, but functions well. She has 2 chldren and one has lupus and the other has heart disease. Social History Notes: [place] the [place]. She and her second Mason moved here for skilled nursing from [place]. He built homes for a living and built the home that they live in. [place] 2 grown [place] 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 Her latest hobby was to Skype a book club group, but she states that her health has restricted her from many things she used to enjoy. She denies illicit drug use, tobacco use, or alcohol use. She wishes to be a FULL code and wishes to "talk about this later".She started smoking at the age of 15 and smoked half a pack per day until 2016. She does have a history of alcoholism. - Substance History Use: Uses substance without health or social issues: NONE - POLST Patient has POLST: No POLST Status: Full Code Meds/Allgy - Home Medications Home Medications: Ambulatory Orders Medication Instructions Recorded Confirmed Metoprolol Tartrate 25 mg PO BID 01/31/16 10/27/20 Multivitamin [Theragran] 1 tab PO DAILY 01/31/16 10/27/20 buPROPion [Wellbutrin Sr] 150 mg PO BID 02/24/18 10/27/20 Duloxetine HCl 60 mg PO DAILY 04/11/19 10/27/20 ALPRAZolam [Alprazolam] 0.25 mg PO Q8HR PRN #12 tablet 10/23/20 10/27/20 Methadone HCl 10 mg PO BID 10/23/20 10/27/20 polyethylene glycoL 3350 [Miralax] 17 gm PO DAILY packet 10/23/20 10/27/20 predniSONE [Deltasone] 10 mg PO DAILY 10/23/20 10/27/20 Mirtazapine 7.5 mg PO QPM 10/27/20 10/27/20 Valsartan 160 mg PO DAILY 10/27/20 10/27/20 - Allergies Allergies/Adverse Reactions: Allergies Allergy/AdvReac Type Severity Reaction Status Date / Time No Known Drug Allergies Allergy Verified 10/22/20 14:53 Exam - Vital Signs Reviewed Vital Signs: Yes Vital Signs: Vital Signs x48h Temp Pulse Resp BP Pulse Ox 10/27/20 08:00 36.8 C 60 18 130/69 96 10/27/20 04:13 36.7 C 59 L 16 153/86 H 99 - Physical Exam General Appearance: positive: No acute distress, Other (Frail. Alert.) Eyes Bilateral: positive: Normal inspection ENT: positive: ENT inspection nml Neck: positive: Trachea midline Respiratory: positive: No respiratory distress Cardiovascular: positive: Regular rate & rhythm Abdomen: positive: No distention, Tenderness (Mild epigastric tenderness). negative: Guarding, Rebound Extremities: positive: No pedal edema Conclusion and Plan - Lab Results Microbiology Results 10/27/20 00:50 Stool Occult Blood - Final Laboratory Results 10/27/20 06:14: PT 12.8 H, INR 1.2 10/27/20 06:14: WBC 8.1, RBC 3.04 L, Hgb 9.2 L, Hct 30.1 L, MCV 99.0, MCH 30.3, MCHC 30.6 L, RDW 13.4, Plt Count 239, MPV 9.3, Neut # (Auto) 5.4, Lymph # (Auto) 1.4 L, [place] # (Auto) 0.8, Eos # (Auto) 0.2, Baso # (Auto) 0.0, Absolute Nucleated RBC 0.00, Nucleated RBC % 0.0 10/27/20 02:31: Nasal Adenovirus (PCR) NOT DETECTED, Nasal B. parapertussis DNA (PCR) NOT DETECTED, Nasal Coronavir 229E PCR NOT DETECTED, Nasal Coronavir HKU1 PCR NOT DETECTED, Nasal Coronavir NL63 PCR NOT DETECTED, Nasal Coronavir OC43 PCR NOT DETECTED, Nasal Enterovir/Rhinovir PCR NOT DETECTED, Nasal Influenza B PCR NOT DETECTED, Nasal Influenza A PCR NOT DETECTED, Nasal Parainfluen 1 PCR NOT DETECTED, Nasal Parainfluen 2 PCR NOT DETECTED, Nasal Parainfluen 3 PCR NOT DETECTED, Nasal Parainfluen 4 PCR NOT DETECTED, Nasal RSV (PCR) NOT DETECTED, Nasal B.pertussis DNA PCR NOT DETECTED, Nasal C.pneumoniae (PCR) NOT DETECTED, [place] Human Metapneumo PCR NOT DETECTED, Nasal M.pneumoniae (PCR) NOT DETECTED, Nasal SARS-CoV-2 (PCR) NOT DETECTED 10/27/20 00:50: Urine Color YELLOW, Urine Clarity CLEAR, Urine pH 6.0, Ur Specific [place] 1.025, Urine Protein NEGATIVE, Urine Glucose (UA) NEGATIVE, Urine Ketones NEGATIVE, Urine Occult Blood NEGATIVE, Urine Nitrite NEGATIVE, Urine Bilirubin NEGATIVE, Urine Urobilinogen 0.2 (NORMAL), Ur Leukocyte Esterase NEGATIVE, Ur Microscopic Review NOT INDICATED, Urine Culture Comments NOT INDICATED 10/26/20 23:56: Lactic Acid 0.3 L 10/26/20 23:56: Sodium 132 L, Potassium 5.1 H, Chloride 93 L, Carbon Dioxide 30, Anion Gap 9.0, BUN 35 H, Creatinine 1.0, Estimated GFR (MDRD) 53 L, Glucose 96, Calcium 8.6, Magnesium 2.4, Total Bilirubin 0.5, AST 66 H, ALT 102 H, Alkaline Phosphatase 202 H, Total Protein 6.3 L, Albumin 2.9 L, Globulin 3.4, Albumin/Globulin Ratio 0.9 L, Lipase 18 L 10/26/20 23:56: WBC 10.2, RBC 3.05 L, Hgb 9.4 L, Hct 30.1 L, MCV 98.7, MCH 30.8, MCHC 31.2 L, RDW 13.3, Plt Count 260, MPV 9.7, Neut # (Auto) 7.5 H, Lymph # (Auto) 1.3 L, [place] # (Auto) 0.9, Eos # (Auto) 0.2, Baso # (Auto) 0.0, Absolute Nucleated RBC 0.00, Nucleated RBC % 0.0 - Diagnostic Imaging Results Diagnostic Imaging Results: positive: Final report reviewed (CXR shows hyperinflation) - Diagnosis Diagnosis: Anemia, hx of gastritis, on chronic prednisone and opiates - Consultation Note Consultation Note: With drop in hemoglobin and hx of gastritis, epigastric pain, possible ulcer hx, EGD is indicated. - Plan Plan: EGD will be scheduled today. Patient has signed consent.
[2020-10-27 09:54] LABS: ABSOLUTE RETICS # AUTO 0.039 10^6/uL (0.020-0.110); RED BLOOD COUNT 2.98 10^6/uL (4.20-5.40); RETICULOCYTE COUNT % (AUTO) 1.3 % (0.5-2.3)
[2020-10-27 10:33] LABS: % IRON SATURATION 9 % (20-50); IRON 24 ug/dL (28-170); TOTAL IRON BINDING CAPACITY 267 ug/dL (250-450); TRANSFERRIN 191 mg/dL (192-382)
[2020-10-27 12:00] LABS: FOLATE 10.24 ng/mL (5.90 - >24.8)
[2020-10-27] MEDS: IPRATROPIUM/ALBUTEROL 3 ML NEB INH SCH ×3 (14:36→23:01)
[2020-10-27] MEDS ORDERED: fentaNYL 100 MCG/2 ML VIAL ONE (14:57)
[2020-10-27] MEDS ORDERED: LIDOCAINE-MPF 2% 5 ML VIAL ONE (14:57)
[2020-10-27] MEDS ORDERED: PROPOFOL 200 MG/20 ML VIAL IVP ONE (14:57)
[2020-10-27] MEDS ORDERED: SIMETHICONE 40 MG/0.6 ML 30 ML BOTTLE PO ONE (15:59)
[2020-10-27] MEDS ORDERED: LACTATED RINGERS 1,000 ML IV ONE (16:16)
[2020-10-27] MEDS ORDERED: ATROPINE ABBOJECT 1 MG/10 ML SYRINGE IVP PRN (16:20)
[2020-10-27] MEDS ORDERED: fentaNYL 100 MCG/2 ML VIAL IVP PRN (16:20)
[2020-10-27] MEDS ORDERED: ePHEDrine 50 MG/ML VIAL IVP PRN (16:20)
[2020-10-27] MEDS ORDERED: NALOXONE 0.4 MG/ML VIAL IVP PRN (16:20)
[2020-10-27] MEDS ORDERED: MORPHINE 2 MG/ML CARPUJECT IVP PRN (16:20)
[2020-10-27] MEDS ORDERED: HYDROmorphone 0.5 MG/0.5 ML SYRINGE IVP PRN (16:20)
--- NOTE | 2020-10-27 16:20 | ANESTHESIA ---
Pre-Anesthesia VS, & Labs - Diagnosis Diagnosis Anemia, hx of gastritis, on chronic prednisone and opiates anemia - Procedure EGD Vital Signs: Temp Pulse Resp BP Pulse Ox 36.7 C 53 L 12 104/53 L 92 10/27/20 16:10 10/27/20 16:10 10/27/20 16:10 10/27/20 16:10 10/27/20 16:10 Height: 5 ft 8.5 in Weight (kg): 54.5 kg Body Mass Index: 18.0 BMI Classification: Underweight - NPO >8 hours - Is Patient ?: No - Lab Results Current Lab Results: Laboratory Tests 10/27/20 08:48: Vitamin B12 460, Folate 10.24 10/27/20 08:48: Iron 24 L, TIBC 267, % Saturation 9 L, Transferrin 191 L 10/27/20 08:48: RBC 2.98 L, Reticulocyte % (Auto) 1.30, Absolute Retic 0.039 10/27/20 06:14: PT 12.8 H, INR 1.2 10/27/20 06:14: WBC 8.1, RBC 3.04 L, Hgb 9.2 L, Hct 30.1 L, MCV 99.0, MCH 30.3, MCHC 30.6 L, RDW 13.4, Plt Count 239, MPV 9.3, Neut # (Auto) 5.4, Lymph # (Auto) 1.4 L, [place] # (Auto) 0.8, Eos # (Auto) 0.2, Baso # (Auto) 0.0, Absolute Nucleated RBC 0.00, Nucleated RBC % 0.0 10/26/20 23:56: Lactic Acid 0.3 L 10/26/20 23:56: Sodium 132 L, Potassium 5.1 H, Chloride 93 L, Carbon Dioxide 30, Anion Gap 9.0, BUN 35 H, Creatinine 1.0, Estimated GFR (MDRD) 53 L, Glucose 96, Calcium 8.6, Magnesium 2.4, Total Bilirubin 0.5, AST 66 H, ALT 102 H, Alkaline Phosphatase 202 H, Total Protein 6.3 L, Albumin 2.9 L, Globulin 3.4, Albumin/Globulin Ratio 0.9 L, Lipase 18 L 10/26/20 23:56: WBC 10.2, RBC 3.05 L, Hgb 9.4 L, Hct 30.1 L, MCV 98.7, MCH 30.8, MCHC 31.2 L, RDW 13.3, Plt Count 260, MPV 9.7, Neut # (Auto) 7.5 H, Lymph # (Auto) 1.3 L, [place] # (Auto) 0.9, Eos # (Auto) 0.2, Baso # (Auto) 0.0, Absolute Nucleated RBC 0.00, Nucleated RBC % 0.0 Fish Bones: 10/27/20 06:14 10/26/20 23:56 Home Medications and Allergies Home Medications: Ambulatory Orders Mirtazapine 7.5 mg PO QPM 10/27/20 Valsartan 160 mg PO DAILY 10/27/20 Active Medications Albuterol/Ipratropium (Ipratropium/Albuterol 3 Ml Neb) 3 ml INH TID [facility] Last Admin: 10/27/20 14:36 Dose: 3 ml Documented by: Alprazolam (Alprazolam 0.25 Mg Tablet) 0.25 mg PO Q8HR PRN PRN Reason: Anxiety Bupropion HCl (Bupropion Sr 150 Mg Tablet) 150 mg PO BID [facility] Last Admin: 10/27/20 09:16 Dose: 150 mg Documented by: Duloxetine HCl (Duloxetine 30 Mg Capsule) 60 mg PO DAILY [facility] Last Admin: 10/27/20 09:16 Dose: 60 mg Documented by: Methadone HCl (Methadone 5 Mg Tablet) 10 mg PO BID [facility] Last Admin: 10/27/20 09:16 Dose: 10 mg Documented by: Metoprolol Tartrate (Metoprolol Tartrate 25 Mg Tablet) 25 mg PO BID [facility] Last Admin: 10/27/20 09:16 Dose: 25 mg Documented by: Multivitamins (Multivitamin Tablet) 1 tab PO DAILY [facility] Last Admin: 10/27/20 09:16 Dose: 1 tab Documented by: Ondansetron HCl (Ondansetron 4 Mg/2 Ml Vial) 4 mg IVP Q6HR PRN PRN Reason: Nausea / Vomiting Pantoprazole Sodium (Pantoprazole 40 Mg Vial) 40 mg IVP BID [facility] Last Admin: 10/27/20 09:17 Dose: 40 mg Documented by: Polyethylene Glycol (Polyethylene Glycol 3350 17 Gm Packet) 17 gm PO DAILY [facility] Last Admin: 10/27/20 09:17 Dose: 17 gm Documented by: Sodium Chloride (Sodium Chloride Flush 0.9% 10 Ml Syringe) 10 ml IVP PRN PRN PRN Reason: NEEDED PER PROVIDER ORDERS Sodium Chloride (Sodium Chloride Flush 0.9% 10 Ml Syringe) 10 ml IVP 0100,0900,1700 [facility] Last Admin: 10/27/20 09:17 Dose: 10 ml Documented by: Metoprolol Tartrate 25 mg PO BID 01/31/16 Multivitamin [Theragran] 1 tab PO DAILY 01/31/16 buPROPion [Wellbutrin Sr] 150 mg PO BID 02/24/18 Duloxetine HCl 60 mg PO DAILY 04/11/19 Methadone HCl 10 mg PO BID 10/23/20 predniSONE [Deltasone] 10 mg PO DAILY 10/23/20 Mirtazapine 7.5 mg PO QPM 10/27/20 Valsartan 160 mg PO DAILY 10/27/20 Allergies/Adverse Reactions: Allergies Allergy/AdvReac Type Severity Reaction Status Date / Time No Known Drug Allergies Allergy Verified 10/22/20 14:53 Anes History & Medical History - Anesthetic History Anesthesia Complications: reports: No previous complications Family history of Anesthesia Complications: Denies Family history of Malignant Hyperthermia: Denies - Medical History Cardiovascular: reports: Hypertension Pulmonary: reports: Emphysema, Pneumonia Gastrointestinal: reports: GERD, Ulcers, Chronic constipation, Diverticulitis, Other Urinary: reports: Incontinence, Nocturia, Frequency, Other Neuro: reports: Dementia Musculoskeletal: reports: Osteoarthritis, Chronic back pain Endocrine/Autoimmune: reports: None Blood Disorders: reports: None Skin: reports: None, Herpes zoster Smoking Status: Current every day smoker Other Past Medical History: missing teeth, falls - Surgical History General: reports: Cholecystectomy, Bowel surgery Eyes Ears Nose Throat (EENT): reports: Cataracts Gynecologic: reports: Hysterectomy Orthopedic: reports: Hip replacement Dermatologic: reports: Skin cancer surgery Exam General: Alert, Oriented x3, Cooperative Dental: WNL Mouth Openin Fingerbreadth Neck Mobility: Normal Mallampati classification: II Thyromental Distance: 4-6 cm Respiratory: Lungs clear Cardiovascular: Regular rate Plan Anesthesia Type: Total IV Consent for Procedure(s) Verified and Reviewed: Yes Code Status: Attempt Resuscitation ASA classification: 3-Severe systemic disease Is this case an emergency?: No
[2020-10-27 16:58] LABS: HCT - HEMATOCRIT 30.5 % (37.0-47.0); HGB - HEMOGLOBIN 9.2 g/dL (12.0-16.0)
[2020-10-27] MEDS ORDERED: LACTATED RINGERS 1,000 ML IV SCH (17:00)
[2020-10-27] MEDS: ALPRAZolam 0.25 MG TABLET PO PRN (20:55)
[2020-10-28] MEDS: SODIUM CHLORIDE FLUSH 0.9% 10 ML SYRINGE IVP SCH ×4 (00:41→23:26)
[2020-10-28 05:38] LABS: HGB - HEMOGLOBIN 9.4 g/dL (12.0-16.0); MEAN CORPUSCULAR HEMOGLOBIN 30.2 pg (27.0-31.0); MEAN CORPUSCULAR HGB CONC 30.3 g/dL (32.0-36.0); MEAN CORPUSCULAR VOLUME 99.7 fL (81.0-99.0); MEAN PLATELET VOLUME 9.8 fL (7.9-10.8); RED BLOOD COUNT 3.11 10^6/uL (4.20-5.40); RED CELL DISTRIBUTION WIDTH 13.5 % (12.0-15.0); WHITE BLOOD COUNT 10.6 x10^3/uL (4.8-10.8)
[2020-10-28 05:48] LABS: CALCIUM 8.3 mg/dL (8.5-10.3); CREATININE 0.7 mg/dL (0.4-1.0); POTASSIUM 4.7 mmol/L (3.5-5.0)
[2020-10-28] MEDS: IPRATROPIUM/ALBUTEROL 3 ML NEB INH SCH ×3 (07:31→18:44)
[2020-10-28] MEDS: PANTOPRAZOLE 40 MG VIAL IVP SCH (09:23)
[2020-10-28] MEDS: buPROPion SR 150 MG TABLET PO SCH ×2 (09:25→21:14)
[2020-10-28] MEDS: METHADONE 5 MG TABLET PO SCH ×2 (09:25→21:14)
[2020-10-28] MEDS: METOPROLOL TARTRATE 25 MG TABLET PO SCH ×2 (09:25→21:14)
[2020-10-28] MEDS: polyethylene glycoL 3350 17 GM PACKET PO SCH (09:26)
[2020-10-28] MEDS: DULoxetine 30 MG CAPSULE PO SCH (09:26)
[2020-10-28] MEDS: MULTIVITAMIN TABLET PO SCH (09:26)
[2020-10-28 10:08] LABS: ALBUMIN 2.4 g/dL (3.2-5.5); BILIRUBIN,DIRECT 0.3 mg/dL (0.1-0.5); BILIRUBIN,TOTAL 0.9 mg/dL (0.2-1.0); TOTAL PROTEIN 5.6 g/dL (6.7-8.2)
--- NOTE | 2020-10-28 14:57 | PROVIDER PROGRESS NOTE ---
Assessment/Plan - Problem List (1) Symptomatic anemia Assessment/Plan: The patient was discharged several days ago with a hemoglobin of 12 and now it has dropped to 9 and she is symptomatic with this with dyspnea and weakness. The hemoglobin has been stable at 9-9.4 throughout this hospital stay, she has n ot needed transfusions. The work-up for cause of anemia is heme positive stool and the EGD showed ga stritis which may not have caused this extent of bleeding. We will start her on oral iron replacement since her iron stores are low. She should have further GI work-up done by the outpatient pecan grower that she is already scheduled to see on November 19 (I discussed this entire plan in detail with her daughter Tyrel by phone today). Follow her H/H daily or more frequently if it is dropping. Consider transfusion because she is so symptomatic given the underlying pulmonary fibrosis. We will definitely transfuse if hemoglobin goes under 7 (2) Gastritis Assessment/Plan: The EGD showed extensive gastritis which could be from her steroid use. I asked the daughter why she is on steroids during her phone call today. Her PCP started the steroids for or "appetite stimulation". Continue with twice daily Protonix and discharged on this. Avoid aspirin and NSAIDs. We will do a rapid steroid taper since she was on prednisone 10 mg daily, will decrease to 5 mg daily for the next 4 days then stop. I advised the daughter, and Dr Grant advised, that further GI work-up for bleeding source be ordered by the new pecan grower that she is schedukled to see on 11/19/20 (colonoscopy and possible pill camera of the small intestine) (3) Acute on chronic respiratory failure with hypoxia Assessment/Plan: The patient was dyspneic when she worked with physical therapy today and needed to sit and stop to rest. Her oxygen saturation has dropped to 86% on room air today and she is getting 1 to 2 L of oxygen supplemental starting today. I spoke with the daughter Tyrel by phone today, who gave me more Hx: This patient has Pulm Fibrosis and was on Home O2 in the past, then it was turned in several ?mos ago, because ?she did not need it. (4) Pulmonary fibrosis Assessment/Plan: With underlying pulmonary fibrosis, as she got more anemic she got more short of breath. We will continue with supplemental oxygen now and she will need an oximetry walk test to order new oxygen again for home with a diagnosis of pulmonary fibrosis. We will continue with nebulizers/inhalers and discharge her on these if she needs them refilled (5) Generalized weakness Assessment/Plan: This is likely multifactorial: From 2 hospitalizations within 1 month, marked deconditioning, underlying shortness of breath from pulmonary fibrosis and excessive opioid use causing somnolence. The patient is very interested in physical therapy (daughter says she is lonely and would welcome having somebody work with her). Home Health PT and ?OT was ordered at the last admission and needs to be resumed at the time of discharge. I discussed with the daughter that the patient needs to have supervision so as not to take excessive opiates and sedatives. She should not be taking Gummy bears with THC at all. (6) Chronic generalized abdominal pain Assessment/Plan: After her GI surgery several years ago, she is chronic abdominal pain. She has been on [place], Xanax, gabapentin, marijuana gummy bears and takes antidepre ssants for this. She has had work-up for why there is continued abdominal pain and no one has found a cause, according to the daughter's history to me today. She is scheduled to see a new pecan grower on November 19. I advised that further GI work-up be ordered by that pecan grower (colon oscopy and possible pill camera of the small intestine (7) Opioid dependence Assessment/Plan: Additional history from the daughter is that the patient's PCP, Dr. Woo, has changed her from [place] to methadone and she was getting 10 mg twice daily for 2 weeks and then 15 mg twice daily recently. In addition she gets antidepressants, Xanax, gabapentin and was taking THC gummy bears. This is probably adding to her frequent falls, poor memory and weakness. Continue with decreasing use of these various medications and continue with the methadone plan with her PCP. The daughter is planning to stay here for about another month in order to get everything reconciled with the mother, especially to take her to her November 19 GI appointment (8) HTN (hypertension) Qualifiers: Hypertension type: primary hypertension Qualified Code(s): I10 - Essential (primary) hypertension Assessment/Plan: On her current medication regimen, but valsartan is on hold - Current Meds Current Meds: Current Medications Generic Name Dose Route Start Last Admin Trade Name Freq PRN Reason Stop Dose Admin Albuterol/Ipratropium 3 ml 10/27/20 06:00 10/28/20 07:31 Ipratropium/Albuterol 3 Ml Neb INH 3 ml TID [facility] Administration Alprazolam 0.25 mg 10/27/20 02:13 10/27/20 20:55 Alprazolam 0.25 Mg Tablet PO 0.25 mg Q8HR PRN Administration Anxiety Bupropion HCl 150 mg 10/27/20 09:00 10/28/20 09:25 Bupropion Sr 150 Mg Tablet PO 150 mg BID [facility] Administration Duloxetine HCl 60 mg 10/27/20 09:00 10/28/20 09:26 Duloxetine 30 Mg Capsule PO 60 mg DAILY [facility] Administration Methadone HCl 10 mg 10/27/20 09:00 10/28/20 09:25 Methadone 5 Mg Tablet PO 10 mg BID [facility] Administration Metoprolol Tartrate 25 mg 10/27/20 09:00 10/28/20 09:25 Metoprolol Tartrate 25 Mg Tablet PO 25 mg BID [facility] Administration Multivitamins 1 tab 10/27/20 09:00 10/28/20 09:26 Multivitamin Tablet PO 1 tab DAILY [facility] Administration Polyethylene Glycol 17 gm 10/27/20 09:00 10/28/20 09:26 Polyethylene Glycol 3350 17 Gm Packet PO 17 gm DAILY [facility] Administration Sodium Chloride 10 ml 10/27/20 09:00 10/28/20 09:24 Sodium Chloride Flush 0.9% 10 Ml Syringe IVP 10 ml 0100,0900,1700 [facility] Administration - Lab Result Fish Bone Diagrams: 10/28/20 05:02 10/28/20 05:02 - Additional Planning My Orders: My Active Orders 10/27/20 14:37 Nebulizer [Nebulizer/MDI Tx.] [RC] .QID 10/28/20 Breakfast DIET [Soft Mechanical Diet] [DIET] 10/28/20 21:00 Mirtazapine [Remeron] 7.5 mg PO QPM Pantoprazole [Protonix] 40 mg PO BID [facility] Vital Signs: Vital Signs - 24 hr 10/27/20 10/27/20 10/27/20 16:00 16:09 16:10 Temperature 36.8 C 36.7 C 36.7 C Heart Rate 56 L 53 L Heart Rate [ 56 L Brachial] Respiratory 16 12 12 Rate Blood Pressure 86/48 L 104/53 L Blood Pressure 122/75 [Right Brachial artery] O2 Saturation 92 92 10/27/20 10/27/20 10/27/20 16:15 16:20 16:25 Temperature 36.7 C 35.4 C L 36.9 C Heart Rate 54 L 55 L 55 L Heart Rate [ Brachial] Respiratory 14 12 12 Rate Blood Pressure 103/57 L 112/62 Blood Pressure [Right Brachial artery] O2 Saturation 97 99 92 10/27/20 10/27/20 10/27/20 20:49 22:40 23:54 Temperature 37.1 C Heart Rate 56 L Heart Rate [ 60 Brachial] Respiratory 16 16 Rate Blood Pressure 122/75 Blood Pressure 146/71 H [Right Brachial artery] O2 Saturation 94 10/28/20 10/28/20 10/28/20 07:32 07:35 07:36 Temperature Heart Rate 78 Heart Rate [ Brachial] Respiratory 14 Rate Blood Pressure Blood Pressure [Right Brachial artery] O2 Saturation 96 96 10/28/20 10/28/20 10/28/20 07:45 07:46 07:54 Temperature 37.2 C Heart Rate Heart Rate [ 66 Brachial] Respiratory Rate Blood Pressure Blood Pressure 127/68 [Right Brachial artery] O2 Saturation 82 L 82 L 82 L 10/28/20 10/28/20 10/28/20 08:00 09:25 10:20 Temperature Heart Rate Heart Rate [ Brachial] Respiratory Rate Blood Pressure 140/97 H Blood Pressure [Right Brachial artery] O2 Saturation 91 L 95 10/28/20 10/28/20 10:22 10:24 Temperature Heart Rate Heart Rate [ Brachial] Respiratory Rate Blood Pressure Blood Pressure [Right Brachial artery] O2 Saturation 86 L 91 L Oxygen O2 Source [Without Activity] Room air O2 Source [With Activity] Nasal cannula O2 Source Nasal cannula Oxygen Flow Rate 2 I&O (Last 24 Hrs): Intake and Output Totals x24h 10/26/20 10/27/20 10/28/20 23:59 23:59 23:59 Intake Total 3420 840 Output Total 150 400 Balance 3270 440 General: Alert, Other (Cachectic lad\\yy, appears pale) HEENT: Atraumatic, EOMI Neck: Supple Neuro: Alert, Disoriented, Non Focal Cardiovascular: Regular rate Respiratory: No respiratory distress, Other (wearing O2 n.c.) Abdomen: Soft Extremities: No edema - Results Results: Laboratory Results WBC 10.6 x10^3/uL (4.8-10.8) 10/28/20 05:02 RBC 3.11 10^6/uL (4.20-5.40) L 10/28/20 05:02 Hgb 9.4 g/dL (12.0-16.0) L 10/28/20 05:02 Hct 31.0 % (37.0-47.0) L 10/28/20 05:02 MCV 99.7 fL (81.0-99.0) H 10/28/20 05:02 MCH 30.2 pg (27.0-31.0) 10/28/20 05:02 MCHC 30.3 g/dL (32.0-36.0) L 10/28/20 05:02 RDW 13.5 % (12.0-15.0) 10/28/20 05:02 Plt Count 245 10^3/uL (130-450) 10/28/20 05:02 MPV 9.8 fL (7.9-10.8) 10/28/20 05:02 Reticulocyte % (Auto) 1.30 % (0.5-2.3) 10/27/20 08:48 Neut # (Auto) 5.4 10^3/uL (1.5-6.6) 10/27/20 06:14 Lymph # (Auto) 1.4 10^3/uL (1.5-3.5) L 10/27/20 06:14 [place] # (Auto) 0.8 10^3/uL (0.0-1.0) 10/27/20 06:14 Eos # (Auto) 0.2 10^3/uL (0.0-0.7) 10/27/20 06:14 Baso # (Auto) 0.0 10^3/uL (0.0-0.1) 10/27/20 06:14 Absolute Nucleated RBC 0.00 x10^3/uL 10/27/20 06:14 Nucleated RBC % 0.0 /100WBC 10/27/20 06:14 Absolute Retic 0.039 10^6/uL (0.020-0.110) 10/27/20 08:48 PT 12.8 secs (9.9-12.6) H 10/27/20 06:14 INR 1.2 (0.8-1.2) 10/27/20 06:14 Sodium 134 mmol/L (135-145) L 10/28/20 05:02 Potassium 4.7 mmol/L (3.5-5.0) 10/28/20 05:02 Chloride 99 mmol/L (101-111) L 10/28/20 05:02 Carbon Dioxide 30 mmol/L (21-32) 10/28/20 05:02 Anion Gap 5.0 (6-13) L 10/28/20 05:02 BUN 16 mg/dL (6-20) 10/28/20 05:02 Creatinine 0.7 mg/dL (0.4-1.0) 10/28/20 05:02 Estimated GFR (MDRD) 81 (>89) L 10/28/20 05:02 Glucose 77 mg/dL (70-100) 10/28/20 05:02 Lactic Acid 0.3 mmol/L (0.5-2.2) L 10/26/20 23:56 Calcium 8.3 mg/dL (8.5-10.3) L 10/28/20 05:02 Magnesium 2.4 mg/dL (1.7-2.8) 10/26/20 23:56 Iron 24 ug/dL (28-170) L 10/27/20 08:48 TIBC 267 ug/dL (250-450) 10/27/20 08:48 % Saturation 9 % (20-50) L 10/27/20 08:48 Transferrin 191 mg/dL (192-382) L 10/27/20 08:48 Total Bilirubin 0.9 mg/dL (0.2-1.0) 10/28/20 05:33 Direct Bilirubin 0.3 mg/dL (0.1-0.5) 10/28/20 05:33 AST 32 IU/L (10-42) 10/28/20 05:33 ALT 85 IU/L (10-60) H 10/28/20 05:33 Alkaline Phosphatase 192 IU/L (42-121) H 10/28/20 05:33 Total Protein 5.6 g/dL (6.7-8.2) L 10/28/20 05:33 Albumin 2.4 g/dL (3.2-5.5) L 10/28/20 05:33 Globulin 3.2 g/dL (2.1-4.2) 10/28/20 05:33 Albumin/Globulin Ratio 0.9 (1.0-2.2) L 10/26/20 23:56 Lipase 18 U/L (22-51) L 10/26/20 23:56 Vitamin B12 460 pg/mL (180-914) 10/27/20 08:48 Folate 10.24 ng/mL (5.90 - >24.8) 10/27/20 08:48 Urine Color YELLOW 10/27/20 00:50 Urine Clarity CLEAR (CLEAR) 10/27/20 00:50 Urine pH 6.0 PH (5.0-7.5) 10/27/20 00:50 Ur Specific [place]ick[place] 1.025 (1.002-1.030) 10/27/20 00:50 Urine Protein NEGATIVE mg/dL (NEGATIVE) 10/27/20 00:50 Urine Glucose (UA) NEGATIVE mg/dL (NEGATIVE) 10/27/20 00:50 Urine Ketones NEGATIVE mg/dL (NEGATIVE) 10/27/20 00:50 Urine Occult Blood NEGATIVE (NEGATIVE) 10/27/20 00:50 Urine Nitrite NEGATIVE (NEGATIVE) 10/27/20 00:50 Urine Bilirubin NEGATIVE (NEGATIVE) 10/27/20 00:50 Urine Urobilinogen 0.2 (NORMAL) E.U./dL (NORMAL) 10/27/20 00:50 Ur Leukocyte Esterase NEGATIVE (NEGATIVE) 10/27/20 00:50 Ur Microscopic Review NOT INDICATED 10/27/20 00:50 Urine Culture Comments NOT INDICATED 10/27/20 00:50 Nasal Adenovirus (PCR) NOT DETECTED 10/27/20 02:31 Nasal B. parapertussis DNA (PCR) NOT DETECTED 10/27/20 02:31 Nasal Coronavir 229E PCR NOT DETECTED 10/27/20 02:31 Nasal Coronavir HKU1 PCR NOT DETECTED 10/27/20 02:31 Nasal Coronavir NL63 PCR NOT DETECTED 10/27/20 02:31 Nasal Coronavir OC43 PCR NOT DETECTED 10/27/20 02:31 Nasal Enterovir/Rhinovir PCR NOT DETECTED 10/27/20 02:31 Nasal Influenza B PCR NOT DETECTED 10/27/20 02:31 Nasal Influenza A PCR NOT DETECTED 10/27/20 02:31 Nasal Parainfluen 1 PCR NOT DETECTED 10/27/20 02:31 Nasal Parainfluen 2 PCR NOT DETECTED 10/27/20 02:31 Nasal Parainfluen 3 PCR NOT DETECTED 10/27/20 02:31 Nasal Parainfluen 4 PCR NOT DETECTED 10/27/20 02:31 Nasal RSV (PCR) NOT DETECTED 10/27/20 02:31 Nasal B.pertussis DNA PCR NOT DETECTED 10/27/20 02:31 Nasal C.pneumoniae (PCR) NOT DETECTED 10/27/20 02:31 [place]ade Human Metapneumo PCR NOT DETECTED 10/27/20 02:31 Nasal M.pneumoniae (PCR) NOT DETECTED 10/27/20 02:31 Nasal SARS-CoV-2 (PCR) NOT DETECTED 10/27/20 02:31 - Procedures Procedures: Procedures ANESTH INJECT-SPIN CANAL (10/12/14) CENTRAL VENOUS CATHETER PLACEMENT WITH GUIDANCE (01/14/14) ENDOSC POLYPECTOMY OF LG INTEST (09/07/14) ENDOSCOPIC BIOPSY OF RECTUM (09/07/14) ESOPHAGOGASTRODUODENOSCOPY [EGD] W/CLOSED BIOPSY (09/07/14) EXCISION OF DUODENUM, ENDO, DIAGN (07/19/18) EXCISION OF LOWER ESOPHAGUS, ENDO, DIAGN (07/19/18) EXCISION OF STOMACH, PYLORUS, ENDO, DIAGN (07/19/18) INSERT CATHETER SPINAL CANAL, INFUSION THER. SUB. (10/12/14) INSERTION OF FEEDING DEVICE INTO STOMACH, VIA OPENING (03/31/15) INSERTION OF INFUSION DEV INTO SUP VENA CAVA, PERC APPROACH (03/31/15) INTRODUCTION OF NUTRITIONAL INTO UP GI, VIA OPENING (03/31/15) LG BOWEL STOMA CLOSURE (10/12/14) OPEN AND OTHER SIGMOIDECTOMY (01/14/14) OTH LYSIS-PERITONEAL ADHES (10/12/14) PARENTERAL INFUSION OF CONCENTRATED NUT. SUBSTANCE (10/12/14) PERMANENT COLOSTOMY NEC (01/14/14) URETERAL CATHETERIZATION (10/12/14) VENOUS CATHETERIZATION NEC (10/12/14)
--- NOTE | 2020-10-28 14:58 | ADVANCE CARE PLANNING NOTE ---
Advance Care Planning - Planning Encounter Date: 10/28/20 Time: 14:30 Purpose: To discuss patient's goals of care with daughter Tyrel, who has come from [place], [place] for oversight of her mother's care. The daughter and I spoke on the phone. Parties in Attendance: I spoke to sky Sarah Decisional Capacity of the Patient: She is confused and has a poor memory and is intermittently somnolent because of being on opioids. Currently, she does not have good decisional capacity. - Encounter Subjective/Patient's Story: Underwent GI surgery several years ago that has left her with chronic abdominal pain. The source for that abdominal pain has not been discerned. She has seen many specialists for this. She takes [place] now switched to methadone recently, antidepressants, Xanax, gabapentin and marijuana gummy bears to control her pain. She has had at least 4 admissions for obtundation related to excessive sedative and narcotic use. Most recent of these was just 1 week previously. Because of these many admissions, the daughter from [facility] has come up to stay with the patient and her father to oversee all her care, especially to arrange her medications so that she does not overdose on these and become obtunded again. Dr. Woo is working on getting her on methadone to get her off of [place]. The daughter has requested that her gabapentin doses be decreased. The daughter told her father that he cannot go buying gummy bears for her that contain marijuana because of all her other sedatives. The patient has had several falls from being so obtunded, these falls have "knocked out all of her bottom teeth". The daughter says she already has a poor memory and now with these extra medications, she cannot make her own decisions. The daughter reports that since she has arrived, she makes sure that her methadone is only given twice a day since her father (the patient's ), takes the bottle of methadone with him to work and definitely only gives it twice a day. He will be doing the same thing with her other medication so it is not in the house. The patient uses a walker around the house and gets weak and short of breath easily. Most recently though home oxygen showed a saturation of 84% and the daughter noticed she was confused when this happened. The patient has a diagnosis of pulmonary fibrosis and has a cotton stomper at . He also monitors a nodule in the lungs by CT scanning. The patient has needed home oxygen before, but does not have any currently. The patient is a smoker of 40 years, has quit now. Objective/Medical Story: Patient recently admitted with obtundation for her fourth or fifth time because of excessive sedatives and narcotics. She is now getting supervised medication administration. She has been more short of breath recently and presented with a hemoglobin of 9 and it was just twelve 1 week ago. The stool is heme positive. She had an EGD showing only gastritis. The daughter wants to know if there will be further GI work-up here. Then she reported the history of chronic abdominal pain and that the patient is about to see a new specialist wound care on November 19, 2020. I advised that further GI work-up for bleeding and for cause of pain can be done by that specialist wound care. The patient is desaturating here at 86% on room air and we will likely have to reorder oxygen for home use again. The daughter says she is happy to hear this. The patient is also very deconditioned and home physical therapy is planned. The patient will like this a lot, acco rding to the daughter, because she is lonely and would love to have some attention in her home. Goals of Care: Patient would like to return home, and the daughter is planning to be there aboutanother month to get the home situation more safe. Plan: Continue with plan for home PT and OT. She will need an oximetry walk test before discharge to know the settings for the new home oxygen order, diagnosis pulmonary fibrosis. Continue with inhalers which may need to be newly prescribed. Continue with controlled management of pain meds and sedatives. Because she was on Prednisone 10 mg daily "for appetite stimulation", will taper prednisone to off quickly as it may have caused the gastritis. We have added Amitiza here for appetite stimulation. The daughter says there have been a trial of some other medication (possibly Mirtazapine) for appetite stimulation but this made her excessively dizzy. Time spent on advance care plannin min
[2020-10-28] MEDS: ALPRAZolam 0.25 MG TABLET PO PRN (17:47)
[2020-10-28] MEDS: predniSONE 5 MG TABLET PO SCH (17:47)
[2020-10-28] MEDS ORDERED: MIRTAZAPINE 15 MG TABLET PO SCH (21:00)
[2020-10-28] MEDS: PANTOPRAZOLE 40 MG TABLET PO SCH (21:14)
[2020-10-29] MEDS: polyethylene glycoL 3350 17 GM PACKET PO SCH (06:14)
[2020-10-29] MEDS: buPROPion SR 150 MG TABLET PO SCH (06:16)
[2020-10-29] MEDS: DOCUSATE SODIUM 250 MG CAPSULE PO SCH ×2 (06:16→06:33)
[2020-10-29] MEDS: predniSONE 5 MG TABLET PO SCH (06:16)
[2020-10-29] MEDS: METHADONE 5 MG TABLET PO SCH (06:16)
[2020-10-29] MEDS: PANTOPRAZOLE 40 MG TABLET PO SCH (06:17)
[2020-10-29] MEDS: DULoxetine 30 MG CAPSULE PO SCH (06:17)
[2020-10-29] MEDS: METOPROLOL TARTRATE 25 MG TABLET PO SCH (06:17)
[2020-10-29] MEDS: SENNA 8.6 MG TABLET PO SCH ×2 (06:17→06:33)
[2020-10-29] MEDS: MULTIVITAMIN TABLET PO SCH (06:17)
[2020-10-29 06:32] VITALS: BP 151/76
[2020-10-29] MEDS: SODIUM CHLORIDE FLUSH 0.9% 10 ML SYRINGE IVP SCH (06:33)
[2020-10-29] MEDS: IPRATROPIUM/ALBUTEROL 3 ML NEB INH SCH (07:23)
[2020-10-29 07:59] LABS: BASOPHILS % (AUTO) 0.3 %; EOSINOPHILS # (AUTO) 0.1 10^3/uL (0.0-0.7); EOSINOPHILS % (AUTO) 0.8 %; HCT - HEMATOCRIT 32.8 % (37.0-47.0); HGB - HEMOGLOBIN 9.8 g/dL (12.0-16.0); LYMPHOCYTES % (AUTO) 7.8 %; MEAN CORPUSCULAR HEMOGLOBIN 29.8 pg (27.0-31.0); MEAN CORPUSCULAR HGB CONC 29.9 g/dL (32.0-36.0); MEAN CORPUSCULAR VOLUME 99.7 fL (81.0-99.0); MEAN PLATELET VOLUME 9.6 fL (7.9-10.8); MONOCYTES # (AUTO) 0.8 10^3/uL (0.0-1.0); MONOCYTES % (AUTO) 6.3 %; NEUTROPHILS # (AUTO) 10.3 10^3/uL (1.5-6.6); NEUTROPHILS % (AUTO) 82.6 %; PLT - PLATELET COUNT 268 10^3/uL (130-450); RED BLOOD COUNT 3.29 10^6/uL (4.20-5.40); RED CELL DISTRIBUTION WIDTH 13.3 % (12.0-15.0); WHITE BLOOD COUNT 12.5 x10^3/uL (4.8-10.8)
[2020-10-29] MEDS ORDERED: FERROUS GLUCONATE 324 MG TABLET PO SCH (08:00)
[2020-10-29 08:03] LABS: ALBUMIN 2.7 g/dL (3.2-5.5); ALBUMIN/GLOBULIN RATIO 0.8 (1.0-2.2); BILIRUBIN,TOTAL 0.9 mg/dL (0.2-1.0); CREATININE 0.8 mg/dL (0.4-1.0); POTASSIUM 4.5 mmol/L (3.5-5.0); TOTAL PROTEIN 6.3 g/dL (6.7-8.2)
--- NOTE | 2020-10-29 11:18 | Discharge Plan ---
Discharge Plan Problem Reviewed?: Yes Disposition: Home Health Service Condition: Stable Prescriptions: Albuterol Sulf [Ventolin Hfa Inhaler] 1 puffs INH Q6HR PRN #18 gm PRN Reason: Shortness Of Air/Wheezing predniSONE [Deltasone] 5 mg PO DAILYWM #30 tablet Ferrous Gluconate [Fergon] 324 mg PO DAILYWM #30 tablet Pantoprazole [Protonix] 40 mg PO BID #60 tablet Diet: Regular Activity Restrictions: Activity as Tolerated Shower Restrictions: No (fall precaution) Instruction Topics: Bleeding Gastrointestinal, Gastritis, Oxygen Home Use, Pulmonary Fibrosis, Pantoprazole tablets, Albuterol inhalation aerosol Health Concerns: GI bleeding, pulmonary fibrosis/home oxygen usage Plan of Treatment: Your HGB is stable and slight increased. You have EGD done at hospital. You are found to have significant gastritis. You are prescribed Protonix to help healing of your significant gastritis. You may avoid NSAIDs such as Aspirin, Ibuprofen, Alcohol. You may follow-up outpatient GI physician Appointment to have colonoscopy, Continue management of GI symptoms. you may follow-up your PCP to recheck your HGB in 1 week You are prescribed home oxygen to help your hypoxia and history of pulmonary fibrosis. Your home prednisone dosage is reduced to 5 mg daily. You may follow- up RT instruction to safely use home oxygen in the home. you may Follow-up outpatient needle leader as well. You had slightly elevated liver enzyme, you may follow-up your PCP to recheck your liver enzymes in 1 week. Care Goals: Stabilization and improvement of your medical conditions Assessment: Discussed the care plan with you, you understood. Additional Instructions or Follow Up instructions: You may follow-up with your PCP in 1 week, follow-up with GI appointment in Nov.19. Should your symptoms return or worse, you may present to ER or call 911 for help Follow-Up Care: Home Health - PT No Smoking: If you smoke, Please STOP! Call for help. Follow-up with: Jv Woo MD [Primary Care Provider] -
--- NOTE | 2020-10-29 11:31 | DISCHARGE SUMMARY ---
"Discharge Summary Admit Date: 10/27/20 Discharge Date: 10/29/20 Discharging Provider: Marcello Zaragoza Primary Care Provider: Jv Jefferson Condition at Discharge: Stable Discharge Disposition: Home Health Service Discharge Facility Name: home - DIAGNOSES Discharge Diagnoses with Status of Each Condition: (1)GI bleed HGB is stable and slight increased. pt did not notice black stool. Patient had a EGD done in the hospital which show extensive gastritis. Patient is prescribed Protonix, reduced steroid dosage. Patient will follow up with her GI appointment in Nov.19. patient may have colonoscopy as outpatient. Patient is advised to hold any NSAIDs, such as aspirin, ibuprofen and avoid alcohol intake. (2) anemia HGB is stable and slight increased. Patient was also found to have iron deficiency. Patient is prescribed iron pill. Follow-up with her PCP to recheck hemoglobin. (3) Gastritis The EGD showed extensive gastritis which can be from her steroid use. Patient's prednisone dosage is reduced to 5 mg daily, patient has a history of pulmonary fibrosis as well. Patient may follow-up her PCP to continue management. Patient is prescribed twice daily Protonix and discharged on this.Avoid aspirin, Ibuprofen and NSAIDs, Avoid alcohol intake. pt may have further GI work-up for bleeding source be ordered by the new matrix bath operator that she is schedukled to see on 11/19/20, pt may have colonoscopy and possible pill camera of the small intestine as out-pt. (4) Acute on chronic respiratory failure with hypoxia Stable, patient has history of pulmonary fibrosis. Patient is prescribed home oxygen as well (5) Pulmonary fibrosis Patient was hypoxia at rest, patient had 85% oxygen saturation on room air. on 3 LPM of O2 on nasal cannula at rest her oxygen saturation was 92%. With exertion on 4 LPM of O2, her oxygen saturation improved to 91%. I am ordering home oxygen, 3 LPM at rest and 4 LPM with exertion to treat her pulmonary fibrosis and subsequent hypoxia. (6) Generalized weakness Patient had PT and OT evaluation in the hospital, patient is arranged home health with PT (7) Chronic generalized abdominal pain Assessment/Plan: After her GI surgery several years ago, she is chronic abdominal pain. She has had work-up for why there is continued abdominal pain and no one has found a cause, according to the daughter's history. She is scheduled to see a new matrix bath operator on November 19. I advised that she may have further GI work-up be ordered by that matrix bath operator. (8) Opioid dependence Stable, patient may continue follow-up her PCP to manage for her chronic pain (9) HTN (hypertension) Stable (10)elevated LFTs Patient had a slightly elevated liver enzyme but denies nausea, vomiting. pt continue to have appetite. She has had work-up for why there is continued abdominal pain and no one has found a cause, according to the daughter's history. She is scheduled to see a new matrix bath operator on November 19.Patient may follow-up with her PCP in the next week to recheck liver enzyme (11)altered mental status resolved, as her baseline. - HPI History of Present Illness: refer from Dr. Pedersen's HPI on 10/27/20 The patient is an 80-year-old female with multiple past medical problems, including chronic pain and opiate dependence, who was recently admitted between October 22 and October 23 under observation for unintentional opiate overdose. For details as I refer the reader to the chart notes. Overnight on October 27, the patient presented to the ER accompanied by her daughter with the chief complaint of weakness and abdominal pain. Patient's daughter provided most of the history. She came to [place] from [place] to stay with her mother and assist her with activities of daily living and with medication supervision. During the past few days the patient had fluctuating course, initially was very weak after she was discharged from the hospital, h owever the next day she perked up and was doing better, eating more, being more active. The daughter tightly supervised the medications and the patient took everything as prescribed. The next day however she again became somnolent, less active with decreased appetite, was noted more confused than usual. On October 26 patient could barely get out of bed, was noted short of breath, complained of more abdominal pain therefore the daughter brought her to the ER for evaluation. Upon presentation the patient had stable vital signs, initial oxygen saturation was 96% on room air however during the ER stay her oxygen saturation was fluctuating. She was provided supplemental oxygen to maintain saturations in the mid 90s. Chest x-ray showed chronic changes, no focal infiltrate. Notably the patient has chronic lung disease however no oxygen dependence. Covid test pending. ER work-up was grossly unremarkable except for worsening anemia. Baseline hemoglobin in the past was between 11 and 12, today it was 9.4. Therefore the ER physician performed rectal exam which showed brown stool which was Hemoccult positive. Interviewing the patient she complained of abdominal pain however not worse than her usual chronic abdominal pain. She denied seeing black stools or having any episode of GI bleed. She denied nausea or vomiting. She did not report change in her bowel habits. Her daughter mentioned that the patient had GI evaluation including endoscopy and colonoscopy before 2013. Review of the chart, notably, the patient has history of erosive gastritis and a different diagnosis. She had been on prednisone for chronic pain, most recent dose was 10 mg daily. No significant NSAID use was reported. Regarding respiratory symptoms, the patient denied cough or fever. Did not report chest pain or shortness of breath. - CONSULTS | PROCEDURES Consultations: Dr. Grant Procedures: EGD - HOSPITAL COURSE Hospital Course: Patient was admitted for mental status change. Patient was found to have anemia, guaiac test is positive for GI bleed. Patient also was found hypoxia. Patient had GI consult, patient had EGD done in hospital which showed extensive gastritis. Patient required home oxygen, patient has history of pulmonary fibrosis. Patient was prescribed intravenous Protonix, hold NSAIDs such as aspirin or ibuprofen. Patient's hemoglobin continues stable and slightly incr eased. Patient is prescribed home oxygen. Patient is discharged in hemodynamically condition - ALLERGIES Allergies/Adverse Reactions: Allergies Allergy/AdvReac Type Severity Reaction Status Date / Time No Known Drug Allergies Allergy Verified 10/22/20 14:53 - MEDICATIONS Home Medications: Ambulatory Orders Medication Instructions Recorded Confirmed Metoprolol Tartrate 25 mg PO BID 01/31/16 10/27/20 Multivitamin [Theragran] 1 tab PO DAILY 01/31/16 10/27/20 buPROPion [Wellbutrin Sr] 150 mg PO BID 02/24/18 10/27/20 Duloxetine HCl 60 mg PO DAILY 04/11/19 10/27/20 ALPRAZolam [Alprazolam] 0.25 mg PO Q8HR PRN #12 tablet 10/23/20 10/27/20 Methadone HCl 10 mg PO BID 10/23/20 10/27/20 polyethylene glycoL 3350 [Miralax] 17 gm PO DAILY packet 10/23/20 10/27/20 Mirtazapine 7.5 mg PO QPM 10/27/20 10/27/20 Valsartan 160 mg PO DAILY 10/27/20 10/27/20 Albuterol Sulf [Ventolin Hfa 1 puffs INH Q6HR PRN #18 gm 10/29/20 Inhaler] Ferrous Gluconate [Fergon] 324 mg PO DAILYWM #30 tablet 10/29/20 Pantoprazole [Protonix] 40 mg PO BID #60 tablet 10/29/20 predniSONE [Deltasone] 5 mg PO DAILYWM #30 tablet 10/29/20 - PHYSICAL EXAM AT DISCHARGE General Appearance: positive: No acute distress, Alert. negative: Lethargic Eyes Bilateral: positive: Normal inspection, PERRL, No lid inflammation ENT: positive: ENT inspection nml, No signs of dehydration. negative: Purulent nasal drainage Neck: positive: Nml inspection, Trachea midline. negative: Thyromegaly, Tracheal deviation Respiratory: positive: Chest non-tender, No respiratory distress. negative: Wheezes Cardiovascular: positive: Regular rate & rhythm, No murmur. negative: Tachycardia, Bradycardia, Systolic murmur, Diastolic murmur Peripheral Pulses: positive: 2+ Abdomen: positive: Non-tender, Nml bowel sounds, No distention. negative: Tenderness Back: positive: Nml inspection Skin: positive: Color nml, Warm, Dry. negative: Cyanosis Extremities: positive: Non-tender. negative: Calf tenderness Neurologic/Psychiatric: positive: Oriented x3, Sensation nml, Mood/affect nml. negative: Weakness, Sensory loss, Facial droop, Slurred/abnml speech, Depressed mood/affect - LABS Result Diagrams: 10/29/20 07:43 10/29/20 07:43 - FOLLOW UP Follow Up: Your HGB is stable and slight increased. You have EGD done at hospital. You are found to have significant gastritis. You are prescribed Protonix to help healing of your significant gastritis. You may avoid NSAIDs such as Aspirin, Ibuprofen, Alcohol. You may follow-up outpatient GI physician Appointment to have colonoscopy, Continue management of GI symptoms. you may follow-up your PCP to recheck your HGB in 1 week You are prescribed home oxygen to help your hypoxia and history of pulmonary fibrosis. Your home prednisone dosage is reduced to 5 mg daily. You may follow- up RT instruction to safely use home oxygen in the home. you may Follow-up outpatient bi specialist as well. You had slightly elevated liver enzyme, you may follow-up your PCP to recheck yo ur liver enzymes in 1 week. You may follow-up with your PCP in 1 week, follow-up with GI appointment in Nov.19, Follow-up with bi specialist to manage her pulmonary fibrosis. Should your symptoms return or worse, you may present to ER or call 911 for help - TIME SPENT Time Spent in Discharge (Minutes): 30"
== END 2020-10-29 12:55 | disposition home health service (06) | DRG 377 ==
LOC: ED 22:25 → MS2 10-27 02:40 → OBSVTOIN 10-27 10:53
PROVIDERS: ADMIT Internal Medicine; ATTEND Specialist
PROC: 0DJ08ZZ Inspection of Upper Intestinal Tract, Via Natural or Artificial Opening Endoscopic (ICD-10-PCS; principal; 2020-10-26)
DX: K92.2 Gastrointestinal hemorrhage, unspecified (principal); D64.9 Anemia, unspecified; K29.71 Gastritis, unspecified, with bleeding; J96.21 Acute and chronic respiratory failure with hypoxia; F11.20 Opioid dependence, uncomplicated; Z68.1 Body mass index [BMI] 19.9 or less, adult; E46 Unspecified protein-calorie malnutrition; D50.0 Iron deficiency anemia secondary to blood loss (chronic); R62.7 Adult failure to thrive; J84.10 Pulmonary fibrosis, unspecified; J43.9 Emphysema, unspecified; I10 Essential (primary) hypertension; G89.29 Other chronic pain; M48.00 Spinal stenosis, site unspecified; M54.9 Dorsalgia, unspecified; Z20.822 Contact with and (suspected) exposure to COVID-19; R10.9 Unspecified abdominal pain; K21.9 Gastro-esophageal reflux disease without esophagitis; K44.9 Diaphragmatic hernia without obstruction or gangrene; F32.9 Major depressive disorder, single episode, unspecified; F41.9 Anxiety disorder, unspecified; R32 Unspecified urinary incontinence; R53.81 Other malaise; F03.90 Unspecified dementia, unspecified severity, without behavioral disturbance, psychotic disturbance, mood disturbance, and anxiety; R53.1 Weakness; R79.89 Other specified abnormal findings of blood chemistry; K59.09 Other constipation; R35.1 Nocturia; R35.0 Frequency of micturition; H54.7 Unspecified visual loss; R91.1 Solitary pulmonary nodule; M81.0 Age-related osteoporosis without current pathological fracture; Z96.649 Presence of unspecified artificial hip joint; Z99.81 Dependence on supplemental oxygen; Z79.52 Long term (current) use of systemic steroids; Z79.899 Other long term (current) drug therapy; Z87.11 Personal history of peptic ulcer disease; Z87.01 Personal history of pneumonia (recurrent); Z87.19 Personal history of other diseases of the digestive system; Z87.891 Personal history of nicotine dependence; Z86.73 Personal history of transient ischemic attack (TIA), and cerebral infarction without residual deficits; Z91.81 History of falling; Z90.49 Acquired absence of other specified parts of digestive tract
CPT/HCPCS: 36415; 51701; 71045; 80048; 80053; 80076; 81003; 82272; 82607; 82746; 83540; 83605; 83690; 83735; 84466; 85014; 85018; 85025; 85027; 85045; 85610; 87631; 94640; 94761; 96374; 96376; 97161; 97530; 99284; 99285; A9270; J7120; J7512; 0202U; 81001; 84443; 87086; 87635